=== PATIENT | female | born 1985 | race African-American/Black ===

== ENCOUNTER 2020-03-06 22:45 | Emergency (ER) | payer OTHER ==
[~2020-03-06] VITALS: Ht 157.5 cm; Wt 56.8 kg
[~2020-03-06 22:45] MED LIST: ACYC400T PO; DICL250C PO; DICY20TA3 PO; IBUP-1060 PO; INFL100V IV; OXYC1TAB19 PO; POTA10TA12 PO; PRED20TA PO; REMI100D IV
[2020-03-06] MEDS ORDERED: methylPREDNISolone SOD SUCC PF 125 MG/2 ML VIAL. IM ONE (23:30)
[2020-03-06] MEDS ORDERED: LIDOCAINE 1% PF 5 ML VIAL. INJ ONE (23:30)
--- NOTE | 2020-03-06 23:46 | PHYS DOC ---
Past Medical History Past Medical History: Other Additional Past Medical Histor: chronbrittany tx with remicade Past Surgical History: Other Additional Past Surgical Histo: colostomy with takedown 2010 Smoking Status: Never Smoker Alcohol Use: None Drug Use: None General Adult EDM: Chief Complaint: MULTIPLE COMPLAINTS HPI: HPI: Patient is a 34 year old female with past medical history of Crohn's presents with a chief complaint of Crohn's exacerbation and abscess on her buttocks. Patient states she was previously on prednisone and Percocet for her Crohn's but has not taken them for several weeks. Patient states current exacerbation started 2 days ago. Patient's pain is diffuse. Patient states she has had a decreased appetite. Patient has chronic loose stools which she states are looser than normal. She denies any blood in her stools. Patient also complains of an abscess located in her right buttocks. Patient states she noticed swelling and tenderness today. Review of Systems: Review of Systems: Constitutional: Denies fever or chills. [] Eyes: Denies change in visual acuity. [] HENT: Denies nasal congestion or sore throat. [] Respiratory: Denies cough or shortness of breath. [] Cardiovascular: Denies chest pain or edema. [] GI: Positive abdominal pain : Denies dysuria. [] Musculoskeletal: Denies back pain or joint pain. [] Integument: Denies rash. [Positive abscess] Neurologic: Denies headache, focal weakness or sensory changes. [] Endocrine: Denies polyuria or polydipsia. [] Lymphatic: Denies swollen glands. [] Psychiatric: Denies depression or anxiety. [] Heart Score: Risk Factors: Risk Factors: DM, Current or recent (<one month) smoker, HTN, HLP, family history of CAD, obesity. Risk Scores: Score 0 - 3: 2.5% MACE over next 6 weeks - Discharge Home Score 4 - 6: 20.3% MACE over next 6 weeks - Admit for Clinical Observation Score 7 - 10: 72.7% MACE over next 6 weeks - Early Invasive Strategies Current Medications: Current Medications Medications (Trade) Dose Ordered Sig/Nguyen Start Time Stop Time Status Last Admin Dose Admin Lidocaine HCl (Xylocaine-Mpf 1% 5ml Vial) 5 ml 1X ONCE 03/06/20 23:30 03/06/20 23:31 DC Methylprednisolone Sodium Succinate (SOLU-Medrol 125MG VIAL) 125 mg 1X ONCE 03/06/20 23:30 03/06/20 23:31 DC Allergies: Allergies: Allergies Coded Allergies Type Severity Reaction Last Updated Verified morphine Allergy Intermediate Itching 08/07/19 Yes Physical Exam: PE: Constitutional: Well developed, well nourished, no acute distress, non-toxic appearance. [] HENT: Normocephalic, atraumatic, bilateral external ears normal, oropharynx moist, no oral exudates, nose normal. [] Eyes: PERRLA, EOMI, conjunctiva normal, no discharge. [] Neck: Normal range of motion, no tenderness, supple, no stridor. [] Cardiovascular:Heart rate regular rhythm, no murmur [] Lungs & Thorax: Bilateral breath sounds clear to auscultation [] Abdomen: Bowel sounds normal, soft, no tenderness, no masses, no pulsatile masses. [] Skin: Warm, dry, no erythema, no rash. Abscess located in the right buttock cheek along the crack. This was examined with nursing patient coordinator. Area is firm and fluctuant. Does not appear to involve the rectum] Back: No tenderness, no CVA tenderness. [] Extremities: No tenderness, no cyanosis, no clubbing, ROM intact, no edema. [] Neurologic: Alert and oriented X 3, normal motor function, normal sensory function, no focal deficits noted. [] Psychologic: Affect normal, judgement normal, mood normal. [] Current Patient Data: Vital Signs: Vital Signs Date Time Temp Pulse Resp B/P (MAP) Pulse Ox O2 Delivery O2 Flow Rate FiO2 03/06/20 23:10 98.7 108 22 114/73 (87) 98 Room Air 98.7 EKG: EKG: [] Radiology/Procedures: Radiology/Procedures: [] Course & Med Decision Making: Course & Med Decision Making Pertinent Labs and Imaging studies reviewed. (See chart for details) [] Patient was evaluated for chief complaint. Initial treatment plan was treatment with Solu-Medrol Toradol and tablet of Percocet. Patient was unhappy with this plan states when she comes to the hospital they always perform labs give her IV fluids and do a CAT scan. P.o. Bentyl was prescribed with patient patient declined. Patient requested IV narcotic pain medications on multiple occasions to myself and to nursing. Lab work obtained and reviewed. Patient did have a mildly elevated white blood cell count of 14. Patient's potassium was 3.4. Initially patient was agreeable to an I&D of abscess. When I went into the room to perform the I&D patient states she does not want it at this time and prefers antibiotic treatment only. Rhonda Disclaimer: Rhonda Disclaimer: This electronic medical record was generated, in whole or in part, using a voice recognition dictation system. Departure Departure Impression: Primary Impression: Crohn's disease Additional Impressions: Abdominal pain Abscess Hypokalemia Disposition: HOME, SELF-CARE Referrals: NO PCP (PCP) Patient Instructions: Abdominal Pain, Abscess, Chronic Pain Scripts Amoxicillin/Potassium Clav (AUGMENTIN 875-125 TABLET) 1 Each Tablet 1 TAB PO BID for 7 Days, #14 TAB 0 Refills Prov: LATOYA RICE DO 03/07/20 Justicifation of Admission Dx: Justifications for Admission: Justification of Admission Dx: N/A LATOYA RICE DO Mar 06, 2020 23:46
[2020-03-07] MEDS ORDERED: oxyCODONE/APAP 5/325 1 TAB TABLET PO ONE
[2020-03-07] MEDS ORDERED: KETOROLAC 60 MG/2 ML VIAL. IM ONE
[2020-03-07] MEDS ORDERED: IOHEXOL 300 MG/ML 100ML VIAL. IV ONE (00:45)
[2020-03-07] MEDS ORDERED: CONTRAST GIVEN. MC PRN (00:45)
[2020-03-07 00:55] LABS: BASO # 0.1 x10^3/uL (0.0-0.2); BASO % 0 % (0-3); EOS # 0.1 x10^3/uL (0.0-0.7); EOS % 1 % (0-3); HEMATOCRIT 37.4 % (36.0-47.0); HEMOGLOBIN 11.7 g/dL (12.0-15.5); LYMPH # 2.1 x10^3/uL (1.0-4.8); LYMPH % 15 % (24-48); MEAN CORPUSCULAR HEMOGLOBIN 28 pg (25-35); MEAN CORPUSCULAR HGB CONC 31 g/dL (31-37); MEAN CORPUSCULAR VOLUME 88 fL (79-100); MONO # 1.5 x10^3/uL (0.0-1.1); MONO % 11 % (0-9); NEUT # 10.7 x10^3/uL (1.8-7.7); NEUT % 74 % (31-73); PLATELET COUNT 420 x10^3/uL (140-400); RED BLOOD COUNT 4.24 x10^6/uL (3.50-5.40); RED CELL DISTRIBUTION WIDTH 16.7 % (11.5-14.5); WHITE BLOOD COUNT 14.6 x10^3/uL (4.0-11.0)
[2020-03-07 01:02] LABS: CALCIUM 9.2 mg/dL (8.5-10.1); CREATININE 0.7 mg/dL (0.6-1.0); GFR 117.3; POTASSIUM 3.2 mmol/L (3.5-5.1)
[2020-03-07 01:08] LABS: ALBUMIN 3.2 g/dL (3.4-5.0); ALBUMIN/GLOBULIN RATIO 0.7 (1.0-1.7); TOTAL BILIRUBIN 0.1 mg/dL (0.2-1.0); TOTAL PROTEIN 7.9 g/dL (6.4-8.2)
[2020-03-07 01:28] LABS: BILIRUBIN,URINE NEGATIVE (NEG); CLARITY,URINE CLEAR; COLOR,URINE YELLOW; NITRITE,URINE NEGATIVE (NEG); PROTEIN,URINE NEGATIVE (NEG-TRACE)
[2020-03-07] MEDS ORDERED: KETOROLAC 30 MG/ML VIAL. IVP ONE (01:30)
[2020-03-07 01:34] LABS: SQUAMOUS EPITHELIAL CELL,UR MANY /LPF
[2020-03-07 01:35] LABS: BACTERIA,URINE FEW /HPF (0-FEW); RBC,URINE 0 /HPF (0-2)
[2020-03-07] MEDS: DICYCLOMINE HCL 10 MG CAPSULE PO ONE ×2 (02:10→02:11)
--- NOTE | 2020-03-07 02:56 | RAD ---
PQRS Compliance Statement: One or more of the following individualized dose reduction techniques were utilized for this examination: 1. Automated exposure control 2. Adjustment of the mA and/or kV according to patient size 3. Use of iterative reconstruction technique CT ABD PELV W/ IV CONTRST ONLY Clinical Indication: Reason: abd pain, Comparison: CT abdomen and pelvis with contrast April 03, 2016. Technique: Helical CT imaging of the abdomen and pelvis is performed after 75 cc of Omnipaque 300 IV contrast. Oral contrast not administered. Findings: Lung bases are clear. Respiratory motion artifact. Cardiac size normal. Gallbladder is contracted. Liver, spleen, pancreas, adrenal glands, and abdominal aorta are normal. There is punctate nonobstructing calculus of the left kidney. Kidneys enhance symmetrically, no hydronephrosis. No obvious abnormality of the stomach. There is no evidence of small bowel obstruction. There is wall thickening of the sigmoid, descending, and transverse colon. There are postsurgical changes of bowel redemonstrated. Mesenteric adenopathy is unchanged. Urinary bladder is decompressed. Uterus unremarkable, not well evaluated with CT. No pelvic free fluid is identified. There is induration of the midline posterior right gluteal subcutaneous fat. Small amount of complex fluid is seen subcutaneously measuring 1.9 cm AP by 0.9 cm transverse by 0.9 cm craniocaudal. There is rim enhancement of the complex fluid. No acute bone abnormality. IMPRESSION: 1. There is wall thickening of the colon suggesting colitis, probably inflammatory bowel disease versus infectious. Findings are similar to prior study. 2. Mesenteric adenopathy is unchanged. 3. There is posterior right gluteal subcutaneous fat induration and small abscess. Suggest correlation with physical exam. Electronically signed by: Rocco Springer MD (03/07/2020 2:52 AM) [facility]
[2020-03-07] MEDS ORDERED: AMOX1TAB61 PO (02:59)
[2020-03-07] MEDS ORDERED: PRED20TA PO (03:02)
[2020-03-07] MEDS ORDERED: OXYC1TAB22 PO (03:02)
[2020-03-07 03:20] VITALS: BP 130/79
== END 2020-03-07 03:20 | disposition home or self-care (01) ==
LOC: ER 22:45
DX: K50.90 Crohn's disease, unspecified, without complications (principal); L02.31 Cutaneous abscess of buttock; E87.6 Hypokalemia; K52.9 Noninfective gastroenteritis and colitis, unspecified; D72.829 Elevated white blood cell count, unspecified; Z93.3 Colostomy status; Z88.5 Allergy status to narcotic agent
CPT/HCPCS: 36415; 74177; 80053; 81001; 81025; 85025; 87086; 96372; 96374; 99285; J1885; J2930; Q9967; J3490

== ENCOUNTER 2020-03-13 14:19 | Emergency (ER) | payer OTHER ==
[~2020-03-13] VITALS: Ht 157.5 cm; Wt 56.8 kg
[~2020-03-13 14:19] MED LIST changes: +AMOX1TAB61 PO; +OXYC1TAB22 PO
[2020-03-13] MEDS ORDERED: ONDANSETRON PF 4 MG/2 ML VIAL. IV ONE (15:45)
[2020-03-13] MEDS ORDERED: fentaNYL PF VIAL 100 MCG/2 ML VIAL IV ONE (15:45)
[2020-03-13] MEDS ORDERED: IV NORMAL SALINE 1000ML BAG 1,000 ML IV ONE (15:45)
[2020-03-13 15:59] LABS: BILIRUBIN,URINE NEGATIVE (NEG); CLARITY,URINE CLEAR; COLOR,URINE YELLOW; NITRITE,URINE NEGATIVE (NEG); PROTEIN,URINE NEGATIVE (NEG-TRACE); UROBILINOGEN,URINE 0.2 mg/dL (0.2 mg/dL)
[2020-03-13 16:15] LABS: SQUAMOUS EPITHELIAL CELL,UR MOD /LPF
[2020-03-13 16:17] LABS: BACTERIA,URINE FEW /HPF (0-FEW); RBC,URINE 0 /HPF (0-2)
[2020-03-13] MEDS ORDERED: HYDROmorphone 2 MG/ML VIAL IVP ONE (16:30)
[2020-03-13] MEDS ORDERED: IOHEXOL 300 MG/ML 100ML VIAL. IV ONE (17:00)
[2020-03-13] MEDS ORDERED: CONTRAST GIVEN. MC PRN (17:15)
[2020-03-13 17:37] LABS: BASO % 0 % (0-3); EOS % 0 % (0-3); HEMOGLOBIN 11.8 g/dL (12.0-15.5); LYMPH # 1.7 x10^3/uL (1.0-4.8); LYMPH % 13 % (24-48); MEAN CORPUSCULAR HEMOGLOBIN 28 pg (25-35); MEAN CORPUSCULAR HGB CONC 32 g/dL (31-37); MEAN CORPUSCULAR VOLUME 88 fL (79-100); MONO # 0.5 x10^3/uL (0.0-1.1); MONO % 4 % (0-9); NEUT # 10.3 x10^3/uL (1.8-7.7); NEUT % 82 % (31-73); PLATELET COUNT 463 x10^3/uL (140-400); RED BLOOD COUNT 4.22 x10^6/uL (3.50-5.40); RED CELL DISTRIBUTION WIDTH 15.9 % (11.5-14.5); WHITE BLOOD COUNT 12.5 x10^3/uL (4.0-11.0)
--- NOTE | 2020-03-13 17:44 | RAD ---
CT ABD PELV W/ IV CONTRST ONLY History: Reason: abd pain, LLQ TTP, hx of Crohn's, pancreatitis, recent SBO Technique: After the administration of intravenous contrast, CT imaging was performed of the abdomen and pelvis. Multiplanar images are reviewed. Exposure: One or more of the following individualized dose reduction techniques were utilized for this examination: 1. Automated exposure control 2. Adjustment of the mA and/or kV according to patient size 3. Use of iterative reconstruction technique. Comparison: March 07, 2020 Findings: Lower chest: No consolidation or pleural effusion. Abdomen and pelvis: The liver, spleen, adrenal glands, and gallbladder are unremarkable. Tiny nonobstructing left renal calculus. No hydronephrosis. Unremarkable appearance of the pancreas. No biliary ductal dilatation. Patent portal veins. Postoperative changes partial colectomy with additional postoperative changes of the small bowel. Distal colonic and rectal wall thickening, decreased compared to prior. Decreased adjacent inflammatory changes. No evidence of intra-abdominal abscess. No evidence of bowel obstruction. Increased small bowel wall thickening within the right mid abdomen (series 2 image 48). This is just proximal to one of the small bowel anastomoses. Unchanged mesenteric lymphadenopathy. No ascites. Unremarkable uterus and ovaries. Result previously seen right gluteal subcutaneous abscess. Bones: No pathologic osseous lesions. Impression: 1. Increased focal small bowel wall thickening, may relate to known inflammatory bowel disease. 2. Decreased distal colonic and rectal wall thickening previously seen. 3. Tiny nonobstructing left intrarenal calculus. Electronically signed by: Julio César Pagan DO (03/13/2020 5:41 PM) [facility]
[2020-03-13 17:45] LABS: CALCIUM 8.8 mg/dL (8.5-10.1); CREATININE 0.5 mg/dL (0.6-1.0); POTASSIUM 3.7 mmol/L (3.5-5.1)
[2020-03-13 17:51] LABS: ALBUMIN 3.3 g/dL (3.4-5.0); ALBUMIN/GLOBULIN RATIO 0.8 (1.0-1.7); TOTAL BILIRUBIN 0.1 mg/dL (0.2-1.0); TOTAL PROTEIN 7.5 g/dL (6.4-8.2)
[2020-03-13 18:00] VITALS: BP 135/80
[2020-03-13] MEDS ORDERED: oxyCODONE/APAP 5/325 1 TAB TABLET PO ONE (18:30)
[2020-03-13] MEDS ORDERED: OXYC1TAB15 PO (18:37)
[2020-03-13] MEDS ORDERED: DICY10CA3 PO (18:37)
[2020-03-13] MEDS ORDERED: PRED50TA PO (18:37)
--- NOTE | 2020-03-13 18:38 | PHYS DOC ---
Past Medical History Past Medical History: Other Additional Past Medical Histor: chrones tx with remicade (TOÑITO RAMACHANDRAN APRN) Past Surgical History: Other Additional Past Surgical Histo: colostomy with takedown 2011 (TOÑITO RAMACHANDRAN APRN) Smoking Status: Never Smoker Alcohol Use: None Drug Use: None (TOÑITO RAMACHANDRAN APRN) General Adult EDM: Chief Complaint: PAIN CONTROL HPI: HPI: Patient is a 34 year old AA female who presents to the emergency department with complaints of diarrhea and abdominal cramping for the last 2 days. Patient reports a history of Crohn's disease. She denies any blood in her diarrhea., She states that her diarrhea has been watery. She denies any nausea, vomiting, fever, cough, sore throat, body aches, chills, dysuria, hematuria, or increased urinary frequency. Patient complains of some low back pain and generalized fatigue. She currently rates her discomfort a 7 out of 10 on the pain scale, she denies any alleviating or exacerbating factors patient states she does not currently have a administration clerk. (TOÑITO RAMACHANDRAN APRN) Review of Systems: Review of Systems: Constitutional: Denies fever or chills. [] Eyes: Denies change in visual acuity. [] HENT: Denies nasal congestion or sore throat. [] Respiratory: Denies cough or shortness of breath. [] Cardiovascular: Denies chest pain or edema. [] GI: See HPI : Denies dysuria. [] Musculoskeletal: See HPI Integument: Denies rash. [] Neurologic: Denies headache Lymphatic: Denies swollen glands. [] Psychiatric: Denies depression or anxiety. [] (TOÑITO RAMACHANDRAN APRN) Heart Score: Risk Factors: Risk Factors: DM, Current or recent (<one month) smoker, HTN, HLP, family history of CAD, obesity. Risk Scores: Score 0 - 3: 2.5% MACE over next 6 weeks - Discharge Home Score 4 - 6: 20.3% MACE over next 6 weeks - Admit for Clinical Observation Score 7 - 10: 72.7% MACE over next 6 weeks - Early Invasive Strategies (TOÑITO RAMACHANDRAN APRN) Current Medications: Current Medications Medications (Trade) Dose Ordered Sig/Nguyen Start Time Stop Time Status Last Admin Dose Admin Fentanyl Citrate (Fentanyl 2ml Vial) 50 mcg 1X ONCE 03/13/20 15:45 03/13/20 15:46 DC 03/13/20 16:03 50 MCG Hydromorphone HCl (Dilaudid) 1 mg 1X ONCE 03/13/20 16:30 03/13/20 16:31 DC 03/13/20 16:52 1 MG Info (CONTRAST GIVEN -- Rx MONITORING) 1 each PRN DAILY PRN 03/13/20 17:15 03/15/20 17:14 Iohexol (Omnipaque 300 Mg/ml) 75 ml 1X ONCE 03/13/20 17:00 03/13/20 17:01 DC 03/13/20 17:15 75 ML Ondansetron HCl (Zofran) 4 mg 1X ONCE 03/13/20 15:45 03/13/20 15:46 DC 03/13/20 16:03 4 MG Oxycodone/ Acetaminophen (Percocet 5/325) 1 tab 1X ONCE 03/13/20 18:30 03/13/20 18:31 UNV Sodium Chloride 1,000 ml @ 1,000 mls/hr 1X ONCE 03/13/20 15:45 03/13/20 16:44 DC 03/13/20 15:45 1,000 MLS/HR (TOÑITO RAMACHANDRAN APRN) Allergies: Allergies: Allergies Coded Allergies Type Severity Reaction Last Updated Verified morphine Allergy Intermediate Itching 08/07/19 Yes (TOÑITO RAMACHANDRAN APRN) Physical Exam: PE: Constitutional: Well developed, well nourished, no acute distress, non-toxic appearance, appears uncomfortable. [] HENT: Normocephalic, atraumatic, bilateral external ears normal, nose normal. [] Eyes: PERRLA, EOMI, conjunctiva normal, no discharge. [] Neck: Normal range of motion, no stridor. [] Cardiovascular:Heart rate regular rhythm, no murmur [] Lungs & Thorax: Bilateral breath sounds clear to auscultation, respirations even and unlabored, no retractions, no respiratory distress [] Abdomen: Bowel sounds normal, soft, lower abdominal TTP, no rebound tenderness, no masses, no pulsatile masses. [] Skin: Warm, dry, no erythema, no rash. [] Back: No CVA tenderness. [] Extremities: No cyanosis, ROM intact, no edema. [] Neurologic: Alert and oriented X 3, no focal deficits noted. [] Psychologic: Affect normal, judgement normal, mood normal. [] (TOÑITO RAMACHANDRAN APRN) Current Patient Data: Labs: Laboratory Tests Test 03/13/20 12:45 03/13/20 15:22 03/13/20 17:20 Urine Collection Type Unknown Urine Color Yellow Urine Clarity Clear Urine pH 6.0 (<5.0-8.0) Urine Specific [place] 1.015 (1.000-1.030) Urine Protein Negative mg/dL (NEG-TRACE) Urine Glucose (UA) Negative mg/dL (NEG) Urine Ketones (Stick) Negative mg/dL (NEG) Urine Blood Trace (NEG) Urine Nitrite Negative (NEG) Urine Bilirubin Negative (NEG) Urine Urobilinogen Dipstick 0.2 mg/dL (0.2 mg/dL) Urine Leukocyte Esterase Negative (NEG) Urine RBC 0 /HPF (0-2) Urine WBC 1-4 /HPF (0-4) Urine Squamous Epithelial Cells Mod /LPF Urine Bacteria Few /HPF (0-FEW) Urine Mucus Mod /LPF POC Urine HCG, Qualitative Hcg negative (Negative) White Blood Count 12.5 x10^3/uL (4.0-11.0) H Red Blood Count 4.22 x10^6/uL (3.50-5.40) Hemoglobin 11.8 g/dL (12.0-15.5) L Hematocrit 37.0 % (36.0-47.0) Mean Corpuscular Volume 88 fL (79-100) Mean Corpuscular Hemoglobin 28 pg (25-35) Mean Corpuscular Hemoglobin Concent 32 g/dL (31-37) Red Cell Distribution Width 15.9 % (11.5-14.5) H Platelet Count 463 x10^3/uL (140-400) H Neutrophils (%) (Auto) 82 % (31-73) H Lymphocytes (%) (Auto) 13 % (24-48) L Monocytes (%) (Auto) 4 % (0-9) Eosinophils (%) (Auto) 0 % (0-3) Basophils (%) (Auto) 0 % (0-3) Neutrophils # (Auto) 10.3 x10^3/uL (1.8-7.7) H Lymphocytes # (Auto) 1.7 x10^3/uL (1.0-4.8) Monocytes # (Auto) 0.5 x10^3/uL (0.0-1.1) Eosinophils # (Auto) 0.0 x10^3/uL (0.0-0.7) Basophils # (Auto) 0.0 x10^3/uL (0.0-0.2) Sodium Level 136 mmol/L (136-145) Potassium Level 3.7 mmol/L (3.5-5.1) Chloride Level 101 mmol/L (98-107) Carbon Dioxide Level 29 mmol/L (21-32) Anion Gap 6 (6-14) Blood Urea Nitrogen 16 mg/dL (7-20) Creatinine 0.5 mg/dL (0.6-1.0) L Estimated GFR (Cockcroft-Gault) 173.0 BUN/Creatinine Ratio 32 (6-20) H Glucose Level 93 mg/dL (70-99) Calcium Level 8.8 mg/dL (8.5-10.1) Magnesium Level 2.0 mg/dL (1.8-2.4) Total Bilirubin 0.1 mg/dL (0.2-1.0) L Aspartate Amino Transferase (AST) 6 U/L (15-37) L Alanine Aminotransferase (ALT) 19 U/L (14-59) Alkaline Phosphatase 77 U/L (46-116) Total Protein 7.5 g/dL (6.4-8.2) Albumin 3.3 g/dL (3.4-5.0) L Albumin/Globulin Ratio 0.8 (1.0-1.7) L Lipase 111 U/L (73-393) Laboratory Tests 03/13/20 17:20 Laboratory Tests 03/13/20 17:20 Vital Signs: Vital Signs Date Time Temp Pulse Resp B/P (MAP) Pulse Ox O2 Delivery O2 Flow Rate FiO2 03/13/20 18:00 92 99 03/13/20 15:05 98.7 18 131/79 (96) Room Air 98.7 (TOÑITO RAMACHANDRAN APRN) EKG: EKG: [] (TOÑITO RAMACHANDRAN APRN) Radiology/Procedures: Radiology/Procedures: PROCEDURE: CT ABD PELV W/ IV CONTRST ONLY CT ABD PELV W/ IV CONTRST ONLY History: Reason: abd pain, LLQ TTP, hx of Crohn's, pancreatitis, recent SBO Technique: After the administration of intravenous contrast, CT imaging was performed of the abdomen and pelvis. Multiplanar images are reviewed. Exposure: One or more of the following individualized dose reduction techniques were utilized for this examination: 1. Automated exposure control 2. Adjustment of the mA and/or kV according to patient size 3. Use of iterative reconstruction technique. Comparison: March 07, 2020 Findings: Lower chest: No consolidation or pleural effusion. Abdomen and pelvis: The liver, spleen, adrenal glands, and gallbladder are unremarkable. Tiny nonobstructing left renal calculus. No hydronephrosis. Unremarkable appearance of the pancreas. No biliary ductal dilatation. Patent portal veins. Postoperative changes partial colectomy with additional postoperative changes of the small bowel. Distal colonic and rectal wall thickening, decreased compared to prior. Decreased adjacent inflammatory changes. No evidence of intra-abdominal abscess. No evidence of bowel obstruction. Increased small bowel wall thickening within the right mid abdomen (series 2 image 48). This is just proximal to one of the small bowel anastomoses. Unchanged mesenteric lymphadenopathy. No ascites. Unremarkable uterus and ovaries. Result previously seen right gluteal subcutaneous abscess. Bones: No pathologic osseous lesions. Impression: 1. Increased focal small bowel wall thickening, may relate to known inflammatory bowel disease. 2. Decreased distal colonic and rectal wall thickening previously seen. 3. Tiny nonobstructing left intrarenal calculus. [] (TOÑITO RAMACHANDRAN APRN) Course & Med Decision Making: Course & Med Decision Making Pertinent Labs and Imaging studies reviewed. (See chart for details) [] (TOÑITO RAMACHANDRAN APRN) Dragon Disclaimer: Dragon Disclaimer: This electronic medical record was generated, in whole or in part, using a voice recognition dictation system. (TOÑITO RAMACHANDRAN APRN) Departure Departure Impression: Primary Impression: Crohn's disease Qualified Codes: K50.00 - Crohn's disease of small intestine without complications Additional Impression: Abdominal pain Qualified Codes: R10.30 - Lower abdominal pain, unspecified Disposition: HOME, SELF-CARE Condition: STABLE Referrals: CÉSAR CARVALHO MD Patient Instructions: Crohn's Disease Additional Instructions: Fill prescriptions and use them as directed. Diet as tolerated. Follow-up with Dr. Carvalho or your primary care doctor for further evaluation and treatment, return to the emergency room if your symptoms worsen. Scripts Oxycodone Hcl/Acetaminophen (ENDOCET 10-325 MG TABLET) 1 Each Tablet 1 TAB PO PRN TID PRN for pain MDD 3 Tablet(s) for 3 Days, #10 TAB 0 Refills Prov: TOÑITO RAMACHANDRAN APRN 03/13/20 Dicyclomine Hcl (DICYCLOMINE HCL) 10 Mg Capsule 1 CAP PO TID PRN for PAIN, #10 CAP 0 Refills Prov: TOÑITO RAMACHANDRAN APRN 03/13/20 Prednisone (PREDNISONE) 50 Mg Tablet 1 TAB PO DAILY for 5 Days, #5 TAB 0 Refills Prov: TOÑITO RAMACHANDRAN APRN 03/13/20 Justicifation of Admission Dx: Justifications for Admission: Justification of Admission Dx: N/A (TOÑITO RAMACHANDRAN APRN) Attending Signature Attending Signature I have reviewed the PA/INDUSTRIAL EQUIPMENT WIRER's note and plan of care. I was available for consultation as needed during the patient's visit in the emergency department. I agree with the clinical impression, plan, and disposition. (CÉSAR MONROE DO) TOÑITO RAMACHANDRAN APRN Mar 13, 2020 18:38 CÉSAR MONROE DO Mar 14, 2020 16:55
[2020-03-13] MEDS ORDERED: OXYC-317 PO (19:13)
== END 2020-03-13 19:06 | disposition home or self-care (01) ==
LOC: ER 14:19
DX: K50.00 Crohn's disease of small intestine without complications (principal); R10.32 Left lower quadrant pain; R19.7 Diarrhea, unspecified; M54.5 Low back pain; Z88.6 Allergy status to analgesic agent; Z90.89 Acquired absence of other organs; Z98.890 Other specified postprocedural states
CPT/HCPCS: 36415; 74177; 80053; 81001; 81025; 83690; 83735; 85025; 96361; 96374; 96375; 99285; J1170; J2405; J3010; J7030; Q9967

== ENCOUNTER 2020-03-22 10:30 | Emergency (ER) | payer OTHER ==
[~2020-03-22] VITALS: Ht 157.5 cm; Wt 58.0 kg
[~2020-03-22 10:30] MED LIST changes: +DICY10CA3 PO; +OXYC-317 PO; +OXYC1TAB15 PO; +PRED50TA PO
[2020-03-22] MEDS ORDERED: ONDANSETRON PF 4 MG/2 ML VIAL. IVP ONE (11:00)
--- NOTE | 2020-03-22 11:02 | PHYS DOC ---
Past Medical History Past Medical History: Other Additional Past Medical Histor: son tx with remicade Past Surgical History: Other Additional Past Surgical Histo: colostomy with takedown 2010 Smoking Status: Never Smoker Alcohol Use: None Drug Use: None General Adult EDM: Chief Complaint: ABDOMINAL PAIN HPI: HPI: 34-year-old female with significant history of Crohn's disease s/p ?small bowel resection & ostomy with reversal, p/w ongoing/recurrent mid abdominal pain, dull and colicky. Associated with multiple episodes of nonbloody diarrhea. No nausea, vomiting, hematochezia, melena. The patient was seen last week for similar symptoms, CT abdomen/pelvis revealing thickened small bowel, consistent with inflammatory bowel disease. Discharged on both medications including prednisone, with mild efficacy. Has not yet established care with a customer engagement manager. Review of Systems: Review of Systems: Gen: No fever, chills. Eyes: No blurred vision, diplopia. ENT: No nasal congestion, sore throat. CV: No CP, palpitations. Resp. No SOB, cough. GI: No N/V. Reports mid abdominal pain, diarrhea. : No dysuria, hematuria. Neuro: No RILEY, dizziness, weakness. MSK: No myalgia, arthralgia, back pain. Skin: No acute rash or lesion. Heart Score: Risk Factors: Risk Factors: DM, Current or recent (<one month) smoker, HTN, HLP, family his tory of CAD, obesity. Risk Scores: Score 0 - 3: 2.5% MACE over next 6 weeks - Discharge Home Score 4 - 6: 20.3% MACE over next 6 weeks - Admit for Clinical Observation Score 7 - 10: 72.7% MACE over next 6 weeks - Early Invasive Strategies Allergies: Allergies: Allergies Coded Allergies Type Severity Reaction Last Updated Verified morphine Allergy Intermediate Itching 08/07/19 Yes Physical Exam: PE: Gen: NAD. Well nourished. Head: NC/AT. Eyes: No scleral icterus. No conjunctival injection. ENT: MMM. Posterior OP clear. Neck: Supple. CV: RRR. Peripheral pulses intact. Resp: CTAB. Abd: Soft. Nondistended. Old midline surgical scar. Mild nonfocal tenderness without rebound, guarding, rigidity. MSK: No peripheral cyanosis. No edema. Neuro: Awake and alert. Skin. Warm. Dry. Psych: Appropriate mood & affect. Current Patient Data: Labs: Laboratory Tests Test 03/22/20 11:04 03/22/20 11:15 Bedside Urine HCG, Qualitative Hcg negative (Negative) White Blood Count 11.0 x10^3/uL (4.0-11.0) Red Blood Count 4.23 x10^6/uL (3.50-5.40) Hemoglobin 11.8 g/dL (12.0-15.5) Hematocrit 36.5 % (36.0-47.0) Mean Corpuscular Volume 86 fL (79-100) Mean Corpuscular Hemoglobin 28 pg (25-35) Mean Corpuscular Hemoglobin Concent 32 g/dL (31-37) Red Cell Distribution Width 15.6 % (11.5-14.5) Platelet Count 366 x10^3/uL (140-400) Neutrophils (%) (Auto) 78 % (31-73) Lymphocytes (%) (Auto) 13 % (24-48) Monocytes (%) (Auto) 8 % (0-9) Eosinophils (%) (Auto) 1 % (0-3) Basophils (%) (Auto) 1 % (0-3) Neutrophils # (Auto) 8.5 x10^3/uL (1.8-7.7) Lymphocytes # (Auto) 1.5 x10^3/uL (1.0-4.8) Monocytes # (Auto) 0.8 x10^3/uL (0.0-1.1) Eosinophils # (Auto) 0.1 x10^3/uL (0.0-0.7) Basophils # (Auto) 0.1 x10^3/uL (0.0-0.2) Sodium Level 141 mmol/L (136-145) Chloride Level 103 mmol/L (98-107) Carbon Dioxide Level 26 mmol/L (21-32) Anion Gap 12 (6-14) Blood Urea Nitrogen 15 mg/dL (7-20) Estimated GFR (Cockcroft-Gault) 117.3 BUN/Creatinine Ratio 21 (6-20) Glucose Level 89 mg/dL (70-99) Calcium Level 9.5 mg/dL (8.5-10.1) Total Bilirubin 0.1 mg/dL (0.2-1.0) Aspartate Amino Transf (AST/SGOT) 16 U/L (15-37) Alkaline Phosphatase 89 U/L (46-116) Total Protein 8.3 g/dL (6.4-8.2) Albumin 3.6 g/dL (3.4-5.0) Albumin/Globulin Ratio 0.8 (1.0-1.7) Lipase 89 U/L (73-393) EKG: EKG: [] Radiology/Procedures: Radiology/Procedures: Acute Abdominal Series: 03/22/2020 10:56 AM Reason for study: Abdominal pain and diarrhea Comparison studies: None. Technique: Frontal view of the chest was obtained along with supine and upright views of the abdomen. Findings: Nonobstructive bowel gas pattern. No air fluid levels or free air. Suture material is identified in left upper quadrant abdomen. Prominent bowel loops in the central upper abdomen most favor colonic bowel loops which are nondilated. The lungs are clear without acute consolidative opacity. No pleural effusion or pneumothorax. The cardiac and mediastinal contours are normal. Visualized osseous structures are intact. IMPRESSION: 1. Nonobstructed bowel gas pattern. If there is persistent clinical concern, further evaluation with CT abdomen/pelvis with contrast may be of benefit. 2. No acute cardiopulmonary findings. Electronically signed by: Nancy Hankins MD (03/22/2020 11:59 AM) [id number] Course & Med Decision Making: Course & Med Decision Making Pertinent Labs and Imaging studies reviewed. (See chart for details) In summary, 34F with Crohn's p/w ongoing abd pain, diarrhea - nonbloody. HDS. Benign exam. CTAP last week with thickened small bowel. AXR here unrevealing. Labs unremarkable as well. Repeat exam remains benign. Will DC home with outpatient GI F/U. Rx norco, zofran. Already on bentyl. Return precautions given. Rhonda Disclaimer: Rhonda Disclaimer: This electronic medical record was generated, in whole or in part, using a voice recognition dictation system. Departure Departure Impression: Primary Impression: Abdominal pain Additional Impression: Crohn's disease Disposition: HOME, SELF-CARE Condition: STABLE Referrals: NO PCP (PCP) Patient Instructions: Crohn's Disease Scripts Ondansetron (ONDANSETRON ODT) 4 Mg Tab.rapdis 1 TAB PO PRN Q6-8HRS, #16 TAB Prov: DEVONSTANFORD Enciso DO 03/22/20 Hydrocodone/Apap 5-325 (NORCO 5-325 TABLET) 1 Each Tablet 1 TAB PO PRN Q8HRS PRN for PAIN, #12 TAB 0 Refills Prov: STANFORD OSORIO DO 03/22/20 Methylprednisolone (MEDROL) 4 Mg Tab.ds.pk 1 PKG PO UD for inflammation, #1 PKG Prov: STANFORD OSORIO DO 03/22/20 Justicifation of Admission Dx: Justifications for Admission: Justification of Admission Dx: N/A DEVONSTANFORD Enciso DO Mar 22, 2020 11:02
[2020-03-22 11:28] LABS: BASO # 0.1 x10^3/uL (0.0-0.2); BASO % 1 % (0-3); EOS # 0.1 x10^3/uL (0.0-0.7); EOS % 1 % (0-3); HEMATOCRIT 36.5 % (36.0-47.0); HEMOGLOBIN 11.8 g/dL (12.0-15.5); LYMPH # 1.5 x10^3/uL (1.0-4.8); LYMPH % 13 % (24-48); MEAN CORPUSCULAR HEMOGLOBIN 28 pg (25-35); MEAN CORPUSCULAR HGB CONC 32 g/dL (31-37); MEAN CORPUSCULAR VOLUME 86 fL (79-100); MONO # 0.8 x10^3/uL (0.0-1.1); MONO % 8 % (0-9); NEUT # 8.5 x10^3/uL (1.8-7.7); NEUT % 78 % (31-73); PLATELET COUNT 366 x10^3/uL (140-400); RED BLOOD COUNT 4.23 x10^6/uL (3.50-5.40); RED CELL DISTRIBUTION WIDTH 15.6 % (11.5-14.5)
[2020-03-22 11:46] LABS: CALCIUM 9.5 mg/dL (8.5-10.1); CREATININE 0.7 mg/dL (0.6-1.0); GFR 117.3; POTASSIUM 3.4 mmol/L (3.5-5.1)
[2020-03-22 11:52] LABS: ALBUMIN 3.6 g/dL (3.4-5.0); ALBUMIN/GLOBULIN RATIO 0.8 (1.0-1.7); MAGNESIUM 2.2 mg/dL (1.8-2.4); TOTAL BILIRUBIN 0.1 mg/dL (0.2-1.0); TOTAL PROTEIN 8.3 g/dL (6.4-8.2)
--- NOTE | 2020-03-22 12:02 | RAD ---
Acute Abdominal Series: 03/22/2020 10:56 AM Reason for study: Abdominal pain and diarrhea Comparison studies: None. Technique: Frontal view of the chest was obtained along with supine and upright views of the abdomen. Findings: Nonobstructive bowel gas pattern. No air fluid levels or free air. Suture material is identified in left upper quadrant abdomen. Prominent bowel loops in the central upper abdomen most favor colonic bowel loops which are nondilated. The lungs are clear without acute consolidative opacity. No pleural effusion or pneumothorax. The cardiac and mediastinal contours are normal. Visualized osseous structures are intact. IMPRESSION: 1. Nonobstructed bowel gas pattern. If there is persistent clinical concern, further evaluation with CT abdomen/pelvis with contrast may be of benefit. 2. No acute cardiopulmonary findings. Electronically signed by: Nancy Hankins MD (03/22/2020 11:59 AM) [id number]
[2020-03-22 12:30] VITALS: BP 106/73
[2020-03-22] MEDS ORDERED: fentaNYL PF VIAL 100 MCG/2 ML VIAL IVP ONE (12:30)
[2020-03-22] MEDS ORDERED: ONDA4TAB12 PO (12:37)
[2020-03-22] MEDS ORDERED: METH4TAB2 PO (12:37)
[2020-03-22] MEDS ORDERED: HYDR-3164 PO (12:37)
== END 2020-03-22 12:55 | disposition home or self-care (01) ==
LOC: ER 10:30
DX: R10.30 Lower abdominal pain, unspecified (principal); R19.7 Diarrhea, unspecified; Z88.6 Allergy status to analgesic agent; Z90.89 Acquired absence of other organs; Z98.890 Other specified postprocedural states
CPT/HCPCS: 36415; 74022; 80053; 81025; 83690; 83735; 85025; 96374; 99284; J3010

== ENCOUNTER 2020-04-01 17:21 | Inpatient (IN) | payer OTHER ==
[~2020-04-01] VITALS: Ht 157.5 cm; Wt 56.8 kg
[~2020-04-01 17:21] MED LIST changes: +HYDR-3164 PO; +METH4TAB2 PO; +ONDA4TAB12 PO
[2020-04-01] MEDS ORDERED: IV NORMAL SALINE 1000ML BAG 1,000 ML IV SCH (18:59)
--- NOTE | 2020-04-01 19:01 | PHYS DOC ---
Past Medical History Past Medical History: Other Additional Past Medical Histor: Crohn's tx with remicade Past Surgical History: Other Additional Past Surgical Histo: colostomy with takedown 2010 Smoking Status: Never Smoker Alcohol Use: None Drug Use: None General Adult EDM: Chief Complaint: ABDOMINAL PAIN HPI: HPI: Patient is a 34 year old female who presents with chronic abdominal pain g eneralized every time she eats. She states it feels like there is a fist or twisting inside. Patient rates her aching, twisting pain a 7 out of 10. She states is been very nauseated she does not think she has been eating as much lately is probably losing weight. She states that a couple weeks ago she saw a GI doctor but could not give me the name. She states that she does not know what kind of follow-up and she supposed to get on different medications for her Crohn's disease but states she "does not know much about that either". She states has been here many times with the same complaint. Review of Systems: Review of Systems: Constitutional: Denies fever or chills. [] Eyes: Denies change in visual acuity. [] HENT: Denies nasal congestion or sore throat. [] Respiratory: Denies cough or shortness of breath. [] Cardiovascular: Denies chest pain or edema. [] GI: + abdominal pain, +nausea, denies vomiting, bloody stools. + diarrhea. [] : Denies dysuria. [] Musculoskeletal: Denies back pain or joint pain. [] Integument: Denies rash. [] Neurologic: Denies headache, focal weakness or sensory changes. [] Endocrine: Denies polyuria or polydipsia. [] Lymphatic: Denies swollen glands. [] Psychiatric: Denies depression or anxiety. [] Heart Score: Risk Factors: Risk Factors: DM, Current or recent (<one month) smoker, HTN, HLP, family history of CAD, obesity. Risk Scores: Score 0 - 3: 2.5% MACE over next 6 weeks - Discharge Home Score 4 - 6: 20.3% MACE over next 6 weeks - Admit for Clinical Observation Score 7 - 10: 72.7% MACE over next 6 weeks - Early Invasive Strategies Allergies: Allergies: Allergies Coded Allergies Type Severity Reaction Last Updated Verified morphine Allergy Intermediate Itching 08/07/19 Yes Physical Exam: PE: Constitutional: Well developed, well nourished, no acute distress, non-toxic appearance. [] HENT: Normocephalic, atraumatic, bilateral external ears normal, oropharynx moist, no oral exudates, nose normal. [] Eyes: PERRLA, EOMI, conjunctiva normal, no discharge. [] Neck: Normal range of motion, no tenderness, supple, no stridor. [] Cardiovascular:Heart rate regular rhythm, no murmur [] Lungs & Thorax: Bilateral breath sounds clear to auscultation [] Abdomen: Bowel sounds normal, soft, left lower quadrant tenderness, no masses, no pulsatile masses. [] Skin: Warm, dry, no erythema, no rash. [] Back: No tenderness, no CVA tenderness. [] Extremities: No tenderness, no cyanosis, no clubbing, ROM intact, no edema. [] Neurologic: Alert and oriented X 3, normal motor function, normal sensory function, no focal deficits noted. [] Psychologic: Affect normal, judgement normal, mood normal. [] Current Patient Data: Vital Signs: Vital Signs Date Time Temp Pulse Resp B/P (MAP) Pulse Ox O2 Delivery O2 Flow Rate FiO2 04/01/20 18:36 98.0 125 18 106/77 (87) 98 Room Air 98.0 EKG: EKG: [] Radiology/Procedures: Radiology/Procedures: [] Impression: [facility] [address] [place], [place] [id number] IMAGING REPORT Signed PATIENT: JEANNETTE VALENTIN ACCOUNT: [id number] : 1985 LOCATION: ER AGE: 34 SEX: F EXAM STATUS: REG ER ORD. PHYSICIAN: ELIDA KEMP [employer]ARD [employer] HAND ENGRAVER REASON: increased pain, OMNI 300, 75 ML IV PROCEDURE: CT ABD PELV W/ IV CONTRST ONLY EXAM: CT Abdomen and Pelvis with IV contrast INDICATION: Reason: increased pain, OMNI 300, 75 ML IV / Spl. Instructions: / History: TECHNIQUE: Multi-detector row CT images were acquired from the lung bases through the abdomen and pelvis with the use of IV contrast. Sagittal and coronal images were acquired from the transaxial data. All CT scans performed at this facility utilize dose optimization techniques as appropriate to the exam, including the following: Automated exposure control and adjustment of the mA and/or KV according to patient size (this includes techniques or standardized protocols for targeted exams where dose is indication/reason for exam). IV CONTRAST: Administered ORAL CONTRAST: Not administered COMPARISON: Abdomen pelvis CT with IV contrast 03/13/2020 FINDINGS: LOWER CHEST: Unremarkable LIVER: Unremarkable BILIARY SYSTEM: Gallbladder is unremarkable. Bile ducts are not dilated. PANCREAS: Unremarkable SPLEEN: Unremarkable ADRENALS: Unremarkable KIDNEYS & URETERS: Unremarkable BLADDER: Unremarkable REPRODUCTIVE ORGANS: Unremarkable GASTROINTESTINAL: There is evidence of previous bowel surgery, including partial colectomy.. Since the previous examination, mucosal hyperemia has become more apparent in several segmental loops of gas and fluid-filled bowel loops but there persists varying areas of stricturing and patulousness of the bowel loops, such as in the distal descending colon. There is no evidence of bowel perforation. No evidence of high-grade bowel obstruction. Low-grade bowel obstruction difficult to exclude given the appearance of collapsed small bowel loops and findings suggesting evidence of stricturing. MESENTERY/PERITONEUM/RETROPERITONEUM: Unremarkable VASCULAR: Unremarkable LYMPH NODES: No adenopathy OSSEOUS & SOFT TISSUES: Unremarkable IMPRESSION: CT findings consistent with an acute flare of inflammatory bowel disease, possibly Crohn's disease. No bowel perforation or abscess formation. Electronically signed by: Maria Mcnair MD (04/01/2020 9:03 PM) [facility] [place] DICTATED and SIGNED BY: MARIA MCNAIR MD DATE: 04/01/202102 Course & Med Decision Making: Course & Med Decision Making Pertinent Labs and Imaging studies reviewed. (See chart for details) See HPI. Patient states she continues to have diarrhea. This is chronic also. She denies any blood in her stools. Abdomen is soft but tender to left lower quadrant. Alert and oriented x4. Speaks in full complete sentences. Skin pink warm and dry. Ambulatory with a steady gait. Patient is tachycardic. Patient denies chest pain, shortness of air, vomiting, dizziness, LOC, vision changes, numbness or tingling, focal weakness. Patient is admitted for a Crohn's exacerbation. Dr. Cadet told me to give 125mg of Solu-Medrol IV. I will also consult surgery. [] Rhonda Disclaimer: Dragon Disclaimer: This electronic medical record was generated, in whole or in part, using a voice recognition dictation system. Departure Departure Impression: Primary Impression: Exacerbation of Crohn's disease Qualified Codes: K50.90 - Crohn's disease, unspecified, without complications Disposition: ADMITTED INPATIENT Admitting Physician: CHAYITO Condition: STABLE Referrals: NO PCP (PCP) ELIDA KEMP APRN Apr 01, 2020 19:01
[2020-04-01 19:08] LABS: BILIRUBIN,URINE SMALL (NEG); CLARITY,URINE CLEAR; COLOR,URINE AMBER; NITRITE,URINE NEGATIVE (NEG); PROTEIN,URINE 30 mg/dL (NEG-TRACE)
[2020-04-01 19:16] LABS: BACTERIA,URINE FEW /HPF (0-FEW); RBC,URINE 0 /HPF (0-2); WBC,URINE RARE /HPF (0-4)
[2020-04-01] MEDS ORDERED: fentaNYL PF VIAL 100 MCG/2 ML VIAL IVP ONE ×2 (19:30→21:15)
[2020-04-01] MEDS ORDERED: IOHEXOL 300 MG/ML 100ML VIAL. IV ONE (20:00)
[2020-04-01] MEDS ORDERED: CONTRAST GIVEN. MC PRN (20:00)
[2020-04-01 20:07] LABS: BASO # 0.1 x10^3/uL (0.0-0.2); BASO % 1 % (0-3); EOS # 0.1 x10^3/uL (0.0-0.7); EOS % 1 % (0-3); HEMATOCRIT 43.1 % (36.0-47.0); HEMOGLOBIN 13.9 g/dL (12.0-15.5); LYMPH # 2.2 x10^3/uL (1.0-4.8); LYMPH % 19 % (24-48); MEAN CORPUSCULAR HEMOGLOBIN 28 pg (25-35); MEAN CORPUSCULAR HGB CONC 32 g/dL (31-37); MEAN CORPUSCULAR VOLUME 86 fL (79-100); MONO # 1.1 x10^3/uL (0.0-1.1); MONO % 9 % (0-9); NEUT # 7.9 x10^3/uL (1.8-7.7); NEUT % 70 % (31-73); PLATELET COUNT 474 x10^3/uL (140-400); RED BLOOD COUNT 4.99 x10^6/uL (3.50-5.40); RED CELL DISTRIBUTION WIDTH 15.4 % (11.5-14.5); WHITE BLOOD COUNT 11.3 x10^3/uL (4.0-11.0)
[2020-04-01 20:19] LABS: CALCIUM 9.9 mg/dL (8.5-10.1); CREATININE 0.7 mg/dL (0.6-1.0); GFR 117.3; POTASSIUM 3.4 mmol/L (3.5-5.1)
[2020-04-01 20:25] LABS: ALBUMIN 3.4 g/dL (3.4-5.0); ALBUMIN/GLOBULIN RATIO 0.6 (1.0-1.7); TOTAL BILIRUBIN 0.1 mg/dL (0.2-1.0); TOTAL PROTEIN 8.9 g/dL (6.4-8.2)
[2020-04-01 20:32] LABS: BARBITURATES NEG (NEG); BENZODIAZEPINES NEG (NEG); CANNABINOIDS NEG (NEG); COCAINE NEG (NEG); METHADONE NEG (NEG); OPIATES NEG (NEG); PHENCYCLIDINE NEG (NEG)
[2020-04-01 20:33] LABS: AMPHETAMINE/METHAMPHETAMINE NEG (NEG)
--- NOTE | 2020-04-01 21:06 | RAD ---
EXAM: CT Abdomen and Pelvis with IV contrast INDICATION: Reason: increased pain, OMNI 300, 75 ML IV / Spl. Instructions: / History: TECHNIQUE: Multi-detector row CT images were acquired from the lung bases through the abdomen and pelvis with the use of IV contrast. Sagittal and coronal images were acquired from the transaxial data. All CT scans performed at this facility utilize dose optimization techniques as appropriate to the exam, including the following: Automated exposure control and adjustment of the mA and/or KV according to patient size (this includes techniques or standardized protocols for targeted exams where dose is indication/reason for exam). IV CONTRAST: Administered ORAL CONTRAST: Not administered COMPARISON: Abdomen pelvis CT with IV contrast 03/13/2020 FINDINGS: LOWER CHEST: Unremarkable LIVER: Unremarkable BILIARY SYSTEM: Gallbladder is unremarkable. Bile ducts are not dilated. PANCREAS: Unremarkable SPLEEN: Unremarkable ADRENALS: Unremarkable KIDNEYS & URETERS: Unremarkable BLADDER: Unremarkable REPRODUCTIVE ORGANS: Unremarkable GASTROINTESTINAL: There is evidence of previous bowel surgery, including partial colectomy.. Since the previous examination, mucosal hyperemia has become more apparent in several segmental loops of gas and fluid-filled bowel loops but there persists varying areas of stricturing and patulousness of the bowel loops, such as in the distal descending colon. There is no evidence of bowel perforation. No evidence of high-grade bowel obstruction. Low-grade bowel obstruction difficult to exclude given the appearance of collapsed small bowel loops and findings suggesting evidence of stricturing. MESENTERY/PERITONEUM/RETROPERITONEUM: Unremarkable VASCULAR: Unremarkable LYMPH NODES: No adenopathy OSSEOUS & SOFT TISSUES: Unremarkable IMPRESSION: CT findings consistent with an acute flare of inflammatory bowel disease, possibly Crohn's disease. No bowel perforation or abscess formation. Electronically signed by: Wilfrido Mcnair MD (04/01/2020 9:03 PM) [facility] [place]
[2020-04-01] MEDS ORDERED: DICYCLOMINE 20 MG/2 ML VIAL. IM ONE (21:15)
[2020-04-01] MEDS ORDERED: ONDANSETRON PF 4 MG/2 ML VIAL. IV PRN (21:45)
[2020-04-01] MEDS: IV NORMAL SALINE 1000ML BAG 1,000 ML IV SCH (21:45)
[2020-04-01] MEDS ORDERED: methylPREDNISolone SOD SUCC PF 125 MG/2 ML VIAL. IV ONE (21:45)
[2020-04-01] MEDS: fentaNYL PF VIAL 100 MCG/2 ML VIAL IV PRN (22:37)
[2020-04-01 23:00] VITALS: BP 112/78
--- NOTE | 2020-04-01 23:10 | NUR ---
Patient admitted from ER to room 442 per wheelchair. Admitting diagnosis: Crohn's exacerbation. Patient c/o having increased abdominal pain for the last two days. Patient stated she ate some taco soup and then her pain increased. Patient has Crohn's disease and deals with constant pain. Patient is alert and oriented x3. Patient is allergic to Morphine. Patient denies and nausea or vomiting at this time. Patient stated that she has had only one stool today. Denies diarrhea. Patient is NPO at this time. Will continue to monitor. Patient also stated that she is not taking any prescription medications at this time.
[2020-04-02] MEDS: fentaNYL PF VIAL 100 MCG/2 ML VIAL IV PRN ×11 (00:11→15:09)
[2020-04-02] MEDS ORDERED: ONDANSETRON PF 4 MG/2 ML VIAL. IV PRN (00:15)
[2020-04-02] MEDS ORDERED: POTASSIUM BICARB 10 MEQ EFFERVESCENT TABLET. PO ONE (00:30)
[2020-04-02 03:00] VITALS: BP 125/69
[2020-04-02] MEDS: IV NORMAL SALINE 1000ML BAG 1,000 ML IV SCH ×2 (05:45→12:09)
[2020-04-02] MEDS: methylPREDNISolone SOD SUCC PF 40 MG/ML VIAL. IV SCH ×3 (06:45→22:00)
[2020-04-02 07:00] VITALS: BP 92/61
[2020-04-02] MEDS: MESALAMINE 400 MG CAP.DRTAB. PO SCH ×4 (09:13→21:34)
[2020-04-02] MEDS: PANTOPRAZOLE 40 MG TABLET.DR. PO SCH (09:13)
--- NOTE | 2020-04-02 09:13 | PDOC2 ---
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 04/02/20 0913: CONSULT Date of Consult Date of Consult DATE: 04/02/20 TIME: 09:08 Reason for Consult Reason for Consult: crohns Referring Physician Referring Physician: ER Identification/Chief Complaint Chief Complaint abdominal pain Source Source: Chart review, Patient History of Present Illness Reason for Visit: Long standing hx of Crohns, multiple surgeries in past, recently demise required surgery in December at [facility]--things were mentioned about her intestines(unsure exactly) Currently no Crohns treatment ongoing--has been awhile since she has seen a GI provider, unsure when last scope was--intermittent steroid use Worsening abdominal pain, pressure in last week, difficult to eat, seems to aggravate the pain . Continued diarrhea, chronic Past Medical History Cardiovascular: No pertinent hx Pulmonary: No pertinent hx CENTRAL NERVOUS SYSTEM: Other GI: Inflam bowel disease Heme/Onc: Anemia NOS, Other Hepatobiliary: No pertinent hx Psych: No pertinent hx Musculoskeletal: Other Rheumatologic: No pertinent hx Infectious disease: No pertinent hx, Other Renal/: No pertinent hx Endocrine: No pertinent hx Past Surgical History Past Surgical History: Colon Resection Family History Family History: Adopted Social History No ALCOHOL: none Drugs: None Lives: with Family Current Problem List Problem List Problems Medical Problems: (1) Exacerbation of Crohn's disease Status: Acute Current Medications Current Medications Current Medications Sodium Chloride 1,000 ml @ 1,000 mls/hr Q1H IV Last administered on 04/01/20at 20:02; Start 04/01/20 at 18:59; Stop 04/01/20 at 19:58; Status DC Fentanyl Citrate (Fentanyl 2ml Vial) 50 mcg 1X ONCE IVP Last administered on 04/01/20at 20:02; Start 04/01/20 at 19:30; Stop 04/01/20 at 19:31; Status DC Iohexol (Omnipaque 300 Mg/ml) 75 ml 1X ONCE IV Last administered on 04/01/20at 20:45; Start 04/01/20 at 20:00; Stop 04/01/20 at 20:01; Status DC Info (CONTRAST GIVEN -- Rx MONITORING) 1 each PRN DAILY PRN MC SEE COMMENTS; Start 04/01/20 at 20:00; Stop 04/03/20 at 19:59 Fentanyl Citrate (Fentanyl 2ml Vial) 50 mcg 1X ONCE IVP Last administered on 04/01/20at 21:19; Start 04/01/20 at 21:15; Stop 04/01/20 at 21:16; Status DC Dicyclomine HCl (Bentyl) 10 mg 1X ONCE IM Last administered on 04/01/20at 21:18; Start 04/01/20 at 21:15; Stop 04/01/20 at 21:16; Status DC Methylprednisolone Sodium Succinate (SOLU-Medrol 125MG VIAL) 125 mg 1X ONCE IV Last administered on 04/01/20at 22:36; Start 04/01/20 at 21:45; Stop 04/01/20 at 21:46; Status DC Ondansetron HCl (Zofran) 4 mg PRN Q8HRS PRN IV NAUSEA/VOMITING; Start 04/01/20 at 21:45; Stop 04/02/20 at 00:12; Status DC Fentanyl Citrate (Fentanyl 2ml Vial) 50 mcg PRN Q1HR PRN IV PAIN Last administered on 04/02/20at 08:08; Start 04/01/20 at 21:45; Stop 04/02/20 at 21:44 Sodium Chloride 1,000 ml @ 125 mls/hr Q8H IV Last administered on 04/02/20at 05:45; Start 04/01/20 at 21:45; Stop 04/02/20 at 21:44 Ondansetron HCl (Zofran) 4 mg PRN Q4HRS PRN IV NAUSEA/VOMITING; Start 04/02/20 at 00:15 Mesalamine (Delzicol) 400 mg [id number] PO ; Start 04/02/20 at 09:00 Pantoprazole Sodium (Protonix) 40 mg DAILYAC PO ; Start 04/02/20 at 07:30 Potassium Bicarbonate (Potassium Effervescent Tablet) 40 meq 1X ONCE PO Last administered on 04/02/20at 01:36; Start 04/02/20 at 00:30; Stop 04/02/20 at 00:31; Status DC Methylprednisolone Sodium Succinate (SOLU-Medrol 40MG VIAL) 40 mg Q8HRS IV Last administered on 04/02/20at 06:45; Start 04/02/20 at 06:00; Stop 04/02/20 at 22:01 Active Scripts Active Allergies Allergies: Coded Allergies: morphine (Verified Allergy, Intermediate, Itching, 08/07/19) ROS General: No: Chills, Other (fevers ) PSYCHOLOGICAL ROS: No: Anxiety, Depression Eyes: No Blurry vision, No Double vision HEENT: No: Heacaches, Sore Throat Hematological and Lymphatic: No: Bleeding Problems, Blood Clots Respiratory: No: Cough, Shortness of breath Cardiovascular: No Chest Pain, No Palpitations Gastrointestinal: Yes Other (see hpi) Genitourinary: No Dysuria, No Hematuria Musculoskeletal: No Joint Pain, No Muscle Pain Neurological: No Impaired Coord/balance, No Numbness/Tingling Skin: No Pruritus, No Rash Physical Exam General: Alert, Oriented X3, Cooperative HEENT: Atraumatic, PERRLA Lungs: Clear to auscultation, Normal air movement Heart: Regular rate, Normal S1, Normal S2 Abdomen: Soft, Other (ttp mild lower abdomen, midline scar ) Extremities: No clubbing, No cyanosis Skin: No rashes, No breakdown Neuro: Normal gait, Normal speech Psych/Mental Status: Mental status NL, Mood NL MUSCULOSKELETAL: No deformity, No swelling Vitals VITALS Vital Signs Date Time Temp Pulse Resp B/P (MAP) Pulse Ox O2 Delivery O2 Flow Rate FiO2 04/02/20 08:47 95 Room Air 04/02/20 07:15 20 04/02/20 07:00 98.1 84 92/61 (71) 98.1 Labs Labs Laboratory Tests Test 04/01/20 18:56 04/01/20 19:03 04/01/20 19:54 Urine Collection Type Unknown Urine Color Keke Urine Clarity Clear Urine pH 6.0 (<5.0-8.0) Urine Specific [place] >=1.030 (1.000-1.030) Urine Protein 30 mg/dL (NEG-TRACE) Urine Glucose (UA) Negative mg/dL (NEG) Urine Ketones (Stick) Trace mg/dL (NEG) Urine Blood Negative (NEG) Urine Nitrite Negative (NEG) Urine Bilirubin Small (NEG) Urine Urobilinogen Dipstick 1.0 mg/dL (0.2 mg/dL) Urine Leukocyte Esterase Negative (NEG) Urine RBC 0 /HPF (0-2) Urine WBC Rare /HPF (0-4) Urine Squamous Epithelial Cells Many /LPF Urine Bacteria Few /HPF (0-FEW) Urine Mucus Marked /LPF Urine Opiates Screen Neg (NEG) Urine Methadone Screen Neg (NEG) Urine Barbiturates Neg (NEG) Urine Phencyclidine Screen Neg (NEG) Urine Amphetamine/Methamphetamine Neg (NEG) Urine Benzodiazepines Screen Neg (NEG) Urine Cocaine Screen Neg (NEG) Urine Cannabinoids Screen Neg (NEG) Urine Ethyl Alcohol Neg (NEG) Bedside Urine HCG, Qualitative Hcg negative (Negative) White Blood Count 11.3 x10^3/uL (4.0-11.0) Red Blood Count 4.99 x10^6/uL (3.50-5.40) Hemoglobin 13.9 g/dL (12.0-15.5) Hematocrit 43.1 % (36.0-47.0) Mean Corpuscular Volume 86 fL (79-100) Mean Corpuscular Hemoglobin 28 pg (25-35) Mean Corpuscular Hemoglobin Concent 32 g/dL (31-37) Red Cell Distribution Width 15.4 % (11.5-14.5) Platelet Count 474 x10^3/uL (140-400) Neutrophils (%) (Auto) 70 % (31-73) Lymphocytes (%) (Auto) 19 % (24-48) Monocytes (%) (Auto) 9 % (0-9) Eosinophils (%) (Auto) 1 % (0-3) Basophils (%) (Auto) 1 % (0-3) Neutrophils # (Auto) 7.9 x10^3/uL (1.8-7.7) Lymphocytes # (Auto) 2.2 x10^3/uL (1.0-4.8) Monocytes # (Auto) 1.1 x10^3/uL (0.0-1.1) Eosinophils # (Auto) 0.1 x10^3/uL (0.0-0.7) Basophils # (Auto) 0.1 x10^3/uL (0.0-0.2) Sodium Level 137 mmol/L (136-145) Potassium Level 3.4 mmol/L (3.5-5.1) Chloride Level 103 mmol/L (98-107) Carbon Dioxide Level 26 mmol/L (21-32) Anion Gap 8 (6-14) Blood Urea Nitrogen 16 mg/dL (7-20) Creatinine 0.7 mg/dL (0.6-1.0) Estimated GFR (Cockcroft-Gault) 117.3 BUN/Creatinine Ratio 23 (6-20) Glucose Level 91 mg/dL (70-99) Calcium Level 9.9 mg/dL (8.5-10.1) Total Bilirubin 0.1 mg/dL (0.2-1.0) Aspartate Amino Transf (AST/SGOT) 25 U/L (15-37) Alanine Aminotransferase (ALT/SGPT) 41 U/L (14-59) Alkaline Phosphatase 142 U/L (46-116) C-Reactive Protein, Quantitative 67.9 mg/L (0-3.3) Total Protein 8.9 g/dL (6.4-8.2) Albumin 3.4 g/dL (3.4-5.0) Albumin/Globulin Ratio 0.6 (1.0-1.7) Lipase 108 U/L (73-393) Laboratory Tests Test 04/01/20 18:56 04/01/20 19:03 04/01/20 19:54 Urine Collection Type Unknown Urine Color Keke Urine Clarity Clear Urine pH 6.0 (<5.0-8.0) Urine Specific [place] >=1.030 (1.000-1.030) Urine Protein 30 mg/dL (NEG-TRACE) Urine Glucose (UA) Negative mg/dL (NEG) Urine Ketones (Stick) Trace mg/dL (NEG) Urine Blood Negative (NEG) Urine Nitrite Negative (NEG) Urine Bilirubin Small (NEG) Urine Urobilinogen Dipstick 1.0 mg/dL (0.2 mg/dL) Urine Leukocyte Esterase Negative (NEG) Urine RBC 0 /HPF (0-2) Urine WBC Rare /HPF (0-4) Urine Squamous Epithelial Cells Many /LPF Urine Bacteria Few /HPF (0-FEW) Urine Mucus Marked /LPF Urine Opiates Screen Neg (NEG) Urine Methadone Screen Neg (NEG) Urine Barbiturates Neg (NEG) Urine Phencyclidine Screen Neg (NEG) Urine Amphetamine/Methamphetamine Neg (NEG) Urine Benzodiazepines Screen Neg (NEG) Urine Cocaine Screen Neg (NEG) Urine Cannabinoids Screen Neg (NEG) Urine Ethyl Alcohol Neg (NEG) Bedside Urine HCG, Qualitative Hcg negative (Negative) White Blood Count 11.3 x10^3/uL (4.0-11.0) Red Blood Count 4.99 x10^6/uL (3.50-5.40) Hemoglobin 13.9 g/dL (12.0-15.5) Hematocrit 43.1 % (36.0-47.0) Mean Corpuscular Volume 86 fL (79-100) Mean Corpuscular Hemoglobin 28 pg (25-35) Mean Corpuscular Hemoglobin Concent 32 g/dL (31-37) Red Cell Distribution Width 15.4 % (11.5-14.5) Platelet Count 474 x10^3/uL (140-400) Neutrophils (%) (Auto) 70 % (31-73) Lymphocytes (%) (Auto) 19 % (24-48) Monocytes (%) (Auto) 9 % (0-9) Eosinophils (%) (Auto) 1 % (0-3) Basophils (%) (Auto) 1 % (0-3) Neutrophils # (Auto) 7.9 x10^3/uL (1.8-7.7) Lymphocytes # (Auto) 2.2 x10^3/uL (1.0-4.8) Monocytes # (Auto) 1.1 x10^3/uL (0.0-1.1) Eosinophils # (Auto) 0.1 x10^3/uL (0.0-0.7) Basophils # (Auto) 0.1 x10^3/uL (0.0-0.2) Sodium Level 137 mmol/L (136-145) Potassium Level 3.4 mmol/L (3.5-5.1) Chloride Level 103 mmol/L (98-107) Carbon Dioxide Level 26 mmol/L (21-32) Anion Gap 8 (6-14) Blood Urea Nitrogen 16 mg/dL (7-20) Creatinine 0.7 mg/dL (0.6-1.0) Estimated GFR (Cockcroft-Gault) 117.3 BUN/Creatinine Ratio 23 (6-20) Glucose Level 91 mg/dL (70-99) Calcium Level 9.9 mg/dL (8.5-10.1) Total Bilirubin 0.1 mg/dL (0.2-1.0) Aspartate Amino Transf (AST/SGOT) 25 U/L (15-37) Alanine Aminotransferase (ALT/SGPT) 41 U/L (14-59) Alkaline Phosphatase 142 U/L (46-116) C-Reactive Protein, Quantitative 67.9 mg/L (0-3.3) Total Protein 8.9 g/dL (6.4-8.2) Albumin 3.4 g/dL (3.4-5.0) Albumin/Globulin Ratio 0.6 (1.0-1.7) Lipase 108 U/L (73-393) Assessment/Plan Assessment/Plan Crohns will ask GI to eval for ongoing management of disease poor surgical candidate with her extensive surgical hx will obtain [facility] records of recent surgery in December JERSON SR MD 04/02/20 1713: CONSULT Assessment/Plan Assessment/Plan Pt seen and examined. Agree with Nasreen's note Pt with controlled abd pain abd soft, mild diffuse TTP, extensive scarring will defer to GI, but hopefully avoid surgery. Thanks for consult! SONIDO MORENO APRN Apr 02, 2020 09:13 JERSNO SR MD Apr 02, 2020 17:13
[2020-04-02 09:33] LABS: CALCIUM 8.6 mg/dL (8.5-10.1); CREATININE 0.5 mg/dL (0.6-1.0); MAGNESIUM 1.9 mg/dL (1.8-2.4); POTASSIUM 4.1 mmol/L (3.5-5.1)
[2020-04-02 11:00] VITALS: BP 108/73
--- NOTE | 2020-04-02 13:44 | PDOC2 ---
CONSULT Date of Consult Date of Consult DATE: 04/02/20 TIME: 13:42 Reason for Consult Reason for Consult: Crohns exacerbation Referring Physician Referring Physician: Pain and changein bowel movements persist Past Medical History Cardiovascular: No pertinent hx Pulmonary: No pertinent hx CENTRAL NERVOUS SYSTEM: Other GI: Inflam bowel disease Heme/Onc: Anemia NOS, Other Hepatobiliary: No pertinent hx Psych: No pertinent hx Musculoskeletal: Other Rheumatologic: No pertinent hx Infectious disease: No pertinent hx, Other Renal/: No pertinent hx Endocrine: No pertinent hx Past Surgical History Past Surgical History: Colon Resection Family History Family History: Adopted Social History No ALCOHOL: none Drugs: None Lives: with Family Current Problem List Problem List Problems Medical Problems: (1) Exacerbation of Crohn's disease Status: Acute Current Medications Current Medications Current Medications Sodium Chloride 1,000 ml @ 1,000 mls/hr Q1H IV Last administered on 04/01/20at 20:02; Start 04/01/20 at 18:59; Stop 04/01/20 at 19:58; Status DC Fentanyl Citrate (Fentanyl 2ml Vial) 50 mcg 1X ONCE IVP Last administered on 04/01/20at 20:02; Start 04/01/20 at 19:30; Stop 04/01/20 at 19:31; Status DC Iohexol (Omnipaque 300 Mg/ml) 75 ml 1X ONCE IV Last administered on 04/01/20at 20:45; Start 04/01/20 at 20:00; Stop 04/01/20 at 20:01; Status DC Info (CONTRAST GIVEN -- Rx MONITORING) 1 each PRN DAILY PRN MC SEE COMMENTS; Start 04/01/20 at 20:00; Stop 04/03/20 at 19:59 Fentanyl Citrate (Fentanyl 2ml Vial) 50 mcg 1X ONCE IVP Last administered on 04/01/20at 21:19; Start 04/01/20 at 21:15; Stop 04/01/20 at 21:16; Status DC Dicyclomine HCl (Bentyl) 10 mg 1X ONCE IM Last administered on 04/01/20at 21:18; Start 04/01/20 at 21:15; Stop 04/01/20 at 21:16; Status DC Methylprednisolone Sodium Succinate (SOLU-Medrol 125MG VIAL) 125 mg 1X ONCE IV Last administered on 04/01/20at 22:36; Start 04/01/20 at 21:45; Stop 04/01/20 at 21:46; Status DC Ondansetron HCl (Zofran) 4 mg PRN Q8HRS PRN IV NAUSEA/VOMITING; Start 04/01/20 at 21:45; Stop 04/02/20 at 00:12; Status DC Fentanyl Citrate (Fentanyl 2ml Vial) 50 mcg PRN Q1HR PRN IV PAIN Last administered on 04/02/20at 12:38; Start 04/01/20 at 21:45; Stop 04/02/20 at 21:44 Sodium Chloride 1,000 ml @ 125 mls/hr Q8H IV Last administered on 04/02/20at 05:45; Start 04/01/20 at 21:45; Stop 04/02/20 at 21:44 Ondansetron HCl (Zofran) 4 mg PRN Q4HRS PRN IV NAUSEA/VOMITING; Start 04/02/20 at 00:15 Mesalamine (Delzicol) 400 mg [id number] PO Last administered on 04/02/20at 12:39; Start 04/02/20 at 09:00 Pantoprazole Sodium (Protonix) 40 mg DAILYAC PO Last administered on 04/02/20at 09:13; Start 04/02/20 at 07:30 Potassium Bicarbonate (Potassium Effervescent Tablet) 40 meq 1X ONCE PO Last administered on 04/02/20at 01:36; Start 04/02/20 at 00:30; Stop 04/02/20 at 00:31; Status DC Methylprednisolone Sodium Succinate (SOLU-Medrol 40MG VIAL) 40 mg Q8HRS IV Last administered on 04/02/20at 06:45; Start 04/02/20 at 06:00; Stop 04/02/20 at 22:01 Dicyclomine HCl (Bentyl) 20 mg Q6HRS PO ; Start 04/02/20 at 18:00 Active Scripts Active Allergies Allergies: Coded Allergies: morphine (Verified Allergy, Intermediate, Itching, 08/07/19) Vitals VITALS Vital Signs Date Time Temp Pulse Resp B/P (MAP) Pulse Ox O2 Delivery O2 Flow Rate FiO2 04/02/20 12:38 97 Room Air 04/02/20 11:00 98.0 71 18 108/73 (85) 98.0 Labs Labs Laboratory Tests Test 04/01/20 18:56 04/01/20 19:03 04/01/20 19:54 04/02/20 08:45 Urine Collection Type Unknown Urine Color Keke Urine Clarity Clear Urine pH 6.0 (<5.0-8.0) Urine Specific [place] >=1.030 (1.000-1.030) Urine Protein 30 mg/dL (NEG-TRACE) Urine Glucose (UA) Negative mg/dL (NEG) Urine Ketones (Stick) Trace mg/dL (NEG) Urine Blood Negative (NEG) Urine Nitrite Negative (NEG) Urine Bilirubin Small (NEG) Urine Urobilinogen Dipstick 1.0 mg/dL (0.2 mg/dL) Urine Leukocyte Esterase Negative (NEG) Urine RBC 0 /HPF (0-2) Urine WBC Rare /HPF (0-4) Urine Squamous Epithelial Cells Many /LPF Urine Bacteria Few /HPF (0-FEW) Urine Mucus Marked /LPF Urine Opiates Screen Neg (NEG) Urine Methadone Screen Neg (NEG) Urine Barbiturates Neg (NEG) Urine Phencyclidine Screen Neg (NEG) Urine Amphetamine/Methamphetamine Neg (NEG) Urine Benzodiazepines Screen Neg (NEG) Urine Cocaine Screen Neg (NEG) Urine Cannabinoids Screen Neg (NEG) Urine Ethyl Alcohol Neg (NEG) Bedside Urine HCG, Qualitative Hcg negative (Negative) White Blood Count 11.3 x10^3/uL (4.0-11.0) Red Blood Count 4.99 x10^6/uL (3.50-5.40) Hemoglobin 13.9 g/dL (12.0-15.5) Hematocrit 43.1 % (36.0-47.0) Mean Corpuscular Volume 86 fL (79-100) Mean Corpuscular Hemoglobin 28 pg (25-35) Mean Corpuscular Hemoglobin Concent 32 g/dL (31-37) Red Cell Distribution Width 15.4 % (11.5-14.5) Platelet Count 474 x10^3/uL (140-400) Neutrophils (%) (Auto) 70 % (31-73) Lymphocytes (%) (Auto) 19 % (24-48) Monocytes (%) (Auto) 9 % (0-9) Eosinophils (%) (Auto) 1 % (0-3) Basophils (%) (Auto) 1 % (0-3) Neutrophils # (Auto) 7.9 x10^3/uL (1.8-7.7) Lymphocytes # (Auto) 2.2 x10^3/uL (1.0-4.8) Monocytes # (Auto) 1.1 x10^3/uL (0.0-1.1) Eosinophils # (Auto) 0.1 x10^3/uL (0.0-0.7) Basophils # (Auto) 0.1 x10^3/uL (0.0-0.2) Sodium Level 137 mmol/L (136-145) 139 mmol/L (136-145) Potassium Level 3.4 mmol/L (3.5-5.1) 4.1 mmol/L (3.5-5.1) Chloride Level 103 mmol/L (98-107) 106 mmol/L (98-107) Carbon Dioxide Level 26 mmol/L (21-32) 23 mmol/L (21-32) Anion Gap 8 (6-14) 10 (6-14) Blood Urea Nitrogen 16 mg/dL (7-20) 10 mg/dL (7-20) Creatinine 0.7 mg/dL (0.6-1.0) 0.5 mg/dL (0.6-1.0) Estimated GFR (Cockcroft-Gault) 117.3 173.0 BUN/Creatinine Ratio 23 (6-20) Glucose Level 91 mg/dL (70-99) 129 mg/dL (70-99) Calcium Level 9.9 mg/dL (8.5-10.1) 8.6 mg/dL (8.5-10.1) Total Bilirubin 0.1 mg/dL (0.2-1.0) Aspartate Amino Transf (AST/SGOT) 25 U/L (15-37) Alanine Aminotransferase (ALT/SGPT) 41 U/L (14-59) Alkaline Phosphatase 142 U/L (46-116) C-Reactive Protein, Quantitative 67.9 mg/L (0-3.3) Total Protein 8.9 g/dL (6.4-8.2) Albumin 3.4 g/dL (3.4-5.0) Albumin/Globulin Ratio 0.6 (1.0-1.7) Lipase 108 U/L (73-393) Magnesium Level 1.9 mg/dL (1.8-2.4) Laboratory Tests Test 04/01/20 18:56 04/01/20 19:03 04/01/20 19:54 04/02/20 08:45 Urine Collection Type Unknown Urine Color Keke Urine Clarity Clear Urine pH 6.0 (<5.0-8.0) Urine Specific [place] >=1.030 (1.000-1.030) Urine Protein 30 mg/dL (NEG-TRACE) Urine Glucose (UA) Negative mg/dL (NEG) Urine Ketones (Stick) Trace mg/dL (NEG) Urine Blood Negative (NEG) Urine Nitrite Negative (NEG) Urine Bilirubin Small (NEG) Urine Urobilinogen Dipstick 1.0 mg/dL (0.2 mg/dL) Urine Leukocyte Esterase Negative (NEG) Urine RBC 0 /HPF (0-2) Urine WBC Rare /HPF (0-4) Urine Squamous Epithelial Cells Many /LPF Urine Bacteria Few /HPF (0-FEW) Urine Mucus Marked /LPF Urine Opiates Screen Neg (NEG) Urine Methadone Screen Neg (NEG) Urine Barbiturates Neg (NEG) Urine Phencyclidine Screen Neg (NEG) Urine Amphetamine/Methamphetamine Neg (NEG) Urine Benzodiazepines Screen Neg (NEG) Urine Cocaine Screen Neg (NEG) Urine Cannabinoids Screen Neg (NEG) Urine Ethyl Alcohol Neg (NEG) Bedside Urine HCG, Qualitative Hcg negative (Negative) White Blood Count 11.3 x10^3/uL (4.0-11.0) Red Blood Count 4.99 x10^6/uL (3.50-5.40) Hemoglobin 13.9 g/dL (12.0-15.5) Hematocrit 43.1 % (36.0-47.0) Mean Corpuscular Volume 86 fL (79-100) Mean Corpuscular Hemoglobin 28 pg (25-35) Mean Corpuscular Hemoglobin Concent 32 g/dL (31-37) Red Cell Distribution Width 15.4 % (11.5-14.5) Platelet Count 474 x10^3/uL (140-400) Neutrophils (%) (Auto) 70 % (31-73) Lymphocytes (%) (Auto) 19 % (24-48) Monocytes (%) (Auto) 9 % (0-9) Eosinophils (%) (Auto) 1 % (0-3) Basophils (%) (Auto) 1 % (0-3) Neutrophils # (Auto) 7.9 x10^3/uL (1.8-7.7) Lymphocytes # (Auto) 2.2 x10^3/uL (1.0-4.8) Monocytes # (Auto) 1.1 x10^3/uL (0.0-1.1) Eosinophils # (Auto) 0.1 x10^3/uL (0.0-0.7) Basophils # (Auto) 0.1 x10^3/uL (0.0-0.2) Sodium Level 137 mmol/L (136-145) 139 mmol/L (136-145) Potassium Level 3.4 mmol/L (3.5-5.1) 4.1 mmol/L (3.5-5.1) Chloride Level 103 mmol/L (98-107) 106 mmol/L (98-107) Carbon Dioxide Level 26 mmol/L (21-32) 23 mmol/L (21-32) Anion Gap 8 (6-14) 10 (6-14) Blood Urea Nitrogen 16 mg/dL (7-20) 10 mg/dL (7-20) Creatinine 0.7 mg/dL (0.6-1.0) 0.5 mg/dL (0.6-1.0) Estimated GFR (Cockcroft-Gault) 117.3 173.0 BUN/Creatinine Ratio 23 (6-20) Glucose Level 91 mg/dL (70-99) 129 mg/dL (70-99) Calcium Level 9.9 mg/dL (8.5-10.1) 8.6 mg/dL (8.5-10.1) Total Bilirubin 0.1 mg/dL (0.2-1.0) Aspartate Amino Transf (AST/SGOT) 25 U/L (15-37) Alanine Aminotransferase (ALT/SGPT) 41 U/L (14-59) Alkaline Phosphatase 142 U/L (46-116) C-Reactive Protein, Quantitative 67.9 mg/L (0-3.3) Total Protein 8.9 g/dL (6.4-8.2) Albumin 3.4 g/dL (3.4-5.0) Albumin/Globulin Ratio 0.6 (1.0-1.7) Lipase 108 U/L (73-393) Magnesium Level 1.9 mg/dL (1.8-2.4) Assessment/Plan Assessment/Plan Crohns disease- s/p resection time 2 with exacerbationi, Plan medical therapy for now with steroids and mesalamie therpay Interval SB series or Ct enteriography to assess for SB striture and/or fistula if no improvement o/p colonoscopy recommended for dysplasia surveillance Fullnote dictated BOBBY VALERIO MD Apr 02, 2020 13:44
--- NOTE | 2020-04-02 14:06 | HP ---
ADMIT DATE: 04/02/2020 CHIEF COMPLAINT: Abdominal pain. HISTORY OF PRESENT ILLNESS: The patient is a pleasant 34-year-old female, who states she has had Crohn's for many years. She appears to have a lot of scars on her abdomen from Crohn's surgery. She states she gets fistula sometimes. She has been to many times and to [facility] as well. She has even been placed on monoclonal antibodies, including Stelara and Humira in the past. Once again, she presents with abdominal pain. It appears that she is probably having a Crohn's flare. Her white count is a little high at 11.3. Potassium is a little low at 3.4. She describes her symptoms as very irritating, rated at 9/10, worse with food, better with no food. She tried increasing her home meds, but that did not work. I discussed the case with the ER physician. We are going to admit the patient and consult GI. PAST MEDICAL HISTORY: Crohn's, cutaneous fistulas, colostomy with takedown, . ALLERGIES: MORPHINE. FAMILY HISTORY: Diabetes. SOCIAL HISTORY: She does not drink, smoke or take drugs. She is on disability. MEDICATIONS: Were reviewed, please refer to the MRAD. REVIEW OF SYSTEMS: GENERAL: No history of weight change, weakness or fevers. SKIN: No bruising, hair changes or rashes. EYES: No blurred, double or loss of vision. NOSE AND THROAT: No history of nosebleeds, hoarseness or sore throat. HEART: No history of palpitations, chest pain or shortness of breath on exertion. LUNGS: Denies cough, hemoptysis, wheezing or shortness of breath. GASTROINTESTINAL: She complains of abdominal pain. GENITOURINARY: No history of frequency, urgency, hesitancy or nocturia. NEUROLOGIC: Denies history of numbness, tingling, tremor or weakness. PSYCHIATRIC: No history of panic, anxiety or depression. ENDOCRINE: No history of heat or cold intolerance, polyuria or polydipsia. EXTREMITIES: Denies muscle weakness, joint pain, pain on walking or stiffness. PHYSICAL EXAMINATION: VITALS: Within normal limits and are stable. GENERAL: No apparent distress. Alert and oriented. HEENT: Normocephalic atraumatic, external auditory canals are patent. EYES: Extraocular muscles are intact, pupils are equally round and reactive to light and accommodation. MUSCULOSKELETAL: Well developed, well nourished, good range of motion. ENDOCRINE: No thyromegaly was palpated. LYMPHATICS: No cervical chain or axillary nodes were noted. HEMATOPOIETIC: No bruising. NECK: Supple, no JVD, no thyromegaly was noted. LUNGS: Clear to auscultation in all lung singer without rhonchi or wheezing. HEART: RRR, S1, S2 present. Peripheral pulses intact, no obvious murmurs were noted. ABDOMEN: She has decreased bowel sounds with diffuse tenderness. She has several scars on her abdomen; please see the pictures. EXTREMITIES: Without any cyanosis, clubbing, or edema. Pedal pulses intact, Homans sign is negative. NEUROLOGIC: Normal speech, normal tone. A & O x3, moves all extremities, no obvious focal deficits. PSYCHIATRIC: Normal affect, normal mood. Stable. SKIN: She does have some slight irritation of the gluteal fold. VASCULAR: Good capillary refill, neurovascular bundle appears to be intact. LABORATORY DATA: White count is 11. Potassium is 3.4. ASSESSMENT AND PLAN: Crohn's exacerbation. The patient has been admitted. We will consult GI. Replace her potassium. Trend labs, home meds, DVT prophylaxis. Full code. IV Solu-Medrol, scheduled Bentyl, p.r.n. fentanyl, p.r.n. Lortab for breakthrough pain, p.r.n. Zofran, and mesalamine. PROGNOSIS: Guarded. [place] SINGLETARY DO DR: [email or web address]/christina JOB#: [id number] / [id number]
[2020-04-02 15:00] VITALS: BP 110/70
[2020-04-02] MEDS ORDERED: oxyCODONE/APAP 10/325 1 TAB TABLET PO PRN (16:00)
[2020-04-02] MEDS: DICYCLOMINE HCL 10 MG CAPSULE PO SCH (17:19)
[2020-04-02] MEDS: fentaNYL PF VIAL 100 MCG/2 ML VIAL IVP PRN ×3 (17:19→21:36)
[2020-04-02 19:00] VITALS: BP 107/72
[2020-04-02] MEDS: oxyCODONE/APAP 10/325 1 TAB TABLET PO PRN (22:36)
--- NOTE | 2020-04-02 22:56 | CONS ---
DATE OF CONSULTATION: 04/02/2020 REFERRING PHYSICIAN: Kwasi Cadet MD REASON FOR CONSULTATION: Crohn's flare. HISTORY OF PRESENT ILLNESS: A 34-year-old -Spanish female with past medical history significant for Crohn's, status post resections x 2, has been on multiple medications through the past 20 years with her IBD including Remicade, was admitted with worsening pain. She has been under the care of multiple physicians through the years, most recently at [facility]. She states that when she moved her bowels, they did not feel right. There was little bleeding. Her weight and appetite have actually been stable since the miscarriage of her child in mid December. She is not a smoker. No else in family has inflammatory bowel disease. She denies any extraintestinal manifestations at the present time. PAST MEDICAL HISTORY: Crohn's, history of resection, status post colostomy takedown. ALLERGIES: MORPHINE. MEDICATIONS: Include dicyclomine, mesalamine, pantoprazole, methylprednisolone. SOCIAL HISTORY: She does not smoke. FAMILY HISTORY: Noncontributory. REVIEW OF SYSTEMS: Per records. PHYSICAL EXAMINATION: VITAL SIGNS: Temperature is 98.6, pulse 70, respiratory rate 18, blood pressure is 108/73. LUNGS: Clear. CARDIOVASCULAR: Reveals an S1, S2 without S3, S4 or appreciable murmur. ABDOMEN: Reveals a soft abdomen, normal bowel sounds, without appreciable hepatosplenomegaly. EXTREMITIES: Reveals no cyanosis, clubbing or edema. LABORATORY STUDIES: Hemoglobin is 13.0, hematocrit 43.1, white count 11.3, platelet count is 474,000. Sodium 139, potassium 4.1, chloride 106, bicarbonate 23, BUN 10, creatinine 0.5, glucose 129, calcium 8.6, magnesium 1.9, total bilirubin 0.1, AST of 25, ALT of 41, alkaline phosphatase of 142, albumin 3.4, lipase is 108. CT scan of the abdomen and pelvis reveals partial colectomy with fluid filled bowel loops and persistent areas of stricture and patulous of the bowel. No evidence of a high-grade obstruction, low-grade obstruction cannot be excluded in view of the collapsed small bowel loops. IMPRESSION: Crohn's flare. We will recommend medical therapy with mesalamine drugs and steroids. Further consideration to reinitiation of anti-TIF or GREY inhibitors may be warranted pending on the patient's clinical response as well as interval colonoscopy and small bowel series with the patient states she has had and records will be reviewed. BOBBY VALERIO MD DR: MOE/christina JOB#: [id number] / [id number] KWASI Romeo MD, MICHAEL MD
[2020-04-02 23:00] VITALS: BP 107/63
[2020-04-03] MEDS: fentaNYL PF VIAL 100 MCG/2 ML VIAL IVP PRN ×9 (00:08→22:38)
[2020-04-03] MEDS: DICYCLOMINE HCL 10 MG CAPSULE PO SCH ×4 (00:08→17:58)
[2020-04-03 03:00] VITALS: BP 98/58
[2020-04-03] MEDS: oxyCODONE/APAP 10/325 1 TAB TABLET PO PRN ×4 (06:06→23:59)
[2020-04-03 07:00] VITALS: BP 110/62
[2020-04-03] MEDS: PANTOPRAZOLE 40 MG TABLET.DR. PO SCH (08:00)
--- NOTE | 2020-04-03 09:43 | PDOC ---
PROGRESS NOTES Date of Service: DATE: 04/03/20 TIME: 09:42 Chief Complaint Chief Complaint ASSESSMENT AND PLAN: Crohn's exacerbation. admitted. We consult GI. Replace potassium. Trend labs, home meds, DVT prophylaxis. Full code. IV Solu-Medrol, scheduled Bentyl, p.r.n. fentanyl, p.r.n. Lortab for breakthrough pain, p.r.n. Zofran, and mesalamine. d/w rn Vitals Vitals Vital Signs Date Time Temp Pulse Resp B/P (MAP) Pulse Ox O2 Delivery O2 Flow Rate FiO2 04/03/20 08:00 98 Room Air 04/03/20 07:00 98.0 80 20 110/62 (78) 98.0 Physical Exam Physical Exam VITALS: Within normal limits and are stable. GENERAL: No apparent distress. Alert and oriented. HEENT: Normocephalic atraumatic, external auditory canals are patent. EYES: Extraocular muscles are intact, pupils are equally round and reactive to light and accommodation. MUSCULOSKELETAL: Well developed, well nourished, good range of motion. ENDOCRINE: No thyromegaly was palpated. LYMPHATICS: No cervical chain or axillary nodes were noted. HEMATOPOIETIC: No bruising. NECK: Supple, no JVD, no thyromegaly was noted. LUNGS: Clear to auscultation in all lung singer without rhonchi or wheezing. HEART: RRR, S1, S2 present. Peripheral pulses intact, no obvious murmurs were noted. ABDOMEN: She has decreased bowel sounds with diffuse tenderness. She has several scars on her abdomen; please see the pictures. EXTREMITIES: Without any cyanosis, clubbing, or edema. Pedal pulses intact, Homans sign is negative. NEUROLOGIC: Normal speech, normal tone. A & O x3, moves all extremities, no obvious focal deficits. PSYCHIATRIC: Normal affect, normal mood. Stable. SKIN: She does have some slight irritation of the gluteal fold. VASCULAR: Good capillary refill, neurovascular bundle appears to be intact. General: Alert, Oriented X3, Cooperative, No acute distress Heart: Regular rate, Normal S1, Normal S2 Lungs: Clear Abdomen: Normal bowel sounds, Soft, Other (ttp mild lower abdomen, midline scar ) Extremities: No clubbing, No cyanosis Skin: No rashes, No breakdown Assessment and Plan Assessmemt and Plan Problems Medical Problems: (1) Exacerbation of Crohn's disease Status: Acute Comment Review of Relevant I have reviewed the following items dania (where applicable) has been applied. Labs Laboratory Tests Test 04/01/20 18:56 04/01/20 19:03 04/01/20 19:54 04/02/20 08:45 Urine Collection Type Unknown Urine Color Keke Urine Clarity Clear Urine pH 6.0 (<5.0-8.0) Urine Specific [place] >=1.030 (1.000-1.030) Urine Protein 30 mg/dL (NEG-TRACE) Urine Glucose (UA) Negative mg/dL (NEG) Urine Ketones (Stick) Trace mg/dL (NEG) Urine Blood Negative (NEG) Urine Nitrite Negative (NEG) Urine Bilirubin Small (NEG) Urine Urobilinogen Dipstick 1.0 mg/dL (0.2 mg/dL) Urine Leukocyte Esterase Negative (NEG) Urine RBC 0 /HPF (0-2) Urine WBC Rare /HPF (0-4) Urine Squamous Epithelial Cells Many /LPF Urine Bacteria Few /HPF (0-FEW) Urine Mucus Marked /LPF Urine Opiates Screen Neg (NEG) Urine Methadone Screen Neg (NEG) Urine Barbiturates Neg (NEG) Urine Phencyclidine Screen Neg (NEG) Urine Amphetamine/Methamphetamine Neg (NEG) Urine Benzodiazepines Screen Neg (NEG) Urine Cocaine Screen Neg (NEG) Urine Cannabinoids Screen Neg (NEG) Urine Ethyl Alcohol Neg (NEG) Bedside Urine HCG, Qualitative Hcg negative (Negative) White Blood Count 11.3 x10^3/uL (4.0-11.0) Red Blood Count 4.99 x10^6/uL (3.50-5.40) Hemoglobin 13.9 g/dL (12.0-15.5) Hematocrit 43.1 % (36.0-47.0) Mean Corpuscular Volume 86 fL (79-100) Mean Corpuscular Hemoglobin 28 pg (25-35) Mean Corpuscular Hemoglobin Concent 32 g/dL (31-37) Red Cell Distribution Width 15.4 % (11.5-14.5) Platelet Count 474 x10^3/uL (140-400) Neutrophils (%) (Auto) 70 % (31-73) Lymphocytes (%) (Auto) 19 % (24-48) Monocytes (%) (Auto) 9 % (0-9) Eosinophils (%) (Auto) 1 % (0-3) Basophils (%) (Auto) 1 % (0-3) Neutrophils # (Auto) 7.9 x10^3/uL (1.8-7.7) Lymphocytes # (Auto) 2.2 x10^3/uL (1.0-4.8) Monocytes # (Auto) 1.1 x10^3/uL (0.0-1.1) Eosinophils # (Auto) 0.1 x10^3/uL (0.0-0.7) Basophils # (Auto) 0.1 x10^3/uL (0.0-0.2) Sodium Level 137 mmol/L (136-145) 139 mmol/L (136-145) Potassium Level 3.4 mmol/L (3.5-5.1) 4.1 mmol/L (3.5-5.1) Chloride Level 103 mmol/L (98-107) 106 mmol/L (98-107) Carbon Dioxide Level 26 mmol/L (21-32) 23 mmol/L (21-32) Anion Gap 8 (6-14) 10 (6-14) Blood Urea Nitrogen 16 mg/dL (7-20) 10 mg/dL (7-20) Creatinine 0.7 mg/dL (0.6-1.0) 0.5 mg/dL (0.6-1.0) Estimated GFR (Cockcroft-Gault) 117.3 173.0 BUN/Creatinine Ratio 23 (6-20) Glucose Level 91 mg/dL (70-99) 129 mg/dL (70-99) Calcium Level 9.9 mg/dL (8.5-10.1) 8.6 mg/dL (8.5-10.1) Total Bilirubin 0.1 mg/dL (0.2-1.0) Aspartate Amino Transf (AST/SGOT) 25 U/L (15-37) Alanine Aminotransferase (ALT/SGPT) 41 U/L (14-59) Alkaline Phosphatase 142 U/L (46-116) C-Reactive Protein, Quantitative 67.9 mg/L (0-3.3) Total Protein 8.9 g/dL (6.4-8.2) Albumin 3.4 g/dL (3.4-5.0) Albumin/Globulin Ratio 0.6 (1.0-1.7) Lipase 108 U/L (73-393) Magnesium Level 1.9 mg/dL (1.8-2.4) Medications Current Medications Sodium Chloride 1,000 ml @ 1,000 mls/hr Q1H IV Last administered on 04/01/20at 20:02; Start 04/01/20 at 18:59; Stop 04/01/20 at 19:58; Status DC Fentanyl Citrate (Fentanyl 2ml Vial) 50 mcg 1X ONCE IVP Last administered on 04/01/20at 20:02; Start 04/01/20 at 19:30; Stop 04/01/20 at 19:31; Status DC Iohexol (Omnipaque 300 Mg/ml) 75 ml 1X ONCE IV Last administered on 04/01/20at 20:45; Start 04/01/20 at 20:00; Stop 04/01/20 at 20:01; Status DC Info (CONTRAST GIVEN -- Rx MONITORING) 1 each PRN DAILY PRN MC SEE COMMENTS; Start 04/01/20 at 20:00; Stop 04/03/20 at 19:59 Fentanyl Citrate (Fentanyl 2ml Vial) 50 mcg 1X ONCE IVP Last administered on 04/01/20at 21:19; Start 04/01/20 at 21:15; Stop 04/01/20 at 21:16; Status DC Dicyclomine HCl (Bentyl) 10 mg 1X ONCE IM Last administered on 04/01/20at 21:18; Start 04/01/20 at 21:15; Stop 04/01/20 at 21:16; Status DC Methylprednisolone Sodium Succinate (SOLU-Medrol 125MG VIAL) 125 mg 1X ONCE IV Last administered on 04/01/20at 22:36; Start 04/01/20 at 21:45; Stop 04/01/20 at 21:46; Status DC Ondansetron HCl (Zofran) 4 mg PRN Q8HRS PRN IV NAUSEA/VOMITING; Start 04/01/20 at 21:45; Stop 04/02/20 at 00:12; Status DC Fentanyl Citrate (Fentanyl 2ml Vial) 50 mcg PRN Q1HR PRN IV PAIN Last administered on 04/02/20at 15:09; Start 04/01/20 at 21:45; Stop 04/02/20 at 17:08; Status DC Sodium Chloride 1,000 ml @ 125 mls/hr Q8H IV Last administered on 04/02/20at 05:45; Start 04/01/20 at 21:45; Stop 04/02/20 at 21:44; Status DC Ondansetron HCl (Zofran) 4 mg PRN Q4HRS PRN IV NAUSEA/VOMITING; Start 04/02/20 at 00:15 Mesalamine (Delzicol) 400 mg [id number] PO Last administered on 04/02/20at 21:34; Start 04/02/20 at 09:00 Pantoprazole Sodium (Protonix) 40 mg DAILYAC PO Last administered on 04/03/20at 08:00; Start 04/02/20 at 07:30 Potassium Bicarbonate (Potassium Effervescent Tablet) 40 meq 1X ONCE PO Last administered on 04/02/20at 01:36; Start 04/02/20 at 00:30; Stop 04/02/20 at 00:31; Status DC Methylprednisolone Sodium Succinate (SOLU-Medrol 40MG VIAL) 40 mg Q8HRS IV Last administered on 04/02/20at 22:00; Start 04/02/20 at 06:00; Stop 04/02/20 at 22:01; Status DC Dicyclomine HCl (Bentyl) 20 mg Q6HRS PO Last administered on 04/03/20at 06:05; Start 04/02/20 at 18:00 Oxycodone/ Acetaminophen (Percocet 10/325) 1 tab PRN Q6HRS PRN PO PAIN Last administered on 04/02/20at 16:27; Start 04/02/20 at 16:00; Stop 04/02/20 at 20:17; Status DC Fentanyl Citrate (Fentanyl 2ml Vial) 50 mcg PRN Q2HR PRN IVP PAIN Last administered on 04/02/20at 19:25; Start 04/02/20 at 17:15; Stop 04/02/20 at 20:17; Status DC Fentanyl Citrate (Fentanyl 2ml Vial) 75 mcg PRN Q2HR PRN IVP PAIN Last administered on 04/03/20at 08:00; Start 04/02/20 at 20:30 Oxycodone/ Acetaminophen (Percocet 10/325) 2 tab PRN Q6HRS PRN PO PAIN Last administered on 04/03/20at 06:06; Start 04/02/20 at 20:15 Active Scripts Active Vitals/I & O Vital Sign - Last 24 Hours 04/02/20 04/02/20 04/02/20 04/02/20 10:21 10:55 11:00 11:37 Temp 98.0 98.0 Pulse 71 Resp 18 B/P (MAP) 108/73 (85) Pulse Ox 95 97 97 97 O2 Delivery Room Air Room Air Room Air Room Air 04/02/20 04/02/20 04/02/20 04/02/20 12:08 12:38 13:15 13:54 Pulse Ox 97 97 97 97 O2 Delivery Room Air Room Air Room Air Room Air 04/02/20 04/02/20 04/02/20 04/02/20 14:35 15:00 15:09 15:41 Temp 97.9 97.9 Pulse 82 Resp 20 B/P (MAP) 110/70 (83) Pulse Ox 97 97 97 97 O2 Delivery Room Air Room Air Room Air Room Air 04/02/20 04/02/20 04/02/20 04/02/20 16:27 17:19 17:35 17:35 Pulse Ox 97 97 97 O2 Delivery Room Air Room Air Room Air Room Air 04/02/20 04/02/20 04/02/20 04/02/20 19:00 19:25 19:35 21:36 Temp 98.3 98.3 Pulse 82 Resp 20 20 B/P (MAP) 107/72 (84) Pulse Ox 94 O2 Delivery Room Air Room Air Room Air Room Air 04/02/20 04/02/20 04/02/20 04/02/20 22:06 22:36 23:00 23:36 Temp 98.2 98.2 Pulse 69 Resp 20 20 18 20 B/P (MAP) 107/63 (78) Pulse Ox 95 O2 Delivery Room Air Room Air Room Air 04/03/20 04/03/20 04/03/20 04/03/20 00:08 00:38 02:15 02:45 Resp 20 20 20 20 O2 Delivery Room Air Room Air Room Air Room Air 04/03/20 04/03/20 04/03/20 04/03/20 03:00 04:56 05:26 06:06 Temp 97.9 97.9 Pulse 69 Resp 18 16 20 20 B/P (MAP) 98/58 (71) Pulse Ox 95 95 O2 Delivery Room Air Room Air Room Air Room Air 04/03/20 04/03/20 07:00 08:00 Temp 98.0 98.0 Pulse 80 Resp 20 B/P (MAP) 110/62 (78) Pulse Ox 98 98 O2 Delivery Room Air Room Air Intake and Output 04/02/20 04/02/20 04/03/20 15:00 23:00 07:00 Intake Total 120 ml 2220 ml Balance 120 ml 2220 ml Justicifation of Admission Dx: Justifications for Admission: Justification of Admission Dx: N/A MIMA BARBOUR MD Apr 03, 2020 09:43
[2020-04-03] MEDS: MESALAMINE 400 MG CAP.DRTAB. PO SCH ×4 (09:49→22:40)
--- NOTE | 2020-04-03 10:43 | NUR ---
SW following. Discussed with RN, pt from home, room air, clear liquid diet. Pt reporting significant pain. Per RN, pt has been to a few hospitals in the area recently. RN advised no SW needs at this time. SW will continue to follow.
[2020-04-03 11:00] VITALS: BP 122/74
--- NOTE | 2020-04-03 12:37 | PDOC ---
SURGICAL PROGRESS NOTE DATE: 04/03/20 TIME: 12:37 Subjective pain about the same no emesis + flatus taking some clears Vital Signs Vital Signs Date Time Temp Pulse Resp B/P (MAP) Pulse Ox O2 Delivery O2 Flow Rate FiO2 04/03/20 12:05 Room Air 04/03/20 11:00 98.0 72 18 122/74 (90) 98 98.0 I&O Intake and Output 04/03/20 07:00 Intake Total 2340 ml Balance 2340 ml Intake Oral 840 ml Other 1500 ml # Voids 2 General: Alert, Oriented X3, Cooperative Abdomen: Soft, Other (ttp) Labs Laboratory Tests Test 04/01/20 18:56 04/01/20 19:03 04/01/20 19:54 04/02/20 08:45 Urine Collection Type Unknown Urine Color Keke Urine Clarity Clear Urine pH 6.0 (<5.0-8.0) Urine Specific [place] >=1.030 (1.000-1.030) Urine Protein 30 mg/dL (NEG-TRACE) Urine Glucose (UA) Negative mg/dL (NEG) Urine Ketones (Stick) Trace mg/dL (NEG) Urine Blood Negative (NEG) Urine Nitrite Negative (NEG) Urine Bilirubin Small (NEG) Urine Urobilinogen Dipstick 1.0 mg/dL (0.2 mg/dL) Urine Leukocyte Esterase Negative (NEG) Urine RBC 0 /HPF (0-2) Urine WBC Rare /HPF (0-4) Urine Squamous Epithelial Cells Many /LPF Urine Bacteria Few /HPF (0-FEW) Urine Mucus Marked /LPF Urine Opiates Screen Neg (NEG) Urine Methadone Screen Neg (NEG) Urine Barbiturates Neg (NEG) Urine Phencyclidine Screen Neg (NEG) Urine Amphetamine/Methamphetamine Neg (NEG) Urine Benzodiazepines Screen Neg (NEG) Urine Cocaine Screen Neg (NEG) Urine Cannabinoids Screen Neg (NEG) Urine Ethyl Alcohol Neg (NEG) Bedside Urine HCG, Qualitative Hcg negative (Negative) White Blood Count 11.3 x10^3/uL (4.0-11.0) Red Blood Count 4.99 x10^6/uL (3.50-5.40) Hemoglobin 13.9 g/dL (12.0-15.5) Hematocrit 43.1 % (36.0-47.0) Mean Corpuscular Volume 86 fL (79-100) Mean Corpuscular Hemoglobin 28 pg (25-35) Mean Corpuscular Hemoglobin Concent 32 g/dL (31-37) Red Cell Distribution Width 15.4 % (11.5-14.5) Platelet Count 474 x10^3/uL (140-400) Neutrophils (%) (Auto) 70 % (31-73) Lymphocytes (%) (Auto) 19 % (24-48) Monocytes (%) (Auto) 9 % (0-9) Eosinophils (%) (Auto) 1 % (0-3) Basophils (%) (Auto) 1 % (0-3) Neutrophils # (Auto) 7.9 x10^3/uL (1.8-7.7) Lymphocytes # (Auto) 2.2 x10^3/uL (1.0-4.8) Monocytes # (Auto) 1.1 x10^3/uL (0.0-1.1) Eosinophils # (Auto) 0.1 x10^3/uL (0.0-0.7) Basophils # (Auto) 0.1 x10^3/uL (0.0-0.2) Sodium Level 137 mmol/L (136-145) 139 mmol/L (136-145) Potassium Level 3.4 mmol/L (3.5-5.1) 4.1 mmol/L (3.5-5.1) Chloride Level 103 mmol/L (98-107) 106 mmol/L (98-107) Carbon Dioxide Level 26 mmol/L (21-32) 23 mmol/L (21-32) Anion Gap 8 (6-14) 10 (6-14) Blood Urea Nitrogen 16 mg/dL (7-20) 10 mg/dL (7-20) Creatinine 0.7 mg/dL (0.6-1.0) 0.5 mg/dL (0.6-1.0) Estimated GFR (Cockcroft-Gault) 117.3 173.0 BUN/Creatinine Ratio 23 (6-20) Glucose Level 91 mg/dL (70-99) 129 mg/dL (70-99) Calcium Level 9.9 mg/dL (8.5-10.1) 8.6 mg/dL (8.5-10.1) Total Bilirubin 0.1 mg/dL (0.2-1.0) Aspartate Amino Transf (AST/SGOT) 25 U/L (15-37) Alanine Aminotransferase (ALT/SGPT) 41 U/L (14-59) Alkaline Phosphatase 142 U/L (46-116) C-Reactive Protein, Quantitative 67.9 mg/L (0-3.3) Total Protein 8.9 g/dL (6.4-8.2) Albumin 3.4 g/dL (3.4-5.0) Albumin/Globulin Ratio 0.6 (1.0-1.7) Lipase 108 U/L (73-393) Magnesium Level 1.9 mg/dL (1.8-2.4) Problem List Problems Medical Problems: (1) Exacerbation of Crohn's disease Status: Acute Assessment/Plan as per GI Justicifation of Admission Dx: Justifications for Admission: Justification of Admission Dx: N/A SONIDO MORENO [employer] Apr 03, 2020 12:37
--- NOTE | 2020-04-03 13:15 | PDOC ---
Date of Service: DATE: 04/03/20 TIME: 13:02 Subjective: Subjective: Tolerating clears, hungry. Feels a little better but still with some watery stools and left-sided abd pain radiating to back. Objective: Vital Signs: Vital Signs Date Time Temp Pulse Resp B/P (MAP) Pulse Ox O2 Delivery O2 Flow Rate FiO2 04/03/20 12:05 Room Air 04/03/20 11:00 98.0 72 18 122/74 (90) 98 98.0 Imaging: CT A/P 04/01 CT findings consistent with an acute flare of inflammatory bowel disease, possibly Crohn's disease. No bowel perforation or abscess formation. PE: GEN: NAD LUNGS: CTAB HEART: RRR ABD: BS present, soft, doesn't seem too tender LLQ NEURO/PSYCH: A & O 3 A/P: Crohn's disease - diagnosed in 1999, s/p bowel resection - currently w/ left- sided abdominal pain and diarrhea - past treatment w/ Imuran and biologics, currently nothing Leukocytosis, elevated CRP Abnormal CT - evidence of previous bowel surgery including partial colectomy, increase in mucosal hyperemia in several segmental loops of gas and fluid-filled bowel loops, varying areas of stricturing and patulousness of the bowel loops such as in the distal descending colon H/o GERD H/o C Diff CRC screen - can document attempted colonoscopy at [facility] in 2016 - incomplete due to sigmoid stricture -- Received IV steroids - now stopped? Has mesalamine and PPI ordered. C Diff also ordered - uncollected. Will review w/ Dr. West. Justicifation of Admission Dx: Justifications for Admission: Justification of Admission Dx: N/A ONELIA KING Apr 03, 2020 13:15
[2020-04-03 15:00] VITALS: BP 118/68
--- NOTE | 2020-04-03 15:59 | NUR ---
Tried to start a new IV but was unsuccessful. Asked another nurse to try.
[2020-04-03] MEDS: predniSONE 20 MG TABLET PO SCH (16:29)
[2020-04-03 19:15] VITALS: BP 113/78
--- NOTE | 2020-04-03 20:00 | NUR ---
IV site is slightly tender due to it being patient's dominant hand. Addendum: 04/04/20 at 0400 by ALANA SALAS RN Amended: Links added.
[2020-04-03 23:15] VITALS: BP 109/59
[2020-04-04] VITALS (7 sets, daily range): BP systolic 96–120; BP diastolic 57–80
[2020-04-04] MEDS: fentaNYL PF VIAL 100 MCG/2 ML VIAL IVP PRN ×5 (01:11→10:45)
[2020-04-04] MEDS: oxyCODONE/APAP 10/325 1 TAB TABLET PO PRN ×3 (06:01→18:00)
[2020-04-04] MEDS: DICYCLOMINE HCL 10 MG CAPSULE PO SCH ×4 (06:01→18:00)
[2020-04-04] MEDS: PANTOPRAZOLE 40 MG TABLET.DR. PO SCH (06:04)
[2020-04-04] MEDS: predniSONE 20 MG TABLET PO SCH (09:44)
[2020-04-04] MEDS: MESALAMINE 400 MG CAP.DRTAB. PO SCH ×4 (09:44→20:27)
--- NOTE | 2020-04-04 10:21 | PDOC ---
PROGRESS NOTES Date of Service: DATE: 04/04/20 TIME: 10:21 Chief Complaint Chief Complaint ASSESSMENT AND PLAN: Crohn's exacerbation. admitted. We consult GI. Replace potassium. Trend labs, home meds, DVT prophylaxis. Full code. IV Solu-Medrol, scheduled Bentyl, p.r.n. fentanyl, p.r.n. Lortab for breakthrough pain, p.r.n. Zofran, and mesalamine. d/w rn 04-04 reports pain not controlled, will add iv dilaudid 0.7 mg q 4 hrs prn History of Present Illness History of Present Illness pleasant 34-year-old female, who states she has had Crohn's for many years. She appears to have a lot of scars on her abdomen from Crohn's surgery. She states she gets fistula sometimes. She has been to many times and to [facility] as well. She has even been placed on monoclonal antibodies, including Stelara and Humira in the past. Once again, she presents with abdominal pain. It appears that she is probably having a Crohn's flare. Her white count is a little high at 11.3. Potassium is a little low at 3.4. She describes her symptoms as very irritating, rated at 9/10, worse with food, better with no food. She tried increasing her home meds, but that did not work. I discussed the case with the ER physician. We are going to admit the patient and consult GI. PAST MEDICAL HISTORY: Crohn's, cutaneous fistulas, colostomy with takedown, . ALLERGIES: MORPHINE. FAMILY HISTORY: Diabetes. SOCIAL HISTORY: She does not drink, smoke or take drugs. She is on disability. Vitals Vitals Vital Signs Date Time Temp Pulse Resp B/P (MAP) Pulse Ox O2 Delivery O2 Flow Rate FiO2 04/04/20 09:45 Room Air 04/04/20 07:00 98.3 66 18 108/74 (85) 99 98.3 Physical Exam Physical Exam VITALS: Within normal limits and are stable. GENERAL: No apparent distress. Alert and oriented. HEENT: Normocephalic atraumatic, external auditory canals are patent. EYES: Extraocular muscles are intact, pupils are equally round and reactive to light and accommodation. MUSCULOSKELETAL: Well developed, well nourished, good range of motion. ENDOCRINE: No thyromegaly was palpated. LYMPHATICS: No cervical chain or axillary nodes were noted. HEMATOPOIETIC: No bruising. NECK: Supple, no JVD, no thyromegaly was noted. LUNGS: Clear to auscultation in all lung singer without rhonchi or wheezing. HEART: RRR, S1, S2 present. Peripheral pulses intact, no obvious murmurs were noted. ABDOMEN: She has decreased bowel sounds with diffuse tenderness. She has several scars on her abdomen; please see the pictures. EXTREMITIES: Without any cyanosis, clubbing, or edema. Pedal pulses intact, Homans sign is negative. NEUROLOGIC: Normal speech, normal tone. A & O x3, moves all extremities, no obvious focal deficits. PSYCHIATRIC: Normal affect, normal mood. Stable. SKIN: She does have some slight irritation of the gluteal fold. VASCULAR: Good capillary refill, neurovascular bundle appears to be intact. General: Alert, Oriented X3, Cooperative, No acute distress Heart: Regular rate, Normal S1, Normal S2 Lungs: Clear Abdomen: Normal bowel sounds, Soft, No hepatosplenomegaly, Other (ttp mild lower abdomen, midline scar ) Extremities: No clubbing, No cyanosis Skin: No rashes, No breakdown Assessment and Plan Assessmemt and Plan Problems Medical Problems: (1) Exacerbation of Crohn's disease Status: Acute Comment Review of Relevant I have reviewed the following items dania (where applicable) has been applied. Medications Current Medications Sodium Chloride 1,000 ml @ 1,000 mls/hr Q1H IV Last administered on 04/01/20at 20:02; Start 04/01/20 at 18:59; Stop 04/01/20 at 19:58; Status DC Fentanyl Citrate (Fentanyl 2ml Vial) 50 mcg 1X ONCE IVP Last administered on 04/01/20at 20:02; Start 04/01/20 at 19:30; Stop 04/01/20 at 19:31; Status DC Iohexol (Omnipaque 300 Mg/ml) 75 ml 1X ONCE IV Last administered on 04/01/20at 20:45; Start 04/01/20 at 20:00; Stop 04/01/20 at 20:01; Status DC Info (CONTRAST GIVEN -- Rx MONITORING) 1 each PRN DAILY PRN MC SEE COMMENTS; Start 04/01/20 at 20:00; Stop 04/03/20 at 19:59; Status DC Fentanyl Citrate (Fentanyl 2ml Vial) 50 mcg 1X ONCE IVP Last administered on 04/01/20at 21:19; Start 04/01/20 at 21:15; Stop 04/01/20 at 21:16; Status DC Dicyclomine HCl (Bentyl) 10 mg 1X ONCE IM Last administered on 04/01/20at 21:18; Start 04/01/20 at 21:15; Stop 04/01/20 at 21:16; Status DC Methylprednisolone Sodium Succinate (SOLU-Medrol 125MG VIAL) 125 mg 1X ONCE IV Last administered on 04/01/20at 22:36; Start 04/01/20 at 21:45; Stop 04/01/20 at 21:46; Status DC Ondansetron HCl (Zofran) 4 mg PRN Q8HRS PRN IV NAUSEA/VOMITING; Start 04/01/20 at 21:45; Stop 04/02/20 at 00:12; Status DC Fentanyl Citrate (Fentanyl 2ml Vial) 50 mcg PRN Q1HR PRN IV PAIN Last administered on 04/02/20at 15:09; Start 04/01/20 at 21:45; Stop 04/02/20 at 17:08; Status DC Sodium Chloride 1,000 ml @ 125 mls/hr Q8H IV Last administered on 04/02/20at 05:45; Start 04/01/20 at 21:45; Stop 04/02/20 at 21:44; Status DC Ondansetron HCl (Zofran) 4 mg PRN Q4HRS PRN IV NAUSEA/VOMITING; Start 04/02/20 at 00:15 Mesalamine (Delzicol) 400 mg [id number] PO Last administered on 04/04/20at 09:44; Start 04/02/20 at 09:00 Pantoprazole Sodium (Protonix) 40 mg DAILYAC PO Last administered on 04/04/20at 06:04; Start 04/02/20 at 07:30 Potassium Bicarbonate (Potassium Effervescent Tablet) 40 meq 1X ONCE PO Last administered on 04/02/20at 01:36; Start 04/02/20 at 00:30; Stop 04/02/20 at 00:31; Status DC Methylprednisolone Sodium Succinate (SOLU-Medrol 40MG VIAL) 40 mg Q8HRS IV Last administered on 04/02/20at 22:00; Start 04/02/20 at 06:00; Stop 04/02/20 at 22:01; Status DC Dicyclomine HCl (Bentyl) 20 mg Q6HRS PO Last administered on 04/04/20at 06:01; Start 04/02/20 at 18:00 Oxycodone/ Acetaminophen (Percocet 10/325) 1 tab PRN Q6HRS PRN PO PAIN Last administered on 04/02/20at 16:27; Start 04/02/20 at 16:00; Stop 04/02/20 at 20:17; Status DC Fentanyl Citrate (Fentanyl 2ml Vial) 50 mcg PRN Q2HR PRN IVP PAIN Last administered on 04/02/20at 19:25; Start 04/02/20 at 17:15; Stop 04/02/20 at 20:17; Status DC Fentanyl Citrate (Fentanyl 2ml Vial) 75 mcg PRN Q2HR PRN IVP PAIN Last administered on 04/04/20at 07:25; Start 04/02/20 at 20:30 Oxycodone/ Acetaminophen (Percocet 10/325) 2 tab PRN Q6HRS PRN PO PAIN Last administered on 04/04/20at 06:01; Start 04/02/20 at 20:15 Prednisone (Prednisone) 40 mg DAILY PO Last administered on 04/04/20at 09:44; Start 04/03/20 at 16:00 Active Scripts Active Vitals/I & O Vital Sign - Last 24 Hours 04/03/20 04/03/20 04/03/20 04/03/20 10:35 11:00 11:44 12:05 Temp 98.0 98.0 Pulse 72 Resp 18 B/P (MAP) 122/74 (90) Pulse Ox 98 O2 Delivery Room Air Room Air Room Air Room Air 04/03/20 04/03/20 04/03/20 04/03/20 13:05 13:31 14:01 15:00 Temp 98.9 98.9 Pulse 92 Resp 20 B/P (MAP) 118/68 (85) Pulse Ox 98 O2 Delivery Room Air Room Air Room Air Room Air 04/03/20 04/03/20 04/03/20 04/03/20 17:03 17:57 17:58 19:15 Temp 98.1 98.1 Pulse 84 Resp 20 B/P (MAP) 113/78 (90) Pulse Ox 97 O2 Delivery Room Air Room Air Room Air Room Air 04/03/20 04/03/20 04/03/20 04/03/20 19:35 20:00 20:05 22:38 O2 Delivery Room Air Room Air Room Air Room Air 04/03/20 04/03/20 04/03/20 04/04/20 23:08 23:15 23:59 00:59 Temp 98.0 98.0 Pulse 85 Resp 20 B/P (MAP) 109/59 (76) Pulse Ox 95 O2 Delivery Room Air Room Air Room Air Room Air 04/04/20 04/04/20 04/04/20 04/04/20 01:11 01:41 02:55 03:00 Temp 97.9 97.9 97.9 97.9 Pulse 72 72 Resp 20 20 B/P (MAP) 96/57 (70) 96/57 (70) Pulse Ox 99 99 O2 Delivery Room Air Room Air Room Air Room Air 04/04/20 04/04/20 04/04/20 04/04/20 03:18 04:15 05:15 05:45 O2 Delivery Room Air Room Air Room Air Room Air 04/04/20 04/04/20 04/04/20 04/04/20 06:01 07:00 07:01 07:25 Temp 98.3 98.3 Pulse 66 Resp 18 B/P (MAP) 108/74 (85) Pulse Ox 99 O2 Delivery Room Air Room Air Room Air Room Air 04/04/20 09:45 O2 Delivery Room Air Intake and Output 04/03/20 04/03/20 04/04/20 15:00 23:00 07:00 Intake Total 240 ml 550 ml Balance 240 ml 550 ml Justicifation of Admission Dx: Justifications for Admission: Justification of Admission Dx: N/A MIMA BARBOUR MD Apr 04, 2020 10:21
--- NOTE | 2020-04-04 11:06 | PDOC ---
Date of Service: DATE: 04/04/20 TIME: 11:00 Subjective: Subjective: Waiting for IV to be changed. Says still needs IV pain meds - her normal treatment for flares includes Percocet and Dilaudid - Fentanyl and morphine don't work for her. Tolerating full liquids. Reports a lot of watery stools. Asks why the switch from IV to PO steroids. Objective: Objective: D/w nurse - has not witnessed excessive stooling and does not appear to have much pain - ?DC soon Vital Signs: Vital Signs Date Time Temp Pulse Resp B/P (MAP) Pulse Ox O2 Delivery O2 Flow Rate FiO2 04/04/20 10:45 Room Air 04/04/20 07:00 98.3 66 18 108/74 (85) 99 98.3 PE: GEN: NAD LUNGS: CTAB HEART: RRR ABD: BS+, soft, LUQ discomfort - mild NEURO/PSYCH: A & O 3 A/P: Crohn's flare Abnormal CT - increase in mucosal hyperemia in several segmental loops of gas and fluid-filled bowel loops, varying areas of stricturing and patulousness of the bowel loops such as in the distal descending colon H/o GERD H/o C Diff -- Tolerating diet on PO steroids. Defer her concerns re: "regular" pain control to Dr. Capps. C Diff pending. DC per primary on PO steroids - needs regular follow-up w/ gastroenterology for management of Crohn's. Justicifation of Admission Dx: Justifications for Admission: Justification of Admission Dx: N/A ONELIA KING Apr 04, 2020 11:06
--- NOTE | 2020-04-04 11:25 | NUR ---
SW following. Discussed with RN, pt from home, room air, full liquid diet. RN advised no SW needs, anticipates possible discharge home today. SW will continue to follow.
--- NOTE | 2020-04-04 11:39 | PDOC ---
SURGICAL PROGRESS NOTE DATE: 04/04/20 TIME: 11:38 Subjective not in room during rounds continue per GI Vital Signs Vital Signs Date Time Temp Pulse Resp B/P (MAP) Pulse Ox O2 Delivery O2 Flow Rate FiO2 04/04/20 10:45 Room Air 04/04/20 07:00 98.3 66 18 108/74 (85) 99 98.3 I&O Intake and Output 04/04/20 07:00 Intake Total 790 ml Balance 790 ml Intake Oral 790 ml # Voids 4 # Bowel Movements 1 Problem List Problems Medical Problems: (1) Exacerbation of Crohn's disease Status: Acute Justicifation of Admission Dx: Justifications for Admission: Justification of Admission Dx: N/A SONIDO MORENO APRN Apr 04, 2020 11:39
[2020-04-04] MEDS: HYDROmorphone 2 MG/ML VIAL IVP PRN ×2 (14:57→20:27)
[2020-04-04 15:45] LABS: BASO % 0 % (0-3); EOS % 0 % (0-3); HEMATOCRIT 31.4 % (36.0-47.0); HEMOGLOBIN 10.2 g/dL (12.0-15.5); LYMPH # 0.7 x10^3/uL (1.0-4.8); LYMPH % 6 % (24-48); MEAN CORPUSCULAR HEMOGLOBIN 28 pg (25-35); MEAN CORPUSCULAR HGB CONC 32 g/dL (31-37); MEAN CORPUSCULAR VOLUME 85 fL (79-100); MONO # 0.5 x10^3/uL (0.0-1.1); MONO % 4 % (0-9); NEUT # 10.2 x10^3/uL (1.8-7.7); NEUT % 90 % (31-73); PLATELET COUNT 337 x10^3/uL (140-400); RED BLOOD COUNT 3.68 x10^6/uL (3.50-5.40); RED CELL DISTRIBUTION WIDTH 14.9 % (11.5-14.5); WHITE BLOOD COUNT 11.3 x10^3/uL (4.0-11.0)
[2020-04-04] MEDS ORDERED: LORazepam 0.5 MG TABLET PO PRN (15:45)
[2020-04-04 16:15] LABS: ALBUMIN 3.1 g/dL (3.4-5.0); ALBUMIN/GLOBULIN RATIO 0.7 (1.0-1.7); CALCIUM 9.3 mg/dL (8.5-10.1); CREATININE 0.6 mg/dL (0.6-1.0); GFR 140.2; POTASSIUM 3.3 mmol/L (3.5-5.1); TOTAL BILIRUBIN 0.1 mg/dL (0.2-1.0); TOTAL PROTEIN 7.5 g/dL (6.4-8.2)
[2020-04-04 19:32] LABS: % BANDS 1 % (0-9); % LYMPHS 7 % (24-48); % MONOS 3 % (0-10); % SEGS 89 % (35-66)
[2020-04-04 19:33] LABS: PLT ESTIMATE ADEQUATE (ADEQUATE)
[2020-04-05] MEDS: DICYCLOMINE HCL 10 MG CAPSULE PO SCH ×4 (00:14→18:10)
[2020-04-05] MEDS: oxyCODONE/APAP 10/325 1 TAB TABLET PO PRN ×4 (00:15→18:11)
[2020-04-05] MEDS: HYDROmorphone 2 MG/ML VIAL IVP PRN ×6 (01:01→21:05)
[2020-04-05 03:00] VITALS: BP 110/74
[2020-04-05 07:00] VITALS: BP 111/80
[2020-04-05] MEDS: PANTOPRAZOLE 40 MG TABLET.DR. PO SCH (08:10)
[2020-04-05] MEDS: MESALAMINE 400 MG CAP.DRTAB. PO SCH ×4 (08:11→21:04)
--- NOTE | 2020-04-05 08:28 | PDOC ---
PROGRESS NOTES Date of Service: DATE: 04/05/20 TIME: 08:28 Chief Complaint Chief Complaint ASSESSMENT AND PLAN: Crohn's exacerbation. admitted. We consult GI. Replace potassium. Trend labs, home meds, DVT prophylaxis. Full code. IV Solu-Medrol, scheduled Bentyl, p.r.n. fentanyl, p.r.n. Lortab for breakthrough pain, p.r.n. Zofran, and mesalamine. RESTART IV STEROIDS 04-05 d/w rn 04-04 reports pain not controlled, will add iv dilaudid 0.7 mg q 4 hrs prn History of Present Illness History of Present Illness pleasant 34-year-old female, who states she has had Crohn's for many years. She appears to have a lot of scars on her abdomen from Crohn's surgery. She states she gets fistula sometimes. She has been to many times and to [facility] as well. She has even been placed on monoclonal antibodies, including Stelara and Humira in the past. Once again, she presents with abdominal pain. It appears that she is probably having a Crohn's flare. Her white count is a little high at 11.3. Potassium is a little low at 3.4. She describes her symptoms as very irritating, rated at 9/10, worse with food, better with no food. She tried increasing her home meds, but that did not work. I discussed the case with the ER physician. We are going to admit the patient and consult GI. PAST MEDICAL HISTORY: Crohn's, cutaneous fistulas, colostomy with takedown, . ALLERGIES: MORPHINE. FAMILY HISTORY: Diabetes. SOCIAL HISTORY: She does not drink, smoke or take drugs. She is on disability. Vitals Vitals Vital Signs Date Time Temp Pulse Resp B/P (MAP) Pulse Ox O2 Delivery O2 Flow Rate FiO2 04/05/20 07:00 98.1 75 18 111/80 (90) 95 Room Air 98.1 Physical Exam Physical Exam VITALS: Within normal limits and are stable. GENERAL: No apparent distress. Alert and oriented. HEENT: Normocephalic atraumatic, external auditory canals are patent. EYES: Extraocular muscles are intact, pupils are equally round and reactive to light and accommodation. MUSCULOSKELETAL: Well developed, well nourished, good range of motion. ENDOCRINE: No thyromegaly was palpated. LYMPHATICS: No cervical chain or axillary nodes were noted. HEMATOPOIETIC: No bruising. NECK: Supple, no JVD, no thyromegaly was noted. LUNGS: Clear to auscultation in all lung singer without rhonchi or wheezing. HEART: RRR, S1, S2 present. Peripheral pulses intact, no obvious murmurs were noted. ABDOMEN: She has decreased bowel sounds with diffuse tenderness. She has several scars on her abdomen; please see the pictures. EXTREMITIES: Without any cyanosis, clubbing, or edema. Pedal pulses intact, Homans sign is negative. NEUROLOGIC: Normal speech, normal tone. A & O x3, moves all extremities, no obvious focal deficits. PSYCHIATRIC: Normal affect, normal mood. Stable. SKIN: She does have some slight irritation of the gluteal fold. VASCULAR: Good capillary refill, neurovascular bundle appears to be intact. General: Alert, Oriented X3, Cooperative, No acute distress Heart: Regular rate, Normal S1, Normal S2 Lungs: Clear Abdomen: Normal bowel sounds, Soft, No hepatosplenomegaly, Other (ttp mild lower abdomen, midline scar ) Extremities: No clubbing, No cyanosis Skin: No rashes, No breakdown Labs LABS Laboratory Tests Test 04/04/20 15:20 White Blood Count 11.3 x10^3/uL (4.0-11.0) Red Blood Count 3.68 x10^6/uL (3.50-5.40) Hemoglobin 10.2 g/dL (12.0-15.5) Hematocrit 31.4 % (36.0-47.0) Mean Corpuscular Volume 85 fL (79-100) Mean Corpuscular Hemoglobin 28 pg (25-35) Mean Corpuscular Hemoglobin Concent 32 g/dL (31-37) Red Cell Distribution Width 14.9 % (11.5-14.5) Platelet Count 337 x10^3/uL (140-400) Neutrophils (%) (Auto) 90 % (31-73) Lymphocytes (%) (Auto) 6 % (24-48) Monocytes (%) (Auto) 4 % (0-9) Eosinophils (%) (Auto) 0 % (0-3) Basophils (%) (Auto) 0 % (0-3) Neutrophils # (Auto) 10.2 x10^3/uL (1.8-7.7) Lymphocytes # (Auto) 0.7 x10^3/uL (1.0-4.8) Monocytes # (Auto) 0.5 x10^3/uL (0.0-1.1) Eosinophils # (Auto) 0.0 x10^3/uL (0.0-0.7) Basophils # (Auto) 0.0 x10^3/uL (0.0-0.2) Segmented Neutrophils % 89 % (35-66) Band Neutrophils % 1 % (0-9) Lymphocytes % 7 % (24-48) Monocytes % 3 % (0-10) Platelet Estimate Adequate (ADEQUATE) Sodium Level 138 mmol/L (136-145) Potassium Level 3.3 mmol/L (3.5-5.1) Chloride Level 103 mmol/L (98-107) Carbon Dioxide Level 27 mmol/L (21-32) Anion Gap 8 (6-14) Blood Urea Nitrogen 8 mg/dL (7-20) Creatinine 0.6 mg/dL (0.6-1.0) Estimated GFR (Cockcroft-Gault) 140.2 BUN/Creatinine Ratio 13 (6-20) Glucose Level 140 mg/dL (70-99) Calcium Level 9.3 mg/dL (8.5-10.1) Total Bilirubin 0.1 mg/dL (0.2-1.0) Aspartate Amino Transf (AST/SGOT) 11 U/L (15-37) Alanine Aminotransferase (ALT/SGPT) 22 U/L (14-59) Alkaline Phosphatase 95 U/L (46-116) Total Protein 7.5 g/dL (6.4-8.2) Albumin 3.1 g/dL (3.4-5.0) Albumin/Globulin Ratio 0.7 (1.0-1.7) Assessment and Plan Assessmemt and Plan Problems Medical Problems: (1) Exacerbation of Crohn's disease Status: Acute Comment Review of Relevant I have reviewed the following items dania (where applicable) has been applied. Labs Laboratory Tests Test 04/04/20 15:20 White Blood Count 11.3 x10^3/uL (4.0-11.0) Red Blood Count 3.68 x10^6/uL (3.50-5.40) Hemoglobin 10.2 g/dL (12.0-15.5) Hematocrit 31.4 % (36.0-47.0) Mean Corpuscular Volume 85 fL (79-100) Mean Corpuscular Hemoglobin 28 pg (25-35) Mean Corpuscular Hemoglobin Concent 32 g/dL (31-37) Red Cell Distribution Width 14.9 % (11.5-14.5) Platelet Count 337 x10^3/uL (140-400) Neutrophils (%) (Auto) 90 % (31-73) Lymphocytes (%) (Auto) 6 % (24-48) Monocytes (%) (Auto) 4 % (0-9) Eosinophils (%) (Auto) 0 % (0-3) Basophils (%) (Auto) 0 % (0-3) Neutrophils # (Auto) 10.2 x10^3/uL (1.8-7.7) Lymphocytes # (Auto) 0.7 x10^3/uL (1.0-4.8) Monocytes # (Auto) 0.5 x10^3/uL (0.0-1.1) Eosinophils # (Auto) 0.0 x10^3/uL (0.0-0.7) Basophils # (Auto) 0.0 x10^3/uL (0.0-0.2) Segmented Neutrophils % 89 % (35-66) Band Neutrophils % 1 % (0-9) Lymphocytes % 7 % (24-48) Monocytes % 3 % (0-10) Platelet Estimate Adequate (ADEQUATE) Sodium Level 138 mmol/L (136-145) Potassium Level 3.3 mmol/L (3.5-5.1) Chloride Level 103 mmol/L (98-107) Carbon Dioxide Level 27 mmol/L (21-32) Anion Gap 8 (6-14) Blood Urea Nitrogen 8 mg/dL (7-20) Creatinine 0.6 mg/dL (0.6-1.0) Estimated GFR (Cockcroft-Gault) 140.2 BUN/Creatinine Ratio 13 (6-20) Glucose Level 140 mg/dL (70-99) Calcium Level 9.3 mg/dL (8.5-10.1) Total Bilirubin 0.1 mg/dL (0.2-1.0) Aspartate Amino Transf (AST/SGOT) 11 U/L (15-37) Alanine Aminotransferase (ALT/SGPT) 22 U/L (14-59) Alkaline Phosphatase 95 U/L (46-116) Total Protein 7.5 g/dL (6.4-8.2) Albumin 3.1 g/dL (3.4-5.0) Albumin/Globulin Ratio 0.7 (1.0-1.7) Laboratory Tests Test 04/04/20 15:20 White Blood Count 11.3 x10^3/uL (4.0-11.0) Red Blood Count 3.68 x10^6/uL (3.50-5.40) Hemoglobin 10.2 g/dL (12.0-15.5) Hematocrit 31.4 % (36.0-47.0) Mean Corpuscular Volume 85 fL (79-100) Mean Corpuscular Hemoglobin 28 pg (25-35) Mean Corpuscular Hemoglobin Concent 32 g/dL (31-37) Red Cell Distribution Width 14.9 % (11.5-14.5) Platelet Count 337 x10^3/uL (140-400) Neutrophils (%) (Auto) 90 % (31-73) Lymphocytes (%) (Auto) 6 % (24-48) Monocytes (%) (Auto) 4 % (0-9) Eosinophils (%) (Auto) 0 % (0-3) Basophils (%) (Auto) 0 % (0-3) Neutrophils # (Auto) 10.2 x10^3/uL (1.8-7.7) Lymphocytes # (Auto) 0.7 x10^3/uL (1.0-4.8) Monocytes # (Auto) 0.5 x10^3/uL (0.0-1.1) Eosinophils # (Auto) 0.0 x10^3/uL (0.0-0.7) Basophils # (Auto) 0.0 x10^3/uL (0.0-0.2) Segmented Neutrophils % 89 % (35-66) Band Neutrophils % 1 % (0-9) Lymphocytes % 7 % (24-48) Monocytes % 3 % (0-10) Platelet Estimate Adequate (ADEQUATE) Sodium Level 138 mmol/L (136-145) Potassium Level 3.3 mmol/L (3.5-5.1) Chloride Level 103 mmol/L (98-107) Carbon Dioxide Level 27 mmol/L (21-32) Anion Gap 8 (6-14) Blood Urea Nitrogen 8 mg/dL (7-20) Creatinine 0.6 mg/dL (0.6-1.0) Estimated GFR (Cockcroft-Gault) 140.2 BUN/Creatinine Ratio 13 (6-20) Glucose Level 140 mg/dL (70-99) Calcium Level 9.3 mg/dL (8.5-10.1) Total Bilirubin 0.1 mg/dL (0.2-1.0) Aspartate Amino Transf (AST/SGOT) 11 U/L (15-37) Alanine Aminotransferase (ALT/SGPT) 22 U/L (14-59) Alkaline Phosphatase 95 U/L (46-116) Total Protein 7.5 g/dL (6.4-8.2) Albumin 3.1 g/dL (3.4-5.0) Albumin/Globulin Ratio 0.7 (1.0-1.7) Medications Current Medications Sodium Chloride 1,000 ml @ 1,000 mls/hr Q1H IV Last administered on 04/01/20at 20:02; Start 04/01/20 at 18:59; Stop 04/01/20 at 19:58; Status DC Fentanyl Citrate (Fentanyl 2ml Vial) 50 mcg 1X ONCE IVP Last administered on 04/01/20at 20:02; Start 04/01/20 at 19:30; Stop 04/01/20 at 19:31; Status DC Iohexol (Omnipaque 300 Mg/ml) 75 ml 1X ONCE IV Last administered on 04/01/20at 20:45; Start 04/01/20 at 20:00; Stop 04/01/20 at 20:01; Status DC Info (CONTRAST GIVEN -- Rx MONITORING) 1 each PRN DAILY PRN MC SEE COMMENTS; Start 04/01/20 at 20:00; Stop 04/03/20 at 19:59; Status DC Fentanyl Citrate (Fentanyl 2ml Vial) 50 mcg 1X ONCE IVP Last administered on 04/01/20at 21:19; Start 04/01/20 at 21:15; Stop 04/01/20 at 21:16; Status DC Dicyclomine HCl (Bentyl) 10 mg 1X ONCE IM Last administered on 04/01/20at 21:18; Start 04/01/20 at 21:15; Stop 04/01/20 at 21:16; Status DC Methylprednisolone Sodium Succinate (SOLU-Medrol 125MG VIAL) 125 mg 1X ONCE IV Last administered on 04/01/20at 22:36; Start 04/01/20 at 21:45; Stop 04/01/20 at 21:46; Status DC Ondansetron HCl (Zofran) 4 mg PRN Q8HRS PRN IV NAUSEA/VOMITING; Start 04/01/20 at 21:45; Stop 04/02/20 at 00:12; Status DC Fentanyl Citrate (Fentanyl 2ml Vial) 50 mcg PRN Q1HR PRN IV PAIN Last administered on 04/02/20at 15:09; Start 04/01/20 at 21:45; Stop 04/02/20 at 17:08; Status DC Sodium Chloride 1,000 ml @ 125 mls/hr Q8H IV Last administered on 04/02/20at 05:45; Start 04/01/20 at 21:45; Stop 04/02/20 at 21:44; Status DC Ondansetron HCl (Zofran) 4 mg PRN Q4HRS PRN IV NAUSEA/VOMITING; Start 04/02/20 at 00:15 Mesalamine (Delzicol) 400 mg [id number] PO Last administered on 04/05/20at 08:11; Start 04/02/20 at 09:00 Pantoprazole Sodium (Protonix) 40 mg DAILYAC PO Last administered on 04/05/20at 08:10; Start 04/02/20 at 07:30 Potassium Bicarbonate (Potassium Effervescent Tablet) 40 meq 1X ONCE PO Last administered on 04/02/20at 01:36; Start 04/02/20 at 00:30; Stop 04/02/20 at 00:31; Status DC Methylprednisolone Sodium Succinate (SOLU-Medrol 40MG VIAL) 40 mg Q8HRS IV Last administered on 04/02/20at 22:00; Start 04/02/20 at 06:00; Stop 04/02/20 at 22:01; Status DC Dicyclomine HCl (Bentyl) 20 mg Q6HRS PO Last administered on 04/05/20at 06:16; Start 04/02/20 at 18:00 Oxycodone/ Acetaminophen (Percocet 10/325) 1 tab PRN Q6HRS PRN PO PAIN Last administered on 04/02/20at 16:27; Start 04/02/20 at 16:00; Stop 04/02/20 at 20:17; Status DC Fentanyl Citrate (Fentanyl 2ml Vial) 50 mcg PRN Q2HR PRN IVP PAIN Last administered on 04/02/20at 19:25; Start 04/02/20 at 17:15; Stop 04/02/20 at 20:17; Status DC Fentanyl Citrate (Fentanyl 2ml Vial) 75 mcg PRN Q2HR PRN IVP PAIN Last administered on 04/04/20at 10:45; Start 04/02/20 at 20:30; Stop 04/04/20 at 13:39; Status DC Oxycodone/ Acetaminophen (Percocet 10/325) 2 tab PRN Q6HRS PRN PO PAIN Last administered on 04/05/20at 06:17; Start 04/02/20 at 20:15 Prednisone (Prednisone) 40 mg DAILY PO Last administered on 04/04/20at 09:44; Start 04/03/20 at 16:00 Hydromorphone HCl (Dilaudid) 0.7 mg PRN Q4HRS PRN IVP PAIN Last administered on 04/05/20at 05:07; Start 04/04/20 at 13:45 Lorazepam (Ativan) 0.5 mg PRN Q8HRS PRN PO ANXIETY / AGITATION; Start 04/04/20 at 15:45 Active Scripts Active Vitals/I & O Vital Sign - Last 24 Hours 04/04/20 04/04/20 04/04/20 04/04/20 09:45 10:45 11:00 12:08 Temp 98.0 98.0 Pulse 68 Resp 16 B/P (MAP) 112/78 (89) Pulse Ox 99 O2 Delivery Room Air Room Air Room Air Room Air 04/04/20 04/04/20 04/04/20 04/04/20 12:10 13:30 14:57 15:00 Temp 97.7 97.7 Pulse 66 Resp 18 B/P (MAP) 106/80 (89) Pulse Ox 96 O2 Delivery Room Air Room Air Room Air Room Air 04/04/20 04/04/20 04/04/2020 15:51 18:00 19:00 19:00 Temp 97.8 97.8 Pulse 78 Resp 18 B/P (MAP) 120/78 (92) Pulse Ox 97 O2 Delivery Room Air Room Air Room Air Room Air 04/04/20 04/04/20 04/04/20 04/04/20 20:00 20:27 20:57 23:00 Temp 97.9 97.9 Pulse 67 Resp 18 20 B/P (MAP) 116/80 (92) Pulse Ox 97 98 O2 Delivery Room Air Room Air Room Air Room Air 04/05/20 04/05/20 04/05/20 04/05/20 00:15 01:01 01:15 01:31 Resp 18 18 18 Pulse Ox 98 98 98 O2 Delivery Room Air Room Air Room Air Room Air 04/05/20 04/05/20 04/05/20 04/05/20 03:00 05:07 05:37 06:17 Temp 98.6 98.6 Pulse 63 Resp 18 20 18 B/P (MAP) 110/74 (86) Pulse Ox 100 100 100 O2 Delivery Room Air Room Air Room Air Room Air 04/05/20 07:00 Temp 98.1 98.1 Pulse 75 Resp 18 B/P (MAP) 111/80 (90) Pulse Ox 95 O2 Delivery Room Air Intake and Output 04/04/20 04/04/20 04/05/20 15:00 23:00 07:00 Intake Total 100 ml 200 ml Balance 100 ml 200 ml Justicifation of Admission Dx: Justifications for Admission: Justification of Admission Dx: N/A MIMA BARBOUR MD Apr 05, 2020 08:28
[2020-04-05] MEDS ORDERED: POTASSIUM CHLORIDE 20 MEQ TABLET.ER. PO ONE (08:30)
[2020-04-05] MEDS: predniSONE 20 MG TABLET PO SCH (09:00)
--- NOTE | 2020-04-05 09:41 | NUR ---
SW following. Discussed with RN, pt from home, room air, full liquid diet. Pt did not discharge yesterday due to hemoglobin dropping. Dr. Capps plans to discharge pt today if hgn is stable. SW will continue to follow.
[2020-04-05 11:00] VITALS: BP 114/60
[2020-04-05 11:04] LABS: BASO % 0 % (0-3); EOS # 0.1 x10^3/uL (0.0-0.7); EOS % 0 % (0-3); HEMATOCRIT 33.7 % (36.0-47.0); HEMOGLOBIN 10.9 g/dL (12.0-15.5); LYMPH # 1.8 x10^3/uL (1.0-4.8); LYMPH % 15 % (24-48); MEAN CORPUSCULAR HEMOGLOBIN 28 pg (25-35); MEAN CORPUSCULAR HGB CONC 32 g/dL (31-37); MEAN CORPUSCULAR VOLUME 86 fL (79-100); MONO # 2.1 x10^3/uL (0.0-1.1); MONO % 19 % (0-9); NEUT # 7.5 x10^3/uL (1.8-7.7); NEUT % 65 % (31-73); PLATELET COUNT 376 x10^3/uL (140-400); RED BLOOD COUNT 3.94 x10^6/uL (3.50-5.40); RED CELL DISTRIBUTION WIDTH 15.1 % (11.5-14.5); WHITE BLOOD COUNT 11.5 x10^3/uL (4.0-11.0)
--- NOTE | 2020-04-05 11:40 | PDOC ---
Date of Service: DATE: 04/05/20 TIME: 11:37 Subjective: Subjective: Not much better, still w/ diarrhea. Objective: Vital Signs: Vital Signs Date Time Temp Pulse Resp B/P (MAP) Pulse Ox O2 Delivery O2 Flow Rate FiO2 04/05/20 08:00 Room Air 04/05/20 07:00 98.1 75 18 111/80 (90) 95 98.1 Labs: Laboratory Tests Test 04/04/20 15:20 04/05/20 10:25 White Blood Count 11.3 x10^3/uL 11.5 x10^3/uL Red Blood Count 3.68 x10^6/uL 3.94 x10^6/uL Hemoglobin 10.2 g/dL 10.9 g/dL Hematocrit 31.4 % 33.7 % Mean Corpuscular Volume 85 fL 86 fL Mean Corpuscular Hemoglobin 28 pg 28 pg Mean Corpuscular Hemoglobin Concent 32 g/dL 32 g/dL Red Cell Distribution Width 14.9 % 15.1 % Platelet Count 337 x10^3/uL 376 x10^3/uL Neutrophils (%) (Auto) 90 % 65 % Lymphocytes (%) (Auto) 6 % 15 % Monocytes (%) (Auto) 4 % 19 % Eosinophils (%) (Auto) 0 % 0 % Basophils (%) (Auto) 0 % 0 % Neutrophils # (Auto) 10.2 x10^3/uL 7.5 x10^3/uL Lymphocytes # (Auto) 0.7 x10^3/uL 1.8 x10^3/uL Monocytes # (Auto) 0.5 x10^3/uL 2.1 x10^3/uL Eosinophils # (Auto) 0.0 x10^3/uL 0.1 x10^3/uL Basophils # (Auto) 0.0 x10^3/uL 0.0 x10^3/uL Segmented Neutrophils % 89 % Band Neutrophils % 1 % Lymphocytes % 7 % Monocytes % 3 % Platelet Estimate Adequate Sodium Level 138 mmol/L Potassium Level 3.3 mmol/L Chloride Level 103 mmol/L Carbon Dioxide Level 27 mmol/L Anion Gap 8 Blood Urea Nitrogen 8 mg/dL Creatinine 0.6 mg/dL Estimated GFR (Cockcroft-Gault) 140.2 BUN/Creatinine Ratio 13 Glucose Level 140 mg/dL Calcium Level 9.3 mg/dL Total Bilirubin 0.1 mg/dL Aspartate Amino Transf (AST/SGOT) 11 U/L Alanine Aminotransferase (ALT/SGPT) 22 U/L Alkaline Phosphatase 95 U/L Total Protein 7.5 g/dL Albumin 3.1 g/dL Albumin/Globulin Ratio 0.7 PE: GEN: NAD - sleeping LUNGS: CTAB HEART: RRR ABD: S/ND, mildly tender LUQ NEURO/PSYCH: A & O 3, flat A/P: Crohn's flare - left-sided abd pain, diarrhea H/o GERD H/o C Diff -- Will go back to IV steroids. C Diff still pending - collected 04/03. Justicifation of Admission Dx: Justifications for Admission: Justification of Admission Dx: N/A ONELIA KING Apr 05, 2020 11:40
--- NOTE | 2020-04-05 14:49 | PDOC ---
SURGICAL PROGRESS NOTE DATE: 04/05/20 TIME: 14:48 Subjective Pt without new c/o, passing stools Vital Signs Vital Signs Date Time Temp Pulse Resp B/P (MAP) Pulse Ox O2 Delivery O2 Flow Rate FiO2 04/05/20 13:00 98 Room Air 04/05/20 11:00 98.0 86 19 114/60 (78) 98.0 I&O Intake and Output 04/05/20 07:00 Intake Total 300 ml Balance 300 ml Intake Oral 300 ml # Voids 3 General: Alert, Oriented X3, Cooperative, No acute distress Abdomen: Soft, No tenderness Labs Laboratory Tests Test 04/04/20 15:20 04/05/20 10:25 White Blood Count 11.3 x10^3/uL (4.0-11.0) 11.5 x10^3/uL (4.0-11.0) Red Blood Count 3.68 x10^6/uL (3.50-5.40) 3.94 x10^6/uL (3.50-5.40) Hemoglobin 10.2 g/dL (12.0-15.5) 10.9 g/dL (12.0-15.5) Hematocrit 31.4 % (36.0-47.0) 33.7 % (36.0-47.0) Mean Corpuscular Volume 85 fL (79-100) 86 fL (79-100) Mean Corpuscular Hemoglobin 28 pg (25-35) 28 pg (25-35) Mean Corpuscular Hemoglobin Concent 32 g/dL (31-37) 32 g/dL (31-37) Red Cell Distribution Width 14.9 % (11.5-14.5) 15.1 % (11.5-14.5) Platelet Count 337 x10^3/uL (140-400) 376 x10^3/uL (140-400) Neutrophils (%) (Auto) 90 % (31-73) 65 % (31-73) Lymphocytes (%) (Auto) 6 % (24-48) 15 % (24-48) Monocytes (%) (Auto) 4 % (0-9) 19 % (0-9) Eosinophils (%) (Auto) 0 % (0-3) 0 % (0-3) Basophils (%) (Auto) 0 % (0-3) 0 % (0-3) Neutrophils # (Auto) 10.2 x10^3/uL (1.8-7.7) 7.5 x10^3/uL (1.8-7.7) Lymphocytes # (Auto) 0.7 x10^3/uL (1.0-4.8) 1.8 x10^3/uL (1.0-4.8) Monocytes # (Auto) 0.5 x10^3/uL (0.0-1.1) 2.1 x10^3/uL (0.0-1.1) Eosinophils # (Auto) 0.0 x10^3/uL (0.0-0.7) 0.1 x10^3/uL (0.0-0.7) Basophils # (Auto) 0.0 x10^3/uL (0.0-0.2) 0.0 x10^3/uL (0.0-0.2) Segmented Neutrophils % 89 % (35-66) Band Neutrophils % 1 % (0-9) Lymphocytes % 7 % (24-48) Monocytes % 3 % (0-10) Platelet Estimate Adequate (ADEQUATE) Sodium Level 138 mmol/L (136-145) Potassium Level 3.3 mmol/L (3.5-5.1) Chloride Level 103 mmol/L (98-107) Carbon Dioxide Level 27 mmol/L (21-32) Anion Gap 8 (6-14) Blood Urea Nitrogen 8 mg/dL (7-20) Creatinine 0.6 mg/dL (0.6-1.0) Estimated GFR (Cockcroft-Gault) 140.2 BUN/Creatinine Ratio 13 (6-20) Glucose Level 140 mg/dL (70-99) Calcium Level 9.3 mg/dL (8.5-10.1) Total Bilirubin 0.1 mg/dL (0.2-1.0) Aspartate Amino Transf (AST/SGOT) 11 U/L (15-37) Alanine Aminotransferase (ALT/SGPT) 22 U/L (14-59) Alkaline Phosphatase 95 U/L (46-116) Total Protein 7.5 g/dL (6.4-8.2) Albumin 3.1 g/dL (3.4-5.0) Albumin/Globulin Ratio 0.7 (1.0-1.7) Laboratory Tests Test 04/04/20 15:20 04/05/20 10:25 White Blood Count 11.3 x10^3/uL (4.0-11.0) 11.5 x10^3/uL (4.0-11.0) Red Blood Count 3.68 x10^6/uL (3.50-5.40) 3.94 x10^6/uL (3.50-5.40) Hemoglobin 10.2 g/dL (12.0-15.5) 10.9 g/dL (12.0-15.5) Hematocrit 31.4 % (36.0-47.0) 33.7 % (36.0-47.0) Mean Corpuscular Volume 85 fL (79-100) 86 fL (79-100) Mean Corpuscular Hemoglobin 28 pg (25-35) 28 pg (25-35) Mean Corpuscular Hemoglobin Concent 32 g/dL (31-37) 32 g/dL (31-37) Red Cell Distribution Width 14.9 % (11.5-14.5) 15.1 % (11.5-14.5) Platelet Count 337 x10^3/uL (140-400) 376 x10^3/uL (140-400) Neutrophils (%) (Auto) 90 % (31-73) 65 % (31-73) Lymphocytes (%) (Auto) 6 % (24-48) 15 % (24-48) Monocytes (%) (Auto) 4 % (0-9) 19 % (0-9) Eosinophils (%) (Auto) 0 % (0-3) 0 % (0-3) Basophils (%) (Auto) 0 % (0-3) 0 % (0-3) Neutrophils # (Auto) 10.2 x10^3/uL (1.8-7.7) 7.5 x10^3/uL (1.8-7.7) Lymphocytes # (Auto) 0.7 x10^3/uL (1.0-4.8) 1.8 x10^3/uL (1.0-4.8) Monocytes # (Auto) 0.5 x10^3/uL (0.0-1.1) 2.1 x10^3/uL (0.0-1.1) Eosinophils # (Auto) 0.0 x10^3/uL (0.0-0.7) 0.1 x10^3/uL (0.0-0.7) Basophils # (Auto) 0.0 x10^3/uL (0.0-0.2) 0.0 x10^3/uL (0.0-0.2) Segmented Neutrophils % 89 % (35-66) Band Neutrophils % 1 % (0-9) Lymphocytes % 7 % (24-48) Monocytes % 3 % (0-10) Platelet Estimate Adequate (ADEQUATE) Sodium Level 138 mmol/L (136-145) Potassium Level 3.3 mmol/L (3.5-5.1) Chloride Level 103 mmol/L (98-107) Carbon Dioxide Level 27 mmol/L (21-32) Anion Gap 8 (6-14) Blood Urea Nitrogen 8 mg/dL (7-20) Creatinine 0.6 mg/dL (0.6-1.0) Estimated GFR (Cockcroft-Gault) 140.2 BUN/Creatinine Ratio 13 (6-20) Glucose Level 140 mg/dL (70-99) Calcium Level 9.3 mg/dL (8.5-10.1) Total Bilirubin 0.1 mg/dL (0.2-1.0) Aspartate Amino Transf (AST/SGOT) 11 U/L (15-37) Alanine Aminotransferase (ALT/SGPT) 22 U/L (14-59) Alkaline Phosphatase 95 U/L (46-116) Total Protein 7.5 g/dL (6.4-8.2) Albumin 3.1 g/dL (3.4-5.0) Albumin/Globulin Ratio 0.7 (1.0-1.7) Problem List Problems Medical Problems: (1) Exacerbation of Crohn's disease Status: Acute Assessment/Plan crohn's cont per GI no surgical plans. Justicifation of Admission Dx: Justifications for Admission: Justification of Admission Dx: N/A JERSON SR MD Apr 05, 2020 14:49
[2020-04-05 15:00] VITALS: BP 115/73
[2020-04-05 19:00] VITALS: BP 106/60
--- NOTE | 2020-04-05 19:44 | NUR ---
pain is consistently a "7" after pain medication given on schedule. No complaints of nausea but just pain and diarrhea. prednisone discontinued and switched to IV.
[2020-04-05] MEDS: methylPREDNISolone SOD SUCC PF 40 MG/ML VIAL. IV SCH (21:04)
[2020-04-05 22:57] VITALS: BP 97/67
[2020-04-06] MEDS: oxyCODONE/APAP 10/325 1 TAB TABLET PO PRN ×4 (00:06→23:16)
[2020-04-06] MEDS: DICYCLOMINE HCL 10 MG CAPSULE PO SCH ×5 (00:06→23:15)
[2020-04-06] MEDS: HYDROmorphone 2 MG/ML VIAL IVP PRN ×6 (01:16→22:16)
[2020-04-06 03:00] VITALS: BP 106/65
[2020-04-06 05:24] LABS: BASO % 0 % (0-3); EOS % 0 % (0-3); HEMATOCRIT 32.7 % (36.0-47.0); HEMOGLOBIN 10.4 g/dL (12.0-15.5); LYMPH # 1.5 x10^3/uL (1.0-4.8); LYMPH % 9 % (24-48); MEAN CORPUSCULAR HEMOGLOBIN 27 pg (25-35); MEAN CORPUSCULAR HGB CONC 32 g/dL (31-37); MEAN CORPUSCULAR VOLUME 86 fL (79-100); MONO # 1.4 x10^3/uL (0.0-1.1); MONO % 8 % (0-9); NEUT # 13.7 x10^3/uL (1.8-7.7); NEUT % 82 % (31-73); PLATELET COUNT 403 x10^3/uL (140-400); RED BLOOD COUNT 3.82 x10^6/uL (3.50-5.40); WHITE BLOOD COUNT 16.6 x10^3/uL (4.0-11.0)
[2020-04-06 05:51] LABS: ALBUMIN/GLOBULIN RATIO 0.8 (1.0-1.7); CALCIUM 9.4 mg/dL (8.5-10.1); CREATININE 0.7 mg/dL (0.6-1.0); GFR 117.3; POTASSIUM 3.7 mmol/L (3.5-5.1); TOTAL BILIRUBIN 0.1 mg/dL (0.2-1.0)
[2020-04-06] MEDS: PANTOPRAZOLE 40 MG TABLET.DR. PO SCH (06:05)
[2020-04-06 07:00] VITALS: BP 106/75
--- NOTE | 2020-04-06 07:30 | NUR ---
Received patient transfer from , report from BARRY Jiménez, will continue to monitor patient. Addendum: 04/06/20 at 1052 by ERICA TANNER RN Note was incorrectly entered on wrong patient.
[2020-04-06] MEDS: methylPREDNISolone SOD SUCC PF 40 MG/ML VIAL. IV SCH ×2 (09:45→20:52)
[2020-04-06] MEDS: MESALAMINE 400 MG CAP.DRTAB. PO SCH ×4 (09:46→20:51)
[2020-04-06] MEDS: POTASSIUM CHLORIDE 20 MEQ TABLET.ER. PO SCH (09:46)
--- NOTE | 2020-04-06 10:28 | PDOC ---
Date of Service: DATE: 04/06/20 TIME: 10:24 Subjective: Subjective: Four stools last night, one this morning and about to go again - diarrhea/watery. Left-sided pain about the same. Wants regular food. Objective: Vital Signs: Vital Signs Date Time Temp Pulse Resp B/P (MAP) Pulse Ox O2 Delivery O2 Flow Rate FiO2 04/06/20 09:46 Room Air 04/06/20 07:00 97.9 73 19 106/75 (85) 98 97.9 Labs: Laboratory Tests Test 04/06/20 05:05 White Blood Count 16.6 x10^3/uL Red Blood Count 3.82 x10^6/uL Hemoglobin 10.4 g/dL Hematocrit 32.7 % Mean Corpuscular Volume 86 fL Mean Corpuscular Hemoglobin 27 pg Mean Corpuscular Hemoglobin Concent 32 g/dL Red Cell Distribution Width 15.0 % Platelet Count 403 x10^3/uL Neutrophils (%) (Auto) 82 % Lymphocytes (%) (Auto) 9 % Monocytes (%) (Auto) 8 % Eosinophils (%) (Auto) 0 % Basophils (%) (Auto) 0 % Neutrophils # (Auto) 13.7 x10^3/uL Lymphocytes # (Auto) 1.5 x10^3/uL Monocytes # (Auto) 1.4 x10^3/uL Eosinophils # (Auto) 0.0 x10^3/uL Basophils # (Auto) 0.0 x10^3/uL Sodium Level 140 mmol/L Potassium Level 3.7 mmol/L Chloride Level 103 mmol/L Carbon Dioxide Level 29 mmol/L Anion Gap 8 Blood Urea Nitrogen 14 mg/dL Creatinine 0.7 mg/dL Estimated GFR (Cockcroft-Gault) 117.3 BUN/Creatinine Ratio 20 Glucose Level 143 mg/dL Calcium Level 9.4 mg/dL Total Bilirubin 0.1 mg/dL Aspartate Amino Transf (AST/SGOT) 8 U/L Alanine Aminotransferase (ALT/SGPT) 20 U/L Alkaline Phosphatase 101 U/L Total Protein 7.0 g/dL Albumin 3.0 g/dL Albumin/Globulin Ratio 0.8 PE: GEN: NAD LUNGS: CTAB HEART: RRR ABD: BS+, soft, non-distended, left periumbilical discomfort NEURO/PSYCH: A & O 3 A/P: Crohn's flare - left-sided abd pain, ongoing diarrhea Leukocytosis on steroids H/o GERD H/o C Diff -- The same. D/w nurse - per lab, C Diff specimen lost, another ordered. Will review her request for regular food w/ Dr. West. Justicifation of Admission Dx: Justifications for Admission: Justification of Admission Dx: N/A ONELIA KING Apr 06, 2020 10:28
--- NOTE | 2020-04-06 10:54 | NUR ---
Lab called and notified publications writer that stool specimen for c-diff lost in transport, another stool specimen will need to be collected, notified patient.
[2020-04-06 11:00] VITALS: BP 110/69
--- NOTE | 2020-04-06 11:43 | PDOC ---
PROGRESS NOTES Date of Service: DATE: 04/06/20 TIME: 11:43 Chief Complaint Chief Complaint ASSESSMENT AND PLAN: Crohn's exacerbation. admitted. We consult GI. Replace potassium. Trend labs, home meds, DVT prophylaxis. Full code. IV Solu-Medrol, scheduled Bentyl, p.r.n. fentanyl, p.r.n. Lortab for breakthrough pain, p.r.n. Zofran, and mesalamine. RESTART IV STEROIDS 04-05 d/w rn 04-05 reports pain not controlled, will add iv dilaudid 0.7 mg q 4 hrs prn 04-06 c-diff specimen lost by lab, d/c iv dilaudid History of Present Illness History of Present Illness pleasant 34-year-old female, who states she has had Crohn's for many years. She appears to have a lot of scars on her abdomen from Crohn's surgery. She states she gets fistula sometimes. She has been to many times and to [facility] as well. She has even been placed on monoclonal antibodies, including Stelara and Humira in the past. Once again, she presents with abdominal pain. It appears that she is probably having a Crohn's flare. Her white count is a little high at 11.3. Potassium is a little low at 3.4. She describes her symptoms as very irritating, rated at 9/10, worse with food, better with no food. She tried increasing her home meds, but that did not work. I discussed the case with the ER physician. We are going to admit the patient and consult GI. PAST MEDICAL HISTORY: Crohn's, cutaneous fistulas, colostomy with takedown, . ALLERGIES: MORPHINE. FAMILY HISTORY: Diabetes. SOCIAL HISTORY: She does not drink, smoke or take drugs. She is on disability. Vitals Vitals Vital Signs Date Time Temp Pulse Resp B/P (MAP) Pulse Ox O2 Delivery O2 Flow Rate FiO2 04/06/20 11:00 98.0 76 19 110/69 (83) 97 Room Air 98.0 Physical Exam Physical Exam VITALS: Within normal limits and are stable. GENERAL: No apparent distress. Alert and oriented. HEENT: Normocephalic atraumatic, external auditory canals are patent. EYES: Extraocular muscles are intact, pupils are equally round and reactive to light and accommodation. MUSCULOSKELETAL: Well developed, well nourished, good range of motion. ENDOCRINE: No thyromegaly was palpated. LYMPHATICS: No cervical chain or axillary nodes were noted. HEMATOPOIETIC: No bruising. NECK: Supple, no JVD, no thyromegaly was noted. LUNGS: Clear to auscultation in all lung singer without rhonchi or wheezing. HEART: RRR, S1, S2 present. Peripheral pulses intact, no obvious murmurs were noted. ABDOMEN: She has decreased bowel sounds with diffuse tenderness. She has several scars on her abdomen; please see the pictures. EXTREMITIES: Without any cyanosis, clubbing, or edema. Pedal pulses intact, Homans sign is negative. NEUROLOGIC: Normal speech, normal tone. A & O x3, moves all extremities, no obvious focal deficits. PSYCHIATRIC: Normal affect, normal mood. Stable. SKIN: She does have some slight irritation of the gluteal fold. VASCULAR: Good capillary refill, neurovascular bundle appears to be intact. General: Alert, Oriented X3, Cooperative, No acute distress Heart: Regular rate, Normal S1, Normal S2 Lungs: Clear Abdomen: Normal bowel sounds, Soft, No tenderness, No hepatosplenomegaly, No masses Extremities: No clubbing, No cyanosis, No edema Skin: No rashes, No breakdown Labs LABS Laboratory Tests Test 04/06/20 05:05 White Blood Count 16.6 x10^3/uL (4.0-11.0) Red Blood Count 3.82 x10^6/uL (3.50-5.40) Hemoglobin 10.4 g/dL (12.0-15.5) Hematocrit 32.7 % (36.0-47.0) Mean Corpuscular Volume 86 fL (79-100) Mean Corpuscular Hemoglobin 27 pg (25-35) Mean Corpuscular Hemoglobin Concent 32 g/dL (31-37) Red Cell Distribution Width 15.0 % (11.5-14.5) Platelet Count 403 x10^3/uL (140-400) Neutrophils (%) (Auto) 82 % (31-73) Lymphocytes (%) (Auto) 9 % (24-48) Monocytes (%) (Auto) 8 % (0-9) Eosinophils (%) (Auto) 0 % (0-3) Basophils (%) (Auto) 0 % (0-3) Neutrophils # (Auto) 13.7 x10^3/uL (1.8-7.7) Lymphocytes # (Auto) 1.5 x10^3/uL (1.0-4.8) Monocytes # (Auto) 1.4 x10^3/uL (0.0-1.1) Eosinophils # (Auto) 0.0 x10^3/uL (0.0-0.7) Basophils # (Auto) 0.0 x10^3/uL (0.0-0.2) Sodium Level 140 mmol/L (136-145) Potassium Level 3.7 mmol/L (3.5-5.1) Chloride Level 103 mmol/L (98-107) Carbon Dioxide Level 29 mmol/L (21-32) Anion Gap 8 (6-14) Blood Urea Nitrogen 14 mg/dL (7-20) Creatinine 0.7 mg/dL (0.6-1.0) Estimated GFR (Cockcroft-Gault) 117.3 BUN/Creatinine Ratio 20 (6-20) Glucose Level 143 mg/dL (70-99) Calcium Level 9.4 mg/dL (8.5-10.1) Total Bilirubin 0.1 mg/dL (0.2-1.0) Aspartate Amino Transf (AST/SGOT) 8 U/L (15-37) Alanine Aminotransferase (ALT/SGPT) 20 U/L (14-59) Alkaline Phosphatase 101 U/L (46-116) Total Protein 7.0 g/dL (6.4-8.2) Albumin 3.0 g/dL (3.4-5.0) Albumin/Globulin Ratio 0.8 (1.0-1.7) Assessment and Plan Assessmemt and Plan Problems Medical Problems: (1) Exacerbation of Crohn's disease Status: Acute Comment Review of Relevant I have reviewed the following items dania (where applicable) has been applied. Labs Laboratory Tests Test 04/04/20 15:20 04/05/20 10:25 04/06/20 05:05 White Blood Count 11.3 x10^3/uL (4.0-11.0) 11.5 x10^3/uL (4.0-11.0) 16.6 x10^3/uL (4.0-11.0) Red Blood Count 3.68 x10^6/uL (3.50-5.40) 3.94 x10^6/uL (3.50-5.40) 3.82 x10^6/uL (3.50-5.40) Hemoglobin 10.2 g/dL (12.0-15.5) 10.9 g/dL (12.0-15.5) 10.4 g/dL (12.0-15.5) Hematocrit 31.4 % (36.0-47.0) 33.7 % (36.0-47.0) 32.7 % (36.0-47.0) Mean Corpuscular Volume 85 fL (79-100) 86 fL (79-100) 86 fL (79-100) Mean Corpuscular Hemoglobin 28 pg (25-35) 28 pg (25-35) 27 pg (25-35) Mean Corpuscular Hemoglobin Concent 32 g/dL (31-37) 32 g/dL (31-37) 32 g/dL (31-37) Red Cell Distribution Width 14.9 % (11.5-14.5) 15.1 % (11.5-14.5) 15.0 % (11.5-14.5) Platelet Count 337 x10^3/uL (140-400) 376 x10^3/uL (140-400) 403 x10^3/uL (140-400) Neutrophils (%) (Auto) 90 % (31-73) 65 % (31-73) 82 % (31-73) Lymphocytes (%) (Auto) 6 % (24-48) 15 % (24-48) 9 % (24-48) Monocytes (%) (Auto) 4 % (0-9) 19 % (0-9) 8 % (0-9) Eosinophils (%) (Auto) 0 % (0-3) 0 % (0-3) 0 % (0-3) Basophils (%) (Auto) 0 % (0-3) 0 % (0-3) 0 % (0-3) Neutrophils # (Auto) 10.2 x10^3/uL (1.8-7.7) 7.5 x10^3/uL (1.8-7.7) 13.7 x10^3/uL (1.8-7.7) Lymphocytes # (Auto) 0.7 x10^3/uL (1.0-4.8) 1.8 x10^3/uL (1.0-4.8) 1.5 x10^3/uL (1.0-4.8) Monocytes # (Auto) 0.5 x10^3/uL (0.0-1.1) 2.1 x10^3/uL (0.0-1.1) 1.4 x10^3/uL (0.0-1.1) Eosinophils # (Auto) 0.0 x10^3/uL (0.0-0.7) 0.1 x10^3/uL (0.0-0.7) 0.0 x10^3/uL (0.0-0.7) Basophils # (Auto) 0.0 x10^3/uL (0.0-0.2) 0.0 x10^3/uL (0.0-0.2) 0.0 x10^3/uL (0.0-0.2) Segmented Neutrophils % 89 % (35-66) Band Neutrophils % 1 % (0-9) Lymphocytes % 7 % (24-48) Monocytes % 3 % (0-10) Platelet Estimate Adequate (ADEQUATE) Sodium Level 138 mmol/L (136-145) 140 mmol/L (136-145) Potassium Level 3.3 mmol/L (3.5-5.1) 3.7 mmol/L (3.5-5.1) Chloride Level 103 mmol/L (98-107) 103 mmol/L (98-107) Carbon Dioxide Level 27 mmol/L (21-32) 29 mmol/L (21-32) Anion Gap 8 (6-14) 8 (6-14) Blood Urea Nitrogen 8 mg/dL (7-20) 14 mg/dL (7-20) Creatinine 0.6 mg/dL (0.6-1.0) 0.7 mg/dL (0.6-1.0) Estimated GFR (Cockcroft-Gault) 140.2 117.3 BUN/Creatinine Ratio 13 (6-20) 20 (6-20) Glucose Level 140 mg/dL (70-99) 143 mg/dL (70-99) Calcium Level 9.3 mg/dL (8.5-10.1) 9.4 mg/dL (8.5-10.1) Total Bilirubin 0.1 mg/dL (0.2-1.0) 0.1 mg/dL (0.2-1.0) Aspartate Amino Transf (AST/SGOT) 11 U/L (15-37) 8 U/L (15-37) Alanine Aminotransferase (ALT/SGPT) 22 U/L (14-59) 20 U/L (14-59) Alkaline Phosphatase 95 U/L (46-116) 101 U/L (46-116) Total Protein 7.5 g/dL (6.4-8.2) 7.0 g/dL (6.4-8.2) Albumin 3.1 g/dL (3.4-5.0) 3.0 g/dL (3.4-5.0) Albumin/Globulin Ratio 0.7 (1.0-1.7) 0.8 (1.0-1.7) Laboratory Tests Test 04/06/20 05:05 White Blood Count 16.6 x10^3/uL (4.0-11.0) Red Blood Count 3.82 x10^6/uL (3.50-5.40) Hemoglobin 10.4 g/dL (12.0-15.5) Hematocrit 32.7 % (36.0-47.0) Mean Corpuscular Volume 86 fL (79-100) Mean Corpuscular Hemoglobin 27 pg (25-35) Mean Corpuscular Hemoglobin Concent 32 g/dL (31-37) Red Cell Distribution Width 15.0 % (11.5-14.5) Platelet Count 403 x10^3/uL (140-400) Neutrophils (%) (Auto) 82 % (31-73) Lymphocytes (%) (Auto) 9 % (24-48) Monocytes (%) (Auto) 8 % (0-9) Eosinophils (%) (Auto) 0 % (0-3) Basophils (%) (Auto) 0 % (0-3) Neutrophils # (Auto) 13.7 x10^3/uL (1.8-7.7) Lymphocytes # (Auto) 1.5 x10^3/uL (1.0-4.8) Monocytes # (Auto) 1.4 x10^3/uL (0.0-1.1) Eosinophils # (Auto) 0.0 x10^3/uL (0.0-0.7) Basophils # (Auto) 0.0 x10^3/uL (0.0-0.2) Sodium Level 140 mmol/L (136-145) Potassium Level 3.7 mmol/L (3.5-5.1) Chloride Level 103 mmol/L (98-107) Carbon Dioxide Level 29 mmol/L (21-32) Anion Gap 8 (6-14) Blood Urea Nitrogen 14 mg/dL (7-20) Creatinine 0.7 mg/dL (0.6-1.0) Estimated GFR (Cockcroft-Gault) 117.3 BUN/Creatinine Ratio 20 (6-20) Glucose Level 143 mg/dL (70-99) Calcium Level 9.4 mg/dL (8.5-10.1) Total Bilirubin 0.1 mg/dL (0.2-1.0) Aspartate Amino Transf (AST/SGOT) 8 U/L (15-37) Alanine Aminotransferase (ALT/SGPT) 20 U/L (14-59) Alkaline Phosphatase 101 U/L (46-116) Total Protein 7.0 g/dL (6.4-8.2) Albumin 3.0 g/dL (3.4-5.0) Albumin/Globulin Ratio 0.8 (1.0-1.7) Medications Current Medications Sodium Chloride 1,000 ml @ 1,000 mls/hr Q1H IV Last administered on 04/01/20at 20:02; Start 04/01/20 at 18:59; Stop 04/01/20 at 19:58; Status DC Fentanyl Citrate (Fentanyl 2ml Vial) 50 mcg 1X ONCE IVP Last administered on 04/01/20at 20:02; Start 04/01/20 at 19:30; Stop 04/01/20 at 19:31; Status DC Iohexol (Omnipaque 300 Mg/ml) 75 ml 1X ONCE IV Last administered on 04/01/20at 20:45; Start 04/01/20 at 20:00; Stop 04/01/20 at 20:01; Status DC Info (CONTRAST GIVEN -- Rx MONITORING) 1 each PRN DAILY PRN MC SEE COMMENTS; Start 04/01/20 at 20:00; Stop 04/03/20 at 19:59; Status DC Fentanyl Citrate (Fentanyl 2ml Vial) 50 mcg 1X ONCE IVP Last administered on 04/01/20at 21:19; Start 04/01/20 at 21:15; Stop 04/01/20 at 21:16; Status DC Dicyclomine HCl (Bentyl) 10 mg 1X ONCE IM Last administered on 04/01/20at 21:18; Start 04/01/20 at 21:15; Stop 04/01/20 at 21:16; Status DC Methylprednisolone Sodium Succinate (SOLU-Medrol 125MG VIAL) 125 mg 1X ONCE IV Last administered on 04/01/20at 22:36; Start 04/01/20 at 21:45; Stop 04/01/20 at 21:46; Status DC Ondansetron HCl (Zofran) 4 mg PRN Q8HRS PRN IV NAUSEA/VOMITING; Start 04/01/20 at 21:45; Stop 04/02/20 at 00:12; Status DC Fentanyl Citrate (Fentanyl 2ml Vial) 50 mcg PRN Q1HR PRN IV PAIN Last admi nistered on 04/02/20at 15:09; Start 04/01/20 at 21:45; Stop 04/02/20 at 17:08; Status DC Sodium Chloride 1,000 ml @ 125 mls/hr Q8H IV Last administered on 04/02/20at 05:45; Start 04/01/20 at 21:45; Stop 04/02/20 at 21:44; Status DC Ondansetron HCl (Zofran) 4 mg PRN Q4HRS PRN IV NAUSEA/VOMITING; Start 04/02/20 at 00:15 Mesalamine (Delzicol) 400 mg [id number] PO Last administered on 04/06/20at 09:46; Start 04/02/20 at 09:00 Pantoprazole Sodium (Protonix) 40 mg DAILYAC PO Last administered on 04/06/20at 06:05; Start 04/02/20 at 07:30 Potassium Bicarbonate (Potassium Effervescent Tablet) 40 meq 1X ONCE PO Last administered on 04/02/20at 01:36; Start 04/02/20 at 00:30; Stop 04/02/20 at 00:31; Status DC Methylprednisolone Sodium Succinate (SOLU-Medrol 40MG VIAL) 40 mg Q8HRS IV Last administered on 04/02/20at 22:00; Start 04/02/20 at 06:00; Stop 04/02/20 at 22:01; Status DC Dicyclomine HCl (Bentyl) 20 mg Q6HRS PO Last administered on 04/06/20at 06:05; Start 04/02/20 at 18:00 Oxycodone/ Acetaminophen (Percocet 10/325) 1 tab PRN Q6HRS PRN PO PAIN Last administered on 04/02/20at 16:27; Start 04/02/20 at 16:00; Stop 04/02/20 at 20:17; Status DC Fentanyl Citrate (Fentanyl 2ml Vial) 50 mcg PRN Q2HR PRN IVP PAIN Last administered on 04/02/20at 19:25; Start 04/02/20 at 17:15; Stop 04/02/20 at 20:17; Status DC Fentanyl Citrate (Fentanyl 2ml Vial) 75 mcg PRN Q2HR PRN IVP PAIN Last administered on 04/04/20at 10:45; Start 04/02/20 at 20:30; Stop 04/04/20 at 13:39; Status DC Oxycodone/ Acetaminophen (Percocet 10/325) 2 tab PRN Q6HRS PRN PO PAIN Last administered on 04/06/20at 06:04; Start 04/02/20 at 20:15 Prednisone (Prednisone) 40 mg DAILY PO Last administered on 04/05/20at 09:00; Start 04/03/20 at 16:00; Stop 04/05/20 at 11:39; Status DC Hydromorphone HCl (Dilaudid) 0.7 mg PRN Q4HRS PRN IVP PAIN Last administered on 04/06/20at 09:46; Start 04/04/20 at 13:45 Lorazepam (Ativan) 0.5 mg PRN Q8HRS PRN PO ANXIETY / AGITATION; Start 04/04/20 at 15:45 Potassium Chloride (Klor-Con) 40 meq 1X ONCE PO Last administered on 04/05/20at 08:59; Start 04/05/20 at 08:30; Stop 04/05/20 at 08:32; Status DC Potassium Chloride (Klor-Con) 20 meq [id number] PO Last administered on 04/06/20at 09:46; Start 04/06/20 at 08:00 Methylprednisolone Sodium Succinate (SOLU-Medrol 40MG VIAL) 40 mg Q12HR IV Last administered on 04/06/20at 09:45; Start 04/05/20 at 21:00 Active Scripts Active Vitals/I & O Vital Sign - Last 24 Hours 04/05/20 04/05/20 04/05/20 04/05/20 12:01 13:00 15:00 19:00 Temp 98.3 98.3 98.3 98.3 Pulse 91 101 Resp 19 18 B/P (MAP) 115/73 (87) 106/60 (75) Pulse Ox 98 94 97 O2 Delivery Room Air Room Air Room Air Room Air 04/05/20 04/05/20 04/05/20 04/05/20 19:21 20:00 21:05 21:35 Resp 20 Pulse Ox 97 97 O2 Delivery Room Air Room Air Room Air Room Air 04/05/20 04/06/20 04/06/20 04/06/20 22:57 00:06 01:06 01:16 Temp 98.4 98.4 Pulse 87 Resp 20 20 20 20 B/P (MAP) 97/67 (77) Pulse Ox 96 96 96 96 O2 Delivery Room Air Room Air Room Air Room Air 04/06/20 04/06/20 04/06/20 04/06/20 01:46 03:00 05:15 05:45 Temp 98.0 98.0 Pulse 78 Resp 20 18 20 20 B/P (MAP) 106/65 (79) Pulse Ox 96 96 96 96 O2 Delivery Room Air Room Air Room Air Room Air 04/06/20 04/06/20 04/06/20 04/06/20 06:04 07:00 08:00 09:46 Temp 97.9 97.9 Pulse 73 Resp 20 19 B/P (MAP) 106/75 (85) Pulse Ox 96 98 O2 Delivery Room Air Room Air Room Air Room Air 04/06/20 11:00 Temp 98.0 98.0 Pulse 76 Resp 19 B/P (MAP) 110/69 (83) Pulse Ox 97 O2 Delivery Room Air Intake and Output 04/05/20 04/05/20 04/06/20 15:00 23:00 07:00 Intake Total 0 ml 1020 ml Balance 0 ml 1020 ml Justicifation of Admission Dx: Justifications for Admission: Justification of Admission Dx: N/A MIMA BARBOUR MD Apr 06, 2020 11:43
--- NOTE | 2020-04-06 11:48 | NUR ---
Report and transfer and care given to BARRY Mcgregor.
--- NOTE | 2020-04-06 12:28 | NUR ---
SW following. Discussed with RN, pt from home, room air, full liquid diet. Per RN note, lab reported Cdiff stool specimen was lost, and another needs to be collected. No surgical plans. SW will continue to follow.
--- NOTE | 2020-04-06 12:29 | NUR ---
assumed care of ariana at this time. informed need new stool sample. resting quietly in bed.
[2020-04-06] MEDS ORDERED: oxyCODONE/APAP 10/325 1 TAB TABLET PO PRN (14:30)
[2020-04-06 15:00] VITALS: BP 106/68
--- NOTE | 2020-04-06 17:15 | NUR ---
became upset after patient wa informed that her dilaudid was dc'd. Her percocet had been increased to every 4hrs. "that is not what I asked for. What am I suppose to have for breakthrough pain? explained would call and ask for medication
[2020-04-06 19:52] VITALS: BP 113/76
[2020-04-06 23:45] VITALS: BP 120/84
[2020-04-07] MEDS: HYDROmorphone 2 MG/ML VIAL IVP PRN ×6 (02:11→23:14)
[2020-04-07 02:52] VITALS: BP 107/70
[2020-04-07] MEDS: DICYCLOMINE HCL 10 MG CAPSULE PO SCH ×3 (05:17→17:45)
[2020-04-07] MEDS: oxyCODONE/APAP 10/325 1 TAB TABLET PO PRN ×3 (05:17→17:46)
[2020-04-07 07:05] VITALS: BP 118/77
[2020-04-07] MEDS: PANTOPRAZOLE 40 MG TABLET.DR. PO SCH (08:51)
[2020-04-07] MEDS: POTASSIUM CHLORIDE 20 MEQ TABLET.ER. PO SCH (08:51)
[2020-04-07] MEDS: methylPREDNISolone SOD SUCC PF 40 MG/ML VIAL. IV SCH ×2 (08:51→20:48)
[2020-04-07] MEDS: MESALAMINE 400 MG CAP.DRTAB. PO SCH ×4 (08:51→20:48)
--- NOTE | 2020-04-07 10:36 | PDOC ---
Date of Service: DATE: 04/07/20 TIME: 10:33 Subjective: Subjective: Doesn't understand why she can't have pain meds as requested like she gets at [facility]. Tolerating diet. Pain and diarrhea the same. Says she still needs IV meds. Objective: Vital Signs: Vital Signs Date Time Temp Pulse Resp B/P (MAP) Pulse Ox O2 Delivery O2 Flow Rate FiO2 04/07/20 10:28 19 99 Room Air 04/07/20 07:05 98.0 74 118/77 (91) 98.0 PE: GEN: NAD - eating a toasted bagel LUNGS: CTAB HEART: RRR ABD: NABS, S/ND - non-tender w/ palpation using stethoscope NEURO/PSYCH: A & O 3 A/P: Crohn's flare - left-sided abd pain, diarrhea, abnormal CT H/o GERD and C Diff Non-compliance -- CRP better. Second try at C Diff collection pending.... If negative, PO steroids and DC. Needs regular follow-up w/ [facility] floor for proper Crohn's treatment. Justicifation of Admission Dx: Justifications for Admission: Justification of Admission Dx: N/A ONELIA KING Apr 07, 2020 10:36
[2020-04-07 11:05] VITALS: BP 110/61
--- NOTE | 2020-04-07 11:11 | NUR ---
SW following. Discussed with RN, awaiting Cdiff result. Per GI, if negative can DC. RN advised no SW needs. SW will continue to follow.
[2020-04-07 15:05] VITALS: BP 114/72
--- NOTE | 2020-04-07 15:54 | PDOC ---
SURGICAL PROGRESS NOTE DATE: 04/07/20 TIME: 15:53 Subjective Pt with c/o cont loose stools, some bloating Vital Signs Vital Signs Date Time Temp Pulse Resp B/P (MAP) Pulse Ox O2 Delivery O2 Flow Rate FiO2 04/07/20 14:38 19 99 Room Air 04/07/20 11:05 98.3 98 110/61 (77) 98.3 I&O Intake and Output 04/07/20 07:00 Intake Total 1080 ml Balance 1080 ml Intake Oral 1080 ml # Voids 3 # Bowel Movements 2 General: Alert, Oriented X3, Cooperative, No acute distress Abdomen: Soft, No tenderness Labs Laboratory Tests Test 04/06/20 05:05 White Blood Count 16.6 x10^3/uL (4.0-11.0) Red Blood Count 3.82 x10^6/uL (3.50-5.40) Hemoglobin 10.4 g/dL (12.0-15.5) Hematocrit 32.7 % (36.0-47.0) Mean Corpuscular Volume 86 fL (79-100) Mean Corpuscular Hemoglobin 27 pg (25-35) Mean Corpuscular Hemoglobin Concent 32 g/dL (31-37) Red Cell Distribution Width 15.0 % (11.5-14.5) Platelet Count 403 x10^3/uL (140-400) Neutrophils (%) (Auto) 82 % (31-73) Lymphocytes (%) (Auto) 9 % (24-48) Monocytes (%) (Auto) 8 % (0-9) Eosinophils (%) (Auto) 0 % (0-3) Basophils (%) (Auto) 0 % (0-3) Neutrophils # (Auto) 13.7 x10^3/uL (1.8-7.7) Lymphocytes # (Auto) 1.5 x10^3/uL (1.0-4.8) Monocytes # (Auto) 1.4 x10^3/uL (0.0-1.1) Eosinophils # (Auto) 0.0 x10^3/uL (0.0-0.7) Basophils # (Auto) 0.0 x10^3/uL (0.0-0.2) Sodium Level 140 mmol/L (136-145) Potassium Level 3.7 mmol/L (3.5-5.1) Chloride Level 103 mmol/L (98-107) Carbon Dioxide Level 29 mmol/L (21-32) Anion Gap 8 (6-14) Blood Urea Nitrogen 14 mg/dL (7-20) Creatinine 0.7 mg/dL (0.6-1.0) Estimated GFR (Cockcroft-Gault) 117.3 BUN/Creatinine Ratio 20 (6-20) Glucose Level 143 mg/dL (70-99) Calcium Level 9.4 mg/dL (8.5-10.1) Total Bilirubin 0.1 mg/dL (0.2-1.0) Aspartate Amino Transf (AST/SGOT) 8 U/L (15-37) Alanine Aminotransferase (ALT/SGPT) 20 U/L (14-59) Alkaline Phosphatase 101 U/L (46-116) C-Reactive Protein, Quantitative 26.7 mg/L (0-3.3) Total Protein 7.0 g/dL (6.4-8.2) Albumin 3.0 g/dL (3.4-5.0) Albumin/Globulin Ratio 0.8 (1.0-1.7) Problem List Problems Medical Problems: (1) Exacerbation of Crohn's disease Status: Acute Assessment/Plan cont care per GI no surgical plans. Justicifation of Admission Dx: Justifications for Admission: Justification of Admission Dx: N/A JERSON SR MD Apr 07, 2020 15:54
[2020-04-07 19:25] VITALS: BP 111/76
--- NOTE | 2020-04-07 20:30 | PDOC ---
[facility] PROGRESS NOTE Date of Service DOS: DATE: 04/07/20 TIME: 20:28 Chief Complaint Chief Complaint ASSESSMENT AND PLAN: Crohn's exacerbation. admitted. We consult GI. Replace potassium. Trend labs, home meds, DVT prophylaxis. Full code. IV Solu-Medrol, scheduled Bentyl, p.r.n. fentanyl, p.r.n. Lortab for breakthrough pain, p.r.n. Zofran, and mesalamine. RESTART IV STEROIDS 04-05 d/w rn 04-05 reports pain not controlled, will add iv dilaudid 0.7 mg q 4 hrs prn 04-06 c-diff specimen lost by lab, d/c iv dilaudid 04/07/20 No acute events overnight. Patient seen and examined. Pain is controlled. > 50% time spent in patient chart, labs, and image review and discussion with RN and SW History of Present Illness History of Present Illness pleasant 34-year-old female, who states she has had Crohn's for many years. She appears to have a lot of scars on her abdomen from Crohn's surgery. She states she gets fistula sometimes. She has been to many times and to [facility] as well. She has even been placed on monoclonal antibodies, including Stelara and Humira in the past. Once again, she presents with abdominal pain. It appears that she is probably having a Crohn's flare. Her white count is a little high at 11.3. Potassium is a little low at 3.4. She describes her symptoms as very irritating, rated at 9/10, worse with food, better with no food. She tried increasing her home meds, but that did not work. I discussed the case with the ER physician. We are going to admit the patient and consult GI. PAST MEDICAL HISTORY: Crohn's, cutaneous fistulas, colostomy with takedown, . ALLERGIES: MORPHINE. FAMILY HISTORY: Diabetes. SOCIAL HISTORY: She does not drink, smoke or take drugs. She is on disability. Vitals/I&O Vitals/I&O: Vital Signs Date Time Temp Pulse Resp B/P (MAP) Pulse Ox O2 Delivery O2 Flow Rate FiO2 04/07/20 19:31 Room Air 04/07/20 19:25 98.9 87 16 111/76 (88) 96 98.9 I & O 04/06/20 04/06/20 04/07/20 15:00 23:00 07:00 Intake Total 0 ml 600 ml 480 ml Balance 0 ml 600 ml 480 ml Physical Exam Physical Exam: VITALS: Within normal limits and are stable. GENERAL: No apparent distress. Alert and oriented. HEENT: Normocephalic atraumatic, external auditory canals are patent. EYES: Extraocular muscles are intact, pupils are equally round and reactive to light and accommodation. MUSCULOSKELETAL: Well developed, well nourished, good range of motion. ENDOCRINE: No thyromegaly was palpated. LYMPHATICS: No cervical chain or axillary nodes were noted. HEMATOPOIETIC: No bruising. NECK: Supple, no JVD, no thyromegaly was noted. LUNGS: Clear to auscultation in all lung singer without rhonchi or wheezing. HEART: RRR, S1, S2 present. Peripheral pulses intact, no obvious murmurs were noted. ABDOMEN: She has decreased bowel sounds with diffuse tenderness. She has several scars on her abdomen; please see the pictures. EXTREMITIES: Without any cyanosis, clubbing, or edema. Pedal pulses intact, Homans sign is negative. NEUROLOGIC: Normal speech, normal tone. A & O x3, moves all extremities, no obvious focal deficits. PSYCHIATRIC: Normal affect, normal mood. Stable. SKIN: She does have some slight irritation of the gluteal fold. VASCULAR: Good capillary refill, neurovascular bundle appears to be intact. General: Alert, Oriented X3, Cooperative, No acute distress Heart: Regular rate, Normal S1, Normal S2 Lungs: Clear Abdomen: Soft, No tenderness Extremities: No clubbing, No cyanosis, No edema Skin: No rashes, No breakdown Labs Labs: Laboratory Tests Test 04/06/20 22:15 Clostridium difficile Toxin (PCR) Negative (NEGATIVE) Assessment and Plan Assessmemt and Plan Problems Medical Problems: (1) Exacerbation of Crohn's disease Status: Acute Comment Review of Relevant I have reviewed the following items dania (where applicable) has been applied. Medications: Current Medications Medications (Trade) Dose Ordered Sig/Nguyen Route PRN Reason Start Time Stop Time Status Last Admin Dose Admin Hydromorphone HCl (Dilaudid) 0.2 mg PRN Q2HRS PRN IVP PAIN 04/07/20 11:45 04/07/20 19:31 Justifications for Admission Other Justification DAFNE PHILIP MD Apr 07, 2020 20:29
[2020-04-07 23:30] VITALS: BP 100/59
[2020-04-08] MEDS: DICYCLOMINE HCL 10 MG CAPSULE PO SCH ×5 (00:03→17:52)
[2020-04-08] MEDS: oxyCODONE/APAP 10/325 1 TAB TABLET PO PRN ×4 (00:03→17:50)
[2020-04-08] MEDS: HYDROmorphone 2 MG/ML VIAL IVP PRN ×6 (03:04→23:54)
[2020-04-08 03:10] VITALS: BP 108/75
[2020-04-08 07:00] VITALS: BP 117/83
[2020-04-08] MEDS: POTASSIUM CHLORIDE 20 MEQ TABLET.ER. PO SCH (08:00)
[2020-04-08] MEDS: methylPREDNISolone SOD SUCC PF 40 MG/ML VIAL. IV SCH ×2 (08:21→21:11)
[2020-04-08] MEDS: PANTOPRAZOLE 40 MG TABLET.DR. PO SCH (08:21)
[2020-04-08] MEDS: MESALAMINE 400 MG CAP.DRTAB. PO SCH ×5 (08:21→21:11)
--- NOTE | 2020-04-08 10:31 | PDOC ---
PROGRESS NOTES Date of Service: DATE: 04/08/20 TIME: 10:31 Chief Complaint Chief Complaint DISCHARGE DX Crohn's exacerbation. admitted. We consult GI. Replace potassium. Trend labs, home meds, DVT prophylaxis. Full code. IV Solu-Medrol, scheduled Bentyl, p.r.n. fentanyl, p.r.n. Lortab for breakthrough pain, p.r.n. Zofran, and mesalamine. RESTART IV STEROIDS 04-05 PO PREDNISONE TAPER d/w rn 04-05 reports pain not controlled, will add iv dilaudid 0.7 mg q 4 hrs prn 04-06 c-diff specimen lost by lab, d/c iv dilaudid 04/08/20 No acute events overnight. Patient seen and examined. Pain is controlled. > 50% time spent in patient chart, labs, and image review and discussion with RN and SW no surgical plans. If can tolerate food and IF C.diff negative favor po steroids and home D/C PLANNING 34 MIN History of Present Illness History of Present Illness pleasant 34-year-old female, who states she has had Crohn's for many years. She appears to have a lot of scars on her abdomen from Crohn's surgery. She states she gets fistula sometimes. She has been to many times and to [facility] as well. She has even been placed on monoclonal antibodies, including Stelara and Humira in the past. Once again, she presents with abdominal pain. It appears that she is probably having a Crohn's flare. Her white count is a little high at 11.3. Potassium is a little low at 3.4. She describes her symptoms as very irritating, rated at 9/10, worse with food, better with no food. She tried increasing her home meds, but that did not work. I discussed the case with the ER physician. We are going to admit the patient and consult GI. PAST MEDICAL HISTORY: Crohn's, cutaneous fistulas, colostomy with takedown, . ALLERGIES: MORPHINE. FAMILY HISTORY: Diabetes. SOCIAL HISTORY: She does not drink, smoke or take drugs. She is on disability. Vitals Vitals Vital Signs Date Time Temp Pulse Resp B/P (MAP) Pulse Ox O2 Delivery O2 Flow Rate FiO2 10/10/20 08:00 Room Air 04/08/20 07:00 98.1 80 20 117/83 (94 97 98.1 Physical Exam Physical Exam VITALS: Within normal limits and are stable. GENERAL: No apparent distress. Alert and oriented. HEENT: Normocephalic atraumatic, external auditory canals are patent. EYES: Extraocular muscles are intact, pupils are equally round and reactive to light and accommodation. MUSCULOSKELETAL: Well developed, well nourished, good range of motion. ENDOCRINE: No thyromegaly was palpated. LYMPHATICS: No cervical chain or axillary nodes were noted. HEMATOPOIETIC: No bruising. NECK: Supple, no JVD, no thyromegaly was noted. LUNGS: Clear to auscultation in all lung singer without rhonchi or wheezing. HEART: RRR, S1, S2 present. Peripheral pulses intact, no obvious murmurs were noted. ABDOMEN: She has decreased bowel sounds with diffuse tenderness. She has several scars on her abdomen; please see the pictures. EXTREMITIES: Without any cyanosis, clubbing, or edema. Pedal pulses intact, Homans sign is negative. NEUROLOGIC: Normal speech, normal tone. A & O x3, moves all extremities, no obvious focal deficits. PSYCHIATRIC: Normal affect, normal mood. Stable. SKIN: She does have some slight irritation of the gluteal fold. VASCULAR: Good capillary refill, neurovascular bundle appears to be intact. General: Alert, Oriented X3, Cooperative, No acute distress Heart: Regular rate, Normal S1, Normal S2 Lungs: Clear Abdomen: Normal bowel sounds, Soft, No tenderness Extremities: No clubbing, No cyanosis, No edema Skin: No rashes, No breakdown Labs LABS EXAM: CT Abdomen and Pelvis with IV contrast INDICATION: Reason: increased pain, OMNI 300, 75 ML IV / Spl. Instructions: / History: TECHNIQUE: Multi-detector row CT images were acquired from the lung bases through the abdomen and pelvis with the use of IV contrast. Sagittal and coronal images were acquired from the transaxial data. All CT scans performed at this facility utilize dose optimization techniques as appropriate to the exam, including the following: Automated exposure control and adjustment of the mA and/or KV according to patient size (this includes techniques or standardized protocols for targeted exams where dose is indication/reason for exam). IV CONTRAST: Administered ORAL CONTRAST: Not administered COMPARISON: Abdomen pelvis CT with IV contrast 03/13/2020 FINDINGS: LOWER CHEST: Unremarkable LIVER: Unremarkable BILIARY SYSTEM: Gallbladder is unremarkable. Bile ducts are not dilated. PANCREAS: Unremarkable SPLEEN: Unremarkable ADRENALS: Unremarkable KIDNEYS & URETERS: Unremarkable BLADDER: Unremarkable REPRODUCTIVE ORGANS: Unremarkable GASTROINTESTINAL: There is evidence of previous bowel surgery, including partial colectomy.. Since the previous examination, mucosal hyperemia has become more apparent in several segmental loops of gas and fluid-filled bowel loops but there persists varying areas of stricturing and patulousness of the bowel loops, such as in the distal descending colon. There is no evidence of bowel perforation. No evidence of high-grade bowel obstruction. Low-grade bowel obstruction difficult to exclude given the appearance of collapsed small bowel loops and findings suggesting evidence of stricturing. MESENTERY/PERITONEUM/RETROPERITONEUM: Unremarkable VASCULAR: Unremarkable LYMPH NODES: No adenopathy OSSEOUS & SOFT TISSUES: Unremarkable IMPRESSION: CT findings consistent with an acute flare of inflammatory bowel disease, possibly Crohn's disease. No bowel perforation or abscess formation. Electronically signed by: Maria Scott MD (04/01/2020 9:03 PM) [facility] [place] and SIGNED BY: MARIA SCOTT MD DATE: 04/01/202102 Assessment and Plan Assessmemt and Plan Problems Medical Problems: (1) Exacerbation of Crohn's disease Status: Acute Comment Review of Relevant I have reviewed the following items dania (where applicable) has been applied. Labs Laboratory Tests Test 04/06/20 22:15 Clostridium difficile Toxin (PCR) Negative (NEGATIVE) Medications Current Medications Sodium Chloride 1,000 ml @ 1,000 mls/hr Q1H IV Last administered on 04/01/20at 20:02; Start 04/01/20 at 18:59; Stop 04/01/20 at 19:58; Status DC Fentanyl Citrate (Fentanyl 2ml Vial) 50 mcg 1X ONCE IVP Last administered on 04/01/20at 20:02; Start 04/01/20 at 19:30; Stop 04/01/20 at 19:31; Status DC Iohexol (Omnipaque 300 Mg/ml) 75 ml 1X ONCE IV Last administered on 04/01/20at 20:45; Start 04/01/20 at 20:00; Stop 04/01/20 at 20:01; Status DC Info (CONTRAST GIVEN -- Rx MONITORING) 1 each PRN DAILY PRN MC SEE COMMENTS; Start 04/01/20 at 20:00; Stop 04/03/20 at 19:59; Status DC Fentanyl Citrate (Fentanyl 2ml Vial) 50 mcg 1X ONCE IVP Last administered on 04/01/20at 21:19; Start 04/01/20 at 21:15; Stop 04/01/20 at 21:16; Status DC Dicyclomine HCl (Bentyl) 10 mg 1X ONCE IM Last administered on 04/01/20at 21:18; Start 04/01/20 at 21:15; Stop 04/01/20 at 21:16; Status DC Methylprednisolone Sodium Succinate (SOLU-Medrol 125MG VIAL) 125 mg 1X ONCE IV Last administered on 04/01/20at 22:36; Start 04/01/20 at 21:45; Stop 04/01/20 at 21:46; Status DC Ondansetron HCl (Zofran) 4 mg PRN Q8HRS PRN IV NAUSEA/VOMITING; Start 04/01/20 at 21:45; Stop 04/02/20 at 00:12; Status DC Fentanyl Citrate (Fentanyl 2ml Vial) 50 mcg PRN Q1HR PRN IV PAIN Last administered on 04/02/20at 15:09; Start 04/01/20 at 21:45; Stop 04/02/20 at 17:08; Status DC Sodium Chloride 1,000 ml @ 125 mls/hr Q8H IV Last administered on 04/02/20at 0 5:45; Start 04/01/20 at 21:45; Stop 04/02/20 at 21:44; Status DC Ondansetron HCl (Zofran) 4 mg PRN Q4HRS PRN IV NAUSEA/VOMITING; Start 04/02/20 at 00:15 Mesalamine (Delzicol) 400 mg [id number] PO Last administered on 04/08/20at 08:21; Start 04/02/20 at 09:00 Pantoprazole Sodium (Protonix) 40 mg DAILYAC PO Last administered on 04/08/20at 08:21; Start 04/02/20 at 07:30 Potassium Bicarbonate (Potassium Effervescent Tablet) 40 meq 1X ONCE PO Last administered on 04/02/20at 01:36; Start 04/02/20 at 00:30; Stop 04/02/20 at 00:31; Status DC Methylprednisolone Sodium Succinate (SOLU-Medrol 40MG VIAL) 40 mg Q8HRS IV Last administered on 04/02/20at 22:00; Start 04/02/20 at 06:00; Stop 04/02/20 at 22:01; Status DC Dicyclomine HCl (Bentyl) 20 mg Q6HRS PO Last administered on 04/08/20at 05:52; Start 04/02/20 at 18:00 Oxycodone/ Acetaminophen (Percocet 10/325) 1 tab PRN Q6HRS PRN PO PAIN Last administered on 04/02/20at 16:27; Start 04/02/20 at 16:00; Stop 04/02/20 at 20:17; Status DC Fentanyl Citrate (Fentanyl 2ml Vial) 50 mcg PRN Q2HR PRN IVP PAIN Last administered on 04/02/20at 19:25; Start 04/02/20 at 17:15; Stop 04/02/20 at 20:17; Status DC Fentanyl Citrate (Fentanyl 2ml Vial) 75 mcg PRN Q2HR PRN IVP PAIN Last administered on 04/04/20at 10:45; Start 04/02/20 at 20:30; Stop 04/04/20 at 13:39; Status DC Oxycodone/ Acetaminophen (Percocet 10/325) 2 tab PRN Q6HRS PRN PO PAIN Last administered on 04/06/20at 12:27; Start 04/02/20 at 20:15; Stop 04/06/20 at 14:17; Status DC Prednisone (Prednisone) 40 mg DAILY PO Last administered on 04/05/20at 09:00; Start 04/03/20 at 16:00; Stop 04/05/20 at 11:39; Status DC Hydromorphone HCl (Dilaudid) 0.7 mg PRN Q4HRS PRN IVP PAIN Last administered on 04/06/20at 13:49; Start 04/04/20 at 13:45; Stop 04/06/20 at 14:17; Status DC Lorazepam (Ativan) 0.5 mg PRN Q8HRS PRN PO ANXIETY / AGITATION; Start 04/04/20 at 15:45 Potassium Chloride (Klor-Con) 40 meq 1X ONCE PO Last administered on 04/05/20at 08:59; Start 04/05/20 at 08:30; Stop 04/05/20 at 08:32; Status DC Potassium Chloride (Klor-Con) 20 meq [id number] PO Last administered on 04/07/20at 08:51; Start 04/06/20 at 08:00 Methylprednisolone Sodium Succinate (SOLU-Medrol 40MG VIAL) 40 mg Q12HR IV Last administered on 04/08/20at 08:21; Start 04/05/20 at 21:00 Oxycodone/ Acetaminophen (Percocet 10/325) 2 tab PRN Q4HRS PRN PO PAIN Last administered on 04/06/20at 17:13; Start 04/06/20 at 14:30; Stop 04/06/20 at 17: 29; Status DC Oxycodone/ Acetaminophen (Percocet 10/325) 2 tab PRN Q6HRS PRN PO PAIN Last administered on 04/08/20at 05:52; Start 04/06/20 at 17:30 Hydromorphone HCl (Dilaudid) 0.7 mg PRN Q4HRS PRN IVP PAIN Last administered on 04/07/20at 10:28; Start 04/06/20 at 17:30; Stop 04/07/20 at 11:45; Status DC Hydromorphone HCl (Dilaudid) 0.2 mg PRN Q2HRS PRN IVP PAIN Last administered on 04/08/20at 06:59; Start 04/07/20 at 11:45 Active Scripts Active Vitals/I & O Vital Sign - Last 24 Hours 04/07/20 04/07/20 04/07/20 04/07/20 11:05 11:57 13:00 14:38 Temp 98.3 98.3 Pulse 98 Resp 20 19 12 19 B/P (MAP) 110/61 (77) Pulse Ox 98 99 99 99 O2 Delivery Room Air Room Air Room Air Room Air 04/07/20 04/07/20 04/07/20 04/07/20 15:05 15:10 17:46 19:00 Temp 98.5 98.5 Pulse 84 Resp 19 18 19 B/P (MAP) 114/72 (86) Pulse Ox 96 96 96 O2 Delivery Room Air Room Air Room Air Room Air 04/07/20 04/07/20 04/07/20 04/07/20 19:25 19:30 19:31 20:53 Temp 98.9 98.9 Pulse 87 Resp 16 B/P (MAP) 111/76 (88) Pulse Ox 96 O2 Delivery Room Air Room Air Room Air Room Air 04/07/20 04/07/20 04/08/20 04/08/20 23:14 23:30 00:03 00:03 Temp 98.5 98.5 Pulse 72 Resp 16 B/P (MAP) 100/59 (73) Pulse Ox 97 O2 Delivery Room Air Room Air Room Air Room Air 04/08/20 04/08/20 04/08/20 04/08/20 01:12 03:04 03:10 03:34 Temp 98.3 98.3 Pulse 61 Resp 20 B/P (MAP) 108/75 (86) Pulse Ox 99 O2 Delivery Room Air Room Air Room Air Room Air 04/08/20 04/08/20 04/08/20 04/08/20 05:52 06:59 06:59 07:00 Temp 98.1 98.1 Pulse 80 Resp 20 B/P (MAP) 117/83 (94) Pulse Ox 97 O2 Delivery Room Air Room Air Room Air Room Air 04/08/20 08:00 O2 Delivery Room Air Intake and Output 04/07/20 04/07/20 04/08/20 15:00 23:00 07:00 Intake Total 440 ml Balance 440 ml Justicifation of Admission Dx: Justifications for Admission: Justification of Admission Dx: N/A MIMA BARBOUR MD Apr 08, 2020 10:31
[2020-04-08 11:00] VITALS: BP 103/60
--- NOTE | 2020-04-08 11:11 | PDOC ---
PROGRESS NOTES Date of Service DATE: 04/08/20 TIME: 11:10 Subjective Subjective feels "ok", nothing new Objective Objective Vital Signs Date Time Temp Pulse Resp B/P (MAP) Pulse Ox O2 Delivery O2 Flow Rate FiO2 04/08/20 08:00 Room Air 04/08/20 07:00 98.1 80 20 117/83 (94) 97 98.1 Intake and Output 04/08/20 07:00 Intake Total 440 ml Balance 440 ml Intake Oral 440 ml # Voids 5 Physical Exam Abdomen: Soft, No tenderness Heart: Regular rate Extremities: No clubbing General: Oriented X3, Cooperative HEENT: Atraumatic Neuro: Normal speech Psych/Mental Status: Mental status NL Assessment Assessment Problems Medical Problems: (1) Exacerbation of Crohn's disease Status: Acute Plan Plan of Care No surgical recommendations, plans per GI; Dr Hector will revisit patient 04/10/20; call if needed sooner Comment Review of Relevant I have reviewed the following items dania (where applicable) has been applied. Labs Laboratory Tests Test 04/06/20 22:15 Clostridium difficile Toxin (PCR) Negative (NEGATIVE) Medications Current Medications Sodium Chloride 1,000 ml @ 1,000 mls/hr Q1H IV Last administered on 04/01/20at 20:02; Start 04/01/20 at 18:59; Stop 04/01/20 at 19:58; Status DC Fentanyl Citrate (Fentanyl 2ml Vial) 50 mcg 1X ONCE IVP Last administered on 04/01/20at 20:02; Start 04/01/20 at 19:30; Stop 04/01/20 at 19:31; Status DC Iohexol (Omnipaque 300 Mg/ml) 75 ml 1X ONCE IV Last administered on 04/01/20at 20:45; Start 04/01/20 at 20:00; Stop 04/01/20 at 20:01; Status DC Info (CONTRAST GIVEN -- Rx MONITORING) 1 each PRN DAILY PRN MC SEE COMMENTS; Start 04/01/20 at 20:00; Stop 04/03/20 at 19:59; Status DC Fentanyl Citrate (Fentanyl 2ml Vial) 50 mcg 1X ONCE IVP Last administered on 04/01/20at 21:19; Start 04/01/20 at 21:15; Stop 04/01/20 at 21:16; Status DC Dicyclomine HCl (Bentyl) 10 mg 1X ONCE IM Last administered on 04/01/20 21:18; Start 04/01/20 at 21:15; Stop 04/01/20 at 21:16; Status DC Methylprednisolone Sodium Succinate (SOLU-Medrol 125MG VIAL) 125 mg 1X ONCE IV Last administered on 04/01/20 22:36; Start 04/01/20 at 21:45; Stop 04/01/20 at 21:46; Status DC Ondansetron HCl (Zofran) 4 mg PRN Q8HRS PRN IV NAUSEA/VOMITING; Start 04/01/20 at 21:45; Stop 04/02/20 at 00:12; Status DC Fentanyl Citrate (Fentanyl 2ml Vial) 50 mcg PRN Q1HR PRN IV PAIN Last administered on 04/02/20at 15:09; Start 04/01/20 at 21:45; Stop 04/02/20 at 17:08; Status DC Sodium Chloride 1,000 ml @ 125 mls/hr Q8H IV Last administered on 04/02/20at 05:45; Start 04/01/20 at 21:45; Stop 04/02/20 at 21:44; Status DC Ondansetron HCl (Zofran) 4 mg PRN Q4HRS PRN IV NAUSEA/VOMITING; Start 04/02/20 at 00:15 Mesalamine (Delzicol) 400 mg [id number] PO Last administered on 04/08/20at 08:21; Start 04/02/20 at 09:00 Pantoprazole Sodium (Protonix) 40 mg DAILYAC PO Last administered on 04/08/20at 08:21; Start 04/02/20 at 07:30 Potassium Bicarbonate (Potassium Effervescent Tablet) 40 meq 1X ONCE PO Last administered on 04/02/20at 01:36; Start 04/02/20 at 00:30; Stop 04/02/20 at 00:31; Status DC Methylprednisolone Sodium Succinate (SOLU-Medrol 40MG VIAL) 40 mg Q8HRS IV Last administered on 04/02/20at 22:00; Start 04/02/20 at 06:00; Stop 04/02/20 at 22:01; Status DC Dicyclomine HCl (Bentyl) 20 mg Q6HRS PO Last administered on 04/08/20 05:52; Start 04/02/20 at 18:00 Oxycodone/ Acetaminophen (Percocet 10/325) 1 tab PRN Q6HRS PRN PO PAIN Last administered on 04/02/20 16:27; Start 04/02/20 at 16:00; Stop 04/02/20 at 20:17; Status DC Fentanyl Citrate (Fentanyl 2ml Vial) 50 mcg PRN Q2HR PRN IVP PAIN Last administered on 04/02/20at 19:25; Start 04/02/20 at 17:15; Stop 04/02/20 at 20:17 ; Status DC Fentanyl Citrate (Fentanyl 2ml Vial) 75 mcg PRN Q2HR PRN IVP PAIN Last administered on 04/04/20at 10:45; Start 04/02/20 at 20:30; Stop 04/04/20 at 13:39; Status DC Oxycodone/ Acetaminophen (Percocet 10/325) 2 tab PRN Q6HRS PRN PO PAIN Last a dministered on 04/06/20at 12:27; Start 04/02/20 at 20:15; Stop 04/06/20 at 14:17; Status DC Prednisone (Prednisone) 40 mg DAILY PO Last administered on 04/05/20 09:00; Start 04/03/20 at 16:00; Stop 04/05/20 at 11:39; Status DC Hydromorphone HCl (Dilaudid) 0.7 mg PRN Q4HRS PRN IVP PAIN Last administered on 04/06/20at 13:49; Start 04/04/20 at 13:45; Stop 04/06/20 at 14:17; Status DC Lorazepam (Ativan) 0.5 mg PRN Q8HRS PRN PO ANXIETY / AGITATION; Start 04/04/20 at 15:45 Potassium Chloride (Klor-Con) 40 meq 1X ONCE PO Last administered on 04/05/20at 08:59; Start 04/05/20 at 08:30; Stop 04/05/20 at 08:32; Status DC Potassium Chloride (Klor-Con) 20 meq DAILYWBKFT PO Last administered on 04/07/20at 08:51; Start 04/06/20 at 08:00 Methylprednisolone Sodium Succinate (SOLU-Medrol 40MG VIAL) 40 mg Q12HR IV Last administered on 04/08/20at 08:21; Start 04/05/20 at 21:00 Oxycodone/ Acetaminophen (Percocet 10/325) 2 tab PRN Q4HRS PRN PO PAIN Last administered on 04/06/20at 17:13; Start 04/06/20 at 14:30; Stop 04/06/20 at 17:29; Status DC Oxycodone/ Acetaminophen (Percocet 10/325) 2 tab PRN Q6HRS PRN PO PAIN Last administered on 04/08/20at 05:52; Start 04/06/20 at 17:30 Hydromorphone HCl (Dilaudid) 0.7 mg PRN Q4HRS PRN IVP PAIN Last administered on 04/07/20at 10:28; Start 04/06/20 at 17:30; Stop 04/07/20 at 11:45; Status DC Hydromorphone HCl (Dilaudid) 0.2 mg PRN Q2HRS PRN IVP PAIN Last administered on 04/08/20at 10:52; Start 04/07/20 at 11:45 Active Scripts Active Vitals/I & O Vital Sign - Last 24 Hours 04/07/20 04/07/20 04/07/20 04/07/20 11:57 13:00 14:38 15:05 Temp 98.5 98.5 Pulse 84 Resp 19 12 19 19 B/P (MAP) 114/72 (86) Pulse Ox 99 99 99 96 O2 Delivery Room Air Room Air Room Air Room Air 04/07/20 04/07/20 04/07/20 04/07/20 15:10 17:46 19:00 19:25 Temp 98.9 98.9 Pulse 87 Resp 18 19 16 B/P (MAP) 111/76 (88) Pulse Ox 96 96 96 O2 Delivery Room Air Room Air Room Air Room Air 04/07/20 04/07/20 04/07/20 04/07/20 19:30 19:31 20:53 23:14 O2 Delivery Room Air Room Air Room Air Room Air 04/07/20 04/08/20 04/08/20 04/08/20 23:30 00:03 00:03 01:12 Temp 98.5 98.5 Pulse 72 Resp 16 B/P (MAP) 100/59 (73) Pulse Ox 97 O2 Delivery Room Air Room Air Room Air Room Air 04/08/20 04/08/20 04/08/20 04/08/20 03:04 03:10 03:34 05:52 Temp 98.3 98.3 Pulse 61 Resp 20 B/P (MAP) 108/75 (86) Pulse Ox 99 O2 Delivery Room Air Room Air Room Air Room Air 04/08/20 04/08/20 04/08/20 04/08/20 06:59 06:59 07:00 08:00 Temp 98.1 98.1 Pulse 80 Resp 20 B/P (MAP) 117/83 (94) Pulse Ox 97 O2 Delivery Room Air Room Air Room Air Room Air Intake and Output 04/07/20 04/07/20 04/08/20 15:00 23:00 07:00 Intake Total 440 ml Balance 440 ml Justifications for Admission Other Justification BOBBY REDD MD Apr 08, 2020 11:11
--- NOTE | 2020-04-08 12:36 | PDOC3 ---
Discharge Summary Date of Admission: Apr 01, 2020 Date of Discharge: Apr 08, 2020 Follow-Up: Other (1 WEEK) Admitting Diagnosis comment: DISCHARGE DX Crohn's exacerbation. admitted. consult GI. OK WITH D/C 04-08 Replace potassium. Trend labs, home meds, DVT prophylaxis. Full code. IV Solu-Medrol, scheduled Bentyl, p.r.n. fentanyl, p.r.n. Lortab for breakthrough pain, p.r.n. Zofran, and mesalamine. RESTART IV STEROIDS 04-05 PO PREDNISONE TAPER d/w rn 04-05 reports pain not controlled, will add iv dilaudid 0.7 mg q 4 hrs prn 04-06 c-diff specimen lost by lab, d/c iv dilaudid 04/08/20 No acute events overnight. Patient seen and examined. Pain is controlled. > 50% time spent in patient chart, labs, and image review and discussion with RN and SW no surgical plans. If can tolerate food and IF C.diff negative favor po steroids and home D/C PLANNING 34 MIN History of Present Illness History of Present Illness pleasant 34-year-old female, who states she has had Crohn's for many years. She appears to have a lot of scars on her abdomen from Crohn's surgery. She states she gets fistula sometimes. She has been to many times and to [facility] as well. She has even been placed on monoclonal antibodies, including Stelara and Humira in the past. Once again, she presents with abdominal pain. It appears that she is probably having a Crohn's flare. Her white count is a little high at 11.3. Potassium is a little low at 3.4. She describes her symptoms as very irritating, rated at 9/10, worse with food, better with no food. She tried increasing her home meds, but that did not work. I discussed the case with the ER physician. We are going to admit the patient and consult GI. PAST MEDICAL HISTORY: Crohn's, cutaneous fistulas, colostomy with takedown, . ALLERGIES: MORPHINE. FAMILY HISTORY: Diabetes. SOCIAL HISTORY: She does not drink, smoke or take drugs. She is on disability. Vitals Vitals Vital Signs Date Time Temp Pulse Resp B/P (MAP) Pulse Ox O2 Delivery O2 Flow Rate FiO2 04/08/20 08:00 Room Air 04/08/20 07:00 98.1 80 20 117/83 (94) 97 98.1 Physical Exam Physical Exam VITALS: Within normal limits and are stable. GENERAL: No apparent distress. Alert and oriented. HEENT: Normocephalic atraumatic, external auditory canals are patent. EYES: Extraocular muscles are intact, pupils are equally round and reactive to light and accommodation. MUSCULOSKELETAL: Well developed, well nourished, good range of motion. ENDOCRINE: No thyromegaly was palpated. LYMPHATICS: No cervical chain or axillary nodes were noted. HEMATOPOIETIC: No bruising. NECK: Supple, no JVD, no thyromegaly was noted. LUNGS: Clear to auscultation in all lung singer without rhonchi or wheezing. HEART: RRR, S1, S2 present. Peripheral pulses intact, no obvious murmurs were noted. ABDOMEN: She has decreased bowel sounds with diffuse tenderness. She has several scars on her abdomen; please see the pictures. EXTREMITIES: Without any cyanosis, clubbing, or edema. Pedal pulses intact, Homans sign is negative. NEUROLOGIC: Normal speech, normal tone. A & O x3, moves all extremities, no obvious focal deficits. PSYCHIATRIC: Normal affect, normal mood. Stable. SKIN: She does have some slight irritation of the gluteal fold. VASCULAR: Good capillary refill, neurovascular bundle appears to be intact. General: Alert, Oriented X3, Cooperative, No acute distress Heart: Regular rate, Normal S1, Normal S2 Lungs: Clear Abdomen: Normal bowel sounds, Soft, No tenderness Extremities: No clubbing, No cyanosis, No edema Skin: No rashes, No breakdown Labs LABS EXAM: CT Abdomen and Pelvis with IV contrast INDICATION: Reason: increased pain, OMNI 300, 75 ML IV / Spl. Instructions: / History: TECHNIQUE: Multi-detector row CT images were acquired from the lung bases through the abdomen and pelvis with the use of IV contrast. Sagittal and coronal images were acquired from the transaxial data. All CT scans performed at this facility utilize dose optimization techniques as appropriate to the exam, including the following: Automated exposure control and adjustment of the mA and/or KV according to patient size (this includes techniques or standardized protocols for targeted exams where dose is indication/reason for exam). IV CONTRAST: Administered ORAL CONTRAST: Not administered COMPARISON: Abdomen pelvis CT with IV contrast 03/13/2020 FINDINGS: LOWER CHEST: Unremarkable LIVER: Unremarkable BILIARY SYSTEM: Gallbladder is unremarkable. Bile ducts are not dilated. PANCREAS: Unremarkable SPLEEN: Unremarkable ADRENALS: Unremarkable KIDNEYS & URETERS: Unremarkable BLADDER: Unremarkable REPRODUCTIVE ORGANS: Unremarkable GASTROINTESTINAL: There is evidence of previous bowel surgery, including partial colectomy.. Since the previous examination, mucosal hyperemia has become more apparent in several segmental loops of gas and fluid-filled bowel loops but there persists varying areas of stricturing and patulousness of the bowel loops, such as in the distal descending colon. There is no evidence of bowel perforation. No evidence of high-grade bowel obstruction. Low-grade bowel obstruction difficult to exclude given the appearance of collapsed small bowel loops and findings suggesting evidence of stricturing. MESENTERY/PERITONEUM/RETROPERITONEUM: Unremarkable VASCULAR: Unremarkable LYMPH NODES: No adenopathy OSSEOUS & SOFT TISSUES: Unremarkable IMPRESSION: CT findings consistent with an acute flare of inflammatory bowel disease, possibly Crohn's disease. No bowel perforation or abscess formation. Electronically signed by: Wilfrido Mcnair MD (04/01/2020 9:03 PM) [facility] FINAL DIAGNOSIS Problems Medical Problems: (1) Exacerbation of Crohn's disease Status: Acute Brief Hospital Course Ms. Jose is a 34 old [sex] who presented with [ CROH'NS FLARE] CONDITION AT DISCHARGE: Improved Discharge Medications Current Medications Sodium Chloride 1,000 ml @ 1,000 mls/hr Q1H IV Last administered on 04/01/20at 20:02; Start 04/01/20 at 18:59; Stop 04/01/20 at 19:58; Status DC Fentanyl Citrate (Fentanyl 2ml Vial) 50 mcg 1X ONCE IVP Last administered on 04/01/20at 20:02; Start 04/01/20 at 19:30; Stop 04/01/20 at 19:31; Status DC Iohexol (Omnipaque 300 Mg/ml) 75 ml 1X ONCE IV Last administered on 04/01/20at 20:45; Start 04/01/20 at 20:00; Stop 04/01/20 at 20:01; Status DC Info (CONTRAST GIVEN -- Rx MONITORING) 1 each PRN DAILY PRN MC SEE COMMENTS; Start 04/01/20 at 20:00; Stop 04/03/20 at 19:59; Status DC Fentanyl Citrate (Fentanyl 2ml Vial) 50 mcg 1X ONCE IVP Last administered on 04/01/20at 21:19; Start 04/01/20 at 21:15; Stop 04/01/20 at 21:16; Status DC Dicyclomine HCl (Bentyl) 10 mg 1X ONCE IM Last administered on 04/01/20at 21:18; Start 04/01/20 at 21:15; Stop 04/01/20 at 21:16; Status DC Methylprednisolone Sodium Succinate (SOLU-Medrol 125MG VIAL) 125 mg 1X ONCE IV Last administered on 04/01/20at 22:36; Start 04/01/20 at 21:45; Stop 04/01/20 at 21:46; Status DC Ondansetron HCl (Zofran) 4 mg PRN Q8HRS PRN IV NAUSEA/VOMITING; Start 04/01/20 at 21:45; Stop 04/02/20 at 00:12; Status DC Fentanyl Citrate (Fentanyl 2ml Vial) 50 mcg PRN Q1HR PRN IV PAIN Last administered on 04/02/20at 15:09; Start 04/01/20 at 21:45; Stop 04/02/20 at 17:08; Status DC Sodium Chloride 1,000 ml @ 125 mls/hr Q8H IV Last administered on 04/02/20at 05:45; Start 04/01/20 at 21:45; Stop 04/02/20 at 21:44; Status DC Ondansetron HCl (Zofran) 4 mg PRN Q4HRS PRN IV NAUSEA/VOMITING; Start 04/02/20 at 00:15 Mesalamine (Delzicol) 400 mg [id number] PO Last administered on 04/08/20at 11:59; Start 04/02/20 at 09:00 Pantoprazole Sodium (Protonix) 40 mg DAILYAC PO Last administered on 04/08/20at 08:21; Start 04/02/20 at 07:30 Potassium Bicarbonate (Potassium Effervescent Tablet) 40 meq 1X ONCE PO Last administered on 04/02/20at 01:36; Start 04/02/20 at 00:30; Stop 04/02/20 at 00:31; Status DC Methylprednisolone Sodium Succinate (SOLU-Medrol 40MG VIAL) 40 mg Q8HRS IV Last administered on 04/02/20at 22:00; Start 04/02/20 at 06:00; Stop 04/02/20 at 22:01; Status DC Dicyclomine HCl (Bentyl) 20 mg Q6HRS PO Last administered on 04/08/20at 11:59; Start 04/02/20 at 18:00 Oxycodone/ Acetaminophen (Percocet 10/325) 1 tab PRN Q6HRS PRN PO PAIN Last administered on 04/02/20 16:27; Start 04/02/20 at 16:00; Stop 04/02/20 at 20:17; Status DC Fentanyl Citrate (Fentanyl 2ml Vial) 50 mcg PRN Q2HR PRN IVP PAIN Last administered on 04/02/20 19:25; Start 04/02/20 at 17:15; Stop 04/02/20 at 20:17; Status DC Fentanyl Citrate (Fentanyl 2ml Vial) 75 mcg PRN Q2HR PRN IVP PAIN Last administered on 04/04/20at 10:45; Start 04/02/20 at 20:30; Stop 04/04/20 at 13:39; Status DC Oxycodone/ Acetaminophen (Percocet 10/325) 2 tab PRN Q6HRS PRN PO PAIN Last administered on 04/06/20at 12:27; Start 04/02/20 at 20:15; Stop 04/06/20 at 14:17; Status DC Prednisone (Prednisone) 40 mg DAILY PO Last administered on 04/05/20at 09:00; Start 04/03/20 at 16:00; Stop 04/05/20 at 11:39; Status DC Hydromorphone HCl (Dilaudid) 0.7 mg PRN Q4HRS PRN IVP PAIN Last administered on 04/06/20at 13:49; Start 04/04/20 at 13:45; Stop 04/06/20 at 14:17; Status DC Lorazepam (Ativan) 0.5 mg PRN Q8HRS PRN PO ANXIETY / AGITATION; Start 04/04/20 at 15:45 Potassium Chloride (Klor-Con) 40 meq 1X ONCE PO Last administered on 04/05/20at 08:59; Start 04/05/20 at 08:30; Stop 04/05/20 at 08:32; Status DC Potassium Chloride (Klor-Con) 20 meq DAILYWBKFT PO Last administered on 04/07/20at 08:51; Start 04/06/20 at 08:00 Methylprednisolone Sodium Succinate (SOLU-Medrol 40MG VIAL) 40 mg Q12HR IV Last administered on 04/08/20at 08:21; Start 04/05/20 at 21:00 Oxycodone/ Acetaminophen (Percocet 10/325) 2 tab PRN Q4HRS PRN PO PAIN Last administered on 04/06/20at 17:13; Start 04/06/20 at 14:30; Stop 04/06/20 at 17:29; Status DC Oxycodone/ Acetaminophen (Percocet 10/325) 2 tab PRN Q6HRS PRN PO PAIN Last administered on 04/08/20at 11:59; Start 04/06/20 at 17:30 Hydromorphone HCl (Dilaudid) 0.7 mg PRN Q4HRS PRN IVP PAIN Last administered on 04/07/20at 10:28; Start 04/06/20 at 17:30; Stop 04/07/20 at 11:45; Status DC Hydromorphone HCl (Dilaudid) 0.2 mg PRN Q2HRS PRN IVP PAIN Last administered on 04/08/20at 10:52; Start 04/07/20 at 11:45 Active Scripts Active Vital Signs Vital Signs Date Time Temp Pulse Resp B/P (MAP) Pulse Ox O2 Delivery O2 Flow Rate FiO2 04/08/20 11:00 98.6 81 19 103/60 (74) 98 Room Air 98.6 Labs Laboratory Tests Test 04/06/20 22:15 Clostridium difficile Toxin (PCR) Negative (NEGATIVE) Allergies Allergies Coded Allergies Type Severity Reaction Last Updated Verified morphine Allergy Intermediate Itching 08/07/19 Yes Disposition/Orders: D/C to Home Justicifation of Admission Dx: Justifications for Admission: Justification of Admission Dx: N/A MIMA BARBOUR MD Apr 08, 2020 12:36
[2020-04-08] MEDS ORDERED: PANT40TA77 PO (12:39)
[2020-04-08] MEDS ORDERED: POTA20TA4 PO (12:39)
[2020-04-08] MEDS ORDERED: PRED50TA PO (12:39)
[2020-04-08] MEDS ORDERED: OXYC1TAB22 PO (12:39)
[2020-04-08] MEDS ORDERED: DICY10CA3 PO (12:39)
[2020-04-08] MEDS ORDERED: MESA400C2 PO (12:39)
--- NOTE | 2020-04-08 12:42 | DISCH ---
DISCHARGE INSTRUCTIONS Condition on Discharge Condition on Discharge: Stable Activity After Discharge Activity Instructions for Disc: Activity as tolerated Lifting Instructions after Dis: No heavy lifting, No pulling or pushing Driving Instructions after Dis: Do not drive Weight Bearing Status after Di: As tolerated Diet after Discharge Diet after Discharge: GI Soft Diet Texture: Regular Checks after Discharge Checks after discharge: Check blood press - daily Contacting the [facility] after DC Call your doctor for: If your condition worsens Treatment/Equipment after DC Adaptive Equipment Issued: None MIMA BARBOUR MD Apr 08, 2020 12:42
[2020-04-08 15:00] VITALS: BP 120/79
--- NOTE | 2020-04-08 15:50 | RAD ---
EXAM: Abdomen, 2 views. HISTORY: Pain. COMPARISON: CT dated 04/01/2020. FINDINGS: Frontal upright and supine views of the abdomen are obtained. There are distended air-filled loops of bowel throughout the mid abdomen. There are anastomotic sutures within the bilateral abdomen due to prior partial bowel resections. No free air is seen. No convincing transition point is seen. IMPRESSION: Suspected air-filled loops of bowel within the midabdomen. The differential includes ileus as well as partial distal obstruction. Electronically signed by: Flor Cotton MD (04/08/2020 3:46 PM) [id number]
--- NOTE | 2020-04-08 16:05 | PDOC ---
PROGRESS NOTES Date of Service: DATE: 04/08/20 TIME: 16:04 Chief Complaint Chief Complaint DISCHARGE DX Crohn's exacerbation. admitted. We consult GI. Replace potassium. Trend labs, home meds, DVT prophylaxis. Full code. IV Solu-Medrol, scheduled Bentyl, p.r.n. fentanyl, p.r.n. Lortab for breakthrough pain, p.r.n. Zofran, and mesalamine. RESTART IV STEROIDS 04-05 PO PREDNISONE TAPER d/w rn 04-05 reports pain not controlled, will add iv dilaudid 0.7 mg q 4 hrs prn 04-06 c-diff specimen lost by lab, d/c iv dilaudid 04/08/20 No acute events overnight. Patient seen and examined. Pain is controlled. > 50% time spent in patient chart, labs, and image review and discussion with RN and SW no surgical plans. If can tolerate food and IF C.diff negative favor po steroids and home 1600 d/c held due to abnormal kub, will ct, npo, iv fluids D/C PLANNING 34 MIN History of Present Illness History of Present Illness pleasant 34-year-old female, who states she has had Crohn's for many years. She appears to have a lot of scars on her abdomen from Crohn's surgery. She states she gets fistula sometimes. She has been to many times and to [facility] as well. She has even been placed on monoclonal antibodies, including Stelara and Humira in the past. Once again, she presents with abdominal pain. It appears that she is probably having a Crohn's flare. Her white count is a little high at 11.3. Potassium is a little low at 3.4. She describes her symptoms as very irritating, rated at 9/10, worse with food, better with no food. She tried increasing her home meds, but that did not work. I discussed the case with the ER physician. We are going to admit the patient and consult GI. PAST MEDICAL HISTORY: Crohn's, cutaneous fistulas, colostomy with takedown, . ALLERGIES: MORPHINE. FAMILY HISTORY: Diabetes. SOCIAL HISTORY: She does not drink, smoke or take drugs. She is on disability. Vitals Vitals Vital Signs Date Time Temp Pulse Resp B/P (MAP) Pulse Ox O2 Delivery O2 Flow Rate FiO2 04/08/20 15:00 97.8 78 120/79 (93) 98 Room Air 97.8 04/08/20 11:00 19 Physical Exam Physical Exam VITALS: Within normal limits and are stable. GENERAL: No apparent distress. Alert and oriented. HEENT: Normocephalic atraumatic, external auditory canals are patent. EYES: Extraocular muscles are intact, pupils are equally round and reactive to light and accommodation. MUSCULOSKELETAL: Well developed, well nourished, good range of motion. ENDOCRINE: No thyromegaly was palpated. LYMPHATICS: No cervical chain or axillary nodes were noted. HEMATOPOIETIC: No bruising. NECK: Supple, no JVD, no thyromegaly was noted. LUNGS: Clear to auscultation in all lung singer without rhonchi or wheezing. HEART: RRR, S1, S2 present. Peripheral pulses intact, no obvious murmurs were noted. ABDOMEN: She has decreased bowel sounds with diffuse tenderness. She has several scars on her abdomen; please see the pictures. EXTREMITIES: Without any cyanosis, clubbing, or edema. Pedal pulses intact, Homans sign is negative. NEUROLOGIC: Normal speech, normal tone. A & O x3, moves all extremities, no obvious focal deficits. PSYCHIATRIC: Normal affect, normal mood. Stable. SKIN: She does have some slight irritation of the gluteal fold. VASCULAR: Good capillary refill, neurovascular bundle appears to be intact. General: Oriented X3, Cooperative Heart: Regular rate Lungs: Clear Abdomen: Normal bowel sounds, Soft, No tenderness Extremities: No clubbing Skin: No rashes, No breakdown Labs LABS EXAM: Abdomen, 2 views. HISTORY: Pain. COMPARISON: CT dated 04/01/2020. FINDINGS: Frontal upright and supine views of the abdomen are obtained. There are distended air-filled loops of bowel throughout the mid abdomen. There are anastomotic sutures within the bilateral abdomen due to prior partial bowel resections. No free air is seen. No convincing transition point is seen. IMPRESSION: Suspected air-filled loops of bowel within the midabdomen. The differential includes ileus as well as partial distal obstruction. Electronically signed by: Flor Cotton MD (04/08/2020 3:46 PM) [id number] DICTATED and SIGNED BY: FLOR COTTON MD DATE: 04/08/20 3262 Assessment and Plan Assessmemt and Plan Problems Medical Problems: (1) Exacerbation of Crohn's disease Status: Acute Comment Review of Relevant I have reviewed the following items dania (where applicable) has been applied. Labs Laboratory Tests Test 04/06/20 22:15 Clostridium difficile Toxin (PCR) Negative (NEGATIVE) Medications Current Medications Sodium Chloride 1,000 ml @ 1,000 mls/hr Q1H IV Last administered on 04/01/20at 20:02; Start 04/01/20 at 18:59; Stop 04/01/20 at 19:58; Status DC Fentanyl Citrate (Fentanyl 2ml Vial) 50 mcg 1X ONCE IVP Last administered on 04/01/20at 20:02; Start 04/01/20 at 19:30; Stop 04/01/20 at 19:31; Status DC Iohexol (Omnipaque 300 Mg/ml) 75 ml 1X ONCE IV Last administered on 04/01/20at 20:45; Start 04/01/20 at 20:00; Stop 04/01/20 at 20:01; Status DC Info (CONTRAST GIVEN -- Rx MONITORING) 1 each PRN DAILY PRN MC SEE COMMENTS; Start 04/01/20 at 20:00; Stop 04/03/20 at 19:59; Status DC Fentanyl Citrate (Fentanyl 2ml Vial) 50 mcg 1X ONCE IVP Last administered on 04/01/20at 21:19; Start 04/01/20 at 21:15; Stop 04/01/20 at 21:16; Status DC Dicyclomine HCl (Bentyl) 10 mg 1X ONCE IM Last administered on 04/01/20at 21:18; Start 04/01/20 at 21:15; Stop 04/01/20 at 21:16; Status DC Methylprednisolone Sodium Succinate (SOLU-Medrol 125MG VIAL) 125 mg 1X ONCE IV Last administered on 04/01/20at 22:36; Start 04/01/20 at 21:45; Stop 04/01/20 at 21:46; Status DC Ondansetron HCl (Zofran) 4 mg PRN Q8HRS PRN IV NAUSEA/VOMITING; Start 04/01/20 at 21:45; Stop 04/02/20 at 00:12; Status DC Fentanyl Citrate (Fentanyl 2ml Vial) 50 mcg PRN Q1HR PRN IV PAIN Last administered on 04/02/20 15:09; Start 04/01/20 at 21:45; Stop 04/02/20 at 17:08; Status DC Sodium Chloride 1,000 ml @ 125 mls/hr Q8H IV Last administered on 04/02/20at 05:45; Start 04/01/20 at 21:45; Stop 04/02/20 at 21:44; Status DC Ondansetron HCl (Zofran) 4 mg PRN Q4HRS PRN IV NAUSEA/VOMITING; Start 04/02/20 at 00:15 Mesalamine (Delzicol) 400 mg [id number] PO Last administered on 04/08/20 11:59; Start 04/02/20 at 09:00 Pantoprazole Sodium (Protonix) 40 mg DAILYAC PO Last administered on 04/08/20 08:21; Start 04/02/20 at 07:30 Potassium Bicarbonate (Potassium Effervescent Tablet) 40 meq 1X ONCE PO Last administered on 04/02/20at 01:36; Start 04/02/20 at 00:30; Stop 04/02/20 at 00:31; Status DC Methylprednisolone Sodium Succinate (SOLU-Medrol 40MG VIAL) 40 mg Q8HRS IV Last administered on 04/02/20 22:00; Start 04/02/20 at 06:00; Stop 04/02/20 at 22:01; Status DC Dicyclomine HCl (Bentyl) 20 mg Q6HRS PO Last administered on 04/08/20 11:59; Start 04/02/20 at 18:00 Oxycodone/ Acetaminophen (Percocet 10/325) 1 tab PRN Q6HRS PRN PO PAIN Last administered on 04/02/20 16:27; Start 04/02/20 at 16:00; Stop 04/02/20 at 20:17; Status DC Fentanyl Citrate (Fentanyl 2ml Vial) 50 mcg PRN Q2HR PRN IVP PAIN Last administered on 04/02/20 19:25; Start 04/02/20 at 17:15; Stop 04/02/20 at 20:17; Status DC Fentanyl Citrate (Fentanyl 2ml Vial) 75 mcg PRN Q2HR PRN IVP PAIN Last administered on 04/04/20at 10:45; Start 04/02/20 at 20:30; Stop 04/04/20 at 13:39; Status DC Oxycodone/ Acetaminophen (Percocet 10/325) 2 tab PRN Q6HRS PRN PO PAIN Last administered on 04/06/20at 12:27; Start 04/02/20 at 20:15; Stop 04/06/20 at 14:17; Status DC Prednisone (Prednisone) 40 mg DAILY PO Last administered on 04/05/20at 09:00; Start 04/03/20 at 16:00; Stop 04/05/20 at 11:39; Status DC Hydromorphone HCl (Dilaudid) 0.7 mg PRN Q4HRS PRN IVP PAIN Last administered on 04/06/20at 13:49; Start 04/04/20 at 13:45; Stop 04/06/20 at 14:17; Status DC Lorazepam (Ativan) 0.5 mg PRN Q8HRS PRN PO ANXIETY / AGITATION; Start 04/04/20 at 15:45 Potassium Chloride (Klor-Con) 40 meq 1X ONCE PO Last administered on 04/05/20at 08:59; Start 04/05/20 at 08:30; Stop 04/05/20 at 08:32; Status DC Potassium Chloride (Klor-Con) 20 meq [id number] PO Last administered on 04/07/20at 08:51; Start 04/06/20 at 08:00 Methylprednisolone Sodium Succinate (SOLU-Medrol 40MG VIAL) 40 mg Q12HR IV Last administered on 04/08/20at 08:21; Start 04/05/20 at 21:00 Oxycodone/ Acetaminophen (Percocet 10/325) 2 tab PRN Q4HRS PRN PO PAIN Last administered on 04/06/20at 17:13; Start 04/06/20 at 14:30; Stop 04/06/20 at 17:29; Status DC Oxycodone/ Acetaminophen (Percocet 10/325) 2 tab PRN Q6HRS PRN PO PAIN Last administered on 04/08/20at 11:59; Start 04/06/20 at 17:30 Hydromorphone HCl (Dilaudid) 0.7 mg PRN Q4HRS PRN IVP PAIN Last administered on 04/07/20at 10:28; Start 04/06/20 at 17:30; Stop 04/07/20 at 11:45; Status DC Hydromorphone HCl (Dilaudid) 0.2 mg PRN Q2HRS PRN IVP PAIN Last administered on 04/08/20at 10:52; Start 04/07/20 at 11:45 Sodium Chloride 1,000 ml @ 80 mls/hr [id number] IV ; Start 04/08/20 at 16:00; Status UNV Active Scripts Active Prednisone 50 Mg Tablet 1 Tab PO DAILY 10 Days Delzicol (Mesalamine) 400 Mg Cap.drtab. 400 Mg PO [id number] 30 Days Pantoprazole Sodium (Pantoprazole Sodium) 40 Mg Tablet.dr 40 Mg PO DAILYAC 30 Days Klor-Con M20 (Potassium Chloride) 20 Meq Tab.er.prt 20 Meq PO [id number] 14 Days Percocet 10-325 Mg Tablet (Oxycodone/Acetaminophen) 1 Each Tablet 2 Tab PO PRN Q6HRS PRN 10 Days Dicyclomine Hcl 10 Mg Capsule 20 Mg PO Q6HRS 30 Days Vitals/I & O Vital Sign - Last 24 Hours 04/07/20 04/07/20 04/07/20 04/07/20 17:46 19:00 19:25 19:30 Temp 98.9 98.9 Pulse 87 Resp 19 16 B/P (MAP) 111/76 (88) Pulse Ox 96 96 O2 Delivery Room Air Room Air Room Air Room Air 04/07/20 04/07/20 04/07/20 04/07/20 19:31 20:53 23:14 23:30 Temp 98.5 98.5 Pulse 72 Resp 16 B/P (MAP) 100/59 (73) Pulse Ox 97 O2 Delivery Room Air Room Air Room Air Room Air 04/08/20 04/08/20 04/08/20 04/08/20 00:03 00:03 01:12 03:04 O2 Delivery Room Air Room Air Room Air Room Air 04/08/20 04/08/20 04/08/20 04/08/20 03:10 03:34 05:52 06:59 Temp 98.3 98.3 Pulse 61 Resp 20 B/P (MAP) 108/75 (86) Pulse Ox 99 O2 Delivery Room Air Room Air Room Air Room Air 04/08/20 04/08/20 04/08/20 04/08/20 06:59 07:00 08:00 11:00 Temp 98.1 98.6 98.1 98.6 Pulse 80 81 Resp 20 19 B/P (MAP) 117/83 (94) 103/60 (74) Pulse Ox 97 98 O2 Delivery Room Air Room Air Room Air Room Air 04/08/20 15:00 Temp 97.8 97.8 Pulse 78 B/P (MAP) 120/79 (93) Pulse Ox 98 O2 Delivery Room Air Intake and Output 04/07/20 04/07/20 04/08/20 15:00 23:00 07:00 Intake Total 440 ml Balance 440 ml Justicifation of Admission Dx: Justifications for Admission: Justification of Admission Dx: N/A MIMA BARBOUR MD Apr 08, 2020 16:05
[2020-04-08] MEDS: IV NORMAL SALINE 1000ML BAG 1,000 ML IV SCH (16:09)
[2020-04-08 17:49] LABS: BASO % 0 % (0-3); EOS % 0 % (0-3); HEMATOCRIT 34.3 % (36.0-47.0); HEMOGLOBIN 11.1 g/dL (12.0-15.5); LYMPH % 12 % (24-48); MEAN CORPUSCULAR HEMOGLOBIN 28 pg (25-35); MEAN CORPUSCULAR HGB CONC 32 g/dL (31-37); MEAN CORPUSCULAR VOLUME 85 fL (79-100); MONO # 1.5 x10^3/uL (0.0-1.1); MONO % 9 % (0-9); NEUT % 79 % (31-73); PLATELET COUNT 455 x10^3/uL (140-400); RED BLOOD COUNT 4.02 x10^6/uL (3.50-5.40); RED CELL DISTRIBUTION WIDTH 15.7 % (11.5-14.5); WHITE BLOOD COUNT 16.6 x10^3/uL (4.0-11.0)
[2020-04-08 18:10] LABS: ALBUMIN 2.9 g/dL (3.4-5.0); ALBUMIN/GLOBULIN RATIO 0.6 (1.0-1.7); CALCIUM 9.1 mg/dL (8.5-10.1); CREATININE 0.7 mg/dL (0.6-1.0); GFR 117.3; POTASSIUM 3.6 mmol/L (3.5-5.1); TOTAL BILIRUBIN 0.1 mg/dL (0.2-1.0); TOTAL PROTEIN 7.6 g/dL (6.4-8.2)
--- NOTE | 2020-04-08 18:23 | RAD ---
PQRS Compliance Statement: One or more of the following individualized dose reduction techniques were utilized for this examination: 1. Automated exposure control 2. Adjustment of the mA and/or kV according to patient size 3. Use of iterative reconstruction technique CT ABDOMEN PELVIS WO CONTRAST Clinical Indication: Reason: abd pain, per xray partial distal obstruction, ileus : Comparison: CT abdomen and pelvis with contrast April 01, 2020. Technique: Helical CT imaging of the abdomen and pelvis is performed without IV or oral contrast. Findings: Evaluation of solid organs and bowel is limited without oral and IV contrast, decreasing sensitivity for detection of pathology. Lung bases essentially clear. Cardiac size normal. Gallbladder is contracted. Probable normal variant Frank lobe. The spleen, pancreas, adrenal glands, and abdominal aorta are normal. There are 2 punctate calculi in the left kidney. There is no hydronephrosis. Stomach unremarkable. Findings of partial colectomy redemonstrated. Similar to prior study, there are bowel loops in the upper abdomen that are thick-walled. There is focal narrowing of bowel is seen on image 47. Peristalsis or stricture are considerations. There is stool in the sigmoid colon. There is no abdominal adenopathy or free fluid. Urinary bladder is decompressed. Uterus unremarkable. No pelvic free fluid. No acute bone abnormality. IMPRESSION: 1. Similar to prior study there are bowel loops in the upper abdomen that are thick-walled and dilated. Findings suggest enterocolitis, infectious or inflammatory bowel disease. Cannot exclude partial bowel obstruction. There is focal narrowing of bowel in the left midabdomen and peristalsis or stricture are considerations. 2. Nonobstructing left renal calculi. Electronically signed by: Rocco Springer MD (04/08/2020 6:20 PM) [facility]
[2020-04-08 19:35] VITALS: BP 107/76
[2020-04-08 20:08] LABS: % LYMPHS 14 % (24-48); % MONOS 8 % (0-10); % SEGS 78 % (35-66); PLT ESTIMATE INCREASED (ADEQUATE)
[2020-04-08 23:24] VITALS: BP 100/54
[2020-04-09] MEDS: DICYCLOMINE HCL 10 MG CAPSULE PO SCH ×4 (00:22→16:27)
[2020-04-09] MEDS: oxyCODONE/APAP 10/325 1 TAB TABLET PO PRN ×3 (00:26→09:51)
[2020-04-09 03:22] VITALS: BP 108/65
[2020-04-09] MEDS: HYDROmorphone 2 MG/ML VIAL IVP PRN ×8 (04:12→22:37)
[2020-04-09] MEDS: IV NORMAL SALINE 1000ML BAG 1,000 ML IV SCH ×2 (04:30→09:52)
[2020-04-09 07:00] VITALS: BP 102/67
[2020-04-09] MEDS: POTASSIUM CHLORIDE 20 MEQ TABLET.ER. PO SCH (08:00)
[2020-04-09] MEDS: MESALAMINE 400 MG CAP.DRTAB. PO SCH ×4 (08:01→21:44)
[2020-04-09] MEDS: PANTOPRAZOLE 40 MG TABLET.DR. PO SCH (08:01)
[2020-04-09] MEDS: methylPREDNISolone SOD SUCC PF 40 MG/ML VIAL. IV SCH ×2 (08:06→21:44)
[2020-04-09 11:00] VITALS: BP 110/64
--- NOTE | 2020-04-09 12:25 | PDOC ---
PROGRESS NOTES Date of Service: DATE: 04/09/20 TIME: 12:22 Chief Complaint Chief Complaint impression Crohn's exacerbation. pain worse, ON CT 04-08Cannot exclude partial bowel obstruction. focal narrowing of bowel in the left midabdomen and peristalsis or stricture are considerations. admitted. consult GI. Replace potassium. Trend labs, home meds, DVT prophylaxis. Full code. IV Solu-Medrol, scheduled Bentyl, p.r.n. fentanyl, p.r.n. Lortab for breakthrough pain, p.r.n. Zofran, and mesalamine. RESTART IV STEROIDS 04-05 NPO d/w rn 04-05 reports pain not controlled, will add iv dilaudid 0.7 mg q 4 hrs prn 04-06 c-diff specimen lost by lab, d/c iv dilaudid 04/09/[address] NOTED D/C CANCELLED Patient seen and examined. Pain is controlled. > 50% time spent in patient chart, labs, and image review and discussion with RN and SW no surgical plans. If can tolerate food and IF C.diff negative favor po steroids and home 1600 d/c held due to abnormal kub, will ct, npo, iv fluids D/C PLANNING 34 MIN History of Present Illness History of Present Illness pleasant 34-year-old female, who states she has had Crohn's for many years. She appears to have a lot of scars on her abdomen from Crohn's surgery. She states she gets fistula sometimes. She has been to many times and to [facility] as well. She has even been placed on monoclonal antibodies, including Stelara and Humira in the past. Once again, she presents with abdominal pain. It appears that she is probably having a Crohn's flare. Her white count is a little high at 11.3. Potassium is a little low at 3.4. She describes her symptoms as very irritating, rated at 9/10, worse with food, better with no food. She tried increasing her home meds, but that did not work. I discussed the case with the ER physician. We are going to admit the patient and consult GI. PAST MEDICAL HISTORY: Crohn's, cutaneous fistulas, colostomy with takedown, . ALLERGIES: MORPHINE. FAMILY HISTORY: Diabetes. SOCIAL HISTORY: She does not drink, smoke or take drugs. She is on disability. Vitals Vitals Vital Signs Date Time Temp Pulse Resp B/P (MAP) Pulse Ox O2 Delivery O2 Flow Rate FiO2 04/09/20 11:00 98.9 81 19 110/64 (79) 98 Room Air 98.9 Physical Exam Physical Exam VITALS: Within normal limits and are stable. GENERAL: No apparent distress. Alert and oriented. HEENT: Normocephalic atraumatic, external auditory canals are patent. EYES: Extraocular muscles are intact, pupils are equally round and reactive to light and accommodation. MUSCULOSKELETAL: Well developed, well nourished, good range of motion. ENDOCRINE: No thyromegaly was palpated. LYMPHATICS: No cervical chain or axillary nodes were noted. HEMATOPOIETIC: No bruising. NECK: Supple, no JVD, no thyromegaly was noted. LUNGS: Clear to auscultation in all lung singer without rhonchi or wheezing. HEART: RRR, S1, S2 present. Peripheral pulses intact, no obvious murmurs were noted. ABDOMEN: She has decreased bowel sounds with diffuse tenderness. She has several scars on her abdomen; please see the pictures. EXTREMITIES: Without any cyanosis, clubbing, or edema. Pedal pulses intact, Homans sign is negative. NEUROLOGIC: Normal speech, normal tone. A & O x3, moves all extremities, no obvious focal deficits. PSYCHIATRIC: Normal affect, normal mood. Stable. SKIN: She does have some slight irritation of the gluteal fold. VASCULAR: Good capillary refill, neurovascular bundle appears to be intact. General: Alert, Oriented X3, Cooperative Heart: Regular rate Lungs: Clear Abdomen: Normal bowel sounds, Soft, No tenderness Extremities: No clubbing Skin: No rashes, No breakdown Labs LABS EXAM: Abdomen, 2 views. HISTORY: Pain. COMPARISON: CT dated 04/01/2020. FINDINGS: Frontal upright and supine views of the abdomen are obtained. There are distended air-filled loops of bowel throughout the mid abdomen. There are anastomotic sutures within the bilateral abdomen due to prior partial bowel resections. No free air is seen. No convincing transition point is seen. IMPRESSION: Suspected air-filled loops of bowel within the midabdomen. The differential includes ileus as well as partial distal obstruction. Electronically signed by: Flor Cotton MD (04/08/2020 3:46 PM) [id number] DICTATED and SIGNED BY: FLOR COTTON MD DATE: 04/08/20 1546 [facility] Compliance Statement: One or more of the following individualized dose reduction techniques were utilized for this examination: 1. Automated exposure control 2. Adjustment of the mA and/or kV according to patient size 3. Use of iterative reconstruction technique CT ABDOMEN PELVIS WO CONTRAST Clinical Indication: Reason: abd pain, per xray partial distal obstruction, ileus : Comparison: CT abdomen and pelvis with contrast April 01, 2020. Technique: Helical CT imaging of the abdomen and pelvis is performed without IV or oral contrast. Findings: Evaluation of solid organs and bowel is limited without oral and IV contrast, decreasing sensitivity for detection of pathology. Lung bases essentially clear. Cardiac size normal. Gallbladder is contracted. Probable normal variant Frank lobe. The spleen, pancreas, adrenal glands, and abdominal aorta are normal. There are 2 punctate calculi in the left kidney. There is no hydronephrosis. Stomach unremarkable. Findings of partial colectomy redemonstrated. Similar to prior study, there are bowel loops in the upper abdomen that are thick-walled. There is focal narrowing of bowel is seen on image 47. Peristalsis or stricture are considerations. There is stool in the sigmoid colon. There is no abdominal adenopathy or free fluid. Urinary bladder is decompressed. Uterus unremarkable. No pelvic free fluid. No acute bone abnormality. IMPRESSION: 1. Similar to prior study there are bowel loops in the upper abdomen that are thick-walled and dilated. Findings suggest enterocolitis, infectious or inflammatory bowel disease. Cannot exclude partial bowel obstruction. There is focal narrowing of bowel in the left midabdomen and peristalsis or stricture are considerations. 2. Nonobstructing left renal calculi. Laboratory Tests Test 04/08/20 17:15 White Blood Count 16.6 x10^3/uL (4.0-11.0) Red Blood Count 4.02 x10^6/uL (3.50-5.40) Hemoglobin 11.1 g/dL (12.0-15.5) Hematocrit 34.3 % (36.0-47.0) Mean Corpuscular Volume 85 fL (79-100) Mean Corpuscular Hemoglobin 28 pg (25-35) Mean Corpuscular Hemoglobin Concent 32 g/dL (31-37) Red Cell Distribution Width 15.7 % (11.5-14.5) Platelet Count 455 x10^3/uL (140-400) Neutrophils (%) (Auto) 79 % (31-73) Lymphocytes (%) (Auto) 12 % (24-48) Monocytes (%) (Auto) 9 % (0-9) Eosinophils (%) (Auto) 0 % (0-3) Basophils (%) (Auto) 0 % (0-3) Neutrophils # (Auto) 13.0 x10^3/uL (1.8-7.7) Lymphocytes # (Auto) 2.0 x10^3/uL (1.0-4.8) Monocytes # (Auto) 1.5 x10^3/uL (0.0-1.1) Eosinophils # (Auto) 0.0 x10^3/uL (0.0-0.7) Basophils # (Auto) 0.0 x10^3/uL (0.0-0.2) Segmented Neutrophils % 78 % (35-66) Lymphocytes % 14 % (24-48) Monocytes % 8 % (0-10) Platelet Estimate Increased (ADEQUATE) Large Platelets Occ Sodium Level 139 mmol/L (136-145) Potassium Level 3.6 mmol/L (3.5-5.1) Chloride Level 102 mmol/L (98-107) Carbon Dioxide Level 30 mmol/L (21-32) Anion Gap 7 (6-14) Blood Urea Nitrogen 18 mg/dL (7-20) Creatinine 0.7 mg/dL (0.6-1.0) Estimated GFR (Cockcroft-Gault) 117.3 BUN/Creatinine Ratio 26 (6-20) Glucose Level 132 mg/dL (70-99) Calcium Level 9.1 mg/dL (8.5-10.1) Total Bilirubin 0.1 mg/dL (0.2-1.0) Aspartate Amino Transf (AST/SGOT) 7 U/L (15-37) Alanine Aminotransferase (ALT/SGPT) 18 U/L (14-59) Alkaline Phosphatase 93 U/L (46-116) Total Protein 7.6 g/dL (6.4-8.2) Albumin 2.9 g/dL (3.4-5.0) Albumin/Globulin Ratio 0.6 (1.0-1.7) Assessment and Plan Assessmemt and Plan Problems Medical Problems: (1) Exacerbation of Crohn's disease Status: Acute Comment Review of Relevant I have reviewed the following items dania (where applicable) has been applied. Labs Laboratory Tests Test 04/08/20 17:15 White Blood Count 16.6 x10^3/uL (4.0-11.0) Red Blood Count 4.02 x10^6/uL (3.50-5.40) Hemoglobin 11.1 g/dL (12.0-15.5) Hematocrit 34.3 % (36.0-47.0) Mean Corpuscular Volume 85 fL (79-100) Mean Corpuscular Hemoglobin 28 pg (25-35) Mean Corpuscular Hemoglobin Concent 32 g/dL (31-37) Red Cell Distribution Width 15.7 % (11.5-14.5) Platelet Count 455 x10^3/uL (140-400) Neutrophils (%) (Auto) 79 % (31-73) Lymphocytes (%) (Auto) 12 % (24-48) Monocytes (%) (Auto) 9 % (0-9) Eosinophils (%) (Auto) 0 % (0-3) Basophils (%) (Auto) 0 % (0-3) Neutrophils # (Auto) 13.0 x10^3/uL (1.8-7.7) Lymphocytes # (Auto) 2.0 x10^3/uL (1.0-4.8) Monocytes # (Auto) 1.5 x10^3/uL (0.0-1.1) Eosinophils # (Auto) 0.0 x10^3/uL (0.0-0.7) Basophils # (Auto) 0.0 x10^3/uL (0.0-0.2) Segmented Neutrophils % 78 % (35-66) Lymphocytes % 14 % (24-48) Monocytes % 8 % (0-10) Platelet Estimate Increased (ADEQUATE) Large Platelets Occ Sodium Level 139 mmol/L (136-145) Potassium Level 3.6 mmol/L (3.5-5.1) Chloride Level 102 mmol/L (98-107) Carbon Dioxide Level 30 mmol/L (21-32) Anion Gap 7 (6-14) Blood Urea Nitrogen 18 mg/dL (7-20) Creatinine 0.7 mg/dL (0.6-1.0) Estimated GFR (Cockcroft-Gault) 117.3 BUN/Creatinine Ratio 26 (6-20) Glucose Level 132 mg/dL (70-99) Calcium Level 9.1 mg/dL (8.5-10.1) Total Bilirubin 0.1 mg/dL (0.2-1.0) Aspartate Amino Transf (AST/SGOT) 7 U/L (15-37) Alanine Aminotransferase (ALT/SGPT) 18 U/L (14-59) Alkaline Phosphatase 93 U/L (46-116) Total Protein 7.6 g/dL (6.4-8.2) Albumin 2.9 g/dL (3.4-5.0) Albumin/Globulin Ratio 0.6 (1.0-1.7) Laboratory Tests Test 04/08/20 17:15 White Blood Count 16.6 x10^3/uL (4.0-11.0) Red Blood Count 4.02 x10^6/uL (3.50-5.40) Hemoglobin 11.1 g/dL (12.0-15.5) Hematocrit 34.3 % (36.0-47.0) Mean Corpuscular Volume 85 fL (79-100) Mean Corpuscular Hemoglobin 28 pg (25-35) Mean Corpuscular Hemoglobin Concent 32 g/dL (31-37) Red Cell Distribution Width 15.7 % (11.5-14.5) Platelet Count 455 x10^3/uL (140-400) Neutrophils (%) (Auto) 79 % (31-73) Lymphocytes (%) (Auto) 12 % (24-48) Monocytes (%) (Auto) 9 % (0-9) Eosinophils (%) (Auto) 0 % (0-3) Basophils (%) (Auto) 0 % (0-3) Neutrophils # (Auto) 13.0 x10^3/uL (1.8-7.7) Lymphocytes # (Auto) 2.0 x10^3/uL (1.0-4.8) Monocytes # (Auto) 1.5 x10^3/uL (0.0-1.1) Eosinophils # (Auto) 0.0 x10^3/uL (0.0-0.7) Basophils # (Auto) 0.0 x10^3/uL (0.0-0.2) Segmented Neutrophils % 78 % (35-66) Lymphocytes % 14 % (24-48) Monocytes % 8 % (0-10) Platelet Estimate Increased (ADEQUATE) Large Platelets Occ Sodium Level 139 mmol/L (136-145) Potassium Level 3.6 mmol/L (3.5-5.1) Chloride Level 102 mmol/L (98-107) Carbon Dioxide Level 30 mmol/L (21-32) Anion Gap 7 (6-14) Blood Urea Nitrogen 18 mg/dL (7-20) Creatinine 0.7 mg/dL (0.6-1.0) Estimated GFR (Cockcroft-Gault) 117.3 BUN/Creatinine Ratio 26 (6-20) Glucose Level 132 mg/dL (70-99) Calcium Level 9.1 mg/dL (8.5-10.1) Total Bilirubin 0.1 mg/dL (0.2-1.0) Aspartate Amino Transf (AST/SGOT) 7 U/L (15-37) Alanine Aminotransferase (ALT/SGPT) 18 U/L (14-59) Alkaline Phosphatase 93 U/L (46-116) Total Protein 7.6 g/dL (6.4-8.2) Albumin 2.9 g/dL (3.4-5.0) Albumin/Globulin Ratio 0.6 (1.0-1.7) Medications Current Medications Sodium Chloride 1,000 ml @ 1,000 mls/hr Q1H IV Last administered on 04/01/20at 20:02; Start 04/01/20 at 18:59; Stop 04/01/20 at 19:58; Status DC Fentanyl Citrate (Fentanyl 2ml Vial) 50 mcg 1X ONCE IVP Last administered on 04/01/20at 20:02; Start 04/01/20 at 19:30; Stop 04/01/20 at 19:31; Status DC Iohexol (Omnipaque 300 Mg/ml) 75 ml 1X ONCE IV Last administered on 04/01/20at 20:45; Start 04/01/20 at 20:00; Stop 04/01/20 at 20:01; Status DC Info (CONTRAST GIVEN -- Rx MONITORING) 1 each PRN DAILY PRN MC SEE COMMENTS; Start 04/01/20 at 20:00; Stop 04/03/20 at 19:59; Status DC Fentanyl Citrate (Fentanyl 2ml Vial) 50 mcg 1X ONCE IVP Last administered on 04/01/20at 21:19; Start 04/01/20 at 21:15; Stop 04/01/20 at 21:16; Status DC Dicyclomine HCl (Bentyl) 10 mg 1X ONCE IM Last administered on 04/01/20at 21:18; Start 04/01/20 at 21:15; Stop 04/01/20 at 21:16; Status DC Methylprednisolone Sodium Succinate (SOLU-Medrol 125MG VIAL) 125 mg 1X ONCE IV Last administered on 04/01/20at 22:36; Start 04/01/20 at 21:45; Stop 04/01/20 at 21:46; Status DC Ondansetron HCl (Zofran) 4 mg PRN Q8HRS PRN IV NAUSEA/VOMITING; Start 04/01/20 at 21:45; Stop 04/02/20 at 00:12; Status DC Fentanyl Citrate (Fentanyl 2ml Vial) 50 mcg PRN Q1HR PRN IV PAIN Last administered on 04/02/20at 15:09; Start 04/01/20 at 21:45; Stop 04/02/20 at 17:08; Status DC Sodium Chloride 1,000 ml @ 125 mls/hr Q8H IV Last administered on 04/02/20at 05:45; Start 04/01/20 at 21:45; Stop 04/02/20 at 21:44; Status DC Ondansetron HCl (Zofran) 4 mg PRN Q4HRS PRN IV NAUSEA/VOMITING; Start 04/02/20 at 00:15 Mesalamine (Delzicol) 400 mg [id number] PO Last administered on 04/09/20at 12:10; Start 04/02/20 at 09:00 Pantoprazole Sodium (Protonix) 40 mg DAILYAC PO Last administered on 04/09/20at 08:01; Start 04/02/20 at 07:30 Potassium Bicarbonate (Potassium Effervescent Tablet) 40 meq 1X ONCE PO Last administered on 04/02/20at 01:36; Start 04/02/20 at 00:30; Stop 04/02/20 at 00:31; Status DC Methylprednisolone Sodium Succinate (SOLU-Medrol 40MG VIAL) 40 mg Q8HRS IV Last administered on 04/02/20 22:00; Start 04/02/20 at 06:00; Stop 04/02/20 at 22:01; Status DC Dicyclomine HCl (Bentyl) 20 mg Q6HRS PO Last administered on 04/09/20at 12:10; Start 04/02/20 at 18:00 Oxycodone/ Acetaminophen (Percocet 10/325) 1 tab PRN Q6HRS PRN PO PAIN Last administered on 04/02/20at 16:27; Start 04/02/20 at 16:00; Stop 04/02/20 at 20:17; Status DC Fentanyl Citrate (Fentanyl 2ml Vial) 50 mcg PRN Q2HR PRN IVP PAIN Last a dministered on 04/02/20at 19:25; Start 04/02/20 at 17:15; Stop 04/02/20 at 20:17; Status DC Fentanyl Citrate (Fentanyl 2ml Vial) 75 mcg PRN Q2HR PRN IVP PAIN Last administered on 04/04/20at 10:45; Start 04/02/20 at 20:30; Stop 04/04/20 at 13:39; Status DC Oxycodone/ Acetaminophen (Percocet 10/325) 2 tab PRN Q6HRS PRN PO PAIN Last administered on 04/06/20at 12:27; Start 04/02/20 at 20:15; Stop 04/06/20 at 14:17; Status DC Prednisone (Prednisone) 40 mg DAILY PO Last administered on 04/05/20at 09:00; Start 04/03/20 at 16:00; Stop 04/05/20 at 11:39; Status DC Hydromorphone HCl (Dilaudid) 0.7 mg PRN Q4HRS PRN IVP PAIN Last administered on 04/06/20at 13:49; Start 04/04/20 at 13:45; Stop 04/06/20 at 14:17; Status DC Lorazepam (Ativan) 0.5 mg PRN Q8HRS PRN PO ANXIETY / AGITATION; Start 04/04/20 at 15:45 Potassium Chloride (Klor-Con) 40 meq 1X ONCE PO Last administered on 04/05/20at 08:59; Start 04/05/20 at 08:30; Stop 04/05/20 at 08:32; Status DC Potassium Chloride (Klor-Con) 20 meq DAILYWBKFT PO Last administered on 04/07/20at 08:51; Start 04/06/20 at 08:00 Methylprednisolone Sodium Succinate (SOLU-Medrol 40MG VIAL) 40 mg Q12HR IV Last administered on 04/09/20at 08:06; Start 04/05/20 at 21:00 Oxycodone/ Acetaminophen (Percocet 10/325) 2 tab PRN Q4HRS PRN PO PAIN Last administered on 04/06/20at 17:13; Start 04/06/20 at 14:30; Stop 04/06/20 at 17:29; Status DC Oxycodone/ Acetaminophen (Percocet 10/325) 2 tab PRN Q6HRS PRN PO PAIN Last administered on 04/09/20at 09:51; Start 04/06/20 at 17:30 Hydromorphone HCl (Dilaudid) 0.7 mg PRN Q4HRS PRN IVP PAIN Last administered on 04/07/20at 10:28; Start 04/06/20 at 17:30; Stop 04/07/20 at 11:45; Status DC Hydromorphone HCl (Dilaudid) 0.2 mg PRN Q2HRS PRN IVP PAIN Last administered on 04/09/20at 12:10; Start 04/07/20 at 11:45 Sodium Chloride 1,000 ml @ 80 mls/hr [id number] IV Last administered on 04/09/20at 09:52; Start 04/08/20 at 16:00 Active Scripts Active Prednisone 50 Mg Tablet 1 Tab PO DAILY 10 Days Delzicol (Mesalamine) 400 Mg Cap.drtab. 400 Mg PO [id number] 30 Days Pantoprazole Sodium (Pantoprazole Sodium) 40 Mg Tablet.dr 40 Mg PO DAILYAC 30 Days Klor-Con M20 (Potassium Chloride) 20 Meq Tab.er.prt 20 Meq PO [id number] 14 Days Percocet 10-325 Mg Tablet (Oxycodone/Acetaminophen) 1 Each Tablet 2 Tab PO PRN Q6HRS PRN 10 Days Dicyclomine Hcl 10 Mg Capsule 20 Mg PO Q6HRS 30 Days Vitals/I & O Vital Sign - Last 24 Hours 04/08/20 04/08/20 04/08/20 04/08/20 15:00 18:50 19:35 20:00 Temp 97.8 98.4 97.8 98.4 Pulse 78 74 Resp 16 B/P (MAP) 120/79 (93) 107/76 (86) Pulse Ox 98 96 96 O2 Delivery Room Air Room Air Room Air Room Air 04/08/20 04/08/20 04/08/20 04/08/20 20:09 20:39 23:24 23:54 Temp 98.9 98.9 Pulse 92 Resp 16 16 18 16 B/P (MAP) 100/54 (69) Pulse Ox 96 96 98 98 O2 Delivery Room Air Room Air Room Air Room Air 04/09/20 04/09/20 04/09/20 04/09/20 00:24 00:26 01:26 03:22 Temp 97.9 97.9 Pulse 82 Resp 16 16 16 28 B/P (MAP) 108/65 (79) Pulse Ox 98 98 98 97 O2 Delivery Room Air Room Air Room Air Room Air 04/09/20 04/09/20 04/09/20 04/09/20 04:12 04:23 04:42 05:23 Resp 16 16 16 16 Pulse Ox 98 98 98 98 O2 Delivery Room Air Room Air Room Air Room Air 04/09/20 04/09/20 04/09/20 07:00 07:38 11:00 Temp 97.9 98.9 97.9 98.9 Pulse 64 81 Resp 19 19 B/P (MAP) 102/67 (79) 110/64 (79) Pulse Ox 97 98 O2 Delivery Room Air Room Air Room Air Intake and Output 04/08/20 04/08/20 04/09/20 15:00 23:00 07:00 Intake Total 0 ml 60 ml Balance 0 ml 60 ml Justicifation of Admission Dx: Justifications for Admission: Justification of Admission Dx: N/A MIMA BARBOUR MD Apr 09, 2020 12:25
--- NOTE | 2020-04-09 13:22 | PDOC ---
GI PROGRESS NOTES Date of Service: Date/Time DATE: 04/09/20 TIME: 13:18 Subjective Subjective asked to see about repeat CT scan Objective Vitals Vital Signs Date Time Temp Pulse Resp B/P (MAP) Pulse Ox O2 Delivery O2 Flow Rate FiO2 04/09/20 11:00 98.9 81 19 110/64 (79) 98 Room Air 98.9 04/09/20 07:38 Room Air 04/09/20 07:00 97.9 64 19 102/67 (79) 97 Room Air 97.9 04/09/20 05:23 16 98 Room Air 04/09/20 04:42 16 98 Room Air 04/09/20 04:23 16 98 Room Air 04/09/20 04:12 16 98 Room Air 04/09/20 03:22 97.9 82 28 108/65 (79) 97 Room Air 97.9 04/09/20 01:26 16 98 Room Air 04/09/20 00:26 16 98 Room Air 04/09/20 00:24 16 98 Room Air 04/08/20 23:54 16 98 Room Air 04/08/20 23:24 98.9 92 18 100/54 (69) 98 Room Air 98.9 04/08/20 20:39 16 96 Room Air 04/08/20 20:09 16 96 Room Air 04/08/20 20:00 Room Air 04/08/20 19:35 98.4 74 16 107/76 (86) 96 Room Air 98.4 04/08/20 18:50 96 Room Air 04/08/20 15:00 97.8 78 120/79 (93) 98 Room Air 97.8 Labs Labs Laboratory Tests Test 04/08/20 17:15 White Blood Count 16.6 x10^3/uL (4.0-11.0) Red Blood Count 4.02 x10^6/uL (3.50-5.40) Hemoglobin 11.1 g/dL (12.0-15.5) Hematocrit 34.3 % (36.0-47.0) Mean Corpuscular Volume 85 fL (79-100) Mean Corpuscular Hemoglobin 28 pg (25-35) Mean Corpuscular Hemoglobin Concent 32 g/dL (31-37) Red Cell Distribution Width 15.7 % (11.5-14.5) Platelet Count 455 x10^3/uL (140-400) Neutrophils (%) (Auto) 79 % (31-73) Lymphocytes (%) (Auto) 12 % (24-48) Monocytes (%) (Auto) 9 % (0-9) Eosinophils (%) (Auto) 0 % (0-3) Basophils (%) (Auto) 0 % (0-3) Neutrophils # (Auto) 13.0 x10^3/uL (1.8-7.7) Lymphocytes # (Auto) 2.0 x10^3/uL (1.0-4.8) Monocytes # (Auto) 1.5 x10^3/uL (0.0-1.1) Eosinophils # (Auto) 0.0 x10^3/uL (0.0-0.7) Basophils # (Auto) 0.0 x10^3/uL (0.0-0.2) Segmented Neutrophils % 78 % (35-66) Lymphocytes % 14 % (24-48) Monocytes % 8 % (0-10) Platelet Estimate Increased (ADEQUATE) Large Platelets Occ Sodium Level 139 mmol/L (136-145) Potassium Level 3.6 mmol/L (3.5-5.1) Chloride Level 102 mmol/L (98-107) Carbon Dioxide Level 30 mmol/L (21-32) Anion Gap 7 (6-14) Blood Urea Nitrogen 18 mg/dL (7-20) Creatinine 0.7 mg/dL (0.6-1.0) Estimated GFR (Cockcroft-Gault) 117.3 BUN/Creatinine Ratio 26 (6-20) Glucose Level 132 mg/dL (70-99) Calcium Level 9.1 mg/dL (8.5-10.1) Total Bilirubin 0.1 mg/dL (0.2-1.0) Aspartate Amino Transf (AST/SGOT) 7 U/L (15-37) Alanine Aminotransferase (ALT/SGPT) 18 U/L (14-59) Alkaline Phosphatase 93 U/L (46-116) Total Protein 7.6 g/dL (6.4-8.2) Albumin 2.9 g/dL (3.4-5.0) Albumin/Globulin Ratio 0.6 (1.0-1.7) Assessment Assessment crohns- more pain over week end with diet advance- KUB suggested ileus or PSBO- repeat CT shows active disease but similar to admission- narrowing with likely partial obstruction but NOT obstruction - CRP improved on solumedrol long discussion with her- should stay on full liquid or soft diet- OK to go home soon- on prednisone taper- she has had lots of issues with GI appts and stopped Stelera 1-2 years ago after [facility] dismissed her and has not been back on biologic- she has new GI at [facility] but has only seen once- she needs to find someone to help her with been compliant and restart biologic AVELINO Justicifation of Admission Dx: Justifications for Admission: Justification of Admission Dx: N/A CLEMENCIA ECHOLS MD Apr 09, 2020 13:22
[2020-04-09 14:19] LABS: BASO % 0 % (0-3); EOS % 0 % (0-3); HEMOGLOBIN 11.3 g/dL (12.0-15.5); LYMPH # 1.2 x10^3/uL (1.0-4.8); LYMPH % 7 % (24-48); MEAN CORPUSCULAR HEMOGLOBIN 28 pg (25-35); MEAN CORPUSCULAR HGB CONC 32 g/dL (31-37); MEAN CORPUSCULAR VOLUME 85 fL (79-100); MONO # 0.8 x10^3/uL (0.0-1.1); MONO % 5 % (0-9); NEUT # 15.3 x10^3/uL (1.8-7.7); NEUT % 88 % (31-73); PLATELET COUNT 454 x10^3/uL (140-400); RED BLOOD COUNT 4.12 x10^6/uL (3.50-5.40); RED CELL DISTRIBUTION WIDTH 15.3 % (11.5-14.5); WHITE BLOOD COUNT 17.3 x10^3/uL (4.0-11.0)
[2020-04-09 15:00] VITALS: BP 105/67
[2020-04-09 15:02] LABS: ALBUMIN/GLOBULIN RATIO 0.7 (1.0-1.7); ALK PHOS 89 U/L (46-116); ALT (SGPT) 29 U/L (14-59); ANION GAP 7 (6-14); AST (SGOT) 16 U/L (15-37); BLOOD UREA NITROGEN 14 mg/dL (7-20); BUN/CREATININE RATIO 23 (6-20); CALCIUM 9.3 mg/dL (8.5-10.1); CARBON DIOXIDE 30 mmol/L (21-32); CHLORIDE 102 mmol/L (98-107); CREATININE 0.6 mg/dL (0.6-1.0); GFR 140.2; GLUCOSE 147 mg/dL (70-99); POTASSIUM 3.9 mmol/L (3.5-5.1); SODIUM 139 mmol/L (136-145); TOTAL PROTEIN 7.6 g/dL (6.4-8.2)
[2020-04-09 15:19] LABS: TOTAL BILIRUBIN < 0.1 mg/dL (0.2-1.0)
[2020-04-09 19:00] VITALS: BP 117/74
[2020-04-09 22:50] VITALS: BP 86/49
[2020-04-10] MEDS: DICYCLOMINE HCL 10 MG CAPSULE PO SCH ×3 (00:09→12:49)
[2020-04-10] MEDS: HYDROmorphone 2 MG/ML VIAL IVP PRN ×6 (01:10→12:50)
[2020-04-10 03:19] VITALS: BP 92/53
[2020-04-10] MEDS: PANTOPRAZOLE 40 MG TABLET.DR. PO SCH (06:05)
[2020-04-10] MEDS: IV NORMAL SALINE 1000ML BAG 1,000 ML IV SCH (06:05)
[2020-04-10 07:00] VITALS: BP 110/71
[2020-04-10] MEDS: MESALAMINE 400 MG CAP.DRTAB. PO SCH (08:31)
[2020-04-10] MEDS: methylPREDNISolone SOD SUCC PF 40 MG/ML VIAL. IV SCH (08:31)
[2020-04-10] MEDS: POTASSIUM CHLORIDE 20 MEQ TABLET.ER. PO SCH (08:31)
--- NOTE | 2020-04-10 09:31 | PDOC ---
SURGICAL PROGRESS NOTE DATE: 04/10/20 TIME: 09:29 Subjective taking some to eat still with some abdominal pain Vital Signs Vital Signs Date Time Temp Pulse Resp B/P (MAP) Pulse Ox O2 Delivery O2 Flow Rate FiO2 04/10/20 08:32 Room Air 04/10/20 08:29 97 04/10/20 07:00 97.8 63 18 110/71 (84) 97.8 I&O Intake and Output 04/10/20 07:00 Intake Total 600 ml Balance 600 ml Intake Oral 600 ml # Voids 4 General: Alert, Oriented X3, Cooperative Abdomen: Soft, Other (ttp ) Labs Laboratory Tests Test 04/08/20 17:15 04/09/20 13:25 White Blood Count 16.6 x10^3/uL (4.0-11.0) 17.3 x10^3/uL (4.0-11.0) Red Blood Count 4.02 x10^6/uL (3.50-5.40) 4.12 x10^6/uL (3.50-5.40) Hemoglobin 11.1 g/dL (12.0-15.5) 11.3 g/dL (12.0-15.5) Hematocrit 34.3 % (36.0-47.0) 35.0 % (36.0-47.0) Mean Corpuscular Volume 85 fL (79-100) 85 fL (79-100) Mean Corpuscular Hemoglobin 28 pg (25-35) 28 pg (25-35) Mean Corpuscular Hemoglobin Concent 32 g/dL (31-37) 32 g/dL (31-37) Red Cell Distribution Width 15.7 % (11.5-14.5) 15.3 % (11.5-14.5) Platelet Count 455 x10^3/uL (140-400) 454 x10^3/uL (140-400) Neutrophils (%) (Auto) 79 % (31-73) 88 % (31-73) Lymphocytes (%) (Auto) 12 % (24-48) 7 % (24-48) Monocytes (%) (Auto) 9 % (0-9) 5 % (0-9) Eosinophils (%) (Auto) 0 % (0-3) 0 % (0-3) Basophils (%) (Auto) 0 % (0-3) 0 % (0-3) Neutrophils # (Auto) 13.0 x10^3/uL (1.8-7.7) 15.3 x10^3/uL (1.8-7.7) Lymphocytes # (Auto) 2.0 x10^3/uL (1.0-4.8) 1.2 x10^3/uL (1.0-4.8) Monocytes # (Auto) 1.5 x10^3/uL (0.0-1.1) 0.8 x10^3/uL (0.0-1.1) Eosinophils # (Auto) 0.0 x10^3/uL (0.0-0.7) 0.0 x10^3/uL (0.0-0.7) Basophils # (Auto) 0.0 x10^3/uL (0.0-0.2) 0.0 x10^3/uL (0.0-0.2) Segmented Neutrophils % 78 % (35-66) Lymphocytes % 14 % (24-48) Monocytes % 8 % (0-10) Platelet Estimate Increased (ADEQUATE) Large Platelets Occ Sodium Level 139 mmol/L (136-145) 139 mmol/L (136-145) Potassium Level 3.6 mmol/L (3.5-5.1) 3.9 mmol/L (3.5-5.1) Chloride Level 102 mmol/L (98-107) 102 mmol/L (98-107) Carbon Dioxide Level 30 mmol/L (21-32) 30 mmol/L (21-32) Anion Gap 7 (6-14) 7 (6-14) Blood Urea Nitrogen 18 mg/dL (7-20) 14 mg/dL (7-20) Creatinine 0.7 mg/dL (0.6-1.0) 0.6 mg/dL (0.6-1.0) Estimated GFR (Cockcroft-Gault) 117.3 140.2 BUN/Creatinine Ratio 26 (6-20) 23 (6-20) Glucose Level 132 mg/dL (70-99) 147 mg/dL (70-99) Calcium Level 9.1 mg/dL (8.5-10.1) 9.3 mg/dL (8.5-10.1) Total Bilirubin 0.1 mg/dL (0.2-1.0) < 0.1 mg/dL (0.2-1.0) Aspartate Amino Transf (AST/SGOT) 7 U/L (15-37) 16 U/L (15-37) Alanine Aminotransferase (ALT/SGPT) 18 U/L (14-59) 29 U/L (14-59) Alkaline Phosphatase 93 U/L (46-116) 89 U/L (46-116) Total Protein 7.6 g/dL (6.4-8.2) 7.6 g/dL (6.4-8.2) Albumin 2.9 g/dL (3.4-5.0) 3.0 g/dL (3.4-5.0) Albumin/Globulin Ratio 0.6 (1.0-1.7) 0.7 (1.0-1.7) Laboratory Tests Test 04/09/20 13:25 White Blood Count 17.3 x10^3/uL (4.0-11.0) Red Blood Count 4.12 x10^6/uL (3.50-5.40) Hemoglobin 11.3 g/dL (12.0-15.5) Hematocrit 35.0 % (36.0-47.0) Mean Corpuscular Volume 85 fL (79-100) Mean Corpuscular Hemoglobin 28 pg (25-35) Mean Corpuscular Hemoglobin Concent 32 g/dL (31-37) Red Cell Distribution Width 15.3 % (11.5-14.5) Platelet Count 454 x10^3/uL (140-400) Neutrophils (%) (Auto) 88 % (31-73) Lymphocytes (%) (Auto) 7 % (24-48) Monocytes (%) (Auto) 5 % (0-9) Eosinophils (%) (Auto) 0 % (0-3) Basophils (%) (Auto) 0 % (0-3) Neutrophils # (Auto) 15.3 x10^3/uL (1.8-7.7) Lymphocytes # (Auto) 1.2 x10^3/uL (1.0-4.8) Monocytes # (Auto) 0.8 x10^3/uL (0.0-1.1) Eosinophils # (Auto) 0.0 x10^3/uL (0.0-0.7) Basophils # (Auto) 0.0 x10^3/uL (0.0-0.2) Sodium Level 139 mmol/L (136-145) Potassium Level 3.9 mmol/L (3.5-5.1) Chloride Level 102 mmol/L (98-107) Carbon Dioxide Level 30 mmol/L (21-32) Anion Gap 7 (6-14) Blood Urea Nitrogen 14 mg/dL (7-20) Creatinine 0.6 mg/dL (0.6-1.0) Estimated GFR (Cockcroft-Gault) 140.2 BUN/Creatinine Ratio 23 (6-20) Glucose Level 147 mg/dL (70-99) Calcium Level 9.3 mg/dL (8.5-10.1) Total Bilirubin < 0.1 mg/dL (0.2-1.0) Aspartate Amino Transf (AST/SGOT) 16 U/L (15-37) Alanine Aminotransferase (ALT/SGPT) 29 U/L (14-59) Alkaline Phosphatase 89 U/L (46-116) Total Protein 7.6 g/dL (6.4-8.2) Albumin 3.0 g/dL (3.4-5.0) Albumin/Globulin Ratio 0.7 (1.0-1.7) Problem List Problems Medical Problems: (1) Exacerbation of Crohn's disease Status: Acute Assessment/Plan medical therapy per GI Justicifation of Admission Dx: Justifications for Admission: Justification of Admission Dx: N/A SONIDO MORENO APRN Apr 10, 2020 09:31
[2020-04-10 11:00] VITALS: BP 116/68
--- NOTE | 2020-04-10 11:11 | PDOC ---
Date of Service: DATE: 04/10/20 TIME: 11:07 Subjective: Subjective: Says eating soft foods. Diarrhea is not as bad but frustrating. Still has abd pain. Says she's being discharged "so whatever." Objective: Vital Signs: Vital Signs Date Time Temp Pulse Resp B/P (MAP) Pulse Ox O2 Delivery O2 Flow Rate FiO2 04/10/20 10:41 Room Air 04/10/20 08:29 97 04/10/20 07:00 97.8 63 18 110/71 (84) 97.8 Labs: Laboratory Tests Test 04/09/20 13:25 White Blood Count 17.3 x10^3/uL Red Blood Count 4.12 x10^6/uL Hemoglobin 11.3 g/dL Hematocrit 35.0 % Mean Corpuscular Volume 85 fL Mean Corpuscular Hemoglobin 28 pg Mean Corpuscular Hemoglobin Concent 32 g/dL Red Cell Distribution Width 15.3 % Platelet Count 454 x10^3/uL Neutrophils (%) (Auto) 88 % Lymphocytes (%) (Auto) 7 % Monocytes (%) (Auto) 5 % Eosinophils (%) (Auto) 0 % Basophils (%) (Auto) 0 % Neutrophils # (Auto) 15.3 x10^3/uL Lymphocytes # (Auto) 1.2 x10^3/uL Monocytes # (Auto) 0.8 x10^3/uL Eosinophils # (Auto) 0.0 x10^3/uL Basophils # (Auto) 0.0 x10^3/uL Sodium Level 139 mmol/L Potassium Level 3.9 mmol/L Chloride Level 102 mmol/L Carbon Dioxide Level 30 mmol/L Anion Gap 7 Blood Urea Nitrogen 14 mg/dL Creatinine 0.6 mg/dL Estimated GFR (Cockcroft-Gault) 140.2 BUN/Creatinine Ratio 23 Glucose Level 147 mg/dL Calcium Level 9.3 mg/dL Total Bilirubin < 0.1 mg/dL Aspartate Amino Transf (AST/SGOT) 16 U/L Alanine Aminotransferase (ALT/SGPT) 29 U/L Alkaline Phosphatase 89 U/L Total Protein 7.6 g/dL Albumin 3.0 g/dL Albumin/Globulin Ratio 0.7 Imaging: Abd X-Ray 04/08 IMPRESSION: Suspected air-filled loops of bowel within the midabdomen. The differential includes ileus as well as partial distal obstruction. CT A/P 04/08 IMPRESSION: 1. Similar to prior study there are bowel loops in the upper abdomen are thick- walled and dilated. Findings suggest enterocolitis, infectious or inflammatory bowel disease. Cannot exclude partial bowel obstruction. There is focal narrowing of bowel in the left midabdomen and peristalsis or stricture are considerations. 2. Nonobstructing left renal calculi. PE: GEN: NAD LUNGS: CTAB HEART: RRR ABD: S/ND/NT NEURO/PSYCH: A & O 3 A/P: Crohn's flare - left-sided abd pain, diarrhea, abnormal CT H/o GERD H/o C Diff - negative now Non-compliance -- Says being discharged. Would send on PO steroids. Encouraged follow-up w/ gastroenterology as outpt - says she's going to follow at [facility]. Justicifation of Admission Dx: Justifications for Admission: Justification of Admission Dx: N/A ONELIA KING Apr 10, 2020 11:11
--- NOTE | 2020-04-10 12:54 | PDOC ---
[employer] PROGRESS NOTE Date of Service DOS: DATE: 04/10/20 TIME: 12:48 Chief Complaint Chief Complaint Crohn's exacerbation - ON CT 10Cannot exclude partial bowel obstruction. focal narrowing of bowel in the left midabdomen and peristalsis or stricture are considerations. H/o GERD H/o C Diff - negative now Non-compliance History of Present Illness History of Present Illness pleasant 34-year-old female, who states she has had Crohn's for many years. She appears to have a lot of scars on her abdomen from Crohn's surgery. She states she gets fistula sometimes. She has been to many times and to [facility] as well. She has even been placed on monoclonal antibodies, including Stelara and Humira in the past. Once again, she presents with abdominal pain. It appears that she is probably having a Crohn's flare. Her white count is a little high at 11.3. Potassium is a little low at 3.4. She describes her symptoms as very irritating, rated at 9/10, worse with food, better with no food. She tried increasing her home meds, but that did not work. I discussed the case with the ER physician. We are going to admit the patient and consult GI. 04/10/2020 Pt seen and examined DW RN and clin management Pt eager to be discharged with pain management - dilaudid or percocet rx Vitals/I&O Vitals/I&O: Vital Signs Date Time Temp Pulse Resp B/P (MAP) Pulse Ox O2 Delivery O2 Flow Rate FiO2 04/10/20 12:00 Room Air 04/10/20 11:00 98.5 70 18 116/68 (84) 99 98.5 I & O 04/09/20 04/09/20 04/10/20 14:59 22:59 06:59 Intake Total 0 ml 240 ml 360 ml Balance 0 ml 240 ml 360 ml Physical Exam Physical Exam: VITALS: Within normal limits and are stable. GENERAL: No apparent distress. Alert and oriented. HEENT: Normocephalic atraumatic, external auditory canals are patent. EYES: Extraocular muscles are intact, pupils are equally round and reactive to light and accommodation. MUSCULOSKELETAL: Well developed, well nourished, good range of motion. ENDOCRINE: No thyromegaly was palpated. LYMPHATICS: No cervical chain or axillary nodes were noted. HEMATOPOIETIC: No bruising. NECK: Supple, no JVD, no thyromegaly was noted. LUNGS: Clear to auscultation in all lung singer without rhonchi or wheezing. HEART: RRR, S1, S2 present. Peripheral pulses intact, no obvious murmurs were noted. ABDOMEN: She has decreased bowel sounds with diffuse tenderness. She has several scars on her abdomen; please see the pictures. EXTREMITIES: Without any cyanosis, clubbing, or edema. Pedal pulses intact, Homans sign is negative. NEUROLOGIC: Normal speech, normal tone. A & O x3, moves all extremities, no obvious focal deficits. PSYCHIATRIC: Normal affect, normal mood. Stable. SKIN: She does have some slight irritation of the gluteal fold. VASCULAR: Good capillary refill, neurovascular bundle appears to be intact. General: Alert, Oriented X3, Cooperative Heart: Regular rate Lungs: Clear Abdomen: Soft, Other (ttp ) Extremities: No clubbing Skin: No rashes, No breakdown Labs Labs: Laboratory Tests Test 04/09/20 13:25 White Blood Count 17.3 x10^3/uL (4.0-11.0) Red Blood Count 4.12 x10^6/uL (3.50-5.40) Hemoglobin 11.3 g/dL (12.0-15.5) Hematocrit 35.0 % (36.0-47.0) Mean Corpuscular Volume 85 fL (79-100) Mean Corpuscular Hemoglobin 28 pg (25-35) Mean Corpuscular Hemoglobin Concent 32 g/dL (31-37) Red Cell Distribution Width 15.3 % (11.5-14.5) Platelet Count 454 x10^3/uL (140-400) Neutrophils (%) (Auto) 88 % (31-73) Lymphocytes (%) (Auto) 7 % (24-48) Monocytes (%) (Auto) 5 % (0-9) Eosinophils (%) (Auto) 0 % (0-3) Basophils (%) (Auto) 0 % (0-3) Neutrophils # (Auto) 15.3 x10^3/uL (1.8-7.7) Lymphocytes # (Auto) 1.2 x10^3/uL (1.0-4.8) Monocytes # (Auto) 0.8 x10^3/uL (0.0-1.1) Eosinophils # (Auto) 0.0 x10^3/uL (0.0-0.7) Basophils # (Auto) 0.0 x10^3/uL (0.0-0.2) Sodium Level 139 mmol/L (136-145) Potassium Level 3.9 mmol/L (3.5-5.1) Chloride Level 102 mmol/L (98-107) Carbon Dioxide Level 30 mmol/L (21-32) Anion Gap 7 (6-14) Blood Urea Nitrogen 14 mg/dL (7-20) Creatinine 0.6 mg/dL (0.6-1.0) Estimated GFR (Cockcroft-Gault) 140.2 BUN/Creatinine Ratio 23 (6-20) Glucose Level 147 mg/dL (70-99) Calcium Level 9.3 mg/dL (8.5-10.1) Total Bilirubin < 0.1 mg/dL (0.2-1.0) Aspartate Amino Transf (AST/SGOT) 16 U/L (15-37) Alanine Aminotransferase (ALT/SGPT) 29 U/L (14-59) Alkaline Phosphatase 89 U/L (46-116) Total Protein 7.6 g/dL (6.4-8.2) Albumin 3.0 g/dL (3.4-5.0) Albumin/Globulin Ratio 0.7 (1.0-1.7) Review of Systems Review of Systems: Denies SOA Denies dizziness Assessment and Plan Assessmemt and Plan Problems Medical Problems: (1) Exacerbation of Crohn's disease Status: Acute Assessment: 1. Crohns exacerbation 2. Hx of GERD 3. Hx of C. diff - negative Plan: 1. Discharge disposition pending 2. Pain management - dilaudid or percocet po 3. DVT prophylaxis 4. Full code. Comment Review of Relevant I have reviewed the following items dania (where applicable) has been applied. Justifications for Admission Other Justification MO SINGLETARY III DO Apr 10, 2020 12:54
--- NOTE | 2020-04-10 14:25 | NUR ---
Patient was discharged home at 1315. Patient received her prescription and understood discharge instruction.
== END 2020-04-10 13:15 | disposition home or self-care (01) | DRG 386 ==
LOC: ER 17:21 → 4 NORTH 21:51
PROVIDERS: ADMIT Internal Medicine; ATTEND Internal Medicine
DX: K50.90 Crohn's disease, unspecified, without complications (principal); K56.7 Ileus, unspecified; K21.9 Gastro-esophageal reflux disease without esophagitis; N20.0 Calculus of kidney; K52.9 Noninfective gastroenteritis and colitis, unspecified; G89.29 Other chronic pain; Z88.5 Allergy status to narcotic agent; Z90.49 Acquired absence of other specified parts of digestive tract; Z93.3 Colostomy status; Z91.19 Patient's noncompliance with other medical treatment and regimen; Z83.3 Family history of diabetes mellitus
CPT/HCPCS: 36415; 74021; 74176; 74177; 80048; 80053; 80307; 81001; 81025; 83690; 83735; 85007; 85025; 86140; 87493; 96361; 96372; 96374; 96375; 96376; J0500; J1170; J2920; J2930; J3010; J7030; J7512; Q9967; 99285-25; G0378

== ENCOUNTER 2020-05-04 23:18 | Emergency (ER) | payer OTHER ==
[~2020-05-04] VITALS: Ht 157.5 cm; Wt 57.8 kg
[~2020-05-04 23:18] MED LIST changes: +MESA400C2 PO; +PANT40TA77 PO; +POTA20TA4 PO
[2020-05-04 23:35] VITALS: BP 123/88
--- NOTE | 2020-05-04 23:48 | PHYS DOC ---
Past Medical History Past Medical History: Other Additional Past Medical Histor: Crohn's tx with remicade Past Surgical History: Other Additional Past Surgical Histo: colostomy with takedown 2010 Smoking Status: Unknown if ever smoked Alcohol Use: None Drug Use: None General Adult EDM: Chief Complaint: PAIN CONTROL HPI: HPI: Patient is a 34 year old female who arrives with a chief complaint of diffuse body pain and abdominal pain. Patient was admitted here and discharged 5 days ago for Crohn's flare. Patient received 28 oxycodone upon discharge. Patient says over last couple days she has had some return of diarrhea and now complains of diffuse arms and leg pain and myalgias she says it feels "like fibromyalgia". Symptoms appear to be worse with movement and palpation. Patient has had some diarrhea but no vomiting. Patient denies fever. Pain is nonradiating and is diffuse Review of Systems: Review of Systems: Constitutional: Denies fever or chills. [] Eyes: Denies change in visual acuity. [] HENT: Denies nasal congestion or sore throat. [] Respiratory: Denies cough or shortness of breath. [] Cardiovascular: Denies chest pain or edema. [] GI: Complains abdominal pain diarrhea : Denies dysuria. [] Musculoskeletal: Complains of diffuse myalgias Integument: Denies rash. [] Neurologic: Denies headache, focal weakness or sensory changes. [] Endocrine: Denies polyuria or polydipsia. [] Lymphatic: Denies swollen glands. [] Psychiatric: Denies depression or anxiety. [] Heart Score: Risk Factors: Risk Factors: DM, Current or recent (<one month) smoker, HTN, HLP, family history of CAD, obesity. Risk Scores: Score 0 - 3: 2.5% MACE over next 6 weeks - Discharge Home Score 4 - 6: 20.3% MACE over next 6 weeks - Admit for Clinical Observation Score 7 - 10: 72.7% MACE over next 6 weeks - Early Invasive Strategies Current Medications: Current Medications Ketorolac Tromethamine (Toradol 15mg Vial) 15 mg 1X ONCE IVP Last administered on 05/05/20at 00:03; Start 05/05/20 at 00:00; Stop 05/05/20 at 00:01; Status DC Sodium Chloride 1,000 ml @ 1,000 mls/hr 1X ONCE IV Last administered on 05/05/20at 00:03; Start 05/05/20 at 00:00; Stop 05/05/20 at 00:59; Status DC Ondansetron HCl (Zofran) 4 mg 1X ONCE IVP Last administered on 05/05/20at 0 0:03; Start 05/05/20 at 00:00; Stop 05/05/20 at 00:01; Status DC Haloperidol Lactate (Haldol Inj) 5 mg 1X ONCE IVP Last administered on 05/05/20at 00:58; Start 05/05/20 at 01:15; Stop 05/05/20 at 01:16; Status DC Diphenhydramine HCl (Benadryl) 25 mg 1X ONCE IVP Last administered on 05/05/20at 00:58; Start 05/05/20 at 01:15; Stop 05/05/20 at 01:16; Status DC Active Scripts Active Delzicol (Mesalamine) 400 Mg Cap.drtab. 400 Mg PO [id number] 30 Days Pantoprazole Sodium (Pantoprazole Sodium) 40 Mg Tablet.dr 40 Mg PO DAILYAC 30 Days Klor-Con M20 (Potassium Chloride) 20 Meq Tab.er.prt 20 Meq PO [id number] 14 Days Percocet 10-325 Mg Tablet (Oxycodone/Acetaminophen) 1 Each Tablet 2 Tab PO PRN Q6HRS PRN 10 Days Dicyclomine Hcl 10 Mg Capsule 20 Mg PO Q6HRS 30 Days Current Medications Medications (Trade) Dose Ordered Sig/Nguyen Start Time Stop Time Status Last Admin Dose Admin Ketorolac Tromethamine (Toradol 15mg Vial) 15 mg 1X ONCE 05/05/20 00:00 05/05/20 00:01 Ondansetron HCl (Zofran) 4 mg 1X ONCE 05/05/20 00:00 05/05/20 00:01 Sodium Chloride 1,000 ml @ 1,000 mls/hr 1X ONCE 05/05/20 00:00 05/05/20 00:59 Allergies: Allergies: Allergies Coded Allergies Type Severity Reaction Last Updated Verified morphine Allergy Intermediate Itching 08/07/19 Yes Physical Exam: PE: Constitutional: Well developed, well nourished, no acute distress, non-toxic appearance. [] HENT: Normocephalic, atraumatic, bilateral external ears normal, no trismus nose normal. [] Eyes: PERRLA, EOMI, conjunctiva normal, no discharge. [] Neck: Normal range of motion, no tenderness, supple, no stridor. [] Cardiovascular:Heart rate regular rhythm, peripheral pulse intact cap refill is brisk Lungs & Thorax: Bilateral breath sounds clear to auscultation [] Abdomen: Abdomen soft with mild diffuse tenderness without guarding or rebound no masses no pulsatile masses Skin: Warm, dry, no erythema, no rash. [] Back: No tenderness, no CVA tenderness. [] Extremities: No tenderness, no cyanosis, no clubbing, ROM intact, no edema. [] Neurologic: Alert and oriented X 3, normal motor function, normal sensory function, no focal deficits noted. [] Psychologic: Anxious Current Patient Data: Labs: Laboratory Tests Test 05/04/20 23:55 05/05/20 00:30 05/05/20 00:45 White Blood Count 21.0 x10^3/uL Red Blood Count 4.26 x10^6/uL Hemoglobin 11.3 g/dL Hematocrit 35.4 % Mean Corpuscular Volume 83 fL Mean Corpuscular Hemoglobin 27 pg Mean Corpuscular Hemoglobin Concent 32 g/dL Red Cell Distribution Width 16.8 % Platelet Count 457 x10^3/uL Neutrophils (%) (Auto) 76 % Lymphocytes (%) (Auto) 12 % Monocytes (%) (Auto) 12 % Eosinophils (%) (Auto) 0 % Basophils (%) (Auto) 0 % Neutrophils # (Auto) 16.0 x10^3/uL Lymphocytes # (Auto) 2.4 x10^3/uL Monocytes # (Auto) 2.4 x10^3/uL Eosinophils # (Auto) 0.0 x10^3/uL Basophils # (Auto) 0.1 x10^3/uL Segmented Neutrophils % 73 % Lymphocytes % 16 % Monocytes % 11 % Toxic Vacuolation Slight Platelet Estimate Increased Hypochromasia Slight Anisocytosis Slight Maternal Serum HCG Beta Subunit 3 mIU/mL Sodium Level 142 mmol/L Potassium Level 3.7 mmol/L Chloride Level 105 mmol/L Carbon Dioxide Level 28 mmol/L Anion Gap 9 Blood Urea Nitrogen 23 mg/dL Creatinine 0.7 mg/dL Estimated GFR (Cockcroft-Gault) 117.3 BUN/Creatinine Ratio 33 Glucose Level 91 mg/dL Calcium Level 9.0 mg/dL Magnesium Level 2.3 mg/dL Total Bilirubin < 0.1 mg/dL Aspartate Amino Transf (AST/SGOT) 9 U/L Alanine Aminotransferase (ALT/SGPT) 23 U/L Alkaline Phosphatase 80 U/L Total Protein 7.2 g/dL Albumin 2.9 g/dL Albumin/Globulin Ratio 0.7 Lipase 260 U/L Urine Collection Type Unknown Urine Color Yellow Urine Clarity Clear Urine pH 6.0 Urine Specific Petroleum >=1.030 Urine Protein 30 mg/dL Urine Glucose (UA) Negative mg/dL Urine Ketones (Stick) Negative mg/dL Urine Blood Negative Urine Nitrite Negative Urine Bilirubin Small Urine Urobilinogen Dipstick 1.0 mg/dL Urine Leukocyte Esterase Negative Urine RBC 0 /HPF Urine WBC Occ /HPF Urine Squamous Epithelial Cells Occ /LPF Urine Calcium Phosphate Crystals /HPF Urine Bacteria 0 /HPF Urine Mucus Mod /LPF Bedside Urine HCG, Qualitative Hcg negative Current Medications Medications (Trade) Dose Ordered Sig/Nguyen Route PRN Reason Start Time Stop Time Status Last Admin Dose Admin Ketorolac Tromethamine (Toradol 15mg Vial) 15 mg 1X ONCE IVP 05/05/20 00:00 05/05/20 00:01 DC 05/05/20 00:03 Sodium Chloride 1,000 ml @ 1,000 mls/hr 1X ONCE IV 05/05/20 00:00 05/05/20 00:59 DC 05/05/20 00:03 Ondansetron HCl (Zofran) 4 mg 1X ONCE IVP 05/05/20 00:00 05/05/20 00:01 DC 05/05/20 00:03 Haloperidol Lactate (Haldol Inj) 5 mg 1X ONCE IVP 05/05/20 01:15 05/05/20 01:16 DC 05/05/20 00:58 Diphenhydramine HCl (Benadryl) 25 mg 1X ONCE IVP 05/05/20 01:15 05/05/20 01:16 DC 05/05/20 00:58 Vital Signs: Vital Signs Date Time Temp Pulse Resp B/P (MAP) Pulse Ox O2 Delivery O2 Flow Rate FiO2 05/04/20 23:35 98.2 108 20 123/88 (100) 97 Room Air 98.2 EKG: EKG: [] Radiology/Procedures: Radiology/Procedures: [] Course & Med Decision Making: Course & Med Decision Making Pertinent Labs and Imaging studies reviewed. (See chart for details) [] Patient reassessed at 1:25 AM and pain is minimally improved. Patient's work-up reveals leukocytosis, I reviewed the old records and she always has a leukocytosis. Abdominal exam is soft and nonsurgical, doubt surgical emergency. Patient was given another dose of pain medicine and follow-up instructions with GI. Most of her pain on reassessment is diffuse myalgias. Dragon Disclaimer: Dragon Disclaimer: This electronic medical record was generated, in whole or in part, using a voice recognition dictation system. Departure Departure Impression: Primary Impression: Chronic abdominal pain Disposition: 01 DC HOME SELF CARE/HOMELESS Condition: STABLE Referrals: NO PCP (PCP) BOBBY VALERIO MD 2-3 DAYS Patient Instructions: Abdominal Pain Additional Instructions: EMERGENCY DEPARTMENT GENERAL DISCHARGE INSTRUCTIONS THANK YOU for coming to [facility] Emergency Department (ED) today and trusting us with your care. We trust that you had a positive experience in our Emergency Department. If you wish to speak to the department Management you can contact the display department manager at . YOUR FOLLOW UP INSTRUCTIONS ARE FOLLOWS: Do you have a private doctor? If you do not have a private doctor, please ask for a resource list of physicians or clinics that may be able to assist you with follow up care. The Emergency Physician has interpreted your x-rays. The X-ray specialist will also review them. If there is a change in the findings you will be notified in 48 hours when at all possible. A lab test or lab culture may have been done, your results will be reviewed and you will be notified if you need a change in treatment. ADDITIONAL INSTRUCTIONS AND INFORMATION Your care today has been supervised by a physician who is specially trained in emergency care. Many problems require more than one evaluation for a complete diagnosis and treatment. We recommend that you schedule your follow up appointment as recommended to ensure complete treatment of your illness or injury. If you are unable to obtain follow up care and continue to have a problem, or if your condition worsens we recommend that you return to the ED. We are not able to safely determine your condition over the phone nor are we able to give sound medical advice over the phone. For these safety reasons, if you call for medical advice we will ask you to come to the ED for further evaluation If you have any questions regarding these discharge instructions please call the ED at . SAFETY INFORMATION In the interest of safety, wellness, and injury prevention; we encourage you to wear your seatbelt, if you smoke; quit smoking, and we encourage your family to use protective helmet for bicycling and other sporting events that present an increased risk for head injury. IF YOUR SYMPTOMS WORSEN OR NEW SYMPTOMS DEVELOP, OR YOU HAVE CONCERNS ABOUT YOUR CONDITION; OR IF YOUR CONDITION WORSENS WHILE YOU ARE WAITING FOR YOUR FOLLOW UP APPOINTMENT; EITHER CONTACT YOUR PRIMARY CARE DOCTOR, THE PHYSICIAN WHOSE NAME AND NUMBER YOU WERE GIVEN, OR RETURN TO THE ED IMMEDIATELY. Scripts Ondansetron Hcl (ZOFRAN) 4 Mg Tablet 1 TAB PO PRN Q6-8HRS for NAUSEA, #15 TAB Prov: BOBBY FISHER MD 05/05/20 BOBBY FISHER MD May 04, 2020 23:48
[2020-05-05] MEDS ORDERED: IV NORMAL SALINE 1000ML BAG 1,000 ML IV ONE
[2020-05-05] MEDS ORDERED: ONDANSETRON PF 4 MG/2 ML VIAL. IVP ONE
[2020-05-05] MEDS ORDERED: KETOROLAC 15 MG/ML VIAL. IVP ONE
[2020-05-05 00:17] LABS: BASO # 0.1 x10^3/uL (0.0-0.2); BASO % 0 % (0-3); EOS % 0 % (0-3); HEMATOCRIT 35.4 % (36.0-47.0); HEMOGLOBIN 11.3 g/dL (12.0-15.5); LYMPH # 2.4 x10^3/uL (1.0-4.8); LYMPH % 12 % (24-48); MEAN CORPUSCULAR HEMOGLOBIN 27 pg (25-35); MEAN CORPUSCULAR HGB CONC 32 g/dL (31-37); MEAN CORPUSCULAR VOLUME 83 fL (79-100); MONO # 2.4 x10^3/uL (0.0-1.1); MONO % 12 % (0-9); NEUT % 76 % (31-73); PLATELET COUNT 457 x10^3/uL (140-400); RED BLOOD COUNT 4.26 x10^6/uL (3.50-5.40); RED CELL DISTRIBUTION WIDTH 16.8 % (11.5-14.5)
[2020-05-05 00:18] LABS: ANION GAP 9 (6-14); BLOOD UREA NITROGEN 23 mg/dL (7-20); BUN/CREATININE RATIO 33 (6-20); CARBON DIOXIDE 28 mmol/L (21-32); CHLORIDE 105 mmol/L (98-107); CREATININE 0.7 mg/dL (0.6-1.0); GFR 117.3; GLUCOSE 91 mg/dL (70-99); POTASSIUM 3.7 mmol/L (3.5-5.1); SODIUM 142 mmol/L (136-145)
[2020-05-05 00:25] LABS: ALBUMIN 2.9 g/dL (3.4-5.0); ALBUMIN/GLOBULIN RATIO 0.7 (1.0-1.7); ALK PHOS 80 U/L (46-116); ALT (SGPT) 23 U/L (14-59); AST (SGOT) 9 U/L (15-37); LIPASE 260 U/L (73-393); MAGNESIUM 2.3 mg/dL (1.8-2.4); TOTAL PROTEIN 7.2 g/dL (6.4-8.2)
[2020-05-05 00:34] LABS: TOTAL BILIRUBIN < 0.1 mg/dL (0.2-1.0)
[2020-05-05 00:42] LABS: % LYMPHS 16 % (24-48); % MONOS 11 % (0-10); % SEGS 73 % (35-66); ANISOCYTOSIS SLIGHT; HYPOCHROMIA SLIGHT; PLT ESTIMATE INCREASED (ADEQUATE)
[2020-05-05 00:43] LABS: TOXIC VACUOLATION SLIGHT
[2020-05-05 00:51] LABS: BILIRUBIN,URINE SMALL (NEG); CLARITY,URINE CLEAR; COLOR,URINE YELLOW; NITRITE,URINE NEGATIVE (NEG); PROTEIN,URINE 30 mg/dL (NEG-TRACE)
[2020-05-05 01:02] LABS: BACTERIA,URINE 0 /HPF (0-FEW); RBC,URINE 0 /HPF (0-2); WBC,URINE OCC /HPF (0-4)
[2020-05-05] MEDS ORDERED: HALOPERIDOL LACTATE 5 MG/ML VIAL. IVP ONE (01:15)
[2020-05-05] MEDS ORDERED: diphenhydrAMINE 50 MG/ML VIAL IVP ONE (01:15)
[2020-05-05] MEDS ORDERED: ONDA4TAB7 PO (01:31)
[2020-05-05] MEDS ORDERED: fentaNYL PF VIAL 100 MCG/2 ML VIAL IVP ONE (02:00)
== END 2020-05-05 01:45 | disposition home or self-care (01) ==
LOC: ER 23:18
DX: G89.29 Other chronic pain (principal); R10.84 Generalized abdominal pain; R19.7 Diarrhea, unspecified; M79.10 Myalgia, unspecified site; Z98.890 Other specified postprocedural states; Z90.89 Acquired absence of other organs; Z88.6 Allergy status to analgesic agent
CPT/HCPCS: 36415; 80053; 81001; 81025; 83690; 83735; 84702; 85007; 85025; 96361; 96374; 96375; 99284; J1200; J1630; J1885; J2405; J3010; J7030

== ENCOUNTER 2020-05-15 13:48 | Inpatient (IN) | payer OTHER ==
[~2020-05-15] VITALS: Ht 157.5 cm; Wt 61.7 kg
[~2020-05-15 13:48] MED LIST changes: +MORPHINE SULFATE 4 MG/ML VIAL. IV PRN; +ONDA4TAB7 PO
[2020-05-15] MEDS ORDERED: IV NORMAL SALINE 1000ML BAG 1,000 ML IV SCH (14:41)
[2020-05-15] MEDS ORDERED: fentaNYL PF VIAL 100 MCG/2 ML VIAL IVP ONE ×2 (14:45→15:45)
[2020-05-15] MEDS ORDERED: ONDANSETRON PF 4 MG/2 ML VIAL. IVP ONE (14:45)
--- NOTE | 2020-05-15 14:50 | PHYS DOC ---
Past Medical History Past Medical History: Other Additional Past Medical Histor: Crohn's tx with remicade, PANCREATITIS X'S 3. 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 Patient states she has had diarrhea nonstop. She states she is taking all of the medications that she had been discharged with last month. She was here April 08 for a small bowel obstruction. Patient states on this coming she is following up with a GI doctor here at [place]. She states that she took oxycodone and Bentyl yesterday. Patient states she has not been eating or drinking because she is too scared to. Patient denies vomiting, nausea, fever, blood in her stool, headache, dizziness, chest pain, shortness of breath, cough, back pain, urinary symptoms. Patient has a history of pancreatitis, Crohn's, small bowel obstruction, colostomy takedown in 2010. 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 [] Eyes: Denies change in visual acuity. [] HENT: Denies nasal congestion or sore throat. [] Respiratory: Denies cough or shortness of breath. [] Cardiovascular: Denies chest pain or edema. [] GI: + abdominal pain, denies nausea, vomiting, bloody stools. + diarrhea. [] : Denies dysuria. [] Musculoskeletal: Denies back pain or joint pain. [] Integument: Denies rash. [] Neurologic: Denies headache, focal weakness or sensory changes. [] Endocrine: Denies polyuria or polydipsia. [] Lymphatic: Denies swollen glands. [] Psychiatric: Denies depression or anxiety. [] (ELIDA KEMP PLANTING SUPERVISOR) Heart Score: Risk Factors: Risk Factors: DM, Current or recent (<one month) smoker, HTN, HLP, family history of CAD, obesity. Risk Scores: Score 0 - 3: 2.5% MACE over next 6 weeks - Discharge Home Score 4 - 6: 20.3% MACE over next 6 weeks - Admit for Clinical Observation Score 7 - 10: 72.7% MACE over next 6 weeks - Early Invasive Strategies (ELIDA KEMP APRN) Allergies: Allergies: Allergies Coded Allergies Type Severity Reaction Last Updated Verified morphine Allergy Intermediate Itching 08/07/19 Yes (ELIDA KEMP APRN) Physical Exam: PE: Constitutional: Well developed, well nourished, no acute distress, non-toxic appearance. [] HENT: Normocephalic, atraumatic, bilateral external ears normal, oropharynx moist, no oral exudates, nose normal. [] Eyes: PERRLA, EOMI, conjunctiva normal, no discharge. [] Neck: Normal range of motion, no tenderness, supple, no stridor. [] Cardiovascular:Heart rate regular rhythm, no murmur [] Lungs & Thorax: Bilateral breath sounds clear to auscultation [] Abdomen: Bowel sounds normal, soft, epigastric tenderness, no masses, no puls atile masses. [] Skin: Warm, dry, no erythema, no rash. [] Back: No tenderness, no CVA tenderness. [] Extremities: No tenderness, no cyanosis, no clubbing, ROM intact, no edema. [] Neurologic: Alert and oriented X 3, normal motor function, normal sensory function, no focal deficits noted. [] Psychologic: Affect normal, judgement normal, mood normal. [] (ELIDA KEMP APRN) Current Patient Data: Vital Signs: Vital Signs Date Time Temp Pulse Resp B/P (MAP) Pulse Ox O2 Delivery O2 Flow Rate FiO2 05/15/20 14:29 98.6 100 116/78 (91) 98 98.6 05/15/20 14:07 18 Room Air (ELIDA KEMP APRN) EKG: EK and read by Dr Monroe as Sinus Rhythm and no STEMI[] (ELIDA KEMP APRN) Radiology/Procedures: Radiology/Procedures: [] Impression: [facility] [address] [place] [address] IMAGING REPORT Signed PATIENT: JEANNETTE VALENTIN ACCOUNT: [id number] : 1985 LOCATION: ER AGE: 34 SEX: F EXAM STATUS: REG ER ORD. PHYSICIAN: ELIDA KEMP APRN REASON: abd pain, hx sbo PROCEDURE: CT ABD PELV W/ IV CONTRST ONLY CT of the abdomen and pelvis with contrast 05/15/2020 4:30 PM Indication: Abdominal pain. History of small bowel obstruction./ Comparison study: CT of the abdomen and pelvis without contrast April 08, 2020 Technique: Multidetector CT imaging of the abdomen and pelvis was performed following the administration of IV contrast. Findings: The partially visualized lung bases demonstrate no acute abnormality. The liver, gallbladder, spleen, bilateral adrenal glands, bilateral kidneys, and pancreas, are grossly unremarkable. There is no evidence of bowel obstruction. The lack of enteric contrast limits evaluation of the bowel there appears to be multifocal areas of bowel wall thickening. Mild rectal thickening appears to be present. More significant thickening and prominent mucosal enhancement involving the proximal colon is seen. Postsurgical changes following prior bowel resection noted. Bladder is grossly unremarkable. No free fluid or free air is seen in the abdomen or pelvis. No acute osseous changes are identified. Impression: Multifocal predominantly colonic bowel wall thickening with areas of increased mucosal enhancement. Findings are consistent with inflammatory bowel disease. Patient reports history of Crohn disease. CT DOSING PQRS STATEMENT: One or more of the following individualized dose reduction techniques were utilized for this examination: 1. Automated exposure control 2. Adjustment of the mA and/or kV according to patient size 3. Use of iterative reconstruction technique Electronically signed by: Curt Black MD (05/15/2020 4:36 PM) [id number] DICTATED and SIGNED BY: CURT BLACK MD DATE: 05/15/20 1636 (ELIDA KEMP APRN) Course & Med Decision Making: Course & Med Decision Making Pertinent Labs and Imaging studies reviewed. (See chart for details) See HPI. Alert and oriented x4. Ambulatory with a steady gait. Abdomen is soft but tender to epigastric area. Patient states she does feel like her abdomen is distended. Speaks in full complete sentences. Skin pink warm and dry. Vital signs are within normal limits. Patient's potassium is 2.6. She is given 40 potassium by mouth and [address] abdomen pelvis shows inflammation in her colon. Patient has intractable pain and is asking for Dilaudid. Patient is admitted to Dr. Anthony. [] (ELIDA KEMP APRN) Rhonda Disclaimer: Rhonda Disclaimer: This electronic medical record was generated, in whole or in part, using a voice recognition dictation system. (ELIDA KEMP APRN) Departure Departure Impression: Primary Impression: Intractable abdominal pain Additional Impressions: Hypokalemia Diarrhea Qualified Codes: R19.7 - Diarrhea, unspecified Disposition: ADMITTED INPT THIS HOSP Admitting Physician: CHAYITO (ELIDA KEMP APRN) Condition: STABLE Referrals: NO PCP (PCP) Attending Signature Attending Signature I have reviewed the PA/FREEZER OPERATOR's note and plan of care. I was available for consultation as needed during the patient's visit in the emergency department. I agree with the clinical impression, plan, and disposition. (CÉSAR MONROE DO) ELIDA KEMP APRN May 15, 2020 14:50 CÉSAR MONROE DO May 16, 2020 06:44
[2020-05-15 14:57] LABS: BASO # 0.1 x10^3/uL (0.0-0.2); BASO % 0 % (0-3); EOS # 0.1 x10^3/uL (0.0-0.7); EOS % 0 % (0-3); HEMATOCRIT 35.5 % (36.0-47.0); HEMOGLOBIN 11.2 g/dL (12.0-15.5); LYMPH % 14 % (24-48); MEAN CORPUSCULAR HEMOGLOBIN 26 pg (25-35); MEAN CORPUSCULAR HGB CONC 32 g/dL (31-37); MEAN CORPUSCULAR VOLUME 84 fL (79-100); MONO % 14 % (0-9); NEUT # 10.3 x10^3/uL (1.8-7.7); NEUT % 71 % (31-73); PLATELET COUNT 514 x10^3/uL (140-400); RED BLOOD COUNT 4.24 x10^6/uL (3.50-5.40); RED CELL DISTRIBUTION WIDTH 18.3 % (11.5-14.5); WHITE BLOOD COUNT 14.4 x10^3/uL (4.0-11.0)
[2020-05-15 15:05] LABS: BARBITURATES NEG (NEG); BENZODIAZEPINES NEG (NEG); BILIRUBIN,URINE NEGATIVE (NEG); CANNABINOIDS NEG (NEG); CLARITY,URINE HAZY; COCAINE NEG (NEG); COLOR,URINE YELLOW; METHADONE NEG (NEG); NITRITE,URINE NEGATIVE (NEG); OPIATES NEG (NEG); PH,URINE 6.5 (<5.0-8.0); PHENCYCLIDINE NEG (NEG); PROTEIN,URINE NEGATIVE (NEG-TRACE); UROBILINOGEN,URINE 0.2 mg/dL (0.2 mg/dL)
[2020-05-15 15:06] LABS: BACTERIA,URINE FEW /HPF (0-FEW); RBC,URINE 0 /HPF (0-2); WBC,URINE OCC /HPF (0-4)
[2020-05-15 15:07] LABS: AMPHETAMINE/METHAMPHETAMINE NEG (NEG)
[2020-05-15 15:29] LABS: % LYMPHS 16 % (24-48); % MONOS 8 % (0-10); % SEGS 76 % (35-66); PLT ESTIMATE INCREASED (ADEQUATE)
[2020-05-15 15:30] LABS: ANISOCYTOSIS SLIGHT; PLATELET CLUMP PRESENT; SCHISTOCYTES OCC; TARGET CELLS OCC; TOXIC GRANULATION SLIGHT; TOXIC VACUOLATION SLIGHT
[2020-05-15 15:37] LABS: ALBUMIN 2.5 g/dL (3.4-5.0); ALBUMIN/GLOBULIN RATIO 0.7 (1.0-1.7); CALCIUM 8.6 mg/dL (8.5-10.1); CREATININE 0.7 mg/dL (0.6-1.0); GFR 117.3; TOTAL BILIRUBIN 0.1 mg/dL (0.2-1.0); TOTAL PROTEIN 6.2 g/dL (6.4-8.2)
[2020-05-15 15:39] LABS: POTASSIUM 2.6 mmol/L (3.5-5.1)
[2020-05-15] MEDS: POTASSIUM CHLORIDE 20 MEQ TABLET.ER. PO ONE ×2 (15:45→17:33)
[2020-05-15 15:50] LABS: U PREG PATIENT NEGATIVE (NEG)
[2020-05-15] MEDS ORDERED: IOHEXOL 300 MG/ML 100ML VIAL. IV ONE (16:00)
[2020-05-15] MEDS ORDERED: CONTRAST GIVEN. MC PRN (16:15)
--- NOTE | 2020-05-15 16:39 | RAD ---
CT of the abdomen and pelvis with contrast 05/15/2020 4:30 PM Indication: Abdominal pain. History of small bowel obstruction./ Comparison study: CT of the abdomen and pelvis without contrast April 08, 2020 Technique: Multidetector CT imaging of the abdomen and pelvis was performed following the administration of IV contrast. Findings: The partially visualized lung bases demonstrate no acute abnormality. The liver, gallbladder, spleen, bilateral adrenal glands, bilateral kidneys, and pancreas, are grossly unremarkable. There is no evidence of bowel obstruction. The lack of enteric contrast limits evaluation of the bowel there appears to be multifocal areas of bowel wall thickening. Mild rectal thickening appears to be present. More significant thickening and prominent mucosal enhancement involving the proximal colon is seen. Postsurgical changes following prior bowel resection noted. Bladder is grossly unremarkable. No free fluid or free air is seen in the abdomen or pelvis. No acute osseous changes are identified. Impression: Multifocal predominantly colonic bowel wall thickening with areas of increased mucosal enhancement. Findings are consistent with inflammatory bowel disease. Patient reports history of Crohn disease. CT DOSING PQRS STATEMENT: One or more of the following individualized dose reduction techniques were utilized for this examination: 1. Automated exposure control 2. Adjustment of the mA and/or kV according to patient size 3. Use of iterative reconstruction technique Electronically signed by: Curt Orosco MD (05/15/2020 4:36 PM) [id number]
[2020-05-15] MEDS: POTASSIUM CHLORIDE 10MEQ 100 ML IV SCH ×2 (16:42→20:07)
[2020-05-15] MEDS ORDERED: ONDANSETRON PF 4 MG/2 ML VIAL. IV PRN (17:15)
--- NOTE | 2020-05-15 18:21 | PDOC1 ---
History and Physical Date of Service: DOS: DATE: 05/15/20 TIME: 18:20 History of Present Illness: HPI: 34 year old female with past medical history of Crohn's disease and a colostomy takedown in 2010. Who presents with last 5 days of sharp abdominal pain that is intermittent currently at a 7 out of 10. Endorses diarrhea that has stopped today. Nonbloody and no tenesmus. Patient states that she has been taking Bentyl and her prednisone taper since her discharge from April 29. Patient does have a follow-up appointment with Dr. West this . She states that she took oxycodone and Bentyl yesterday. Patient does have some appetite at this time but was afraid to eat mainly due to the fear of abdominal pain. Patient denies vomiting, nausea, fever, blood in her stool, headache, dizziness, chest pain, shortness of breath, cough, back pain, urinary symptoms. Past Medical/Surgical History: PMH/PSH: Past Medical History: Crohn's disease treated with infliximab (last dose was at the age of 20), Stelara in the past, PANCREATITIS X'S 3. Past Surgical History: colostomy with takedown 2010 Allergies: Allergies: Coded Allergies: morphine (Verified Allergy, Intermediate, Itching, 08/07/19) Family History: Family History: Reviewed and none reported Social History: Social History: Smoking Status: Never Smoker Alcohol Use: None Drug Use: None Current Medications: Current Medications Current Medications Sodium Chloride 1,000 ml @ 1,000 mls/hr Q1H IV Last administered on 05/15/20at 14:58; Start 05/15/20 at 14:41; Stop 05/15/20 at 15:40; Status DC Fentanyl Citrate (Fentanyl 2ml Vial) 50 mcg 1X ONCE IVP Last administered on 05/15/20at 14:58; Start 05/15/20 at 14:45; Stop 05/15/20 at 14:47; Status DC Ondansetron HCl (Zofran) 4 mg 1X ONCE IVP Last administered on 05/15/20at 14:58; Start 05/15/20 at 14:45; Stop 05/15/20 at 14:47; Status DC Fentanyl Citrate (Fentanyl 2ml Vial) 50 mcg 1X ONCE IVP Last administered on 05/15/20at 16:24; Start 05/15/20 at 15:45; Stop 05/15/20 at 16:02; Status DC Potassium Chloride (Klor-Con) 40 meq 1X ONCE PO ; Start 05/15/20 at 15:45; Stop 05/15/20 at 16:02; Status DC Potassium Chloride/Water 100 ml @ 100 mls/hr Q1HR IV Last administered on 05/15/20at 16:42; Start 05/15/20 at 17:00; Stop 05/15/20 at 18:59 Iohexol (Omnipaque 300 Mg/ml) 75 ml 1X ONCE IV Last administered on 05/15/20at 16:23; Start 05/15/20 at 16:00; Stop 05/15/20 at 16:02; Status DC Info (CONTRAST GIVEN -- Rx MONITORING) 1 each PRN DAILY PRN MC SEE COMMENTS; Start 05/15/20 at 16:15; Stop 05/17/20 at 16:14 Ondansetron HCl (Zofran) 4 mg PRN Q8HRS PRN IV NAUSEA/VOMITING; Start 05/15/20 at 17:15; Stop 05/16/20 at 17:14 Fentanyl Citrate (Fentanyl 2ml Vial) 50 mcg PRN Q1HR PRN IV PAIN; Start 05/15/20 at 17:15; Stop 05/16/20 at 17:14 Active Scripts Active Zofran (Ondansetron Hcl) 4 Mg Tablet 1 Tab PO PRN Q6-8HRS Delzicol (Mesalamine) 400 Mg Cap.drtab. 400 Mg PO [id number] 30 Days Pantoprazole Sodium (Pantoprazole Sodium) 40 Mg Tablet.dr 40 Mg PO DAILYAC 30 Days Klor-Con M20 (Potassium Chloride) 20 Meq Tab.er.prt 20 Meq PO [id number] 14 Days Percocet 10-325 Mg Tablet (Oxycodone/Acetaminophen) 1 Each Tablet 2 Tab PO PRN Q6HRS PRN 10 Days Dicyclomine Hcl 10 Mg Capsule 20 Mg PO Q6HRS 30 Days ROS: Review of Systems Review of System REVIEW OF SYSTEMS: GENERAL: Denies weakness SKIN: No bruising, hair changes or rashes. EYES: No blurred, double or loss of vision. NOSE AND THROAT: No history of nosebleeds, hoarseness or sore throat. HEART: No history of palpitations, chest pain or shortness of breath on exertion. LUNGS: Denies cough, hemoptysis, wheezing or shortness of breath. GASTROINTESTINAL: Denies changes in appetite, nausea, vomiting, diarrhea or constipation. GENITOURINARY: No history of frequency, urgency, hesitancy or nocturia. NEUROLOGIC: Denies history of numbness, tingling, or tremor. PSYCHIATRIC: No history of panic, anxiety or depression. ENDOCRINE: No history of heat or cold intolerance, polyuria or polydipsia. EXTREMITIES: Denies joint pain, pain on walking or stiffness. Physical Exam: Vital Signs: Vital Signs Date Time Temp Pulse Resp B/P (MAP) Pulse Ox O2 Delivery O2 Flow Rate FiO2 05/15/20 14:29 98.6 100 116/78 (91) 98 98.6 05/15/20 14:07 18 Room Air Physcial Exam: GEN: No apparent distress. Alert and oriented HEENT: Normal cephalic, atraumatic, external auditory canals are patent EYES: Extraocular muscles are intact, pupil are equally round and reactive to light and accommodation MUSCULOSKELETAL: Well developed , well nourished, good range of motion ENDOCRINE: No thyromegaly was palpated LYMPHATICS: No cervical chain or axillary nodes were noted HEMATOPOIETIC: No bruising NECK: Supple, no JVD, no thyromegaly was noted LUNGS: Clear to auscultation in all lung singer without rhonchi or wheezing HEART: RRR, S!, S2 present. Peripheral pulses intact, no obvious murmurs noted ABDOMEN: Soft, nontender. Positive bowel sounds, no organomegaly, normal bowel sounds EXTREMITIES: Without clubbing, cyanosis, or edema. Pedal pulses intact. Negative Homans sign NEUROLOGIC: Normal speech and tone. A&O x 3, moves all extremities, no obvious focal deficits PSYCHIATRIC: Normal affect, normal mood. Stable SKIN: No ulcerations or rashes, good skin turgor, no jaundice VASCULAR: Good capillary refill, neurovascular bundle appears to be intact Labs: Labs: Laboratory Tests Test 05/15/20 14:45 05/15/20 14:48 05/15/20 16:27 Sodium Level 143 mmol/L (136-145) Potassium Level 2.6 mmol/L (3.5-5.1) Chloride Level 107 mmol/L (98-107) Carbon Dioxide Level 29 mmol/L (21-32) Anion Gap 7 (6-14) Blood Urea Nitrogen 15 mg/dL (7-20) Creatinine 0.7 mg/dL (0.6-1.0) Estimated GFR (Cockcroft-Gault) 117.3 BUN/Creatinine Ratio 21 (6-20) Glucose Level 98 mg/dL (70-99) Calcium Level 8.6 mg/dL (8.5-10.1) Magnesium Level 2.1 mg/dL (1.8-2.4) Total Bilirubin 0.1 mg/dL (0.2-1.0) Aspartate Amino Transf (AST/SGOT) 12 U/L (15-37) Alanine Aminotransferase (ALT/SGPT) 22 U/L (14-59) Alkaline Phosphatase 63 U/L (46-116) Total Protein 6.2 g/dL (6.4-8.2) Albumin 2.5 g/dL (3.4-5.0) Albumin/Globulin Ratio 0.7 (1.0-1.7) Lipase 149 U/L (73-393) White Blood Count 14.4 x10^3/uL (4.0-11.0) Red Blood Count 4.24 x10^6/uL (3.50-5.40) Hemoglobin 11.2 g/dL (12.0-15.5) Hematocrit 35.5 % (36.0-47.0) Mean Corpuscular Volume 84 fL (79-100) Mean Corpuscular Hemoglobin 26 pg (25-35) Mean Corpuscular Hemoglobin Concent 32 g/dL (31-37) Red Cell Distribution Width 18.3 % (11.5-14.5) Platelet Count 514 x10^3/uL (140-400) Neutrophils (%) (Auto) 71 % (31-73) Lymphocytes (%) (Auto) 14 % (24-48) Monocytes (%) (Auto) 14 % (0-9) Eosinophils (%) (Auto) 0 % (0-3) Basophils (%) (Auto) 0 % (0-3) Neutrophils # (Auto) 10.3 x10^3/uL (1.8-7.7) Lymphocytes # (Auto) 2.0 x10^3/uL (1.0-4.8) Monocytes # (Auto) 2.0 x10^3/uL (0.0-1.1) Eosinophils # (Auto) 0.1 x10^3/uL (0.0-0.7) Basophils # (Auto) 0.1 x10^3/uL (0.0-0.2) Segmented Neutrophils % 76 % (35-66) Lymphocytes % 16 % (24-48) Monocytes % 8 % (0-10) Toxic Granulation Slight Toxic Vacuolation Slight Platelet Estimate Increased (ADEQUATE) Platelet Clumps, EDTA Present Anisocytosis Slight Target Cells Occ Schistocytes Occ Urine Collection Type Unknown Urine Color Yellow Urine Clarity Hazy Urine pH 6.5 (<5.0-8.0) Urine Specific [place] 1.015 (1.000-1.030) Urine Protein Negative mg/dL (NEG-TRACE) Urine Glucose (UA) Negative mg/dL (NEG) Urine Ketones (Stick) Negative mg/dL (NEG) Urine Blood Negative (NEG) Urine Nitrite Negative (NEG) Urine Bilirubin Negative (NEG) Urine Urobilinogen Dipstick 0.2 mg/dL (0.2 mg/dL) Urine Leukocyte Esterase Negative (NEG) Urine RBC 0 /HPF (0-2) Urine WBC Occ /HPF (0-4) Urine Squamous Epithelial Cells Few /LPF Urine Bacteria Few /HPF (0-FEW) Urine Mucus Slight /LPF Urine Test Negative (NEG) Urine Opiates Screen Neg (NEG) Urine Methadone Screen Neg (NEG) Urine Barbiturates Neg (NEG) Urine Phencyclidine Screen Neg (NEG) Urine Amphetamine/Methamphetamine Neg (NEG) Urine Benzodiazepines Screen Neg (NEG) Urine Cocaine Screen Neg (NEG) Urine Cannabinoids Screen Neg (NEG) Urine Ethyl Alcohol Neg (NEG) Lactic Acid Level 1.4 mmol/L (0.4-2.0) Laboratory Tests Test 05/15/20 14:45 05/15/20 14:48 05/15/20 16:27 Sodium Level 143 mmol/L (136-145) Potassium Level 2.6 mmol/L (3.5-5.1) Chloride Level 107 mmol/L (98-107) Carbon Dioxide Level 29 mmol/L (21-32) Anion Gap 7 (6-14) Blood Urea Nitrogen 15 mg/dL (7-20) Creatinine 0.7 mg/dL (0.6-1.0) Estimated GFR (Cockcroft-Gault) 117.3 BUN/Creatinine Ratio 21 (6-20) Glucose Level 98 mg/dL (70-99) Calcium Level 8.6 mg/dL (8.5-10.1) Magnesium Level 2.1 mg/dL (1.8-2.4) Total Bilirubin 0.1 mg/dL (0.2-1.0) Aspartate Amino Transf (AST/SGOT) 12 U/L (15-37) Alanine Aminotransferase (ALT/SGPT) 22 U/L (14-59) Alkaline Phosphatase 63 U/L (46-116) Total Protein 6.2 g/dL (6.4-8.2) Albumin 2.5 g/dL (3.4-5.0) Albumin/Globulin Ratio 0.7 (1.0-1.7) Lipase 149 U/L (73-393) White Blood Count 14.4 x10^3/uL (4.0-11.0) Red Blood Count 4.24 x10^6/uL (3.50-5.40) Hemoglobin 11.2 g/dL (12.0-15.5) Hematocrit 35.5 % (36.0-47.0) Mean Corpuscular Volume 84 fL (79-100) Mean Corpuscular Hemoglobin 26 pg (25-35) Mean Corpuscular Hemoglobin Concent 32 g/dL (31-37) Red Cell Distribution Width 18.3 % (11.5-14.5) Platelet Count 514 x10^3/uL (140-400) Neutrophils (%) (Auto) 71 % (31-73) Lymphocytes (%) (Auto) 14 % (24-48) Monocytes (%) (Auto) 14 % (0-9) Eosinophils (%) (Auto) 0 % (0-3) Basophils (%) (Auto) 0 % (0-3) Neutrophils # (Auto) 10.3 x10^3/uL (1.8-7.7) Lymphocytes # (Auto) 2.0 x10^3/uL (1.0-4.8) Monocytes # (Auto) 2.0 x10^3/uL (0.0-1.1) Eosinophils # (Auto) 0.1 x10^3/uL (0.0-0.7) Basophils # (Auto) 0.1 x10^3/uL (0.0-0.2) Segmented Neutrophils % 76 % (35-66) Lymphocytes % 16 % (24-48) Monocytes % 8 % (0-10) Toxic Granulation Slight Toxic Vacuolation Slight Platelet Estimate Increased (ADEQUATE) Platelet Clumps, EDTA Present Anisocytosis Slight Target Cells Occ Schistocytes Occ Urine Collection Type Unknown Urine Color Yellow Urine Clarity Hazy Urine pH 6.5 (<5.0-8.0) Urine Specific [place] 1.015 (1.000-1.030) Urine Protein Negative mg/dL (NEG-TRACE) Urine Glucose (UA) Negative mg/dL (NEG) Urine Ketones (Stick) Negative mg/dL (NEG) Urine Blood Negative (NEG) Urine Nitrite Negative (NEG) Urine Bilirubin Negative (NEG) Urine Urobilinogen Dipstick 0.2 mg/dL (0.2 mg/dL) Urine Leukocyte Esterase Negative (NEG) Urine RBC 0 /HPF (0-2) Urine WBC Occ /HPF (0-4) Urine Squamous Epithelial Cells Few /LPF Urine Bacteria Few /HPF (0-FEW) Urine Mucus Slight /LPF Urine Test Negative (NEG) Urine Opiates Screen Neg (NEG) Urine Methadone Screen Neg (NEG) Urine Barbiturates Neg (NEG) Urine Phencyclidine Screen Neg (NEG) Urine Amphetamine/Methamphetamine Neg (NEG) Urine Benzodiazepines Screen Neg (NEG) Urine Cocaine Screen Neg (NEG) Urine Cannabinoids Screen Neg (NEG) Urine Ethyl Alcohol Neg (NEG) Lactic Acid Level 1.4 mmol/L (0.4-2.0) Images: Images CT ABD /PELVIS Impression: Multifocal predominantly colonic bowel wall thickening with areas of increased mucosal enhancement. Findings are consistent with inflammatory bowel disease. Patient reports history of Crohn disease. Assessment/Plan Assessment/Plan Acute intractable abdominal pain secondary to Crohn's flare Acute electrolyte derangementhypokalemia Admit to medicine for further management IV pain control IV steroids IV electrolyte replacement as needed Clear liquid diet, n.p.o. at midnight GI consult Lovenox for DVT prophylaxis Protonix GI prophylaxis ADA diet Full code Discussed with RN and SW Disposition pending GI evaluation Surrogate decision maker is Kezia West Justifications for Admission Other Justification DAFNE PHILIP MD May 15, 2020 18:21
[2020-05-15] MEDS: IV NORMAL SALINE 1000ML BAG 1,000 ML IV SCH (18:50)
[2020-05-15] MEDS ORDERED: DOCUSATE SODIUM 100 MG CAPSULE. PO PRN (19:00)
[2020-05-15] MEDS ORDERED: ACETAMINOPHEN 325 MG TABLET. PO PRN (19:00)
[2020-05-15] MEDS ORDERED: ONDANSETRON PF 4 MG/2 ML VIAL. IVP PRN (19:00)
[2020-05-15] MEDS ORDERED: SENNOSIDES 8.6 MG TABLET PO PRN (19:00)
[2020-05-15] MEDS ORDERED: MORPHINE SULFATE 2 MG/ML VIAL. IV PRN (19:00)
[2020-05-15] MEDS ORDERED: ENOXAPARIN 40 MG/0.4 ML SYRINGE. SQ SCH (19:00)
[2020-05-15] MEDS ORDERED: DEXTROSE 50% 25 GM / 50ML DISP.SYRIN. IV PRN (19:00)
[2020-05-15] MEDS ORDERED: oxyCODONE/APAP 5/325 1 TAB TABLET PO PRN (19:00)
[2020-05-15] MEDS: fentaNYL PF VIAL 100 MCG/2 ML VIAL IV PRN ×4 (19:03→23:10)
[2020-05-15] MEDS: methylPREDNISolone SOD SUCC PF 40 MG/ML VIAL. IV SCH (20:40)
[2020-05-15 20:50] VITALS: BP 112/80
[2020-05-15] MEDS ORDERED: oxyCODONE/APAP 10/325 1 TAB TABLET PO PRN (22:45)
[2020-05-15 23:00] VITALS: BP 106/71
[2020-05-15] MEDS ORDERED: DICYCLOMINE HCL 10 MG CAPSULE PO SCH (23:00)
[2020-05-16] MEDS: oxyCODONE/APAP 10/325 1 TAB TABLET PO PRN ×4 (00:15→14:55)
[2020-05-16] MEDS: fentaNYL PF VIAL 100 MCG/2 ML VIAL IV PRN ×5 (01:51→16:06)
[2020-05-16 03:00] VITALS: BP 98/63
[2020-05-16] MEDS: IV NORMAL SALINE 1000ML BAG 1,000 ML IV SCH ×2 (03:44→14:50)
[2020-05-16 05:04] LABS: BASO % 0 % (0-3); EOS % 0 % (0-3); HEMATOCRIT 30.6 % (36.0-47.0); HEMOGLOBIN 9.8 g/dL (12.0-15.5); LYMPH # 0.8 x10^3/uL (1.0-4.8); LYMPH % 6 % (24-48); MEAN CORPUSCULAR HEMOGLOBIN 27 pg (25-35); MEAN CORPUSCULAR HGB CONC 32 g/dL (31-37); MEAN CORPUSCULAR VOLUME 83 fL (79-100); MONO # 0.4 x10^3/uL (0.0-1.1); MONO % 3 % (0-9); NEUT # 12.8 x10^3/uL (1.8-7.7); NEUT % 91 % (31-73); PLATELET COUNT 430 x10^3/uL (140-400); RED BLOOD COUNT 3.68 x10^6/uL (3.50-5.40); RED CELL DISTRIBUTION WIDTH 18.4 % (11.5-14.5); WHITE BLOOD COUNT 14.1 x10^3/uL (4.0-11.0)
[2020-05-16] MEDS: DICYCLOMINE HCL 10 MG CAPSULE PO PRN ×2 (05:33→14:54)
[2020-05-16 05:41] LABS: CALCIUM 9.1 mg/dL (8.5-10.1); CREATININE 0.6 mg/dL (0.6-1.0); GFR 140.2; MAGNESIUM 2.3 mg/dL (1.8-2.4); PHOSPHORUS 3.9 mg/dL (2.6-4.7)
[2020-05-16 07:00] VITALS: BP 95/58
[2020-05-16] MEDS ORDERED: PANTOPRAZOLE 40 MG TABLET.DR. PO SCH (07:30)
[2020-05-16] MEDS: methylPREDNISolone SOD SUCC PF 40 MG/ML VIAL. IV SCH (07:48)
--- NOTE | 2020-05-16 09:54 | PDOC2 ---
GI CONSULT Date of Service: DATE: 05/16/20 TIME: 09:54 Reason For Consult: intractable abd pain, diarrhea HPI: HPI: 34 y/o female. Fourth admission this year for same issue, also multiple ER visits here and at other hospitals. This times reports "electrolytes were off" and she "couldn't walk" after last discharge so she was seen at [facility] ER and [facility] ER. Then diarrhea recurred (?continued). Cannot tell me the number of stools she has in a 24 hour period. Has had trouble sleeping. Mid abdominal pain. Might have vomited once, not really sure. Says still taking prednisone taper but can't tell me what time of day she takes it or what dose she takes. Taking Bentyl and Percocet QID. Says [facility] GI never got back with her and she called but the supervisor type bar and segment had an attitude and wasn't doing her job so she filed a complaint and doesn't plan to be seen there. H/o Crohn's disease - diagnosed in 1999, s/p bowel resection. Past treatment w/ Imuran and biologics. Most recently steroids and narcotics, probably intermittent mesalamine. ?last colonoscopy in 2016 Treated w/ IV steroids on several admissions regularly. She usually requests specific pain regimen, does not communicate w/ nursing staff re: stooling, gives vague history re: symptoms, and requests regular diet though c/o ongoing abdo edilson pain. H/o C diff - negative 04/03 and 04/06/2020. Has had five abdominal/pelvic CTs here since 03/07/20. Also says had CTs at [facility] on the [place]. PMH: PMH: per HPI FH: Family History: No pertinent hx Social History: Smoke: No ALCOHOL: none Drugs: None ROS: GEN: Denies fevers, chills, sweats HEENT: Denies blurred vision, sore throat CV: Denies chest pain RESP: Denies shortness of air, cough GI: Per HPI : Denies hematuria, dysuria ENDO: Denies weight changes NEURO: Denies confusion, dizziness MSK: Denies weakness, joint pain/swelling SKIN: Denies jaundice, pruritus Vitals: Vitals: Vital Signs Date Time Temp Pulse Resp B/P (MAP) Pulse Ox O2 Delivery O2 Flow Rate FiO2 11/17/20 08:25 Room Air 05/16/20 07:00 97.8 69 16 95/58 (70) 99 97.8 Labs: Labs: Laboratory Tests Test 05/15/20 14:45 05/15/20 14:48 05/15/20 16:27 05/16/20 04:20 Sodium Level 143 mmol/L (136-145) 140 mmol/L (136-145) Potassium Level 2.6 mmol/L (3.5-5.1) 4.0 mmol/L (3.5-5.1) Chloride Level 107 mmol/L (98-107) 105 mmol/L (98-107) Carbon Dioxide Level 29 mmol/L (21-32) 25 mmol/L (21-32) Anion Gap 7 (6-14) 10 (6-14) Blood Urea Nitrogen 15 mg/dL (7-20) 8 mg/dL (7-20) Creatinine 0.7 mg/dL (0.6-1.0) 0.6 mg/dL (0.6-1.0) Estimated GFR (Cockcroft-Gault) 117.3 140.2 BUN/Creatinine Ratio 21 (6-20) Glucose Level 98 mg/dL (70-99) 106 mg/dL (70-99) Calcium Level 8.6 mg/dL (8.5-10.1) 9.1 mg/dL (8.5-10.1) Magnesium Level 2.1 mg/dL (1.8-2.4) 2.3 mg/dL (1.8-2.4) Total Bilirubin 0.1 mg/dL (0.2-1.0) Aspartate Amino Transf (AST/SGOT) 12 U/L (15-37) Alanine Aminotransferase (ALT/SGPT) 22 U/L (14-59) Alkaline Phosphatase 63 U/L (46-116) Total Protein 6.2 g/dL (6.4-8.2) Albumin 2.5 g/dL (3.4-5.0) Albumin/Globulin Ratio 0.7 (1.0-1.7) Lipase 149 U/L (73-393) White Blood Count 14.4 x10^3/uL (4.0-11.0) 14.1 x10^3/uL (4.0-11.0) Red Blood Count 4.24 x10^6/uL (3.50-5.40) 3.68 x10^6/uL (3.50-5.40) Hemoglobin 11.2 g/dL (12.0-15.5) 9.8 g/dL (12.0-15.5) Hematocrit 35.5 % (36.0-47.0) 30.6 % (36.0-47.0) Mean Corpuscular Volume 84 fL (79-100) 83 fL (79-100) Mean Corpuscular Hemoglobin 26 pg (25-35) 27 pg (25-35) Mean Corpuscular Hemoglobin Concent 32 g/dL (31-37) 32 g/dL (31-37) Red Cell Distribution Width 18.3 % (11.5-14.5) 18.4 % (11.5-14.5) Platelet Count 514 x10^3/uL (140-400) 430 x10^3/uL (140-400) Neutrophils (%) (Auto) 71 % (31-73) 91 % (31-73) Lymphocytes (%) (Auto) 14 % (24-48) 6 % (24-48) Monocytes (%) (Auto) 14 % (0-9) 3 % (0-9) Eosinophils (%) (Auto) 0 % (0-3) 0 % (0-3) Basophils (%) (Auto) 0 % (0-3) 0 % (0-3) Neutrophils # (Auto) 10.3 x10^3/uL (1.8-7.7) 12.8 x10^3/uL (1.8-7.7) Lymphocytes # (Auto) 2.0 x10^3/uL (1.0-4.8) 0.8 x10^3/uL (1.0-4.8) Monocytes # (Auto) 2.0 x10^3/uL (0.0-1.1) 0.4 x10^3/uL (0.0-1.1) Eosinophils # (Auto) 0.1 x10^3/uL (0.0-0.7) 0.0 x10^3/uL (0.0-0.7) Basophils # (Auto) 0.1 x10^3/uL (0.0-0.2) 0.0 x10^3/uL (0.0-0.2) Segmented Neutrophils % 76 % (35-66) Lymphocytes % 16 % (24-48) Monocytes % 8 % (0-10) Toxic Granulation Slight Toxic Vacuolation Slight Platelet Estimate Increased (ADEQUATE) Platelet Clumps, EDTA Present Anisocytosis Slight Target Cells Occ Schistocytes Occ Urine Collection Type Unknown Urine Color Yellow Urine Clarity Hazy Urine pH 6.5 (<5.0-8.0) Urine Specific [place] 1.015 (1.000-1.030) Urine Protein Negative mg/dL (NEG-TRACE) Urine Glucose (UA) Negative mg/dL (NEG) Urine Ketones (Stick) Negative mg/dL (NEG) Urine Blood Negative (NEG) Urine Nitrite Negative (NEG) Urine Bilirubin Negative (NEG) Urine Urobilinogen Dipstick 0.2 mg/dL (0.2 mg/dL) Urine Leukocyte Esterase Negative (NEG) Urine RBC 0 /HPF (0-2) Urine WBC Occ /HPF (0-4) Urine Squamous Epithelial Cells Few /LPF Urine Bacteria Few /HPF (0-FEW) Urine Mucus Slight /LPF Urine Test Negative (NEG) Urine Opiates Screen Neg (NEG) Urine Methadone Screen Neg (NEG) Urine Barbiturates Neg (NEG) Urine Phencyclidine Screen Neg (NEG) Urine Amphetamine/Methamphetamine Neg (NEG) Urine Benzodiazepines Screen Neg (NEG) Urine Cocaine Screen Neg (NEG) Urine Cannabinoids Screen Neg (NEG) Urine Ethyl Alcohol Neg (NEG) Lactic Acid Level 1.4 mmol/L (0.4-2.0) Phosphorus Level 3.9 mg/dL (2.6-4.7) C-Reactive Protein, Quantitative 6.0 mg/L (0-3.3) Allergies: Coded Allergies: morphine (Verified Allergy, Intermediate, Itching, 08/07/19) Medications: Current Medications Medications (Trade) Dose Ordered Sig/Nguyen Route PRN Reason Start Time Stop Time Status Last Admin Dose Admin Sodium Chloride 1,000 ml @ 1,000 mls/hr Q1H IV 05/15/20 14:41 05/15/20 15:40 DC 05/15/20 14:58 Fentanyl Citrate (Fentanyl 2ml Vial) 50 mcg 1X ONCE IVP 05/15/20 14:45 05/15/20 14:47 DC 05/15/20 14:58 Ondansetron HCl (Zofran) 4 mg 1X ONCE IVP 05/15/20 14:45 05/15/20 14:47 DC 05/15/20 14:58 Fentanyl Citrate (Fentanyl 2ml Vial) 50 mcg 1X ONCE IVP 05/15/20 15:45 05/15/20 16:02 DC 05/15/20 16:24 Potassium Chloride/Water 100 ml @ 100 mls/hr Q1HR IV 05/15/20 17:00 05/15/20 18:59 DC 05/15/20 20:07 Iohexol (Omnipaque 300 Mg/ml) 75 ml 1X ONCE IV 05/15/20 16:00 05/15/20 16:02 DC 05/15/20 16:23 Fentanyl Citrate (Fentanyl 2ml Vial) 50 mcg PRN Q1HR PRN IV PAIN 05/15/20 17:15 05/16/20 17:14 05/16/20 07:48 Methylprednisolone Sodium Succinate (SOLU-Medrol 40MG VIAL) 40 mg DAILY IV 05/15/20 19:30 05/16/20 07:48 Sodium Chloride 1,000 ml @ 100 mls/hr Q10H IV 05/15/20 18:50 05/16/20 03:44 Pantoprazole Sodium (Protonix) 40 mg DAILYAC PO 05/16/20 07:30 05/16/20 07:48 Oxycodone/ Acetaminophen (Percocet 5/325) 1 tab PRN Q4HRS PRN PO MILD PAIN, 1ST CHOICE 05/15/20 19:00 05/15/20 22:48 DC 05/15/20 21:29 Dicyclomine HCl (Bentyl) 20 mg Q6H PO 05/15/20 23:00 05/16/20 00:10 DC 05/15/20 23:08 Dicyclomine HCl (Bentyl) 20 mg PRN Q6HRS PRN PO ABDOMINAL PAIN 05/16/20 00:15 05/16/20 05:33 Oxycodone/ Acetaminophen (Percocet 10/325) 1 tab PRN Q4HRS PRN PO PAIN 05/16/20 00:15 05/16/20 05:36 Imaging: Imaging: CT A/P 05/15 Impression: Multifocal predominantly colonic bowel wall thickening with areas of increased mucosal enhancement. Findings are consistent with inflammatory bowel disease. Patient reports history of Crohn disease. PE: GEN: NAD HEENT: Atraumatic, PERRL LUNGS: CTAB HEART: RRR ABD: BS+, soft, periumbilical discomfort EXTREMITY: No edema SKIN: No rashes, no jaundice NEURO/PSYCH: A & O 3 A/P: A/P: Chronic abd pain and diarrhea Chronic anemia, hypokalemia, mildly elevated CRP GERD H/o Crohn's disease s/p bowel resection CRC screen - ?2016 - sigmoid stricture H/o C Diff Non-compliance Narcotic dependency -- Recurrent/frequent admissions, ER visits, CTs. Lacks motivation. Narcotic dependency. CRP lower now than at last discharge. Consider DC soon on PO steroids. ONELIA KING May 16, 2020 09:54
[2020-05-16 11:00] VITALS: BP 108/79
--- NOTE | 2020-05-16 11:43 | PDOC ---
[employer] PROGRESS NOTE Date of Service DOS: DATE: 05/16/20 TIME: 11:43 Chief Complaint Chief Complaint Chronic abd pain and diarrhea Chronic anemia, hypokalemia, mildly elevated CRP GERD H/o Crohn's disease s/p bowel resection CRC screen - ?2015 - sigmoid stricture H/o C Diff Non-compliance Narcotic dependency History of Present Illness History of Present Illness 34 year old female with past medical history of Crohn's disease and a colostomy takedown in 2010. Who presents with last 5 days of sharp abdominal pain that is intermittent currently at a 7 out of 10. Endorses diarrhea that has stopped today. Nonbloody and no tenesmus. Patient states that she has been taking Bentyl and her prednisone taper since her discharge from April 29. Patient does have a follow-up appointment with Dr. West this . She states that she took oxycodone and Bentyl yesterday. Patient does have some appetite at this time but was afraid to eat mainly due to the fear of abdominal pain. Patient denies vomiting, nausea, fever, blood in her stool, headache, dizziness, chest pain, shortness of breath, cough, back pain, urinary symptoms. 05/16/2020 Pt seen and examined DW RN DW case management GI following, they saw her this AM Vitals/I&O Vitals/I&O: Vital Signs Date Time Temp Pulse Resp B/P (MAP) Pulse Ox O2 Delivery O2 Flow Rate FiO2 05/16/20 11:19 Room Air 05/16/20 11:00 98.7 68 16 108/79 (89) 98 98.7 I & O 05/15/20 05/15/20 05/16/20 15:00 23:00 07:00 Intake Total 1120 ml 0 ml Balance 1120 ml 0 ml Physical Exam General: Alert, Oriented X3, Cooperative, mild distress Heart: Regular rate, No murmurs Lungs: Clear Abdomen: Normal bowel sounds Extremities: No clubbing, No cyanosis Skin: No rashes, No significant lesion Labs Labs: Laboratory Tests Test 05/15/20 14:45 05/15/20 14:48 05/15/20 16:27 05/16/20 04:20 Sodium Level 143 mmol/L (136-145) 140 mmol/L (136-145) Potassium Level 2.6 mmol/L (3.5-5.1) 4.0 mmol/L (3.5-5.1) Chloride Level 107 mmol/L (98-107) 105 mmol/L (98-107) Carbon Dioxide Level 29 mmol/L (21-32) 25 mmol/L (21-32) Anion Gap 7 (6-14) 10 (6-14) Blood Urea Nitrogen 15 mg/dL (7-20) 8 mg/dL (7-20) Creatinine 0.7 mg/dL (0.6-1.0) 0.6 mg/dL (0.6-1.0) Estimated GFR (Cockcroft-Gault) 117.3 140.2 BUN/Creatinine Ratio 21 (6-20) Glucose Level 98 mg/dL (70-99) 106 mg/dL (70-99) Calcium Level 8.6 mg/dL (8.5-10.1) 9.1 mg/dL (8.5-10.1) Magnesium Level 2.1 mg/dL (1.8-2.4) 2.3 mg/dL (1.8-2.4) Total Bilirubin 0.1 mg/dL (0.2-1.0) Aspartate Amino Transf (AST/SGOT) 12 U/L (15-37) Alanine Aminotransferase (ALT/SGPT) 22 U/L (14-59) Alkaline Phosphatase 63 U/L (46-116) Total Protein 6.2 g/dL (6.4-8.2) Albumin 2.5 g/dL (3.4-5.0) Albumin/Globulin Ratio 0.7 (1.0-1.7) Lipase 149 U/L (73-393) White Blood Count 14.4 x10^3/uL (4.0-11.0) 14.1 x10^3/uL (4.0-11.0) Red Blood Count 4.24 x10^6/uL (3.50-5.40) 3.68 x10^6/uL (3.50-5.40) Hemoglobin 11.2 g/dL (12.0-15.5) 9.8 g/dL (12.0-15.5) Hematocrit 35.5 % (36.0-47.0) 30.6 % (36.0-47.0) Mean Corpuscular Volume 84 fL (79-100) 83 fL (79-100) Mean Corpuscular Hemoglobin 26 pg (25-35) 27 pg (25-35) Mean Corpuscular Hemoglobin Concent 32 g/dL (31-37) 32 g/dL (31-37) Red Cell Distribution Width 18.3 % (11.5-14.5) 18.4 % (11.5-14.5) Platelet Count 514 x10^3/uL (140-400) 430 x10^3/uL (140-400) Neutrophils (%) (Auto) 71 % (31-73) 91 % (31-73) Lymphocytes (%) (Auto) 14 % (24-48) 6 % (24-48) Monocytes (%) (Auto) 14 % (0-9) 3 % (0-9) Eosinophils (%) (Auto) 0 % (0-3) 0 % (0-3) Basophils (%) (Auto) 0 % (0-3) 0 % (0-3) Neutrophils # (Auto) 10.3 x10^3/uL (1.8-7.7) 12.8 x10^3/uL (1.8-7.7) Lymphocytes # (Auto) 2.0 x10^3/uL (1.0-4.8) 0.8 x10^3/uL (1.0-4.8) Monocytes # (Auto) 2.0 x10^3/uL (0.0-1.1) 0.4 x10^3/uL (0.0-1.1) Eosinophils # (Auto) 0.1 x10^3/uL (0.0-0.7) 0.0 x10^3/uL (0.0-0.7) Basophils # (Auto) 0.1 x10^3/uL (0.0-0.2) 0.0 x10^3/uL (0.0-0.2) Segmented Neutrophils % 76 % (35-66) Lymphocytes % 16 % (24-48) Monocytes % 8 % (0-10) Toxic Granulation Slight Toxic Vacuolation Slight Platelet Estimate Increased (ADEQUATE) Platelet Clumps, EDTA Present Anisocytosis Slight Target Cells Occ Schistocytes Occ Urine Collection Type Unknown Urine Color Yellow Urine Clarity Hazy Urine pH 6.5 (<5.0-8.0) Urine Specific [place] 1.015 (1.000-1.030) Urine Protein Negative mg/dL (NEG-TRACE) Urine Glucose (UA) Negative mg/dL (NEG) Urine Ketones (Stick) Negative mg/dL (NEG) Urine Blood Negative (NEG) Urine Nitrite Negative (NEG) Urine Bilirubin Negative (NEG) Urine Urobilinogen Dipstick 0.2 mg/dL (0.2 mg/dL) Urine Leukocyte Esterase Negative (NEG) Urine RBC 0 /HPF (0-2) Urine WBC Occ /HPF (0-4) Urine Squamous Epithelial Cells Few /LPF Urine Bacteria Few /HPF (0-FEW) Urine Mucus Slight /LPF Urine Test Negative (NEG) Urine Opiates Screen Neg (NEG) Urine Methadone Screen Neg (NEG) Urine Barbiturates Neg (NEG) Urine Phencyclidine Screen Neg (NEG) Urine Amphetamine/Methamphetamine Neg (NEG) Urine Benzodiazepines Screen Neg (NEG) Urine Cocaine Screen Neg (NEG) Urine Cannabinoids Screen Neg (NEG) Urine Ethyl Alcohol Neg (NEG) Lactic Acid Level 1.4 mmol/L (0.4-2.0) Phosphorus Level 3.9 mg/dL (2.6-4.7) C-Reactive Protein, Quantitative 6.0 mg/L (0-3.3) Review of Systems Review of Systems: Positive for constipation Positive for abdominal pain Assessment and Plan Assessmemt and Plan Problems Medical Problems: (1) Diarrhea Status: Acute (2) Hypokalemia Status: Acute (3) Intractable abdominal pain Status: Acute Assessment: Chronic abd pain and diarrhea Chronic anemia, hypokalemia, mildly elevated CRP GERD H/o Crohn's disease s/p bowel resection CRC screen - ?2016 - sigmoid stricture H/o C Diff Non-compliance Narcotic dependency Plan: Discharge per GI - may be discharged when on PO steroids Pt to follow up with Dr. West on DVT ppx Full code IV fluids IV pain medication Appreciate GI consult Comment Review of Relevant I have reviewed the following items dania (where applicable) has been applied. Medications: Current Medications Medications (Trade) Dose Ordered Sig/Nguyen Route PRN Reason Start Time Stop Time Status Last Admin Dose Admin Sodium Chloride 1,000 ml @ 1,000 mls/hr Q1H IV 05/15/20 14:41 05/15/20 15:40 DC 05/15/20 14:58 Fentanyl Citrate (Fentanyl 2ml Vial) 50 mcg 1X ONCE IVP 05/15/20 14:45 05/15/20 14:47 DC 05/15/20 14:58 Ondansetron HCl (Zofran) 4 mg 1X ONCE IVP 05/15/20 14:45 05/15/20 14:47 DC 05/15/20 14:58 Fentanyl Citrate (Fentanyl 2ml Vial) 50 mcg 1X ONCE IVP 05/15/20 15:45 05/15/20 16:02 DC 05/15/20 16:24 Potassium Chloride/Water 100 ml @ 100 mls/hr Q1HR IV 05/15/20 17:00 05/15/20 18:59 DC 05/15/20 20:07 Iohexol (Omnipaque 300 Mg/ml) 75 ml 1X ONCE IV 05/15/20 16:00 05/15/20 16:02 DC 05/15/20 16:23 Fentanyl Citrate (Fentanyl 2ml Vial) 50 mcg PRN Q1HR PRN IV PAIN 05/15/20 17:15 05/16/20 17:14 05/16/20 11:19 Methylprednisolone Sodium Succinate (SOLU-Medrol 40MG VIAL) 40 mg DAILY IV 05/15/20 19:30 05/16/20 07:48 Sodium Chloride 1,000 ml @ 100 mls/hr Q10H IV 05/15/20 18:50 05/16/20 03:44 Pantoprazole Sodium (Protonix) 40 mg DAILYAC PO 05/16/20 07:30 05/16/20 07:48 Oxycodone/ Acetaminophen (Percocet 5/325) 1 tab PRN Q4HRS PRN PO MILD PAIN, 1ST CHOICE 05/15/20 19:00 05/15/20 22:48 DC 05/15/20 21:29 Dicyclomine HCl (Bentyl) 20 mg Q6H PO 05/15/20 23:00 05/16/20 00:10 DC 05/15/20 23:08 Dicyclomine HCl (Bentyl) 20 mg PRN Q6HRS PRN PO ABDOMINAL PAIN 05/16/20 00:15 05/16/20 05:33 Oxycodone/ Acetaminophen (Percocet 10/325) 1 tab PRN Q4HRS PRN PO PAIN 05/16/20 00:15 05/16/20 10:02 Justifications for Admission Abdominal Pain Indications Is patient in severe pain?: Yes Justification for admission: Patient has severe pain that requires (parenteral analgesic-please state analgesics and route) at least every 4 hours necessitating inpatient level of care. Is NPO status required?: Yes Justification for admission: Patient may require to be NPO for greater 24hours making it medically necessary to manage patient as inpatient. Other Justification MO SINGLETARY III DO May 16, 2020 11:43
--- NOTE | 2020-05-16 13:12 | DS ---
DATE OF DISCHARGE: ADMISSION DIAGNOSIS: Crohn's exacerbation. DISCHARGE DIAGNOSIS: Resolving Crohn's exacerbation. CONSULTATIONS: GI. PROCEDURES: None. HOSPITAL COURSE: The patient is a pleasant middle-aged female who has chronic Crohn's. She presented with acute on chronic exacerbation. She also has some narcotic dependence. Basically, we admitted the patient. We gave her pain meds and fluids, consulted GI. Today, she is at her baseline. I saw her and examined her this morning. Heart tones are normal. Lungs clear. Abdomen soft. We plan to discharge if okay with GI. DISPOSITION: Home. ACTIVITY: As tolerated. DIET: Low sodium. MEDICATIONS: Please see MRAD. TOTAL TIME: 34 minutes. MO SINGLETARY DO DR: KENNEDY/christina JOB#: [id number] / [id number]
--- NOTE | 2020-05-16 14:20 | NUR ---
SW following for discharge planning. Spoke with RN and reviewed chart. SW met with pt. Pt residing with her parents. Pt on room air and oral medications. Pt to discharge home today, 05/16 self-care. SW provided pt with transportation resources. JAZMYN provided pt with contact number for [employer] [facility] [employer]. No additional SW needs at this time.
[2020-05-16 14:41] VITALS: BP 119/83
--- NOTE | 2020-05-16 17:28 | NUR ---
Discharge Note: PT DISCHARGED HOME WITH SELF CARE. PT LEFT FACILITY VIA PRIVATE VEHICLE WITH FAMILY MEMBER AT 1725. PT STABLE AND ALERT UPON DISHCARGE. PT PIV REMOVED FROM R WRIST WITHOUT COMPLICATIONS, BANDAGE APPLIED. PT EDUCATED ABOUT DISCHARGE INSTRUCTIONS, DISCHARGE MEDICATIONS, AND FOLLOW-UP CARE. PT INFORMED ON COMPLIANCE RISK WITH MEDICATIONS, HAS FOLLOW-UP SCHEDULED WITH DR. CARVALHO 05/17/20 AT 1430 ALREADY, INFORMED OF IMPORTANCE TO KEEP THAT APPOINTMENT. PT VOICED NO FURTHER CONCERNS AT THIS TIME. PT LEFT WITH ALL PERSONAL BELONGINGS. JEANNETTE VALENTIN Discharge instructions and discharge home medications reviewed with Patient and a copy given. All questions have been answered and understanding verbalized.
--- NOTE | 2020-05-17 08:49 | EKG ---
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
== END 2020-05-16 17:30 | disposition home or self-care (01) | DRG 385 ==
LOC: ER 13:48 → 5 NORTH 17:00
PROVIDERS: ADMIT Internal Medicine; ATTEND Internal Medicine
DX: K50.90 Crohn's disease, unspecified, without complications (principal); R65.11 Systemic inflammatory response syndrome (SIRS) of non-infectious origin with acute organ dysfunction; F11.20 Opioid dependence, uncomplicated; E87.6 Hypokalemia; D64.9 Anemia, unspecified; K21.9 Gastro-esophageal reflux disease without esophagitis; G89.29 Other chronic pain; Z88.5 Allergy status to narcotic agent; Z90.49 Acquired absence of other specified parts of digestive tract; Z91.19 Patient's noncompliance with other medical treatment and regimen
CPT/HCPCS: 36415; 74177; 80048; 80053; 80307; 81001; 81025; 83605; 83690; 83735; 84100; 85007; 85025; 86140; 93005; 96361; 96365; 96375; 96376; J2405; J2920; J3010; J3480; J7030; Q9967; 99285-25; G0378

== ENCOUNTER 2020-05-24 10:08 | Emergency (ER) | payer OTHER ==
[~2020-05-24] VITALS: Ht 157.5 cm; Wt 52.2 kg
[~2020-05-24 10:08] MED LIST changes: -FAMO-63 PO; -HYOS0.1264 PO
--- NOTE | 2020-05-24 10:43 | PHYS DOC ---
Past Medical History Past Medical History: Other Additional Past Medical Histor: Crohn's tx with remicade, PANCREATITIS X'S 3. Past Surgical History: Other Additional Past Surgical Histo: colostomy with takedown 2010 Smoking Status: Never Smoker Alcohol Use: None Drug Use: None General Adult EDM: Chief Complaint: DIARRHEA HPI: HPI: History taken from patient. Patient is a 34-year-old female with history of Crohn's disease who presents with chief complaint of diarrhea and abdominal pain. Patient states she has diarrhea for quite some time. She is unable to tell me how long she has had the diarrhea. She states she is not able to gas having episodes of diarrhea she has had recently. She thinks she saw some blood scattered in her stool recently. She notes that her abdominal pain is diffuse in nature. States it is aching in nature. States this feels similar to previous Crohn's episodes. Notes that she follows with Dr. Carvalho for GI care. States she is scheduled for colonoscopy in 5 days. She does think that she had an episode of vomiting but is unsure. Does note some nausea. Denies urinary symptoms. States first the last menstrual period was 3 weeks ago. She states that she takes oxycodone regularly but ran out today. She states that she is taking her mesalamine. She notes that she previously followed with [facility] for her GI issues however she states that she stopped seeing them because they "were not doing their job." She does note she was discharged from facility 8 days ago with similar complaints. Denies alcohol or drug abuse. Does note previous abdominal surgical history of . Denies objective fevers. No other complaints. Review of Systems: Review of Systems: Constitutional: Denies fever or chills. [] Eyes: Denies change in visual acuity. [] HENT: Denies nasal congestion or sore throat. [] Respiratory: Denies cough or shortness of breath. [] Cardiovascular: Denies chest pain or edema. [] GI: Positive for abdominal pain and diarrhea : Denies dysuria. [] Musculoskeletal: Denies back pain or joint pain. [] Integument: Denies rash. [] Neurologic: Denies headache, focal weakness or sensory changes. [] Endocrine: Denies polyuria or polydipsia. [] Lymphatic: Denies swollen glands. [] Psychiatric: Denies depression or anxiety. [] Heart Score: Risk Factors: Risk Factors: DM, Current or recent (<one month) smoker, HTN, HLP, family history of CAD, obesity. Risk Scores: Score 0 - 3: 2.5% MACE over next 6 weeks - Discharge Home Score 4 - 6: 20.3% MACE over next 6 weeks - Admit for Clinical Observation Score 7 - 10: 72.7% MACE over next 6 weeks - Early Invasive Strategies Allergies: Allergies: Allergies Coded Allergies Type Severity Reaction Last Updated Verified morphine Allergy Intermediate Itching 08/07/19 Yes Physical Exam: PE: Constitutional: Well developed, well nourished, no acute distress, non-toxic appearance. [] HENT: Normocephalic, atraumatic, bilateral external ears normal, oropharynx moist, no oral exudates, nose normal. [] Eyes: PERRLA, EOMI, conjunctiva normal, no discharge. [] Neck: Normal range of motion, no tenderness, supple, no stridor. [] Cardiovascular:Heart rate regular rhythm, no murmur [] Lungs & Thorax: Bilateral breath sounds clear to auscultation [] Abdomen: Soft, nontender, nonacute abdomen. No involuntary guarding or rigidity noted. No acute peritonitis. Skin: Warm, dry, no erythema, no rash. [] Back: No tenderness, no CVA tenderness. [] Extremities: No tenderness, no cyanosis, no clubbing, ROM intact, no edema. [] Neurologic: Alert and oriented X 3, normal motor function, normal sensory function, no focal deficits noted. [] Psychologic: Affect normal, judgement normal, mood normal. [] Current Patient Data: Labs: Laboratory Tests Test 05/24/20 10:30 05/24/20 10:34 05/24/20 10:46 Urine Collection Type Unknown Urine Color Keke Urine Clarity Hazy Urine pH 6.0 Urine Specific Mcewen 1.025 Urine Protein 30 mg/dL Urine Glucose (UA) Negative mg/dL Urine Ketones (Stick) Negative mg/dL Urine Blood Negative Urine Nitrite Negative Urine Bilirubin Small Urine Urobilinogen Dipstick 0.2 mg/dL Urine Leukocyte Esterase Negative Urine RBC Occ /HPF Urine WBC 1-4 /HPF Urine Squamous Epithelial Cells Mod /LPF Urine Bacteria Few /HPF Urine Mucus Mod /LPF Bedside Urine HCG, Qualitative Hcg negative White Blood Count 12.0 x10^3/uL Red Blood Count 4.46 x10^6/uL Hemoglobin 11.9 g/dL Hematocrit 37.0 % Mean Corpuscular Volume 83 fL Mean Corpuscular Hemoglobin 27 pg Mean Corpuscular Hemoglobin Concent 32 g/dL Red Cell Distribution Width 19.6 % Platelet Count 484 x10^3/uL Neutrophils (%) (Auto) 65 % Lymphocytes (%) (Auto) 18 % Monocytes (%) (Auto) 16 % Eosinophils (%) (Auto) 1 % Basophils (%) (Auto) 1 % Neutrophils # (Auto) 7.7 x10^3/uL Lymphocytes # (Auto) 2.1 x10^3/uL Monocytes # (Auto) 1.9 x10^3/uL Eosinophils # (Auto) 0.1 x10^3/uL Basophils # (Auto) 0.1 x10^3/uL Platelet Estimate Pending Sodium Level 138 mmol/L Potassium Level 4.3 mmol/L Chloride Level 101 mmol/L Carbon Dioxide Level 25 mmol/L Anion Gap 12 Blood Urea Nitrogen 20 mg/dL Creatinine 0.6 mg/dL Estimated GFR (Cockcroft-Gault) 140.2 BUN/Creatinine Ratio 33 Glucose Level 94 mg/dL Calcium Level 9.2 mg/dL Magnesium Level 2.0 mg/dL Total Bilirubin 0.2 mg/dL Aspartate Amino Transf (AST/SGOT) 15 U/L Alanine Aminotransferase (ALT/SGPT) 33 U/L Alkaline Phosphatase 93 U/L Total Protein 8.2 g/dL Albumin 3.2 g/dL Albumin/Globulin Ratio 0.6 Lipase 102 U/L Current Medications Medications (Trade) Dose Ordered Sig/Nguyen Route PRN Reason Start Time Stop Time Status Last Admin Dose Admin Sodium Chloride 1,000 ml @ 2,000 mls/hr 1X ONCE IV 05/24/20 10:45 05/24/20 11:14 DC 05/24/20 10:57 Metoclopramide HCl (Reglan Vial) 10 mg 1X ONCE IVP 05/24/20 10:45 05/24/20 10:46 DC 05/24/20 10:58 Ketorolac Tromethamine (Toradol 15mg Vial) 15 mg 1X ONCE IVP 05/24/20 11:00 05/24/20 11:01 DC 05/24/20 11:05 Dicyclomine HCl (Bentyl) 20 mg 1X ONCE IM 05/24/20 11:00 05/24/20 11:01 DC 05/24/20 11:06 Famotidine (Pepcid Vial) 20 mg 1X ONCE IVP 05/24/20 11:00 05/24/20 11:01 DC 05/24/20 10:59 Laboratory Tests Test 05/24/20 10:34 POC Urine HCG, Qualitative Hcg negative (Negative) Vital Signs: Vital Signs Date Time Temp Pulse Resp B/P (MAP) Pulse Ox O2 Delivery O2 Flow Rate FiO2 05/24/20 10:35 98.0 132 16 128/80 (96) 100 Room Air 98.0 EKG: EKG: [] EKG consistent with sinus tachycardia. Ventricular rate of 109 bpm. [place] normal. T wave inversions in the inferior leads. Nonspecific T wave normality noted in lead V3. No ST segment elevation appreciated. Overall nonspecific EKG. Radiology/Procedures: Radiology/Procedures: [] Course & Med Decision Making: Course & Med Decision Making Pertinent Labs and Imaging studies reviewed. (See chart for details) [] Patient is a well-appearing 34-year-old female presents with chief complaint of diarrhea and abdominal pain associated with history of Crohn's disease. Initial vital signs notable for mild tachycardia. Exam overall reassuring. Ve ry minimal reproducible tenderness on diffuse abdominal exam. Extensive chart review was performed. Patient does have multiple visits to multiple different facilities for similar complaints. GI specialist did see her 1 week ago and noted 5 CAT scans in March 04. Furthermore the GI specialist noted the patient would benefit from cessation of narcotics. She does have a colonoscopy scheduled in 5 days. She states she did see Dr. Carvalho within the past week in his clinic however no outpatient notes can be visualized on chart review. Overall I do feel is reasonable to defer CAT scan imaging at this time. Her abdominal exam remains benign and she has tolerated p.o. I did offer additional IV fluids. Furthermore I offer the patient multiple nonnarcotic pain medications to which she declined. Given she has been on steroid tapers before short course of oral prednisone will be administered. Labs have been overall reassuring. Patient is in agreement with this. She was instructed to follow-up with her GI specialist the next 5 days. Strict 12-24 return precautions were discussed and understood. Stable for discharge home. Rhonda Disclaimer: Rhonda Disclaimer: This electronic medical record was generated, in whole or in part, using a voice recognition dictation system. Departure Departure Impression: Primary Impression: Chronic abdominal pain Additional Impression: Crohns disease Disposition: 01 DC HOME SELF CARE/HOMELESS Condition: STABLE Referrals: NO PCP (PCP) CÉSAR CARVALHO MD Patient Instructions: Crohn's Disease Additional Instructions: Discharge Abdominal Pain Re-Check Precautions: I'm unsure of the specific cause of your abdominal pain. However, at this point I feel that you are low risk for a life threatening emergency and that discharge from the Emergency Department is safe. There is a very small possibility that you are just too early in your clinical course for our physical exam/labs/imaging to ascertain whether or not you have an emergent condition that could potentially cause permanent disability or be life threatening. As such, it is very important that you follow up with your primary doctor or return to the Emergency Department in 12-24 hours for re-assessment and further evaluation if clinically indicated. If you develop new or worsening symptoms then you should return to the Emergency Department immediately. Home Care Instructions: Abdominal Pain Many things may cause abdominal pain. Your ER visit might not show the exact reason you are having pain. In some cases, additional time is needed to determine if the cause is serious. Therefore you may be told to go home and watch for any changes or worsening in your condition. Before that, we may not know if you need more testing, or if hospitalization or surgery is necessary. If its not something serious, the pain may go away without treatment or get better with simple things like avoiding certain foods or medications. In the ER, your doctor asks you questions, examines you and in some cases, may order tests. These help doctors decide if the pain is from something serious. Tests are not always done and may not provide a definite answer. There can still be a problem, even with normal test results. Abdominal pain may be caused by something serious (like appendicitis), which is not obvious right away. Because of this, another checkup is needed to make sure you are OK. It is VERY IMPORTANT to follow up for a repeat exam, especially if you have any symptoms that are not going away or are getting worse. We recommend that you RETURN TO THE EMERGENCY ROOM IN 8-12 HOURS to be rechecked. If you cannot, you may follow up with your primary care doctor or clinic. It is important that you follow all of the instructions below. RETURN TO THE EMERGENCY ROOM IMMEDIATELY IF: The pain does not go away or gets worse. You have a fever. You keep throwing up and cannot keep anything down. You pass bloody or black stools. You develop new symptoms. HOME CARE INSTRUCTIONS Come back to the ER (or see your doctor) in 8-12 hours. DO NOT take laxatives unless directed by your doctor. Avoid the use of alcohol Take pain medicine only as directed by your doctor. Only take [id number] or prescription medicine as directed by your doctor. Try a clear liquid diet (broth, tea, jello, water) for the next 12-24 hours. Slowly move to a bland diet as tolerated. Do not eat greasy, fatty or spicy foods. Once you start getting better, go back to a normal, healthy diet, slowly over a few days. DISCHARGE PT INSTRUCTIONS: YOU HAVE BEEN EVALUATED FOR ABDOMINAL PAIN. HOWEVER, WE ARE UNABLE TO PROVIDE A DEFINITE CAUSE OF YOUR SYMPTOMS. EVEN THOUGH YOUR TESTS MAY HAVE BEEN NORMAL, YOU STILL COULD HAVE A SERIOUS CAUSE FOR YOUR ABDOMINAL PAIN, INCLUDING APPENDICITIS. THE BEST TEST TO DETERMINE IF YOU HAVE A SERIOUS CAUSE IS RE-EXAMINATION OVER TIME. WE USED TO ADMIT PATIENTS TO THE HOSPITAL FOR THIS, BUT CAN NOW ALLOW YOU TO GO HOME, & RETURN TO OUR ER THE NEXT DAY FOR RE- EXAMINATION. THUS, WE WOULD LIKE YOU TO RETURN TO OUR ER TOMORROW FOR YOUR RE- EVALUATION. (IF YOUR SYMPTOMS HAVE GONE AWAY, THEN YOU DO NOT NEED TO RETURN.) IF YOUR SYMPTOMS GET WORSE BETWEEN NOW & THEN, YOU SHOULD RETURN IMMEDIATELY & NOT WAIT UNTIL TOMORROW. SYMPTOMS TO LOOK FOR WORSENING PAIN, HIGH FEVER, PERSISTENT VOMITING [NOT CONTROLLED BY MEDICINE], AND/OR OVERALL WORSENING OF YOUR CONDITION. Scripts Prednisone (PREDNISONE) 20 Mg Tablet 40 MG PO DAILY for 5 Days, #10 TAB Prov: JEANETTE KHAN DO 05/24/20 Hyoscyamine Sulfate (LEVSIN) 0.125 Mg Tablet 1 TAB PO Q4HRS for 5 Days, #30 TAB 0 Refills Prov: JEANETTE KHAN DO 05/24/20 Ondansetron Hcl (ZOFRAN) 4 Mg Tablet 1 TAB PO TID PRN PRN for NAUSEA, #9 TAB Prov: JEANETTE KHAN DO 05/24/20 Famotidine (PEPCID) 20 Mg Tablet 20 MG PO BID for 7 Days, #14 TAB Prov: JEANETTE KHAN DO 05/24/20 JEANETTE KHAN DO May 24, 2020 10:43
[2020-05-24 10:44] LABS: BILIRUBIN,URINE SMALL (NEG); COLOR,URINE AMBER; NITRITE,URINE NEGATIVE (NEG); PROTEIN,URINE 30 mg/dL (NEG-TRACE); UROBILINOGEN,URINE 0.2 mg/dL (0.2 mg/dL)
[2020-05-24] MEDS ORDERED: IV NORMAL SALINE 1000ML BAG 1,000 ML IV ONE (10:45)
[2020-05-24] MEDS ORDERED: METOCLOPRAMIDE HCL 10 MG/2 ML VIAL. IVP ONE (10:45)
[2020-05-24 11:00] LABS: BASO # 0.1 x10^3/uL (0.0-0.2); BASO % 1 % (0-3); EOS # 0.1 x10^3/uL (0.0-0.7); EOS % 1 % (0-3); HEMOGLOBIN 11.9 g/dL (12.0-15.5); LYMPH # 2.1 x10^3/uL (1.0-4.8); LYMPH % 18 % (24-48); MEAN CORPUSCULAR HEMOGLOBIN 27 pg (25-35); MEAN CORPUSCULAR HGB CONC 32 g/dL (31-37); MEAN CORPUSCULAR VOLUME 83 fL (79-100); MONO # 1.9 x10^3/uL (0.0-1.1); MONO % 16 % (0-9); NEUT # 7.7 x10^3/uL (1.8-7.7); NEUT % 65 % (31-73); PLATELET COUNT 484 x10^3/uL (140-400); RED BLOOD COUNT 4.46 x10^6/uL (3.50-5.40); RED CELL DISTRIBUTION WIDTH 19.6 % (11.5-14.5)
[2020-05-24] MEDS ORDERED: DICYCLOMINE 20 MG/2 ML VIAL. IM ONE (11:00)
[2020-05-24] MEDS ORDERED: KETOROLAC 15 MG/ML VIAL. IVP ONE (11:00)
[2020-05-24] MEDS ORDERED: FAMOTIDINE 20 MG/2 ML VIAL IVP ONE (11:00)
[2020-05-24 11:08] LABS: CALCIUM 9.2 mg/dL (8.5-10.1); CREATININE 0.6 mg/dL (0.6-1.0); GFR 140.2; POTASSIUM 4.3 mmol/L (3.5-5.1)
[2020-05-24 11:14] LABS: ALBUMIN 3.2 g/dL (3.4-5.0); ALBUMIN/GLOBULIN RATIO 0.6 (1.0-1.7); TOTAL BILIRUBIN 0.2 mg/dL (0.2-1.0); TOTAL PROTEIN 8.2 g/dL (6.4-8.2)
[2020-05-24 11:19] LABS: BACTERIA,URINE FEW /HPF (0-FEW); CLARITY,URINE HAZY; RBC,URINE OCC /HPF (0-2)
[2020-05-24] MEDS ORDERED: HYOS0.1264 PO (11:30)
[2020-05-24] MEDS ORDERED: ONDA4TAB7 PO (11:30)
[2020-05-24] MEDS ORDERED: FAMO-63 PO (11:30)
[2020-05-24 11:48] LABS: BARBITURATES NEG (NEG); BENZODIAZEPINES NEG (NEG); CANNABINOIDS NEG (NEG); COCAINE NEG (NEG); METHADONE NEG (NEG); OPIATES POS (NEG); PHENCYCLIDINE NEG (NEG)
[2020-05-24 11:49] LABS: AMPHETAMINE/METHAMPHETAMINE NEG (NEG)
[2020-05-24 11:53] VITALS: BP 101/60
[2020-05-24] MEDS ORDERED: PRED20TA PO (12:07)
[2020-05-24] MEDS ORDERED: predniSONE 20 MG TABLET PO ONE (12:15)
[2020-05-24 12:38] LABS: % ATYL 4 % (0-0); % BANDS 6 % (0-9); % BASOS 1 % (0-3); % EOS 1 % (0-5); % MONOS 17 % (0-10); % MYELOS 1 % (0-0)
[2020-05-24 12:39] LABS: % LYMPHS 20 % (24-48); % SEGS 50 % (35-66)
[2020-05-24 12:40] LABS: ANISOCYTOSIS SLIGHT; PLT ESTIMATE INCREASED (ADEQUATE); TOXIC VACUOLATION SLIGHT
== END 2020-05-24 12:10 | disposition home or self-care (01) ==
LOC: ER 10:08
DX: G89.29 Other chronic pain (principal); R10.84 Generalized abdominal pain; R19.7 Diarrhea, unspecified; K50.90 Crohn's disease, unspecified, without complications; Z93.3 Colostomy status
CPT/HCPCS: 36415; 80053; 80307; 81001; 81025; 83690; 83735; 85007; 85025; 96361; 96372; 96374; 96375; 99284; J0500; J1885; J2765; J3490; J7030

== ENCOUNTER → 2020-05-24 | Outpatient (CLI) | payer OTHER ==
[~2020-05-24] MED LIST changes: +FAMO-63 PO; +HYOS0.1264 PO; -MORPHINE SULFATE 4 MG/ML VIAL. IV PRN
[2020-05-24 11:53] VITALS: BP 101/60
== END ==
LOC: LAB 12:34
PROVIDERS: ATTEND Internal Medicine Gastroenterology
DX: Z01.812 Encounter for preprocedural laboratory examination (principal); K50.90 Crohn's disease, unspecified, without complications; Z20.828 Contact with and (suspected) exposure to other viral communicable diseases
CPT/HCPCS: U0003

== ENCOUNTER → 2020-05-29 | Day surgery (SDC) | payer OTHER ==
[~2020-05-29] MED LIST changes: +FAMO-63 PO; +HYOS0.1264 PO; +IV RINGERS,LACTATED 1000ML 1,000 ML IV SCH; +PROPOFOL 10 MG/ML (20ML) VIAL. IV ONE
--- NOTE | 2020-05-29 14:38 | PDOC4 ---
PROCEDURE Procedure EGD/biopsies, colonoscopy. Indication: Crohn's disease Meds: per anesthesia Findings: E--healed a-b reflux at 35cm. G-Mild striped erythema, antrum. Biopsies of antrum and fundus. D--Normal to third portion. JORGE ALBERTO--palpable stricture at anus, dilated with finger. -Scope advanced to ~hepatic flexure, then turning cable broke, precluding further attempts. Scattered discrete ulcers throughout with intervening grossly normal tissue. Stricture at ~30cm, only passable as SB scope used. Anal stricture seen. No other lesions appreciated. Leonard. well. IMP: Healed reflux Non-specific antral erythema Anal and sigmoid strictures from Crohn's Crohn;s colitis seen. REC: Continue current meds. Consider barium enema Await gastric biopsies, pending labs. F/u 1-2 weeks, depending on discussion. Resume diet if no BE today. CÉSAR CARVALHO MD May 29, 2020 14:37
[2020-05-29 15:00] VITALS: BP 112/69
--- NOTE | 2020-06-01 18:55 | PATHOLOGY ---
[facility] Accession Number: [id number] . 01 Material submitted: . PART A: stomach - ANTRAL BIOPSY PART B: stomach - FUNDUS BIOPSY. Modifiers: fundus . 01 Clinical history: . CROHNS . 02 Diagnosis: A. Gastric biopsies, antrum: - Chronic gastritis, mild. . B. Gastric biopsies, fundus: - Mild superficial chronic gastritis. ([facility]) [facility] 06/01/2020 0940 Local . 02 Comment: Sections of the gastric antral biopsy show congestion and mild chronic inflammation. A properly controlled immunoperoxidase stain for Helicobacter is negative for Helicobacter organisms. . Sections of the gastric fundus biopsy show congestion and mild chronic inflammation within the superficial lamina propria. A properly controlled immunoperoxidase stain for Helicobacter is negative for Helicobacter organisms. ([facility] . Special stains performed: Immunoperoxidase stain for Helicobacter on A1 and B1. . 02 Electronically signed: . Ken Koenig MD, Pathologist NPI- [id number] . 01 Gross description: . A. The specimen is received in formalin, labeled "Damon, Richa, antral BX" and consists of 2 fragments of pink-walter tissue measuring 0.3 x 0.3 cm and 0.6 x 0.3 cm which are entirely submitted in A1. . B. The specimen is received in formalin, labeled "Damon, Richa, fundus BX" and consists of 2 fragments of pink-walter tissue measuring 0.3 x 0.2 cm and 0.8 x 0.2 cm which are entirely submitted in B1. ([facility]; 05/31/2020) [facility] 05/31/2020 1432 Local . 02 Pathologist provided ICD-10: K29.50, K29.30 . 02 CPT . 364288, [id number], [id number], [id number] Specimen Comment: A courtesy copy of this report has been sent to [phone] Specimen Comment: Report sent to Performed at: [address] [id number] MD Taj Payton MD Phone: [phone] Performed at: 02 [facility] [address] [place], [place] [id number] MD Ken Koenig MD Phone: [phone]
== END | disposition home or self-care (01) ==
LOC: SURG 12:55
PROVIDERS: ATTEND Internal Medicine Gastroenterology
DX: K50.112 Crohn's disease of large intestine with intestinal obstruction (principal); R10.13 Epigastric pain; K21.00 Gastro-esophageal reflux disease with esophagitis, without bleeding; K31.89 Other diseases of stomach and duodenum; F41.9 Anxiety disorder, unspecified; Z79.899 Other long term (current) drug therapy; Z98.890 Other specified postprocedural states; Z88.8 Allergy status to other drugs, medicaments and biological substances; Z88.6 Allergy status to analgesic agent; Z20.828 Contact with and (suspected) exposure to other viral communicable diseases
CPT/HCPCS: 43239; 45378; 81025; 88305; 88341; 88342; J2704; U0003

== ENCOUNTER 2020-06-05 17:11 | Emergency (ER) | payer OTHER ==
[~2020-06-05 17:11] MED LIST changes: -IV RINGERS,LACTATED 1000ML 1,000 ML IV SCH; -PROPOFOL 10 MG/ML (20ML) VIAL. IV ONE
[2020-06-05 18:24] VITALS: BP 110/76
== END 2020-06-05 19:41 | disposition left against medical advice (07) ==
LOC: ER 17:11
DX: R10.9 Unspecified abdominal pain (principal); R11.0 Nausea; R19.7 Diarrhea, unspecified; Z53.21 Procedure and treatment not carried out due to patient leaving prior to being seen by health care provider

== ENCOUNTER 2020-06-15 22:23 | Emergency (ER) | payer OTHER ==
[~2020-06-15] VITALS: Ht 157.5 cm; Wt 60.0 kg
--- NOTE | 2020-06-15 22:57 | PHYS DOC ---
Past Medical History Past Medical History: Other Additional Past Medical Histor: Crohn's tx with remicade, PANCREATITIS X'S 3. Past Surgical History: Other Additional Past Surgical Histo: colostomy with takedown 2010 Smoking Status: Never Smoker Alcohol Use: None Drug Use: None General Adult EDM: Chief Complaint: ABDOMINAL PAIN HPI: HPI: 34-year-old female past medical history significant for Crohn's (not on remicade) and history of gallstone pancreatitis presents to the ED with complaints of multiple episodes of loose watery diarrhea for the past 2 weeks, "I've lost weight because of this." Has no routine primary care physician or GI physician. Is not taking any medications. No recent antibiotics. When asked to provide stool sample, states "I just went." PSH-"1 foot intestine removed when I was 21." Denies any alcohol or tobacco use. Review of Systems: Review of Systems: Constitutional: Denies fever or chills. [] Eyes: Denies change in visual acuity. [] HENT: Denies nasal congestion or sore throat. [] Respiratory: Denies cough or shortness of breath. [] Cardiovascular: Denies chest pain or edema. [] GI: Denies nausea, vomiting, : Denies dysuria or vaginal bleeding Musculoskeletal: Denies back pain or joint pain. [] Integument: Denies rash. [] Neurologic: Denies headache, focal weakness or sensory changes. [] Endocrine: Denies polyuria or polydipsia. [] Lymphatic: Denies swollen glands. [] Psychiatric: Denies depression or anxiety. [] Heart Score: Risk Factors: Risk Factors: DM, Current or recent (<one month) smoker, HTN, HLP, family hi story of CAD, obesity. Risk Scores: Score 0 - 3: 2.5% MACE over next 6 weeks - Discharge Home Score 4 - 6: 20.3% MACE over next 6 weeks - Admit for Clinical Observation Score 7 - 10: 72.7% MACE over next 6 weeks - Early Invasive Strategies Allergies: Allergies: Allergies Coded Allergies Type Severity Reaction Last Updated Verified morphine Allergy Intermediate Itching 05/29/20 Yes Physical Exam: PE: Constitutional: Well developed, well nourished, no acute distress, non-toxic appearance, sitting comfortably, bends knee to chest/in no pain HENT: Normocephalic, atraumatic, moist mucous membranes Eyes: EOMI, conjunctiva normal, no discharge. Neck: Normal range of motion, supple, Cardiovascular: S1/2 present, regular rhythm, mild tachycardia Lungs & Thorax: Speaking in full sentences, bilateral equal chest rise, no tachypnea or increased work of breathing Abdomen: soft, no focal tenderness, large ventral scar, no guarding or rigidity Skin: Warm, dry, no erythema, no rash. [] Back: No tenderness, no CVA tenderness. [] Extremities: No tenderness, no cyanosis, no edema Neurologic: Alert and oriented X 3, normal motor function, normal sensory function, no focal deficits noted. [] Psychologic: Affect normal, judgement normal, mood normal, smiling Current Patient Data: Vital Signs: Vital Signs Date Time Temp Pulse Resp B/P (MAP) Pulse Ox O2 Delivery O2 Flow Rate FiO2 06/15/20 22:25 98.8 114 18 115/75 (88) 97 Room Air 98.8 EKG: EKG: [] Radiology/Procedures: Radiology/Procedures: IMAGING REPORT Signed PATIENT: JEANNETTE VALENTIN ACCOUNT: [id number] : 1985 LOCATION: ER AGE: 34 SEX: F EXAM STATUS: REG ER ORD. PHYSICIAN: RAGINI MURRY DO REASON: abd pain PROCEDURE: ACUTE ABDOMEN SERIES INDICATION: Reason: abd pain / Spl. Instructions: / History: COMPARISON: CT from May 15, 2020 IMPRESSION: 3 views of chest and abdomen obtained. Cardiac silhouette is unremarkable. Linear opacities at lower lungs could be secondary to atelectasis. Postoperative changes to the abdomen. There is some air-filled prominent loops of bowel seen within the abdomen and pelvis but this is similar to prior examination. Electronically signed by: Nilda Chandra MD (06/15/2020 11:53 PM) DESKTOP- [id number] DICTATED and SIGNED BY: NILDA CHANDRA MD DATE: 06/15/20 [id number] Course & Med Decision Making: Course & Med Decision Making Pertinent Labs and Imaging studies reviewed. (See chart for details) Concern for possible Crohn's flareup via diarrhea in very well-appearing female with no active diarrhea in the ED. Patient is moving around in stretcher, no distress. Tolerated abdominal exam. Repeatedly asked for pain medication. I requested a stool sample for testing-pt with no diarrhea. Abdominal x-ray similar to prior. Suspect drug-seeking behavior (rn familiar with pt who is kn own to frequently request pain medications) although given her hx, will dc with medrol dose pack for sx relief. Will discharge home with strict ED return precautions were given for bloody diarrhea, dehydration, shortness of breath or weakness. Encouraged urgent outpatient follow-up with PMD and GI. Life- threatening processes were considered but are low suspicion at this time, given history, physical exam and ED workup. Pt was educated on all prescription medications and adverse effects. All patient's questions were answered and pt was stable at time of discharge. Life/limb-threatening differential includes but is not limited to, GI bleeding, toxigenic versus infectious diarrhea, shock, mesenteric ischemia, electrolyte abnormality, thyroid storm, toxidrome, antibiotic related, inflammatory bowel disease or surgical abdomen (appendicitis or diverticulitis). I spoken with the patient and her caregivers. I explained the patient's condition, diagnoses and treatment plan based on the information available to me at this time. I have answered the patient and her caregiver's questions and addressed any concerns. The patient and her caregivers have a good understanding of patient's diagnosis, condition and treatment plan as can be expected at this point. Vital signs have been stable. Patient's condition is stable and appropriate for discharge from the emergency department. Patient will pursue further outpatient evaluation with primary care physician or other designated or consulting physician as outlined in the discharge instructions. The patient and/or caregivers are agreeable to this plan of care and follow-up instructions have been explained in detail. The patient and/or caregivers have received these instructions in written form and have expressed an understanding of the discharge instructions. The patient and/or caregivers are aware that any significant change of condition or worsening of symptoms should prompt immediate return to this or the closest emergency department or call to 911. Rhonda Disclaimer: Rhonda Disclaimer: This electronic medical record was generated, in whole or in part, using a voice recognition dictation system. Departure Departure Impression: Primary Impression: Diarrhea Additional Impression: Crohn's disease Disposition: 01 DC HOME SELF CARE/HOMELESS Condition: STABLE Referrals: NO PCP (PCP) FOLLOW UP WITH FAMILY MEDICINE: Family Medicine Address: [address] [place] [address], [address] [place] [address] Patient Instructions: Chronic Diarrhea Additional Instructions: FOLLOW UP WITH GASTROENTEROLOGY: [facility] Address: [address] [place] [address] EMERGENCY DEPARTMENT GENERAL DISCHARGE INSTRUCTIONS Thank you for coming to [facility] Emergency Department (ED) today and trusting us with you care. We trust that you had a positive experience in our Emergency Department. If you wish to speak to the department management, you may call the Director at [phone]. YOUR FOLLOW UP INSTRUCTIONS ARE FOLLOWS: 1. Do you have a private Doctor? If you do not have a private doctor, please ask for a resource list of physicians or clinics that may be able to assist you with follow up care. 2. The Emergency Physicain has interpreted your x-rays. The X-Ray specialist will also review them. If there is a change in the findings, you will be notified in 48 hours when at all possible. 3. A lab test or culture has been done, your results will be reviewed and you will be notified if you need a change in treatment. ADDITIONAL INSTRUCTIONS AND INFORMATION: 1. Your care today has been supervised by a physician who is specially trained in emergency care. Many problems require more than one evaluation for a complete diagnosis and treatment. We recommend that you schedule your follow up appointment as recommended to ensure complete treatment of you illness or injury. If you are unable to obtain follow up care and continue to have a problem, or if your condition worsens, we recommend that you return to the ED. 2. We are not able to safely determine your condition over the phone nor are we able to give sound medical advice over the phone. For these safety reasons, if you call for medical advice we will ask you to come to the ED for further evaluation. 3. If you have any questions regarding these discharge instructions please call the ED at [phone]. SAFETY INFORMATION: In the interest of safety, wellness, and injury prevention; we encourage you to wear your sealbelt, if you smoke; quite smoking, and we encourage family to use a protective helmet for bicycling and other sporting events that present an increased risk for head injury. IF YOUR SYMPTOMS WORSEN OR NEW SYMPTOMS DEVELOP, OR YOU HAVE CONCERNS ABOUT YOUR CONDITION; OR IF YOUR CONDITION WORSENS WHILE YOU ARE WAITING FOR YOUR FOLLOW UP APPOINTMENT; EITHER CONTACT YOUR PRIMARY CARE DOCTOR, THE PHYSICIAN WHOSE NAME AND NUMBER YOU WERE GIVEN, OR RETURN TO THE ED IMMEDIATELY. Scripts Methylprednisolone (MEDROL) 4 Mg Tab.ds.pk 1 PKG PO UD for inflammation, #1 PKG Prov: RAGINI MURRY DO 06/16/20 RAGINI MURRY DO Jun 15, 2020 22:56
[2020-06-15 23:00] LABS: BILIRUBIN,URINE NEGATIVE (NEG); CLARITY,URINE CLEAR; COLOR,URINE YELLOW; NITRITE,URINE NEGATIVE (NEG); PROTEIN,URINE NEGATIVE (NEG-TRACE); UROBILINOGEN,URINE 0.2 mg/dL (0.2 mg/dL)
[2020-06-15 23:07] LABS: BACTERIA,URINE 0 /HPF (0-FEW); RBC,URINE 0 /HPF (0-2); WBC,URINE OCC /HPF (0-4)
[2020-06-15 23:19] LABS: BASO # 0.1 x10^3/uL (0.0-0.2); BASO % 1 % (0-3); EOS # 0.1 x10^3/uL (0.0-0.7); EOS % 2 % (0-3); HEMATOCRIT 31.2 % (36.0-47.0); HEMOGLOBIN 10.1 g/dL (12.0-15.5); LYMPH # 2.2 x10^3/uL (1.0-4.8); LYMPH % 26 % (24-48); MEAN CORPUSCULAR HEMOGLOBIN 27 pg (25-35); MEAN CORPUSCULAR HGB CONC 32 g/dL (31-37); MEAN CORPUSCULAR VOLUME 82 fL (79-100); MONO % 12 % (0-9); NEUT # 5.1 x10^3/uL (1.8-7.7); NEUT % 59 % (31-73); PLATELET COUNT 521 x10^3/uL (140-400); RED CELL DISTRIBUTION WIDTH 18.3 % (11.5-14.5); WHITE BLOOD COUNT 8.5 x10^3/uL (4.0-11.0)
[2020-06-15 23:25] LABS: CALCIUM 9.3 mg/dL (8.5-10.1); CREATININE 0.7 mg/dL (0.6-1.0); GFR 117.3; POTASSIUM 3.5 mmol/L (3.5-5.1)
[2020-06-15 23:32] LABS: ALBUMIN 2.9 g/dL (3.4-5.0); ALBUMIN/GLOBULIN RATIO 0.6 (1.0-1.7); TOTAL BILIRUBIN 0.3 mg/dL (0.2-1.0); TOTAL PROTEIN 7.8 g/dL (6.4-8.2)
[2020-06-15] MEDS ORDERED: IV NORMAL SALINE 1000ML BAG 1,000 ML IV ONE ×2 (23:45)
[2020-06-15] MEDS ORDERED: KETOROLAC 15 MG/ML VIAL. IVP ONE (23:45)
--- NOTE | 2020-06-15 23:55 | RAD ---
INDICATION: Reason: abd pain / Spl. Instructions: / History: COMPARISON: CT from May 15, 2020 IMPRESSION: 3 views of chest and abdomen obtained. Cardiac silhouette is unremarkable. Linear opacities at lower lungs could be secondary to atelectasis. Postoperative changes to the abdomen. There is some air-fill ed prominent loops of bowel seen within the abdomen and pelvis but this is similar to prior examinati on. Electronically signed by: Serge Chandra MD (06/15/2020 11:53 PM) [id number]
[2020-06-16 00:04] LABS: BARBITURATES NEG (NEG); BENZODIAZEPINES NEG (NEG); CANNABINOIDS NEG (NEG); COCAINE NEG (NEG); METHADONE NEG (NEG); OPIATES NEG (NEG); PHENCYCLIDINE NEG (NEG)
[2020-06-16 00:05] LABS: AMPHETAMINE/METHAMPHETAMINE NEG (NEG)
[2020-06-16 00:25] VITALS: BP 109/67
[2020-06-16] MEDS ORDERED: METH4TAB2 PO (00:40)
== END 2020-06-16 01:07 | disposition home or self-care (01) ==
LOC: ER 22:23
DX: R19.7 Diarrhea, unspecified (principal); R00.0 Tachycardia, unspecified; K50.90 Crohn's disease, unspecified, without complications; R06.02 Shortness of breath; K86.1 Other chronic pancreatitis; Z90.89 Acquired absence of other organs; Z98.890 Other specified postprocedural states; Z88.6 Allergy status to analgesic agent
CPT/HCPCS: 36415; 74022; 80053; 80307; 81001; 81025; 82550; 83690; 85025; 96361; 96374; 99284; J1885; J7030

== ENCOUNTER 2020-06-20 19:22 | Emergency (ER) | payer OTHER ==
[~2020-06-20] VITALS: Ht 157.5 cm; Wt 56.8 kg
--- NOTE | 2020-06-20 19:41 | PHYS DOC ---
Past Medical History Past Medical History: Other Additional Past Medical Histor: Crohn's tx with remicade, PANCREATITIS X'S 3. Past Surgical History: Other Additional Past Surgical Histo: colostomy with takedown 2010 Smoking Status: Never Smoker Alcohol Use: None Drug Use: None General Adult EDM: Chief Complaint: ABDOMINAL PAIN HPI: HPI: Patient is a 34 year old female who presented to ER for evaluation of abdominal pain that started about a week ago. Patient has history of chronic abdominal pain due to pancreatitis and Crohn's disease. Patient has been in and out of this ER numerous times for the same problem. Patient had some blood in her stool 2 days ago but not today. Patient had not been able to keep any down. Review of Systems: Review of Systems: Constitutional: Denies fever or chills. [] Eyes: Denies change in visual acuity. [] HENT: Denies nasal congestion or sore throat. [] Respiratory: Denies cough or shortness of breath. [] Cardiovascular: Denies chest pain or edema. [] GI: Positive for abdominal pain, nausea, vomiting, diarrhea. [] : Denies dysuria. [] Musculoskeletal: Denies back pain or joint pain. [] Integument: Denies rash. [] Neurologic: Denies headache, focal weakness or sensory changes. [] Endocrine: Denies polyuria or polydipsia. [] Lymphatic: Denies swollen glands. [] Psychiatric: Denies depression or anxiety. [] Heart Score: Risk Factors: Risk Factors: DM, Current or recent (<one month) smoker, HTN, HLP, family history of CAD, obesity. Risk Scores: Score 0 - 3: 2.5% MACE over next 6 weeks - Discharge Home Score 4 - 6: 20.3% MACE over next 6 weeks - Admit for Clinical Observation Score 7 - 10: 72.7% MACE over next 6 weeks - Early Invasive Strategies Current Medications: Current Medications Medications (Trade) Dose Ordered Sig/Nguyen Start Time Stop Time Status Last Admin Dose Admin Sodium Chloride 1,000 ml @ 1,000 mls/hr Q1H 06/20/20 20:00 06/20/20 20:59 Allergies: Allergies: Allergies Coded Allergies Type Severity Reaction Last Updated Verified morphine Allergy Intermediate Itching 05/29/20 Yes Physical Exam: PE: Constitutional: Well developed, well nourished, no acute distress, non-toxic appearance. [] HENT: Normocephalic, atraumatic, bilateral external ears normal, oropharynx moist, no oral exudates, nose normal. [] Eyes: PERRLA, EOMI, conjunctiva normal, no discharge. [] Neck: Normal range of motion, no tenderness, supple, no stridor. [] Cardiovascular:Heart rate regular rhythm, no murmur [] Lungs & Thorax: Bilateral breath sounds clear to auscultation [] Abdomen: Bowel sounds normal, soft, There is tenderness to palpation in epigastric area, no masses, no pulsatile masses. [] Skin: Warm, dry, no erythema, no rash. [] Back: No tenderness, no CVA tenderness. [] Extremities: No tenderness, no cyanosis, no clubbing, ROM intact, no edema. [] Neurologic: Alert and oriented X 3, normal motor function, normal sensory function, no focal deficits noted. [] Psychologic: Affect normal, judgement normal, mood normal. [] Current Patient Data: Labs: Laboratory Tests Test 06/20/20 19:50 06/20/20 19:51 06/20/20 20:00 Urine Collection Type Unknown Urine Color Yellow Urine Clarity Clear Urine pH 6.0 Urine Specific [place] 1.010 Urine Protein Negative mg/dL Urine Glucose (UA) Negative mg/dL Urine Ketones (Stick) 15 mg/dL Urine Blood Negative Urine Nitrite Negative Urine Bilirubin Small Urine Urobilinogen Dipstick 0.2 mg/dL Urine Leukocyte Esterase Negative Urine RBC 0 /HPF Urine WBC 1-4 /HPF Urine Squamous Epithelial Cells Mod /LPF Urine Bacteria Few /HPF Urine Mucus Mod /LPF Bedside Urine HCG, Qualitative Hcg negative White Blood Count 11.0 x10^3/uL Red Blood Count 4.36 x10^6/uL Hemoglobin 11.5 g/dL Hematocrit 35.9 % Mean Corpuscular Volume 82 fL Mean Corpuscular Hemoglobin 27 pg Mean Corpuscular Hemoglobin Concent 32 g/dL Red Cell Distribution Width 18.0 % Platelet Count 593 x10^3/uL Neutrophils (%) (Auto) 67 % Lymphocytes (%) (Auto) 20 % Monocytes (%) (Auto) 12 % Eosinophils (%) (Auto) 2 % Basophils (%) (Auto) 1 % Neutrophils # (Auto) 7.3 x10^3/uL Lymphocytes # (Auto) 2.2 x10^3/uL Monocytes # (Auto) 1.3 x10^3/uL Eosinophils # (Auto) 0.2 x10^3/uL Basophils # (Auto) 0.1 x10^3/uL Sodium Level 141 mmol/L Potassium Level 3.2 mmol/L Chloride Level 104 mmol/L Carbon Dioxide Level 28 mmol/L Anion Gap 9 Blood Urea Nitrogen 8 mg/dL Creatinine 0.9 mg/dL Estimated GFR (Cockcroft-Gault) 87.8 BUN/Creatinine Ratio 9 Glucose Level 68 mg/dL Calcium Level 9.5 mg/dL Total Bilirubin 0.2 mg/dL Aspartate Amino Transf (AST/SGOT) 13 U/L Alanine Aminotransferase (ALT/SGPT) 18 U/L Alkaline Phosphatase 130 U/L Total Protein 8.7 g/dL Albumin 3.2 g/dL Albumin/Globulin Ratio 0.6 Lipase 195 U/L Current Medications Medications (Trade) Dose Ordered Sig/Nguyen Route PRN Reason Start Time Stop Time Status Last Admin Dose Admin Sodium Chloride 1,000 ml @ 1,000 mls/hr Q1H IV 06/20/20 20:00 06/20/20 20:59 DC 06/20/20 20:05 Dicyclomine HCl (Bentyl) 20 mg 1X ONCE IM 06/20/20 20:45 06/20/20 20:46 DC Potassium Chloride (Klor-Con) 30 meq 1X ONCE PO 06/20/20 21:30 06/20/20 21:31 Iohexol (Omnipaque 300 Mg/ml) 75 ml 1X ONCE IV 06/20/20 21:30 06/20/20 21:31 06/20/20 21:08 Info (CONTRAST GIVEN -- Rx MONITORING) 1 each PRN DAILY PRN MC SEE COMMENTS 06/20/20 21:15 06/22/20 21:14 EKG: EKG: [] Radiology/Procedures: Radiology/Procedures: [][facility] [address] [place], [place] [id number] IMAGING REPORT Signed PATIENT: JEANNETTE VALENTIN ACCOUNT: [id number] : 1985 LOCATION: ER AGE: 34 SEX: F EXAM STATUS: REG ER ORD. PHYSICIAN: ZOFIA ARTEAGA DO REASON: abdominal pain, nausea, vomiting PROCEDURE: CT ABD PELV W/ IV CONTRST ONLY Exam: CT of abdomen and pelvis with contrast INDICATION: Abdominal pain, nausea and vomiting TECHNIQUE: Sequential axial images through the abdomen and pelvis obtained following the administration of 75 mL of Omni 300 IV contrast. Sagittal and coronal reformatted images were reconstructed from the axial data and reviewed. Comparisons: None FINDINGS: Heart size is normal. No pericardial effusion. Visualized lung bases are clear. No pleural effusion. Liver, spleen, pancreas, and adrenals are unremarkable. Gallbladder is distended. No perinephric inflammation or hydronephrosis. No renal or ureteral calculi are identified. Bladder is decompressed not well evaluated. Uterus is nonenlarged. No abnormal adnexal mass. There is mild wall thickening involving the sigmoid colon. Postsurgical changes are seen at the distal stomach. Remainder large and small bowel are unremarkable. No free intra-abdominal air or fluid. No obstruction. Abdominal aorta has a normal course caliber. Abdominal vasculature is patent. No enlarged intra-abdominal lymph nodes are identified. No suspicious osseous lesions or acute fractures. IMPRESSION: 1. Mild wall thickening at the sigmoid colon may relate to focal colitis. 2. Gallbladder is mildly distended. Correlate with symptomatology to determine the need for further evaluation with ultrasound. Exposure: One or more of the following in the visualized dose reduction techniques were utilized for this examination: 1. Automated exposure control 2. Adjustment of the MA and/or KV according to patient size 3. Use of iterative of reconstructive technique Electronically signed by: Terry Jacinto MD (06/20/2020 9:26 PM) [facility] DICTATED and SIGNED BY: TERRY JACINTO MD DATE: 06/20/20 [id number] 0 Course & Med Decision Making: Course & Med Decision Making Pertinent Labs and Imaging studies reviewed. (See chart for details) Patient is a 34-year-old female who presented to ER for evaluation of nausea vomiting and abdominal pain. Patient has history of Crohn's disease, she already seen Dr. Aryan Carvalho her GI specialist. Patient had EGD and colonoscopy on 05/29/2020 showed Healed reflux Non-specific antral erythema Anal and sigmoid strictures from Crohn's Crohn;s colitis seen. CT scan her abdomen pelvis showed mild evidence of colitis consistent with Crohn's. Patient will be discharged home, she will need to follow-up with her GI specialist. Patient does not need to be admitted to hospital due to her chronic abdominal pain. Rhonda Disclaimer: Rhonda Disclaimer: This electronic medical record was generated, in whole or in part, using a voice recognition dictation system. Departure Departure Impression: Primary Impression: Chronic abdominal pain Additional Impression: Hypokalemia Disposition: 01 DC HOME SELF CARE/HOMELESS Condition: IMPROVED Referrals: NO PCP (PCP) ARYAN CARVALHO MD please call your GI doctor for follow up. Patient Instructions: Abdominal Pain, Chronic Pain Management, Hypokalemia Additional Instructions: Thank you for visiting our Emergency Department. We appreciate you trusting us with your care. If any additional problems come up don't hesitate to return to visit us. Please follow up with your primary care provider so they can plan additional care if needed and know about the problem that you had. If symptoms worsen come back to the Emergency Department. Any concerning symptoms that start such as chest pain, shortness of air, weakness or numbness on one side of the body, running high fevers or any other concerning symptoms return to the ER. Scripts Prednisone (PREDNISONE) 20 Mg Tablet 1 TAB PO DAILY for 12 Days, #12 TAB Prov: ZOFIA ARTEAGA DO 06/20/20 Ondansetron Hcl (ZOFRAN) 4 Mg Tablet 1 TAB PO Q6HRS PRN for NAUSEA, #20 TAB Prov: ZOFIA ARTEAGA DO 06/20/20 Tramadol Hcl (TRAMADOL HCL) 50 Mg Tablet 50 MG PO Q6HRS PRN for PAIN, #15 TAB Prov: ZOFIA ARTEAGA DO 06/20/20 ZOFIA ARTEAGA DO Jun 20, 2020 19:41
[2020-06-20 19:56] LABS: BILIRUBIN,URINE SMALL (NEG); COLOR,URINE YELLOW; NITRITE,URINE NEGATIVE (NEG); PROTEIN,URINE NEGATIVE (NEG-TRACE); UROBILINOGEN,URINE 0.2 mg/dL (0.2 mg/dL)
[2020-06-20 19:59] LABS: CLARITY,URINE CLEAR
[2020-06-20 20:00] LABS: BACTERIA,URINE FEW /HPF (0-FEW); RBC,URINE 0 /HPF (0-2)
[2020-06-20] MEDS ORDERED: IV NORMAL SALINE 1000ML BAG 1,000 ML IV SCH (20:00)
[2020-06-20 20:11] LABS: BASO # 0.1 x10^3/uL (0.0-0.2); BASO % 1 % (0-3); EOS # 0.2 x10^3/uL (0.0-0.7); EOS % 2 % (0-3); HEMATOCRIT 35.9 % (36.0-47.0); HEMOGLOBIN 11.5 g/dL (12.0-15.5); LYMPH # 2.2 x10^3/uL (1.0-4.8); LYMPH % 20 % (24-48); MEAN CORPUSCULAR HEMOGLOBIN 27 pg (25-35); MEAN CORPUSCULAR HGB CONC 32 g/dL (31-37); MEAN CORPUSCULAR VOLUME 82 fL (79-100); MONO # 1.3 x10^3/uL (0.0-1.1); MONO % 12 % (0-9); NEUT # 7.3 x10^3/uL (1.8-7.7); NEUT % 67 % (31-73); PLATELET COUNT 593 x10^3/uL (140-400); RED BLOOD COUNT 4.36 x10^6/uL (3.50-5.40)
[2020-06-20 20:24] LABS: CALCIUM 9.5 mg/dL (8.5-10.1); CREATININE 0.9 mg/dL (0.6-1.0); GFR 87.8; POTASSIUM 3.2 mmol/L (3.5-5.1)
[2020-06-20 20:27] LABS: ALBUMIN 3.2 g/dL (3.4-5.0); ALBUMIN/GLOBULIN RATIO 0.6 (1.0-1.7); TOTAL BILIRUBIN 0.2 mg/dL (0.2-1.0); TOTAL PROTEIN 8.7 g/dL (6.4-8.2)
[2020-06-20] MEDS ORDERED: DICYCLOMINE 20 MG/2 ML VIAL. IM ONE (20:45)
[2020-06-20] MEDS ORDERED: CONTRAST GIVEN. MC PRN (21:15)
--- NOTE | 2020-06-20 21:28 | RAD ---
Exam: CT of abdomen and pelvis with contrast INDICATION: Abdominal pain, nausea and vomiting TECHNIQUE: Sequential axial images through the abdomen and pelvis obtained following the administrati on of 75 mL of Omni 300 IV contrast. Sagittal and coronal reformatted images were reconstructed from the axial data and reviewed. Comparisons: None FINDINGS: Heart size is normal. No pericardial effusion. Visualized lung bases are clear. No pleural effusion. Liver, spleen, pancreas, and adrenals are unremarkable. Gallbladder is distended. No perinephric inflammation or hydronephrosis. No renal or ureteral calculi are identified. Bladder is decompressed not well evaluated. Uterus is nonenlarged. No abnormal adnexal mass. There is mild wall thickening involving the sigmoid colon. Postsurgical changes are seen at the dista l stomach. Remainder large and small bowel are unremarkable. No free intra-abdominal air or fluid. No obstruction. Abdominal aorta has a normal course caliber. Abdominal vasculature is patent. No enlarged intra-abdominal lymph nodes are identified. No suspicious osseous lesions or acute fractures. IMPRESSION: 1. Mild wall thickening at the sigmoid colon may relate to focal colitis. 2. Gallbladder is mildly distended. Correlate with symptomatology to determine the need for further evaluation with ultrasound. Exposure: One or more of the following in the visualized dose reduction techniques were utilized for this examination: 1. Automated exposure control 2. Adjustment of the MA and/or KV according to patient size 3. Use of iterative of reconstructive technique Electronically signed by: Terry Oleary MD (06/20/2020 9:26 PM) [facility]
[2020-06-20] MEDS ORDERED: IOHEXOL 300 MG/ML 100ML VIAL. IV ONE (21:30)
[2020-06-20] MEDS ORDERED: POTASSIUM CHLORIDE 10 MEQ TABLET.ER. PO ONE (21:30)
[2020-06-20] MEDS ORDERED: ONDA4TAB7 PO (21:54)
[2020-06-20] MEDS ORDERED: TRAM50TA PO (21:54)
[2020-06-20 22:00] VITALS: BP 105/75
[2020-06-20] MEDS ORDERED: fentaNYL PF VIAL 100 MCG/2 ML VIAL IVP ONE (22:00)
[2020-06-20] MEDS ORDERED: PRED20TA PO (22:11)
== END 2020-06-20 22:05 | disposition home or self-care (01) ==
LOC: ER 19:22
DX: G89.29 Other chronic pain (principal); R10.13 Epigastric pain; E87.6 Hypokalemia; R11.2 Nausea with vomiting, unspecified; K50.90 Crohn's disease, unspecified, without complications; Z93.3 Colostomy status; Z88.5 Allergy status to narcotic agent
CPT/HCPCS: 36415; 74177; 80053; 81001; 81025; 83690; 85025; 96361; 96374; 99285; J3010; J7030; Q9967

== ENCOUNTER 2020-07-19 18:03 | Inpatient (IN) | payer OTHER ==
[~2020-07-19] VITALS: Ht 157.5 cm; Wt 55.9 kg
[~2020-07-19 18:03] MED LIST changes: +ACYC-12 PO; -ACYC400T PO; +TRAM50TA PO
[2020-07-19 19:08] LABS: BILIRUBIN,URINE SMALL (NEG); CLARITY,URINE CLEAR; COLOR,URINE YELLOW; NITRITE,URINE NEGATIVE (NEG); PROTEIN,URINE 30 mg/dL (NEG-TRACE); UROBILINOGEN,URINE 0.2 mg/dL (0.2 mg/dL)
[2020-07-19 19:14] LABS: BARBITURATES NEG (NEG); BENZODIAZEPINES NEG (NEG); CANNABINOIDS POS (NEG); COCAINE NEG (NEG); METHADONE NEG (NEG); OPIATES POS (NEG); PHENCYCLIDINE NEG (NEG)
[2020-07-19 19:17] LABS: AMPHETAMINE/METHAMPHETAMINE POS (NEG)
[2020-07-19 19:23] LABS: BACTERIA,URINE FEW /HPF (0-FEW); HYALINE CASTS, URINE OCCASIONAL /HPF
[2020-07-19 19:24] LABS: RBC,URINE 0 /HPF (0-2)
--- NOTE | 2020-07-19 19:41 | PHYS DOC ---
Past Medical History Past Medical History: Other Additional Past Medical Histor: Crohn's tx with remicade, PANCREATITIS X'S 3. Past Surgical History: Other Additional Past Surgical Histo: colostomy with takedown 2010 Smoking Status: Never Smoker Alcohol Use: None Drug Use: None General Adult EDM: Chief Complaint: ABDOMINAL PAIN HPI: HPI: 35-year-old female past medical history significant for Crohn's disease and history of pancreatitis (x3), presents the ED with complaints of " I am dying on the inside. I cannot eat, sleep and constantly have diarrhea with some bright red blood." Reports history of C. difficile infection and states her current presentation is not similar to that, has no malodorous, foul-smelling diarrhea. History of Remicade treatment. Patient states that she she was admitted to the hospital a few months ago she saw Dr. West at the end of May and beginning June but insurance denied her Stelara injection. EMR was reviewed and patient had an EGD and colonoscopy within the past few months with GI that showed anal and sigmoid strictures from Crohn's and crohns coltiis. Review of Systems: Review of Systems: Constitutional: Denies fever or chills. [] Eyes: Denies change in visual acuity. [] HENT: Denies nasal congestion or sore throat. [] Respiratory: Denies cough or shortness of breath. [] Cardiovascular: Denies chest pain or edema. [] GI: Denies abdominal pain, nausea, vomiting, bloody stools or diarrhea. [] : Denies dysuria. [] Musculoskeletal: Denies back pain or joint pain. [] Integument: Denies rash. [] Neurologic: Denies headache, focal weakness or sensory changes. [] Endocrine: Denies polyuria or polydipsia. [] Lymphatic: Denies swollen glands. [] Psychiatric: Denies depression or anxiety. [] Heart Score: Risk Factors: Risk Factors: DM, Current or recent (<one month) smoker, HTN, HLP, family history of CAD, obesity. Risk Scores: Score 0 - 3: 2.5% MACE over next 6 weeks - Discharge Home Score 4 - 6: 20.3% MACE over next 6 weeks - Admit for Clinical Observation Score 7 - 10: 72.7% MACE over next 6 weeks - Early Invasive Strategies Current Medications: Current Medications Medications (Trade) Dose Ordered Sig/Nguyen Start Time Stop Time Status Last Admin Dose Admin Sodium Chloride 1,000 ml @ 1,000 mls/hr 1X ONCE 07/19/20 19:45 07/19/20 20:44 UNV Allergies: Allergies: Allergies Coded Allergies Type Severity Reaction Last Updated Verified NSAIDS (Non-Steroidal Anti-Inflamma Allergy Intermediate 06/20/20 Yes morphine Allergy Intermediate Itching 05/29/20 Yes Physical Exam: PE: Constitutional: Afebrile, restless/frustrated HENT: Normocephalic, atraumatic, Eyes: EOMI, conjunctiva normal, very dry mucous membranes Neck: Normal range of motion, supple, Cardiovascular: S1/2 present, tachycardic Lungs & Thorax: Speaking in full sentences, bilateral equal chest rise, no tachypnea or increased work of breathing Abdomen: soft, no focal ttp Skin: Warm, dry, no erythema, no rash. [] Back: No tenderness, no CVA tenderness. [] Extremities: No tenderness, no cyanosis, no edema Neurologic: Alert and oriented X 3, normal motor function, normal sensory function, no focal deficits noted. [] Psychologic: Affect normal, judgement normal, mood normal. [] Current Patient Data: Labs: Laboratory Tests Test 07/19/20 18:50 07/19/20 18:57 Urine Collection Type Unknown Urine Color Yellow Urine Clarity Clear Urine pH 6.0 (<5.0-8.0) Urine Specific [place] >=1.030 (1.000-1.030) Urine Protein 30 mg/dL (NEG-TRACE) Urine Glucose (UA) Negative mg/dL (NEG) Urine Ketones (Stick) Trace mg/dL (NEG) Urine Blood Negative (NEG) Urine Nitrite Negative (NEG) Urine Bilirubin Small (NEG) Urine Urobilinogen Dipstick 0.2 mg/dL (0.2 mg/dL) Urine Leukocyte Esterase Negative (NEG) Urine RBC 0 /HPF (0-2) Urine WBC 1-4 /HPF (0-4) Urine Squamous Epithelial Cells Few /LPF Urine Bacteria Few /HPF (0-FEW) Urine Hyaline Casts Occasional /HPF Urine Mucus Mod /LPF Urine Opiates Screen Pos (NEG) Urine Methadone Screen Neg (NEG) Urine Barbiturates Neg (NEG) Urine Phencyclidine Screen Neg (NEG) Urine Amphetamine/Methamphetamine Pos (NEG) Urine Benzodiazepines Screen Neg (NEG) Urine Cocaine Screen Neg (NEG) Urine Cannabinoids Screen Pos (NEG) Urine Ethyl Alcohol Neg (NEG) POC Urine HCG, Qualitative Hcg negative (Negative) Vital Signs: Vital Signs Date Time Temp Pulse Resp B/P (MAP) Pulse Ox O2 Delivery O2 Flow Rate FiO2 07/19/20 18:20 98.4 114 20 95/72 (80) 97 Room Air 98.4 EKG: EKG: [] Radiology/Procedures: Radiology/Procedures: [] Course & Med Decision Making: Course & Med Decision Making Pertinent Labs and Imaging studies reviewed. (See chart for details) Patient educated on risk of malignancy induced cancer from repeat radiation, CT imaging and states "I do not care." Suspect PSA - denies meth use but states "I'm around alot a people who smoke meth." CT consistent with Crohn's flare, colitis, with new low-density lesion of the pancreas, possible pseudocyst. Given patient's dehydration with tachycardia and trace ketonuria, failed outpatient management, will admit for medical management and GI consultation for Crohn's flare. UA with no hematuria or signs of infection. Patient with nonspecific white count of 12.2. Patient stable at time of admission and agrees with this plan. Patient appreciative of her care. I have spoken with the patient and/or caregivers. I have explained the patient's condition, diagnosis and treatment plan based on the information available to me at this time. I have answered the patient's and/or caregivers questions and answered any concerns. The patient and/or caregivers have as good an understanding of the patient's diagnosis, condition and treatment plan as can be expected at this point. The patient has been stabilized within the capability of the emergency department. The patient will be transported for further care and management or will be moved to an observation or inpatient service. I have communicated with the staff or medical practitioner taking over this patient's care. Rhonda Disclaimer: Rhonda Disclaimer: This electronic medical record was generated, in whole or in part, using a voice recognition dictation system. Departure Departure Impression: Primary Impression: Exacerbation of Crohn's disease Additional Impressions: Abdominal pain Diarrhea Ketonuria Dehydration Disposition: ADMITTED INPT THIS HOSP Admitting Physician: CHAYITO (Dr. Hayden) Condition: STABLE Referrals: NO PCP (PCP) RAGINI MURRY DO Jul 19, 2020 19:41
[2020-07-19] MEDS ORDERED: IV NORMAL SALINE 1000ML BAG 1,000 ML IV ONE ×2 (19:45→20:45)
[2020-07-19 20:43] LABS: BASO # 0.1 x10^3/uL (0.0-0.2); BASO % 1 % (0-3); EOS # 0.3 x10^3/uL (0.0-0.7); EOS % 3 % (0-3); HEMATOCRIT 39.2 % (36.0-47.0); HEMOGLOBIN 12.5 g/dL (12.0-15.5); LYMPH # 2.6 x10^3/uL (1.0-4.8); LYMPH % 22 % (24-48); MEAN CORPUSCULAR HEMOGLOBIN 26 pg (25-35); MEAN CORPUSCULAR HGB CONC 32 g/dL (31-37); MEAN CORPUSCULAR VOLUME 82 fL (79-100); MONO # 1.3 x10^3/uL (0.0-1.1); MONO % 10 % (0-9); NEUT # 7.9 x10^3/uL (1.8-7.7); NEUT % 65 % (31-73); PLATELET COUNT 740 x10^3/uL (140-400); RED CELL DISTRIBUTION WIDTH 17.3 % (11.5-14.5); WHITE BLOOD COUNT 12.2 x10^3/uL (4.0-11.0)
[2020-07-19] MEDS ORDERED: METOCLOPRAMIDE HCL 10 MG/2 ML VIAL. IVP ONE (20:45)
[2020-07-19] MEDS ORDERED: FAMOTIDINE 20 MG/2 ML VIAL IVP ONE (20:45)
[2020-07-19 20:53] LABS: CALCIUM 10.4 mg/dL (8.5-10.1); CREATININE 0.7 mg/dL (0.6-1.0); GFR 116.6; POTASSIUM 3.2 mmol/L (3.5-5.1)
[2020-07-19 20:58] LABS: ALBUMIN 3.9 g/dL (3.4-5.0); DIRECT BILIRUBIN 0.1 mg/dL (0.0-0.2); TOTAL BILIRUBIN 0.2 mg/dL (0.2-1.0); TOTAL PROTEIN 9.9 g/dL (6.4-8.2)
[2020-07-19] MEDS ORDERED: HYDROmorphone 2 MG/ML VIAL IVP ONE ×3 (21:15→23:45)
[2020-07-19] MEDS ORDERED: CONTRAST GIVEN. MC PRN (21:15)
[2020-07-19] MEDS ORDERED: IOHEXOL 300 MG/ML 100ML VIAL. IV ONE (21:15)
--- NOTE | 2020-07-19 21:35 | RAD ---
CT abdomen pelvis with contrast dated 07/19/2020. Comparison made to 06/20/2020. CLINICAL INDICATION: Abdominal pain. TECHNIQUE: Contiguous axial imaging of the abdomen pelvis performed after the administration of 75 cc Omnipaque 300. One or more of the following individualized dose reduction techniques were utilized for this examinat ion: 1. Automated exposure control 2. Adjustment of the mA and/or kV according to patient size 3. Use of iterative reconstruction technique FINDINGS: There is evidence of prior colon resection with anastomosis in the left mid abdomen and right mid abd omen. Mild wall thickening of the sigmoid colon is similar to prior study. There is also a loop of vidhi wel that extends transversely at the mid abdomen that is thickened and shows mucosal enhancement, inc reased from prior study. There is also some mild luminal narrowing. There are distal small bowel loop s that show wall thickening and mucosal enhancement at the left mid and lower abdomen. No apparent pn eumoperitoneum. No well-circumscribed fluid collection to suggest abscess. Liver and spleen are homogeneous. Pancreas is somewhat prominent. There is a low-density focus along the inferior anterior margin of the pancreatic head on image 33 that measures 1.3 cm, new from prior study. No significant inflammatory changes around the gland. The SMV is patent. Spleen is normal in size. Adrenal glands and kidneys are unremarkable. No hydronephrosis. Liver and g allbladder are unremarkable. There are multiple enlarged lymph nodes in the central mesentery that mascorro ve increased in size from prior study measuring 10 mm short axis versus 7 mm previously. No retroperi toneal adenopathy. Limited images of lung bases are clear. Heart size within normal limits. No pleural or pericardial ef fusion. Images of pelvis show nondistended urinary bladder. Uterus and adnexa are unremarkable. No free fluid . No pelvic adenopathy. Bone windows show no acute findings. IMPRESSION: 1. Evidence of prior multifocal colon resection. There are loops of small bowel and colon that show w all thickening and mucosal enhancement, progressed from prior exam consistent with acute colitis/ente ritis. Consider inflammatory bowel disease or infectious etiology. 2. Increasing mesenteric lymphadenopathy, likely reactive. 3. There is an indeterminate small low-density focus near the pancreatic head that is new from prior study. This could represent small pseudocysts, although there are no inflammatory changes around the gland. Follow-up imaging may be warranted to ensure resolution. Electronically signed by: Aryan Flores MD (07/19/2020 9:33 PM) [id number]
[2020-07-19] MEDS ORDERED: ONDANSETRON PF 4 MG/2 ML VIAL. IV PRN (23:45)
[2020-07-20] VITALS (7 sets, daily range): BP systolic 106–126; BP diastolic 60–82
[2020-07-20] MEDS ORDERED: MAGNESIUM HYDROXIDE 2,400 MG/30 ML ORAL.SUSP. PO PRN (00:30)
[2020-07-20] MEDS ORDERED: methylPREDNISolone SOD SUCC PF 40 MG/ML VIAL. IV SCH (00:30)
[2020-07-20] MEDS ORDERED: MAG HYDROX/ALUMINUM HYD/SIMETH 30 ML ORAL.SUSP PO PRN (00:30)
[2020-07-20] MEDS ORDERED: ONDANSETRON PF 4 MG/2 ML VIAL. IVP PRN (00:30)
[2020-07-20] MEDS ORDERED: CALCIUM CARBONATE 500 MG TAB.CHEW PO PRN (00:30)
[2020-07-20] MEDS ORDERED: PROCHLORPERAZINE 10 MG/2 ML VIAL. IVP PRN (00:30)
[2020-07-20] MEDS ORDERED: BISACODYL 10 MG SUPP.RECT. PR PRN (00:30)
--- NOTE | 2020-07-20 00:36 | NUR ---
Patient admitted to room 428. Policies reviewed. Patient had no questions. Patient stated " Karime been here before, I know the routine." Patient was updated that patient would be NPO with a GI consult pending.
[2020-07-20] MEDS ORDERED: methylPREDNISolone SOD SUCC PF 40 MG/ML VIAL. IV ONE (00:45)
[2020-07-20] MEDS: HYDROmorphone 2 MG/ML VIAL IVP PRN ×6 (00:54→21:08)
[2020-07-20] MEDS: IV NORMAL SALINE 1000ML BAG 1,000 ML IV SCH ×3 (01:09→21:11)
--- NOTE | 2020-07-20 02:13 | NUR ---
Patient insisting to have ice chips. Patient stated " I am always allowed to have ice chips when I am here." Patient was reminded that Dr's order is NPO. Patient was found with cup of ice at bedside. Patient stated RN allowed patient to have ice. Patient walked around the unit 3 times, stating she has to do this every night.
--- NOTE | 2020-07-20 05:20 | NUR ---
This RN resumed care at 0415.
[2020-07-20] MEDS: methylPREDNISolone SOD SUCC PF 40 MG/ML VIAL. IV SCH ×3 (05:51→17:33)
[2020-07-20] MEDS ORDERED: QUEtiapine 25 MG TABLET. PO PRN (08:00)
[2020-07-20] MEDS ORDERED: LOPERAMIDE 2 MG CAPSULE PO PRN (08:00)
[2020-07-20] MEDS ORDERED: ONDANSETRON PF 4 MG/2 ML VIAL. IV PRN (08:00)
--- NOTE | 2020-07-20 08:15 | PDOC1 ---
History and Physical Date of Admission Date of Admission DATE: 07/20/20 TIME: 07:48 Identification/Chief Complaint Chief Complaint " I am dying on the inside." Source Source: Patient History of Present Illness History of Present Illness Ms Jose is a 35yo F [id number] (12 years ago term spontaneous vaginal delivery, miscarriage December 2019) w/ PMHx Crohns (s/p colostomy and takedown 2010), pancreatitis x3, prior c. difficile colitis who presented to the ER with abd pain and RLE cramping. Patient notes I cannot eat, sleep and constantly have diarrhea with some bright red blood. Pain is 10/10, radiates throughout her abdomen with associated nausea, no vomiting. No recent sick contacts, no cough or SOB. CT abdomen reveals prior multifocal colon resection and loops of small bowel and colon that show wall thickening and mucosal enhancement, progressed from prior exam consistent with acute colitis/enteritis. Also with increasing mesenteric lymphadenopathy. An indeterminate small low-density focus near the pancreatic head is new. Labs WBC 12.2 with left shift, Hb 12.5, platelets 740, NA 139, K3.2, BUN 12, CR 0.7, glucose 76, calcium 10.4, elevated Alkaline phosphatase 78, CRP 69.2 UDS positive for opioids cannabinoids and amphetamines. Prescription review reveals opioid and gabapentin prescriptions from multiple providers only, no amphetamine prescriptions. History of Remicade treatment and recently insurance denied her Stelara injections. She did have 4 recent admissions over the past 6 months here, and an EGD and colonoscopy with GI that showed anal and sigmoid strictures from Crohn's and crohns coltis. The pt has had Crohn dz since she was 12yo. She is currently on Bentyl, oxycodone 15 and prednisone. Previously d/aurelia from her last GI due to frequent no shows, but started again. She has previously been on azathioprine with [facility] for on and off for years but it was discontinued in 2019 due to recurrent pancreatitis admissions. She has active prescription for mesalamine which she says does not help. She has felt desperate and feels like "ending it". Especially after she received her denial letter for medication. She has had a small bowel resection that lead to an ostomy with the subsequent takedown. She has also had surgery for removal of fistulas previously. Admitted for further care and pain control. Past Medical History Cardiovascular: No pertinent hx Pulmonary: No pertinent hx CENTRAL NERVOUS SYSTEM: Other GI: Inflam bowel disease Heme/Onc: Anemia NOS, Other Hepatobiliary: No pertinent hx Psych: No pertinent hx Musculoskeletal: Other Rheumatologic: No pertinent hx Infectious disease: No pertinent hx, Other Renal/: No pertinent hx Endocrine: No pertinent hx Past Surgical History Past Surgical History: Colon Resection Family History Family History: Alzheimer's Disease, Adopted Social History Smoke: <1 pack per day ALCOHOL: none Drugs: Marijuana, Crystal meth Current Problem List Problem List Problems Medical Problems: (1) Abdominal pain Status: Acute (2) Dehydration Status: Acute (3) Diarrhea Status: Acute (4) Exacerbation of Crohn's disease Status: Acute (5) Ketonuria Status: Acute Current Medications Current Medications Current Medications Sodium Chloride 1,000 ml @ 1,000 mls/hr 1X ONCE IV Last administered on 07/19/20at 20:55; Start 07/19/20 at 19:45; Stop 07/19/20 at 20:44; Status DC Sodium Chloride 1,000 ml @ 1,000 mls/hr 1X ONCE IV ; Start 07/19/20 at 20:45; Stop 07/19/20 at 21:44; Status DC Famotidine (Pepcid Vial) 20 mg 1X ONCE IVP Last administered on 07/19/20at 20:57; Start 07/19/20 at 20:45; Stop 07/19/20 at 20:46; Status DC Metoclopramide HCl (Reglan Vial) 10 mg 1X ONCE IVP Last administered on 07/19/20at 20:57; Start 07/19/20 at 20:45; Stop 07/19/20 at 20:46; Status DC Iohexol (Omnipaque 300 Mg/ml) 75 ml 1X ONCE IV Last administered on 07/19/20at 21:11; Start 07/19/20 at 21:15; Stop 07/19/20 at 21:16; Status DC Hydromorphone HCl (Dilaudid) 1 mg 1X ONCE IVP Last administered on 07/19/20at 21:43; Start 07/19/20 at 21:15; Stop 07/19/20 at 21:16; Status DC Info (CONTRAST GIVEN -- Rx MONITORING) 1 each PRN DAILY PRN MC SEE COMMENTS; Start 07/19/20 at 21:15; Stop 07/21/20 at 21:14 Hydromorphone HCl (Dilaudid) 1 mg 1X ONCE IVP Last administered on 07/19/20at 23:23; Start 07/19/20 at 23:00; Stop 07/19/20 at 23:01; Status DC Ondansetron HCl (Zofran) 4 mg PRN Q8HRS PRN IV NAUSEA/VOMITING; Start 07/19/20 at 23:45; Stop 07/20/20 at 23:44 Sodium Chloride 1,000 ml @ 100 mls/hr Q10H IV Last administered on 07/20/20at 01:09; Start 07/19/20 at 23:45; Stop 07/20/20 at 23:44 Hydromorphone HCl (Dilaudid) 1 mg ONCE ONCE IVP ; Start 07/19/20 at 23:45; Stop 07/19/20 at 23:47; Status DC Hydromorphone HCl (Dilaudid) 2 mg PRN Q4HRS PRN IVP PAIN; Start 07/20/20 at 00:30 Hydromorphone HCl (Dilaudid) 4 mg PRN Q4HRS PRN IVP SEVERE PAIN 7-10 Last administered on 07/20/20at 04:55; Start 07/20/20 at 00:30 Methylprednisolone Sodium Succinate (SOLU-Medrol 40MG VIAL) 15 mg Q6HRS IV ; Start 07/20/20 at 00:30; Stop 07/20/20 at 00:32; Status DC Ondansetron HCl (Zofran) 4 mg PRN Q6HRS PRN IVP NAUSEA/VOMITING; Start 07/20/20 at 00:30 Prochlorperazine Edisylate (Compazine) 10 mg PRN Q6HRS PRN IVP NAUSEA/VOMITING Last administered on 07/20/20at 00:53; Start 07/20/20 at 00:30 Al Hydroxide/Mg Hydroxide (Mylanta Plus Xs) 30 ml PRN Q3HRS PRN PO HEARTBURN / GAS; Start 07/20/20 at 00:30 Calcium Carbonate/ Glycine (Tums) 500 mg PRN Q3HRS PRN PO UPSET STOMACH; Start 07/20/20 at 00:30 Acetaminophen (Tylenol) 650 mg PRN Q6HRS PRN PO Headaches, Temp > 101.5F; Start 07/20/20 at 00:30 Magnesium Hydroxide (Milk Of Magnesia) 2,400 mg PRN Q12HR PRN PO CONSTIPATION; Start 07/20/20 at 00:30 Bisacodyl (Dulcolax Supp) 10 mg PRN DAILY PRN ND CONSTIPATION; Start 07/20/20 at 00:30 Methylprednisolone Sodium Succinate (SOLU-Medrol 40MG VIAL) 15 mg Q6HRS IV Last administered on 07/20/20at 05:51; Start 07/20/20 at 06:00 Methylprednisolone Sodium Succinate (SOLU-Medrol 40MG VIAL) 40 mg 1X ONCE IV Last administered on 07/20/20at 00:54; Start 07/20/20 at 00:45; Stop 07/20/20 at 00:48; Status DC Lorazepam (Ativan Inj) 1 mg PRN Q4HRS PRN IVP ANXIETY / AGITATION; Start 07/20/20 at 00:45 Active Scripts Active Prednisone 20 Mg Tablet 1 Tab PO DAILY 12 Days Zofran (Ondansetron Hcl) 4 Mg Tablet 1 Tab PO Q6HRS PRN Tramadol Hcl 50 Mg Tablet 50 Mg PO Q6HRS PRN Medrol (Methylprednisolone) 4 Mg Tab.ds.pk 1 Pkg PO UD Pepcid (Famotidine) 20 Mg Tablet 20 Mg PO BID 7 Days Zofran (Ondansetron Hcl) 4 Mg Tablet 1 Tab PO PRN Q6-8HRS Pantoprazole Sodium (Pantoprazole Sodium) 40 Mg Tablet.dr 40 Mg PO DAILYAC 30 Days Percocet 10-325 Mg Tablet (Oxycodone/Acetaminophen) 1 Each Tablet 2 Tab PO PRN Q6HRS PRN 10 Days Dicyclomine Hcl 10 Mg Capsule 20 Mg PO Q6HRS 30 Days Reported Prednisone 20 Mg Tablet 1 Tab PO DAILY Allergies Allergies: Coded Allergies: NSAIDS (Non-Steroidal Anti-Inflamma (Verified Allergy, Intermediate, 06/20/20) morphine (Verified Allergy, Intermediate, Itching, 07/19/20) Tolerates Dilaudid Physical Exam General: Alert, Oriented X3, Cooperative, moderate distress HEENT: Atraumatic, PERRLA, EOMI, Mucous membr. moist/pink Lungs: Clear to auscultation, Normal air movement Heart: S1S2, RRR, no thrills, no rubs, no gallops, no murmurs Abdomen: Normal bowel sounds, No hepatosplenomegaly, No masses, Other (Diffu sely tender, multiple scars) Rectal Exam: not examined Extremities: No clubbing, No cyanosis, No edema, Normal pulses, No tenderness/swelling Skin: No rashes, No breakdown, No significant lesion Neuro: Normal gait, Normal speech, Strength at 5/5 X4 ext, Normal tone, Sensation intact, Cranial nerves 3-12 NL, Reflexes 2+ Psych/Mental Status: Mental status NL, Mood NL Vitals Vitals Vital Signs Date Time Temp Pulse Resp B/P (MAP) Pulse Ox O2 Delivery O2 Flow Rate FiO2 07/20/20 07:29 Room Air 07/20/20 03:00 96.9 109 18 106/73 (84) 100 96.9 Labs Labs Laboratory Tests Test 07/19/20 18:50 07/19/20 18:57 07/19/20 20:30 Urine Collection Type Unknown Urine Color Yellow Urine Clarity Clear Urine pH 6.0 (<5.0-8.0) Urine Specific Nelson >=1.030 (1.000-1.030) Urine Protein 30 mg/dL (NEG-TRACE) Urine Glucose (UA) Negative mg/dL (NEG) Urine Ketones (Stick) Trace mg/dL (NEG) Urine Blood Negative (NEG) Urine Nitrite Negative (NEG) Urine Bilirubin Small (NEG) Urine Urobilinogen Dipstick 0.2 mg/dL (0.2 mg/dL) Urine Leukocyte Esterase Negative (NEG) Urine RBC 0 /HPF (0-2) Urine WBC 1-4 /HPF (0-4) Urine Squamous Epithelial Cells Few /LPF Urine Bacteria Few /HPF (0-FEW) Urine Hyaline Casts Occasional /HPF Urine Mucus Mod /LPF Urine Opiates Screen Pos (NEG) Urine Methadone Screen Neg (NEG) Urine Barbiturates Neg (NEG) Urine Phencyclidine Screen Neg (NEG) Urine Amphetamine/Methamphetamine Pos (NEG) Urine Benzodiazepines Screen Neg (NEG) Urine Cocaine Screen Neg (NEG) Urine Cannabinoids Screen Pos (NEG) Urine Ethyl Alcohol Neg (NEG) Bedside Urine HCG, Qualitative Hcg negative (Negative) White Blood Count 12.2 x10^3/uL (4.0-11.0) Red Blood Count 4.80 x10^6/uL (3.50-5.40) Hemoglobin 12.5 g/dL (12.0-15.5) Hematocrit 39.2 % (36.0-47.0) Mean Corpuscular Volume 82 fL (79-100) Mean Corpuscular Hemoglobin 26 pg (25-35) Mean Corpuscular Hemoglobin Concent 32 g/dL (31-37) Red Cell Distribution Width 17.3 % (11.5-14.5) Platelet Count 740 x10^3/uL (140-400) Neutrophils (%) (Auto) 65 % (31-73) Lymphocytes (%) (Auto) 22 % (24-48) Monocytes (%) (Auto) 10 % (0-9) Eosinophils (%) (Auto) 3 % (0-3) Basophils (%) (Auto) 1 % (0-3) Neutrophils # (Auto) 7.9 x10^3/uL (1.8-7.7) Lymphocytes # (Auto) 2.6 x10^3/uL (1.0-4.8) Monocytes # (Auto) 1.3 x10^3/uL (0.0-1.1) Eosinophils # (Auto) 0.3 x10^3/uL (0.0-0.7) Basophils # (Auto) 0.1 x10^3/uL (0.0-0.2) Sodium Level 139 mmol/L (136-145) Potassium Level 3.2 mmol/L (3.5-5.1) Chloride Level 98 mmol/L (98-107) Carbon Dioxide Level 25 mmol/L (21-32) Anion Gap 16 (6-14) Blood Urea Nitrogen 12 mg/dL (7-20) Creatinine 0.7 mg/dL (0.6-1.0) Estimated GFR (Cockcroft-Gault) 116.6 Glucose Level 76 mg/dL (70-99) Calcium Level 10.4 mg/dL (8.5-10.1) Total Bilirubin 0.2 mg/dL (0.2-1.0) Direct Bilirubin 0.1 mg/dL (0.0-0.2) Aspartate Amino Transf (AST/SGOT) 16 U/L (15-37) Alanine Aminotransferase (ALT/SGPT) 20 U/L (14-59) Alkaline Phosphatase 178 U/L (46-116) Creatine Kinase 26 U/L (26-192) C-Reactive Protein, Quantitative 69.2 mg/L (0-3.3) Total Protein 9.9 g/dL (6.4-8.2) Albumin 3.9 g/dL (3.4-5.0) Lipase 192 U/L (73-393) Laboratory Tests Test 07/19/20 18:50 07/19/20 18:57 07/19/20 20:30 Urine Collection Type Unknown Urine Color Yellow Urine Clarity Clear Urine pH 6.0 (<5.0-8.0) Urine Specific Nelson >=1.030 (1.000-1.030) Urine Protein 30 mg/dL (NEG-TRACE) Urine Glucose (UA) Negative mg/dL (NEG) Urine Ketones (Stick) Trace mg/dL (NEG) Urine Blood Negative (NEG) Urine Nitrite Negative (NEG) Urine Bilirubin Small (NEG) Urine Urobilinogen Dipstick 0.2 mg/dL (0.2 mg/dL) Urine Leukocyte Esterase Negative (NEG) Urine RBC 0 /HPF (0-2) Urine WBC 1-4 /HPF (0-4) Urine Squamous Epithelial Cells Few /LPF Urine Bacteria Few /HPF (0-FEW) Urine Hyaline Casts Occasional /HPF Urine Mucus Mod /LPF Urine Opiates Screen Pos (NEG) Urine Methadone Screen Neg (NEG) Urine Barbiturates Neg (NEG) Urine Phencyclidine Screen Neg (NEG) Urine Amphetamine/Methamphetamine Pos (NEG) Urine Benzodiazepines Screen Neg (NEG) Urine Cocaine Screen Neg (NEG) Urine Cannabinoids Screen Pos (NEG) Urine Ethyl Alcohol Neg (NEG) Bedside Urine HCG, Qualitative Hcg negative (Negative) White Blood Count 12.2 x10^3/uL (4.0-11.0) Red Blood Count 4.80 x10^6/uL (3.50-5.40) Hemoglobin 12.5 g/dL (12.0-15.5) Hematocrit 39.2 % (36.0-47.0) Mean Corpuscular Volume 82 fL (79-100) Mean Corpuscular Hemoglobin 26 pg (25-35) Mean Corpuscular Hemoglobin Concent 32 g/dL (31-37) Red Cell Distribution Width 17.3 % (11.5-14.5) Platelet Count 740 x10^3/uL (140-400) Neutrophils (%) (Auto) 65 % (31-73) Lymphocytes (%) (Auto) 22 % (24-48) Monocytes (%) (Auto) 10 % (0-9) Eosinophils (%) (Auto) 3 % (0-3) Basophils (%) (Auto) 1 % (0-3) Neutrophils # (Auto) 7.9 x10^3/uL (1.8-7.7) Lymphocytes # (Auto) 2.6 x10^3/uL (1.0-4.8) Monocytes # (Auto) 1.3 x10^3/uL (0.0-1.1) Eosinophils # (Auto) 0.3 x10^3/uL (0.0-0.7) Basophils # (Auto) 0.1 x10^3/uL (0.0-0.2) Sodium Level 139 mmol/L (136-145) Potassium Level 3.2 mmol/L (3.5-5.1) Chloride Level 98 mmol/L (98-107) Carbon Dioxide Level 25 mmol/L (21-32) Anion Gap 16 (6-14) Blood Urea Nitrogen 12 mg/dL (7-20) Creatinine 0.7 mg/dL (0.6-1.0) Estimated GFR (Cockcroft-Gault) 116.6 Glucose Level 76 mg/dL (70-99) Calcium Level 10.4 mg/dL (8.5-10.1) Total Bilirubin 0.2 mg/dL (0.2-1.0) Direct Bilirubin 0.1 mg/dL (0.0-0.2) Aspartate Amino Transf (AST/SGOT) 16 U/L (15-37) Alanine Aminotransferase (ALT/SGPT) 20 U/L (14-59) Alkaline Phosphatase 178 U/L (46-116) Creatine Kinase 26 U/L (26-192) C-Reactive Protein, Quantitative 69.2 mg/L (0-3.3) Total Protein 9.9 g/dL (6.4-8.2) Albumin 3.9 g/dL (3.4-5.0) Lipase 192 U/L (73-393) Images Images CT abdomen/pelvis: There is evidence of prior colon resection with anastomosis in the left mid abdomen and right mid abdomen. Mild wall thickening of the sigmoid colon is similar to prior study. There is also a loop of bowel that extends transversely at the mid abdomen that is thickened and shows mucosal enhancement, increased from prior study. There is also some mild luminal narrowing. There are distal small bowel loops that show wall thickening and mucosal enhancement at the left mid and lower abdomen. No apparent pneumoperitoneum. No well-circumscribed fluid collection to suggest abscess. Liver and spleen are homogeneous. Pancreas is somewhat prominent. There is a low-density focus along the inferior anterior margin of the pancreatic head on image 33 that measures 1.3 cm, new from prior study. No significant inflammatory changes around the gland. The SMV is patent. Spleen is normal in size. Adrenal glands and kidneys are unremarkable. No hydronephrosis. Liver and gallbladder are unremarkable. There are multiple enlarged lymph nodes in the central mesentery that have increased in size from prior study measuring 10 mm short axis versus 7 mm previously. No retroperitoneal adenopathy. Limited images of lung bases are clear. Heart size within normal limits. No pleural or pericardial effusion. Images of pelvis show nondistended urinary bladder. Uterus and adnexa are unremarkable. No free fluid. No pelvic adenopathy. Bone windows show no acute findings. IMPRESSION: 1. Evidence of prior multifocal colon resection. There are loops of small bowel and colon that show wall thickening and mucosal enhancement, progressed from prior exam consistent with acute colitis/enteritis. Consider inflammatory bowel disease or infectious etiology. 2. Increasing mesenteric lymphadenopathy, likely reactive. 3. There is an indeterminate small low-density focus near the pancreatic head th at is new from prior study. This could represent small pseudocysts, although there are no inflammatory changes around the gland. Follow-up imaging may be warranted to ensure resolution. VTE Prophylaxis Ordered VTE Prophylaxis Devices: No VTE Pharmacological Prophylaxi: Yes Assessment/Plan Assessment/Plan A/P: Crohns with flare - solumedrol IV, dilaudid for breakthrough pain. GI consult pending. Diarrhea - with blood, history of c. difficile. Given this is likely crohns flare will treat for this. Anemia Likely of chronic disease, monitor RLE cramping most likely related to electrolyte imbalance Leukocytosis - SIRS with end-organ dysfunction, most likely secondary to acute Crohn's exacerbation Hypokalemia - replace Hypercalcemia - will give IVF, f/u Thrombocytosis - likely reactive given crohns flare, will monitor Narcotic dependence - she also takes opioids for pain - offered opioid taper. Amphetamine positive - patient denies, though states it is possible she was "around it" FEN - NPO PPX - Lovenox, pepcid FULL CODE Dispo - inpatient at least 2 midnights Justifications for Admission Other Justification Crohn's Flare WILD KIMBROUGH MD Jul 20, 2020 08:15
[2020-07-20] MEDS: FAMOTIDINE 20 MG/2 ML VIAL IVP SCH ×2 (08:56→21:10)
[2020-07-20] MEDS: ENOXAPARIN 40 MG/0.4 ML SYRINGE. SQ SCH (09:00)
[2020-07-20 09:25] LABS: BASO % 0 % (0-3); EOS % 0 % (0-3); HEMATOCRIT 33.4 % (36.0-47.0); HEMOGLOBIN 10.4 g/dL (12.0-15.5); LYMPH # 1.1 x10^3/uL (1.0-4.8); LYMPH % 10 % (24-48); MEAN CORPUSCULAR HEMOGLOBIN 26 pg (25-35); MEAN CORPUSCULAR HGB CONC 31 g/dL (31-37); MEAN CORPUSCULAR VOLUME 83 fL (79-100); MONO # 0.1 x10^3/uL (0.0-1.1); MONO % 1 % (0-9); NEUT # 10.2 x10^3/uL (1.8-7.7); NEUT % 90 % (31-73); PLATELET COUNT 527 x10^3/uL (140-400); RED BLOOD COUNT 4.03 x10^6/uL (3.50-5.40); RED CELL DISTRIBUTION WIDTH 17.3 % (11.5-14.5); WHITE BLOOD COUNT 11.4 x10^3/uL (4.0-11.0)
--- NOTE | 2020-07-20 09:34 | NUR ---
SW following. Discussed with RN, pt from home, room air, NPO. Pt positive for methamphetamine, marijuana,and opiates - pt denying any methamphetamine use. Dr. Cadet is not requesting a PAT consult at this time. GI consulted. JAZMYN will continue to follow.
[2020-07-20 09:38] LABS: ALBUMIN 2.8 g/dL (3.4-5.0); ALBUMIN/GLOBULIN RATIO 0.6 (1.0-1.7); CALCIUM 9.5 mg/dL (8.5-10.1); CREATININE 0.7 mg/dL (0.6-1.0); GFR 116.6; MAGNESIUM 1.8 mg/dL (1.8-2.4); PHOSPHORUS 3.6 mg/dL (2.6-4.7); POTASSIUM 3.9 mmol/L (3.5-5.1); TOTAL BILIRUBIN 0.1 mg/dL (0.2-1.0); TOTAL PROTEIN 7.8 g/dL (6.4-8.2)
--- NOTE | 2020-07-20 09:38 | PDOC2 ---
GI CONSULT Date of Service: DATE: 07/20/20 TIME: 09:38 Reason For Consult: Crohn's flare HPI: HPI: 35 y/o female who we have seen many times. To ER yesterday w/ left-sided and middle abdominal pain ("groggy sounds" and "tightness" that is sometimes worse after eating and sometimes not), diarrhea (8 times in 24 hours period), insomnia, vomiting x 2. Not sure when she last took prednisone but thinks she's been off of it for awhile - more than a month. H/o Crohn's disease - diagnosed in 1999, s/p bowel resection. After a recent admission did follow-up for an office visit and 'scopes. EGD and colonoscopy 04/[address] West (to hepatic flexure then turning cable bro ke): healed reflux, non-specific antral erythema (biopsies w/ chronic gastritis and negative for H. pylori), normal duodenum, anal (dilated w/ finger) and sigmoid (SB scope used) strictures from Crohn's, Crohn's colitis. Recommendation to continue current medications (at that time I believe was on prednisone), consider barium enema, and follow-up in the office. After that, she says she had a phone visit w/ Dr. West and also called the office to tell them she was going to the hospital for pancreatitis and at some point her "phone was cut off." Past treatment w/ Imuran and biologics. Most recently steroids and narcotics, intermittent mesalamine. Recent insurance denial for Ping - she has paperwork. Several admissions/ER visits here since 02/2020. In the past has requested specific pain regimen, has not been too communicative w/ nursing staff re: stooling, often requests regular diet while complaining of abdominal pain. H/o C diff - negative 04/03 and 04/06/2020. Has had seven abdominal/pelvic CTs here since 03/07/20. No GB, liver, or PUD history. Reports ~4 episodes of pancreatitis - last ~2 weeks ago (tells me at [facility]) where she had labs and was given "oxy 10s." Also says she had pancreatitis at [facility] on the [place] in summer 2019 and at in 2018. Says they checked her gallbladder. Doesn't know what caused recurrent pancreatitis. Says her living situation isn't the best. PMH: PMH: per HPI FH: Family History: No pertinent hx Social History: ALCOHOL: none Drugs: Marijuana (says she has "used the oil"), Crystal meth (tox screen positive - she denies using but says she's around people who do) ROS: GEN: Denies fevers, chills, sweats HEENT: Denies blurred vision, sore throat CV: Denies chest pain RESP: Denies shortness of air, cough GI: Per HPI : Denies hematuria, dysuria ENDO: Denies weight changes NEURO: Denies confusion, dizziness MSK: Denies weakness, joint pain/swelling SKIN: Denies jaundice, pruritus Vitals: Vitals: Vital Signs Date Time Temp Pulse Resp B/P (MAP) Pulse Ox O2 Delivery O2 Flow Rate FiO2 07/20/20 09:01 Room Air 07/20/20 07:00 98.0 98 18 110/71 (84) 98 98.0 Labs: Labs: Laboratory Tests Test 07/19/20 18:50 07/19/20 18:57 07/19/20 20:30 07/20/20 09:05 Urine Collection Type Unknown Urine Color Yellow Urine Clarity Clear Urine pH 6.0 (<5.0-8.0) Urine Specific [place] >=1.030 (1.000-1.030) Urine Protein 30 mg/dL (NEG-TRACE) Urine Glucose (UA) Negative mg/dL (NEG) Urine Ketones (Stick) Trace mg/dL (NEG) Urine Blood Negative (NEG) Urine Nitrite Negative (NEG) Urine Bilirubin Small (NEG) Urine Urobilinogen Dipstick 0.2 mg/dL (0.2 mg/dL) Urine Leukocyte Esterase Negative (NEG) Urine RBC 0 /HPF (0-2) Urine WBC 1-4 /HPF (0-4) Urine Squamous Epithelial Cells Few /LPF Urine Bacteria Few /HPF (0-FEW) Urine Hyaline Casts Occasional /HPF Urine Mucus Mod /LPF Urine Opiates Screen Pos (NEG) Urine Methadone Screen Neg (NEG) Urine Barbiturates Neg (NEG) Urine Phencyclidine Screen Neg (NEG) Urine Amphetamine/Methamphetamine Pos (NEG) Urine Benzodiazepines Screen Neg (NEG) Urine Cocaine Screen Neg (NEG) Urine Cannabinoids Screen Pos (NEG) Urine Ethyl Alcohol Neg (NEG) Bedside Urine HCG, Qualitative Hcg negative (Negative) White Blood Count 12.2 x10^3/uL (4.0-11.0) 11.4 x10^3/uL (4.0-11.0) Red Blood Count 4.80 x10^6/uL (3.50-5.40) 4.03 x10^6/uL (3.50-5.40) Hemoglobin 12.5 g/dL (12.0-15.5) 10.4 g/dL (12.0-15.5) Hematocrit 39.2 % (36.0-47.0) 33.4 % (36.0-47.0) Mean Corpuscular Volume 82 fL (79-100) 83 fL (79-100) Mean Corpuscular Hemoglobin 26 pg (25-35) 26 pg (25-35) Mean Corpuscular Hemoglobin Concent 32 g/dL (31-37) 31 g/dL (31-37) Red Cell Distribution Width 17.3 % (11.5-14.5) 17.3 % (11.5-14.5) Platelet Count 740 x10^3/uL (140-400) 527 x10^3/uL (140-400) Neutrophils (%) (Auto) 65 % (31-73) 90 % (31-73) Lymphocytes (%) (Auto) 22 % (24-48) 10 % (24-48) Monocytes (%) (Auto) 10 % (0-9) 1 % (0-9) Eosinophils (%) (Auto) 3 % (0-3) 0 % (0-3) Basophils (%) (Auto) 1 % (0-3) 0 % (0-3) Neutrophils # (Auto) 7.9 x10^3/uL (1.8-7.7) 10.2 x10^3/uL (1.8-7.7) Lymphocytes # (Auto) 2.6 x10^3/uL (1.0-4.8) 1.1 x10^3/uL (1.0-4.8) Monocytes # (Auto) 1.3 x10^3/uL (0.0-1.1) 0.1 x10^3/uL (0.0-1.1) Eosinophils # (Auto) 0.3 x10^3/uL (0.0-0.7) 0.0 x10^3/uL (0.0-0.7) Basophils # (Auto) 0.1 x10^3/uL (0.0-0.2) 0.0 x10^3/uL (0.0-0.2) Sodium Level 139 mmol/L (136-145) Potassium Level 3.2 mmol/L (3.5-5.1) Chloride Level 98 mmol/L (98-107) Carbon Dioxide Level 25 mmol/L (21-32) Anion Gap 16 (6-14) Blood Urea Nitrogen 12 mg/dL (7-20) Creatinine 0.7 mg/dL (0.6-1.0) Estimated GFR (Cockcroft-Gault) 116.6 Glucose Level 76 mg/dL (70-99) Calcium Level 10.4 mg/dL (8.5-10.1) Total Bilirubin 0.2 mg/dL (0.2-1.0) Direct Bilirubin 0.1 mg/dL (0.0-0.2) Aspartate Amino Transf (AST/SGOT) 16 U/L (15-37) Alanine Aminotransferase (ALT/SGPT) 20 U/L (14-59) Alkaline Phosphatase 178 U/L (46-116) Creatine Kinase 26 U/L (26-192) C-Reactive Protein, Quantitative 69.2 mg/L (0-3.3) Total Protein 9.9 g/dL (6.4-8.2) Albumin 3.9 g/dL (3.4-5.0) Lipase 192 U/L (73-393) Allergies: Coded Allergies: NSAIDS (Non-Steroidal Anti-Inflamma (Verified Allergy, Intermediate, 06/20/20) morphine (Verified Allergy, Intermediate, Itching, 07/19/20) Tolerates Dilaudid Medications: Current Medications Medications (Trade) Dose Ordered Sig/Nguyen Route PRN Reason Start Time Stop Time Status Last Admin Dose Admin Sodium Chloride 1,000 ml @ 1,000 mls/hr 1X ONCE IV 07/19/20 19:45 07/19/20 20:44 DC 07/19/20 20:55 Famotidine (Pepcid Vial) 20 mg 1X ONCE IVP 07/19/20 20:45 07/19/20 20:46 DC 07/19/20 20:57 Metoclopramide HCl (Reglan Vial) 10 mg 1X ONCE IVP 07/19/20 20:45 07/19/20 20:46 DC 07/19/20 20:57 Iohexol (Omnipaque 300 Mg/ml) 75 ml 1X ONCE IV 07/19/20 21:15 07/19/20 21:16 DC 07/19/20 21:11 Hydromorphone HCl (Dilaudid) 1 mg 1X ONCE IVP 07/19/20 21:15 07/19/20 21:16 DC 07/19/20 21:43 Hydromorphone HCl (Dilaudid) 1 mg 1X ONCE IVP 07/19/20 23:00 07/19/20 23:01 DC 07/19/20 23:23 Sodium Chloride 1,000 ml @ 100 mls/hr Q10H IV 07/19/20 23:45 07/20/20 23:44 07/20/20 01:09 Hydromorphone HCl (Dilaudid) 4 mg PRN Q4HRS PRN IVP SEVERE PAIN 7-10 07/20/20 00:30 07/20/20 09:01 Prochlorperazine Edisylate (Compazine) 10 mg PRN Q6HRS PRN IVP NAUSEA/VOMITING 07/20/20 00:30 07/20/20 00:53 Methylprednisolone Sodium Succinate (SOLU-Medrol 40MG VIAL) 15 mg Q6HRS IV 07/20/20 06:00 07/20/20 05:51 Methylprednisolone Sodium Succinate (SOLU-Medrol 40MG VIAL) 40 mg 1X ONCE IV 07/20/20 00:45 07/20/20 00:48 DC 07/20/20 00:54 Famotidine (Pepcid Vial) 20 mg BID IVP 07/20/20 09:00 07/20/20 08:56 Imaging: Imaging: CT A/P 07/19/20 IMPRESSION: 1. Evidence of prior multifocal colon resection. There are loops of small bowel and colon that show wall thickening and mucosal enhancement, progressed from prior exam consistent with acute colitis/enteritis. Consider inflammatory bowel disease or infectious etiology. 2. Increasing mesenteric lymphadenopathy, likely reactive. 3. There is an indeterminate small low-density focus near the pancreatic head that is new from prior study. This could represent small pseudocysts, although there are no inflammatory changes around the gland. Follow-up imaging may be warranted to ensure resolution. PE: GEN: NAD HEENT: Atraumatic, PERRL LUNGS: CTAB HEART: RRR ABD: pretty quiet, soft, left periumbilical/LLQ discomfort EXTREMITY: No edema SKIN: No rashes, no jaundice NEURO/PSYCH: A & O 3 A/P: A/P: Chronic abd pain and diarrhea Mild leukocytosis, chronic anemia, elevated CRP Abnormal CT - loops of SB and colon w/ wall thickening and mucosal enhancement - progressed from prior exam, increasing mesenteric lymphadenopathy, indeterminate new small low-density focus near the pancreatic head GERD H/o Crohn's disease s/p bowel resection CRC screen - 04/2020 as above H/o C Diff H/o pancreatitis - says most recently ~2 weeks ago Non-compliance, narcotic dependency, +amphetamines, +cannabinoids -- Already started on IV steroids. Will return to see w/ Dr. West and review CT. NPO for now. ONELIA KING Jul 20, 2020 09:38
[2020-07-20 11:41] LABS: % BANDS 5 % (0-9); % LYMPHS 11 % (24-48); % SEGS 84 % (35-66); ANISOCYTOSIS SLIGHT; PLT ESTIMATE INCREASED (ADEQUATE)
[2020-07-20] MEDS: PSYLLIUM HUSK (SUGAR FREE) 1 PKT PACKET PO SCH (21:10)
[2020-07-21] MEDS: methylPREDNISolone SOD SUCC PF 40 MG/ML VIAL. IV SCH ×4 (01:10→17:18)
[2020-07-21] MEDS: HYDROmorphone 2 MG/ML VIAL IVP PRN ×6 (01:22→21:21)
[2020-07-21 03:04] VITALS: BP 114/79
[2020-07-21 07:00] VITALS: BP 127/55
[2020-07-21 07:30] LABS: BASO % 0 % (0-3); EOS % 0 % (0-3); HEMATOCRIT 31.1 % (36.0-47.0); HEMOGLOBIN 9.7 g/dL (12.0-15.5); LYMPH % 8 % (24-48); MEAN CORPUSCULAR HEMOGLOBIN 26 pg (25-35); MEAN CORPUSCULAR HGB CONC 31 g/dL (31-37); MEAN CORPUSCULAR VOLUME 83 fL (79-100); MONO # 0.7 x10^3/uL (0.0-1.1); MONO % 6 % (0-9); NEUT # 10.1 x10^3/uL (1.8-7.7); NEUT % 86 % (31-73); PLATELET COUNT 505 x10^3/uL (140-400); RED BLOOD COUNT 3.73 x10^6/uL (3.50-5.40); RED CELL DISTRIBUTION WIDTH 16.9 % (11.5-14.5); WHITE BLOOD COUNT 11.8 x10^3/uL (4.0-11.0)
[2020-07-21] MEDS: ENOXAPARIN 40 MG/0.4 ML SYRINGE. SQ SCH (08:55)
[2020-07-21] MEDS: FAMOTIDINE 20 MG/2 ML VIAL IVP SCH ×2 (09:25→21:21)
--- NOTE | 2020-07-21 09:28 | PDOC ---
Date of Service: DATE: 07/21/20 TIME: 09:24 Subjective: Subjective: Didn't sleep well due to pain, also says she had several stools overnight. Not feeling great. Wonders if she has pancreatitis because her upper abdomen hurts and she feels stabbing around to right side of back. Objective: Objective: D/w nurse - specific requests w/ pain meds. Lipase normal. On CT: Pancreas is somewhat prominent. There is a low-density focus along the inferior anterior margin of the pancreatic head on image 33 that measures 1.3 cm, new from prior study. Vital Signs: Vital Signs Date Time Temp Pulse Resp B/P (MAP) Pulse Ox O2 Delivery O2 Flow Rate FiO2 07/21/20 07:00 97.9 92 18 127/55 (79) 99 Room Air 97.9 Labs: Laboratory Tests Test 07/21/20 07:04 White Blood Count 11.8 x10^3/uL Red Blood Count 3.73 x10^6/uL Hemoglobin 9.7 g/dL Hematocrit 31.1 % Mean Corpuscular Volume 83 fL Mean Corpuscular Hemoglobin 26 pg Mean Corpuscular Hemoglobin Concent 31 g/dL Red Cell Distribution Width 16.9 % Platelet Count 505 x10^3/uL Neutrophils (%) (Auto) 86 % Lymphocytes (%) (Auto) 8 % Monocytes (%) (Auto) 6 % Eosinophils (%) (Auto) 0 % Basophils (%) (Auto) 0 % Neutrophils # (Auto) 10.1 x10^3/uL Lymphocytes # (Auto) 1.0 x10^3/uL Monocytes # (Auto) 0.7 x10^3/uL Eosinophils # (Auto) 0.0 x10^3/uL Basophils # (Auto) 0.0 x10^3/uL PE: GEN: NAD LUNGS: CTAB HEART: RRR ABD: quiet BS - mostly to right, tender periumbilical to left and also some RUQ/flank NEURO/PSYCH: A & O 3 A/P: Crohn's flare H/o pancreatitis Non-compliance, narcotic dependency, +amphetamines, +cannabinoids -- Continue IV steroids, try clears. Justicifation of Admission Dx: Justifications for Admission: Justification of Admission Dx: N/A ONELIA KING Jul 21, 2020 09:28
[2020-07-21 09:31] LABS: ALBUMIN 2.7 g/dL (3.4-5.0); ALBUMIN/GLOBULIN RATIO 0.6 (1.0-1.7); CALCIUM 9.3 mg/dL (8.5-10.1); CREATININE 0.7 mg/dL (0.6-1.0); GFR 116.6; POTASSIUM 3.5 mmol/L (3.5-5.1); TOTAL BILIRUBIN 0.1 mg/dL (0.2-1.0); TOTAL PROTEIN 7.5 g/dL (6.4-8.2)
--- NOTE | 2020-07-21 09:39 | NUR ---
SW following. Discussed with RN, pt from home with mother, room air, NPO (possibly advancing to clears today). PAT not consulted, per Dr. Cadet. RN advised no SW needs at this time. SW will continue to follow.
[2020-07-21 11:00] VITALS: BP 119/73
--- NOTE | 2020-07-21 12:13 | PDOC ---
[employer] PROGRESS NOTE Date of Service DOS: DATE: 07/21/20 TIME: 12:09 Chief Complaint Chief Complaint A/P: Crohns with flare - solumedrol IV, dilaudid for breakthrough pain. GI consulted Diarrhea - with blood, history of c. difficile. Given this is likely crohns flare will treat for this. Anemia Likely of chronic disease, monitor RLE cramping most likely related to electrolyte imbalance Leukocytosis - SIRS with end-organ dysfunction, most likely secondary to acute Crohn's exacerbation Hypokalemia - replace Hypercalcemia - will give IVF, f/u Thrombocytosis - likely reactive given crohns flare, will monitor Narcotic dependence - she also takes opioids for pain - offered opioid taper. Amphetamine positive - patient denies, though states it is possible she was "around it" FEN - NPO PPX - Lovenox, pepcid FULL CODE Dispo - inpatient at least 2 midnights History of Present Illness History of Present Illness Ms Jose is a 35yo F [id number] (12 years ago term spontaneous vaginal delivery, miscarriage December 2019) w/ PMHx Crohns (s/p colostomy and takedown 2010), pancreatitis x3, prior c. difficile colitis who presented to the ER with abd pain and blood diarrhea. Treating for crohns flare up. CT abdomen reveals prior multifocal colon resection and loops of small bowel and colon that show wall thickening and mucosal enhancement, progressed from prior exam consistent with acute colitis/enteritis. Also with increasing mesenteric lymphadenopathy. An indeterminate small low-density focus near the pancreatic head is new. Labs WBC 12.2 with left shift, Hb 12.5, platelets 740, NA 139, K3.2, BUN 12, CR 0.7, glucose 76, calcium 10.4, elevated Alkaline phosphatase 78, CRP 69.2 UDS positive for opioids cannabinoids and amphetamines. Afebrile. Several stools overnight. Did not sleep much. Very drowsy today. Pain 9/10. Plan: Cont NPO per GI recs Cont IV steroids Start procalamine Vitals/I&O Vitals/I&O: Vital Signs Date Time Temp Pulse Resp B/P (MAP) Pulse Ox O2 Delivery O2 Flow Rate FiO2 07/21/20 11:00 97.6 87 18 119/73 (88) 100 Room Air 97.6 Physical Exam General: Alert, Oriented X3, Cooperative, moderate distress Lungs: Clear Abdomen: Normal bowel sounds, No hepatosplenomegaly, No masses, Other (Diffusely tender, multiple scars) Extremities: No clubbing, No cyanosis, No edema, Normal pulses, No tenderness/swelling Skin: No rashes, No breakdown, No significant lesion Labs Labs: Laboratory Tests Test 07/21/20 07:04 White Blood Count 11.8 x10^3/uL (4.0-11.0) Red Blood Count 3.73 x10^6/uL (3.50-5.40) Hemoglobin 9.7 g/dL (12.0-15.5) Hematocrit 31.1 % (36.0-47.0) Mean Corpuscular Volume 83 fL (79-100) Mean Corpuscular Hemoglobin 26 pg (25-35) Mean Corpuscular Hemoglobin Concent 31 g/dL (31-37) Red Cell Distribution Width 16.9 % (11.5-14.5) Platelet Count 505 x10^3/uL (140-400) Neutrophils (%) (Auto) 86 % (31-73) Lymphocytes (%) (Auto) 8 % (24-48) Monocytes (%) (Auto) 6 % (0-9) Eosinophils (%) (Auto) 0 % (0-3) Basophils (%) (Auto) 0 % (0-3) Neutrophils # (Auto) 10.1 x10^3/uL (1.8-7.7) Lymphocytes # (Auto) 1.0 x10^3/uL (1.0-4.8) Monocytes # (Auto) 0.7 x10^3/uL (0.0-1.1) Eosinophils # (Auto) 0.0 x10^3/uL (0.0-0.7) Basophils # (Auto) 0.0 x10^3/uL (0.0-0.2) Sodium Level 142 mmol/L (136-145) Potassium Level 3.5 mmol/L (3.5-5.1) Chloride Level 107 mmol/L (98-107) Carbon Dioxide Level 20 mmol/L (21-32) Anion Gap 15 (6-14) Blood Urea Nitrogen 4 mg/dL (7-20) Creatinine 0.7 mg/dL (0.6-1.0) Estimated GFR (Cockcroft-Gault) 116.6 BUN/Creatinine Ratio 6 (6-20) Glucose Level 146 mg/dL (70-99) Calcium Level 9.3 mg/dL (8.5-10.1) Total Bilirubin 0.1 mg/dL (0.2-1.0) Aspartate Amino Transf (AST/SGOT) 8 U/L (15-37) Alanine Aminotransferase (ALT/SGPT) 12 U/L (14-59) Alkaline Phosphatase 109 U/L (46-116) Total Protein 7.5 g/dL (6.4-8.2) Albumin 2.7 g/dL (3.4-5.0) Albumin/Globulin Ratio 0.6 (1.0-1.7) Assessment and Plan Assessmemt and Plan Problems Medical Problems: (1) Abdominal pain Status: Acute (2) Dehydration Status: Acute (3) Diarrhea Status: Acute (4) Exacerbation of Crohn's disease Status: Acute (5) Ketonuria Status: Acute Comment Review of Relevant I have reviewed the following items dania (where applicable) has been applied. Medications: Current Medications Medications (Trade) Dose Ordered Sig/Nguyen Route PRN Reason Start Time Stop Time Status Last Admin Dose Admin Psyllium Hydrophilic Mucilloid (Metamucil Fiber Packet) 1 pkt QHS PO 07/20/20 21:00 07/20/20 21:10 Justifications for Admission Other Justification Crohn's Flare WILD KIMBROUGH MD Jul 21, 2020 12:13
[2020-07-21] MEDS: AMINO AC 3%/ELECTROLYTE/GLYCER 1,000 ML IV SCH (13:18)
[2020-07-21 15:00] VITALS: BP 119/71
[2020-07-21 19:00] VITALS: BP 123/80
[2020-07-21] MEDS: PSYLLIUM HUSK (SUGAR FREE) 1 PKT PACKET PO SCH (21:00)
[2020-07-21] MEDS: ACETAMINOPHEN 325 MG TABLET. PO PRN (21:20)
[2020-07-21 22:51] VITALS: BP 118/85
[2020-07-22] MEDS: methylPREDNISolone SOD SUCC PF 40 MG/ML VIAL. IV SCH ×4 (00:10→21:26)
[2020-07-22] MEDS: AMINO AC 3%/ELECTROLYTE/GLYCER 1,000 ML IV SCH ×2 (00:45→09:19)
[2020-07-22] MEDS: HYDROmorphone 2 MG/ML VIAL IVP PRN ×6 (01:22→22:23)
[2020-07-22 03:00] VITALS: BP 130/93
[2020-07-22] MEDS: ACETAMINOPHEN 325 MG TABLET. PO PRN (04:44)
--- NOTE | 2020-07-22 05:51 | NUR ---
Pt explaining not wanting PPN to run d/t burning in arm.
[2020-07-22 07:00] VITALS: BP 118/76
[2020-07-22] MEDS: ENOXAPARIN 40 MG/0.4 ML SYRINGE. SQ SCH (07:57)
--- NOTE | 2020-07-22 08:18 | PDOC ---
[employer] PROGRESS NOTE Date of Service DOS: DATE: 07/22/20 TIME: 08:18 Chief Complaint Chief Complaint A/P: Crohns with flare - solumedrol IV, dilaudid for breakthrough pain. GI consulted Diarrhea - with blood, history of c. difficile. Given this is likely crohns flare will treat for this. Anemia Likely of chronic disease, monitor RLE cramping most likely related to electrolyte imbalance Leukocytosis - SIRS with end-organ dysfunction, most likely secondary to acute Crohn's exacerbation Hypokalemia - replace Hypercalcemia - will give IVF, f/u Thrombocytosis - likely reactive given crohns flare, will monitor Narcotic dependence - she also takes opioids for pain - offered opioid taper. Amphetamine positive - patient denies, though states it is possible she was "around it" FEN - NPO PPX - Lovenox, pepcid FULL CODE Dispo - inpatient at least 2 midnights History of Present Illness History of Present Illness Ms Jose is a 35yo F [id number] (12 years ago term spontaneous vaginal delivery, miscarriage December 2019) w/ PMHx Crohns (s/p colostomy and takedown 2010), pancreatitis x3, prior c. difficile colitis who presented to the ER with abd pain and blood diarrhea. Treating for crohns flare up. CT abdomen reveals prior multifocal colon resection and loops of small bowel and colon that show wall thickening and mucosal enhancement, progressed from prior exam consistent with acute colitis/enteritis. Also with increasing mesenteric lymphadenopathy. An indeterminate small low-density focus near the pancreatic head is new. Labs WBC 12.2 with left shift, Hb 12.5, platelets 740, NA 139, K3.2, BUN 12, CR 0.7, glucose 76, calcium 10.4, elevated Alkaline phosphatase 78, CRP 69.2 UDS positive for opioids cannabinoids and amphetamines. 07/21: Afebrile. Several stools overnight. Did not sleep much. Very drowsy today. Pain 9/10. Advanced to clear liquid diet. Asking for her p.o. pain meds. No chest pain or shortness of breath. Plan: Cont IV steroids Vitals/I&O Vitals/I&O: Vital Signs Date Time Temp Pulse Resp B/P (MAP) Pulse Ox O2 Delivery O2 Flow Rate FiO2 07/22/20 07:31 Room Air 07/22/20 07:00 98.3 66 16 118/76 (90) 99 98.3 I & O 07/21/20 07/21/20 07/22/20 15:00 23:00 07:00 Intake Total 250 ml Balance 250 ml Physical Exam General: Alert, Oriented X3, Cooperative, moderate distress Lungs: Clear Abdomen: Normal bowel sounds, No hepatosplenomegaly, No masses, Other (Diffusely tender, multiple scars) Extremities: No clubbing, No cyanosis, No edema, Normal pulses, No tenderness/swelling Skin: No rashes, No breakdown, No significant lesion Assessment and Plan Assessmemt and Plan Problems Medical Problems: (1) Abdominal pain Status: Acute (2) Dehydration Status: Acute (3) Diarrhea Status: Acute (4) Exacerbation of Crohn's disease Status: Acute (5) Ketonuria Status: Acute Comment Review of Relevant I have reviewed the following items dania (where applicable) has been applied. Medications: Current Medications Medications (Trade) Dose Ordered Sig/Nguyen Route PRN Reason Start Time Stop Time Status Last Admin Dose Admin Amino Acids/ Glycerin/ Electrolytes 1,000 ml @ 80 mls/hr [id number] IV 07/21/20 12:15 07/21/20 13:18 Justifications for Admission Other Justification Crohn's Flare WILD KIMBROUGH MD Jul 22, 2020 08:18
[2020-07-22 09:07] LABS: BASO % 0 % (0-3); EOS % 0 % (0-3); HEMATOCRIT 28.9 % (36.0-47.0); HEMOGLOBIN 9.1 g/dL (12.0-15.5); LYMPH # 1.1 x10^3/uL (1.0-4.8); LYMPH % 11 % (24-48); MEAN CORPUSCULAR HEMOGLOBIN 26 pg (25-35); MEAN CORPUSCULAR HGB CONC 32 g/dL (31-37); MEAN CORPUSCULAR VOLUME 82 fL (79-100); MONO # 0.9 x10^3/uL (0.0-1.1); MONO % 9 % (0-9); NEUT # 7.7 x10^3/uL (1.8-7.7); NEUT % 79 % (31-73); PLATELET COUNT 424 x10^3/uL (140-400); RED CELL DISTRIBUTION WIDTH 16.8 % (11.5-14.5); WHITE BLOOD COUNT 9.7 x10^3/uL (4.0-11.0)
[2020-07-22] MEDS: FAMOTIDINE 20 MG/2 ML VIAL IVP SCH ×2 (09:35→21:26)
[2020-07-22 10:33] LABS: ALBUMIN 2.5 g/dL (3.4-5.0); ALBUMIN/GLOBULIN RATIO 0.6 (1.0-1.7); CALCIUM 9.3 mg/dL (8.5-10.1); CREATININE 0.5 mg/dL (0.6-1.0); GFR 171.9; POTASSIUM 3.9 mmol/L (3.5-5.1)
[2020-07-22 10:42] LABS: TOTAL BILIRUBIN 0.1 mg/dL (0.2-1.0)
[2020-07-22] MEDS ORDERED: oxyCODONE/APAP 5/325 1 TAB TABLET PO PRN (11:30)
[2020-07-22] MEDS ORDERED: ONDANSETRON ODT 4 MG TAB.RAPDIS. PO PRN (12:00)
[2020-07-22] MEDS: DICYCLOMINE HCL 10 MG CAPSULE PO SCH ×3 (12:05→23:44)
--- NOTE | 2020-07-22 12:41 | PDOC ---
G I PROGRESS NOTE Subjective Still with diarrhea and pretty uncomfortable. No N,V. Physical Exam Lungs clear. RRR Abdomen soft, generally tender. Review of Relevant I have reviewed the following items dania (where applicable) has been applied. Labs Laboratory Tests Test 07/21/20 07:04 07/22/20 08:40 White Blood Count 11.8 x10^3/uL (4.0-11.0) 9.7 x10^3/uL (4.0-11.0) Red Blood Count 3.73 x10^6/uL (3.50-5.40) 3.50 x10^6/uL (3.50-5.40) Hemoglobin 9.7 g/dL (12.0-15.5) 9.1 g/dL (12.0-15.5) Hematocrit 31.1 % (36.0-47.0) 28.9 % (36.0-47.0) Mean Corpuscular Volume 83 fL (79-100) 82 fL (79-100) Mean Corpuscular Hemoglobin 26 pg (25-35) 26 pg (25-35) Mean Corpuscular Hemoglobin Concent 31 g/dL (31-37) 32 g/dL (31-37) Red Cell Distribution Width 16.9 % (11.5-14.5) 16.8 % (11.5-14.5) Platelet Count 505 x10^3/uL (140-400) 424 x10^3/uL (140-400) Neutrophils (%) (Auto) 86 % (31-73) 79 % (31-73) Lymphocytes (%) (Auto) 8 % (24-48) 11 % (24-48) Monocytes (%) (Auto) 6 % (0-9) 9 % (0-9) Eosinophils (%) (Auto) 0 % (0-3) 0 % (0-3) Basophils (%) (Auto) 0 % (0-3) 0 % (0-3) Neutrophils # (Auto) 10.1 x10^3/uL (1.8-7.7) 7.7 x10^3/uL (1.8-7.7) Lymphocytes # (Auto) 1.0 x10^3/uL (1.0-4.8) 1.1 x10^3/uL (1.0-4.8) Monocytes # (Auto) 0.7 x10^3/uL (0.0-1.1) 0.9 x10^3/uL (0.0-1.1) Eosinophils # (Auto) 0.0 x10^3/uL (0.0-0.7) 0.0 x10^3/uL (0.0-0.7) Basophils # (Auto) 0.0 x10^3/uL (0.0-0.2) 0.0 x10^3/uL (0.0-0.2) Sodium Level 142 mmol/L (136-145) 140 mmol/L (136-145) Potassium Level 3.5 mmol/L (3.5-5.1) 3.9 mmol/L (3.5-5.1) Chloride Level 107 mmol/L (98-107) 104 mmol/L (98-107) Carbon Dioxide Level 20 mmol/L (21-32) 27 mmol/L (21-32) Anion Gap 15 (6-14) 9 (6-14) Blood Urea Nitrogen 4 mg/dL (7-20) 8 mg/dL (7-20) Creatinine 0.7 mg/dL (0.6-1.0) 0.5 mg/dL (0.6-1.0) Estimated GFR (Cockcroft-Gault) 116.6 171.9 BUN/Creatinine Ratio 6 (6-20) 16 (6-20) Glucose Level 146 mg/dL (70-99) 151 mg/dL (70-99) Calcium Level 9.3 mg/dL (8.5-10.1) 9.3 mg/dL (8.5-10.1) Total Bilirubin 0.1 mg/dL (0.2-1.0) 0.1 mg/dL (0.2-1.0) Aspartate Amino Transf (AST/SGOT) 8 U/L (15-37) 6 U/L (15-37) Alanine Aminotransferase (ALT/SGPT) 12 U/L (14-59) 14 U/L (14-59) Alkaline Phosphatase 109 U/L (46-116) 93 U/L (46-116) Total Protein 7.5 g/dL (6.4-8.2) 7.0 g/dL (6.4-8.2) Albumin 2.7 g/dL (3.4-5.0) 2.5 g/dL (3.4-5.0) Albumin/Globulin Ratio 0.6 (1.0-1.7) 0.6 (1.0-1.7) Laboratory Tests Test 07/22/20 08:40 White Blood Count 9.7 x10^3/uL (4.0-11.0) Red Blood Count 3.50 x10^6/uL (3.50-5.40) Hemoglobin 9.1 g/dL (12.0-15.5) Hematocrit 28.9 % (36.0-47.0) Mean Corpuscular Volume 82 fL (79-100) Mean Corpuscular Hemoglobin 26 pg (25-35) Mean Corpuscular Hemoglobin Concent 32 g/dL (31-37) Red Cell Distribution Width 16.8 % (11.5-14.5) Platelet Count 424 x10^3/uL (140-400) Neutrophils (%) (Auto) 79 % (31-73) Lymphocytes (%) (Auto) 11 % (24-48) Monocytes (%) (Auto) 9 % (0-9) Eosinophils (%) (Auto) 0 % (0-3) Basophils (%) (Auto) 0 % (0-3) Neutrophils # (Auto) 7.7 x10^3/uL (1.8-7.7) Lymphocytes # (Auto) 1.1 x10^3/uL (1.0-4.8) Monocytes # (Auto) 0.9 x10^3/uL (0.0-1.1) Eosinophils # (Auto) 0.0 x10^3/uL (0.0-0.7) Basophils # (Auto) 0.0 x10^3/uL (0.0-0.2) Sodium Level 140 mmol/L (136-145) Potassium Level 3.9 mmol/L (3.5-5.1) Chloride Level 104 mmol/L (98-107) Carbon Dioxide Level 27 mmol/L (21-32) Anion Gap 9 (6-14) Blood Urea Nitrogen 8 mg/dL (7-20) Creatinine 0.5 mg/dL (0.6-1.0) Estimated GFR (Cockcroft-Gault) 171.9 BUN/Creatinine Ratio 16 (6-20) Glucose Level 151 mg/dL (70-99) Calcium Level 9.3 mg/dL (8.5-10.1) Total Bilirubin 0.1 mg/dL (0.2-1.0) Aspartate Amino Transf (AST/SGOT) 6 U/L (15-37) Alanine Aminotransferase (ALT/SGPT) 14 U/L (14-59) Alkaline Phosphatase 93 U/L (46-116) Total Protein 7.0 g/dL (6.4-8.2) Albumin 2.5 g/dL (3.4-5.0) Albumin/Globulin Ratio 0.6 (1.0-1.7) Vitals/I & O Vital Sign - Last 24 Hours 07/21/20 07/21/20 07/21/20 07/21/20 13:25 14:00 15:00 17:14 Temp 97.6 97.6 Pulse 94 Resp 18 B/P (MAP) 119/71 (87) Pulse Ox 97 O2 Delivery Room Air Room Air Room Air Room Air 07/21/20 07/21/20 07/21/20 07/21/20 17:45 19:00 19:40 21:21 Temp 98.4 98.4 Pulse 93 Resp 18 16 B/P (MAP) 123/80 (94) Pulse Ox 99 O2 Delivery Room Air Room Air Room Air Room Air 07/21/20 07/21/20 07/22/20 07/22/20 21:51 22:51 01:22 01:52 Temp 97.6 97.6 Pulse 82 Resp 16 18 16 16 B/P (MAP) 118/85 (96) Pulse Ox 100 O2 Delivery Room Air Room Air Room Air Room Air 07/22/20 07/22/20 07/22/20 07/22/20 03:00 05:20 05:50 07:00 Temp 98.5 98.3 98.5 98.3 Pulse 90 66 Resp 18 16 16 16 B/P (MAP) 130/93 (105) 118/76 (90) Pulse Ox 95 99 O2 Delivery Room Air Room Air Room Air Room Air 07/22/20 07:31 O2 Delivery Room Air Intake and Output 07/21/20 07/21/2021 15:00 23:00 07:00 Intake Total 250 ml Balance 250 ml Problem List Problems Medical Problems: (1) Abdominal pain Status: Acute (2) Dehydration Status: Acute (3) Diarrhea Status: Acute (4) Exacerbation of Crohn's disease Status: Acute (5) Ketonuria Status: Acute Assessment Crohn's with flare, stable if not improved. Plan of Care Note Continue steroids. Would stay at [facility] for now. Discussed with Dr. Cadet. Justicifation of Admission Dx: Justifications for Admission: Justification of Admission Dx: N/A CÉSAR CARVALHO MD Jul 22, 2020 12:41
[2020-07-22 15:00] VITALS: BP 134/85
[2020-07-22] MEDS: oxyCODONE/APAP 10/325 1 TAB TABLET PO PRN ×2 (16:21→23:45)
[2020-07-22 19:14] VITALS: BP 122/91
--- NOTE | 2020-07-22 19:50 | NUR ---
This RN sitting at community relations coordinator's desk at ER entrance. At 1947 pt walked in from outside ER parking lot. Pt stated "I need to go back to my room." This RN stated that visiting hours are over. The pt then clarified that she was a pt in room 428. Pt then stated, "I had to look for a espinoza, or something." This RN called floor to verify that she was a patient and that she would be coming back upstairs. Before patient left, this RN educated patient that she cannot leave unit unattended. Security looked back at cameras and notes patient walking out of hospital via North door at 1934, walking around corner of [facility] and returning inside ER entrance at 1947.
--- NOTE | 2020-07-22 20:30 | NUR ---
Notified by SYLVIE Felix ED called to unit explaining pt outside smoking. Pt returned to unit. Asked pt to give RN cigarettes. Pt explains she does not have any cigarettes that she was outside because she needed to breath fresh air and talk with cousin. Explained to pt if she would like to go outside she needs to notify RN to assist her. Pt voices understanding.
[2020-07-22] MEDS: PSYLLIUM HUSK (SUGAR FREE) 1 PKT PACKET PO SCH (21:00)
[2020-07-22 22:57] VITALS: BP 119/80
[2020-07-22] MEDS: traZODone 50 MG TABLET. PO SCH (23:46)
[2020-07-23] MEDS: HYDROmorphone 2 MG/ML VIAL IVP PRN ×5 (02:27→20:21)
[2020-07-23 02:53] VITALS: BP 124/85
[2020-07-23] MEDS: DICYCLOMINE HCL 10 MG CAPSULE PO SCH ×3 (06:07→16:17)
[2020-07-23] MEDS: oxyCODONE/APAP 10/325 1 TAB TABLET PO PRN ×3 (06:09→19:26)
[2020-07-23 07:00] VITALS: BP 115/74
[2020-07-23] MEDS: ENOXAPARIN 40 MG/0.4 ML SYRINGE. SQ SCH (07:19)
[2020-07-23] MEDS: methylPREDNISolone SOD SUCC PF 40 MG/ML VIAL. IV SCH ×2 (08:00→20:20)
[2020-07-23] MEDS: FAMOTIDINE 20 MG/2 ML VIAL IVP SCH (08:01)
--- NOTE | 2020-07-23 08:51 | PDOC ---
[employer] PROGRESS NOTE Date of Service DOS: DATE: 07/23/20 TIME: 08:51 Chief Complaint Chief Complaint A/P: Crohns with flare - solumedrol IV, dilaudid for breakthrough pain. GI consulted Diarrhea - with blood, history of c. difficile. Given this is likely crohns flare will treat for this. Anemia Likely of chronic disease, monitor RLE cramping most likely related to electrolyte imbalance Leukocytosis - SIRS with end-organ dysfunction, most likely secondary to acute Crohn's exacerbation Hypokalemia - replace Hypercalcemia - will give IVF, f/u Thrombocytosis - likely reactive given crohns flare, will monitor Narcotic dependence - she also takes opioids for pain - offered opioid taper. Amphetamine positive - patient denies, though states it is possible she was "around it" FEN - NPO PPX - Lovenox, pepcid FULL CODE Dispo - inpatient at least 2 midnights History of Present Illness History of Present Illness Ms Jose is a 35yo F [id number] (12 years ago term spontaneous vaginal delivery, miscarriage December 2019) w/ PMHx Crohns (s/p colostomy and takedown 2010), pancreatitis x3, prior c. difficile colitis who presented to the ER with abd pain and blood diarrhea. Treating for crohns flare up. CT abdomen reveals prior multifocal colon resection and loops of small bowel and colon that show wall thickening and mucosal enhancement, progressed from prior exam consistent with acute colitis/enteritis. Also with increasing mesenteric lymphadenopathy. An indeterminate small low-density focus near the pancreatic head is new. Labs WBC 12.2 with left shift, Hb 12.5, platelets 740, NA 139, K3.2, BUN 12, CR 0.7, glucose 76, calcium 10.4, elevated Alkaline phosphatase 78, CRP 69.2 UDS positive for opioids cannabinoids and amphetamines. 07/21: Afebrile. Several stools overnight. Did not sleep much. Very drowsy today. Pain 03/09. 07/22: Advanced to clear liquid diet. Asking for her p.o. pain meds. No chest pain or shortness of breath. Seen sitting on toilet. No CP or SOB, still with loose bowels. Tolerating liquid diet well, wants to try soft foods later. Plan: Cont IV steroids Vitals/I&O Vitals/I&O: Vital Signs Date Time Temp Pulse Resp B/P (MAP) Pulse Ox O2 Delivery O2 Flow Rate FiO2 07/23/20 07:36 Room Air 07/23/20 07:00 98.2 64 20 115/74 (88) 100 98.2 I & O 07/22/20 07/22/20 07/23/20 15:00 23:00 07:00 Intake Total 180 ml 0 ml Balance 180 ml 0 ml Physical Exam General: Alert, Oriented X3, Cooperative, moderate distress Lungs: Clear Abdomen: Normal bowel sounds, No hepatosplenomegaly, No masses, Other (Diffusely tender, multiple scars) Extremities: No clubbing, No cyanosis, No edema, Normal pulses, No tenderness/swelling Skin: No rashes, No breakdown, No significant lesion Assessment and Plan Assessmemt and Plan Problems Medical Problems: (1) Abdominal pain Status: Acute (2) Dehydration Status: Acute (3) Diarrhea Status: Acute (4) Exacerbation of Crohn's disease Status: Acute (5) Ketonuria Status: Acute Comment Review of Relevant I have reviewed the following items dania (where applicable) has been applied. Medications: Current Medications Medications (Trade) Dose Ordered Sig/Nguyen Route PRN Reason Start Time Stop Time Status Last Admin Dose Admin Oxycodone/ Acetaminophen (Percocet 5/325) 1 tab PRN Q6HRS PRN PO MODERATE TO SEVERE PAIN 07/22/20 11:30 07/22/20 16:08 DC 07/22/20 12:05 Dicyclomine HCl (Bentyl) 20 mg Q6HRS PO 07/22/20 12:00 07/23/20 06:07 Trazodone HCl (Desyrel) 50 mg QHS PO 07/22/20 21:00 07/22/20 23:46 Methylprednisolone Sodium Succinate (SOLU-Medrol 40MG VIAL) 40 mg BID IV 07/22/20 21:00 07/23/20 08:00 Oxycodone/ Acetaminophen (Percocet 10/325) 1 tab PRN Q6HRS PRN PO MODERATE TO SEVERE PAIN 07/22/20 16:15 07/23/20 06:09 Justifications for Admission Other Justification Crohn's Flare WILD KIMBROUGH MD Jul 23, 2020 08:51
[2020-07-23 11:00] VITALS: BP 120/76
[2020-07-23 15:00] VITALS: BP 121/78
[2020-07-23 19:30] VITALS: BP 145/55
[2020-07-23] MEDS: FAMOTIDINE 20 MG TABLET. PO SCH (20:20)
[2020-07-23] MEDS: traZODone 50 MG TABLET. PO SCH (20:21)
[2020-07-23] MEDS: PSYLLIUM HUSK (SUGAR FREE) 1 PKT PACKET PO SCH (20:30)
[2020-07-23 23:45] VITALS: BP 121/78
[2020-07-24] MEDS: DICYCLOMINE HCL 10 MG CAPSULE PO SCH ×4 (00:15→19:03)
[2020-07-24] MEDS: HYDROmorphone 2 MG/ML VIAL IVP PRN ×6 (00:22→20:42)
[2020-07-24] MEDS: ACETAMINOPHEN 325 MG TABLET. PO PRN (00:23)
[2020-07-24] MEDS: oxyCODONE/APAP 10/325 1 TAB TABLET PO PRN ×4 (01:27→19:02)
[2020-07-24 03:27] VITALS: BP 99/60
[2020-07-24 07:00] VITALS: BP 102/67
[2020-07-24] MEDS: FAMOTIDINE 20 MG TABLET. PO SCH ×2 (07:35→20:43)
[2020-07-24] MEDS: ENOXAPARIN 40 MG/0.4 ML SYRINGE. SQ SCH (07:39)
[2020-07-24] MEDS: methylPREDNISolone SOD SUCC PF 40 MG/ML VIAL. IV SCH ×2 (08:43→20:43)
--- NOTE | 2020-07-24 09:38 | NUR ---
SW following. Discussed with RN, pt from home with mother, room air, clear liquid diet. Pt being checked for Cdiff today. RN advised no SW needs at this time. SW will continue to follow.
--- NOTE | 2020-07-24 09:45 | PDOC ---
Date of Service: DATE: 07/24/20 TIME: 09:39 Subjective: Subjective: Had "another episode" overnight, also this morning - abd pain, diarrhea. Diarrhea wakes her up and once over the weekend had a soiling episode while sleeping. Says she's going to back off on clears because that makes diarrhea worse. Says nursing has asked her to communicate re: frequency of stools. Objective: Vital Signs: Vital Signs Date Time Temp Pulse Resp B/P (MAP) Pulse Ox O2 Delivery O2 Flow Rate FiO2 07/24/20 07:41 Room Air 07/24/20 07:35 20 07/24/20 07:00 97.8 81 102/67 (79) 98 97.8 PE: GEN: NAD LUNGS: CTAB HEART: RRR ABD: NABS, tender mostly left mid abdomen, some LLQ NEURO/PSYCH: A & O 3 A/P: Crohn's flare -- H/o C Diff - will check for completeness. Continue IV steroids, clears. Justicifation of Admission Dx: Justifications for Admission: Justification of Admission Dx: N/A ONELIA KING Jul 24, 2020 09:45
--- NOTE | 2020-07-24 10:52 | PDOC ---
[employer] PROGRESS NOTE Date of Service DOS: DATE: 07/24/20 TIME: 10:44 Chief Complaint Chief Complaint Crohns with flare Diarrhea Anemia RLE cramping Leukocytosis Hypokalemia Hypercalcemia Thrombocytosis Narcotic dependence Amphetamine positive History of Present Illness History of Present Illness Ms Jose is a 35yo F [id number] (12 years ago term spontaneous vaginal delivery, miscarriage December 2019) w/ PMHx Crohns (s/p colostomy and takedown 2010), pancreatitis x3, prior c. difficile colitis who presented to the ER with abd pain and blood diarrhea. Treating for crohns flare up. CT abdomen reveals prior multifocal colon resection and loops of small bowel and colon that show wall thickening and mucosal enhancement, progressed from prior exam consistent with acute colitis/enteritis. Also with increasing mesenteric lymphadenopathy. An indeterminate small low-density focus near the pancreatic head is new. Labs WBC 12.2 with left shift, Hb 12.5, platelets 740, NA 139, K3.2, BUN 12, CR 0.7, glucose 76, calcium 10.4, elevated Alkaline phosphatase 78, CRP 69.2 UDS positive for opioids cannabinoids and amphetamines. 07/21: Afebrile. Several stools overnight. Did not sleep much. Very drowsy today. Pain 9/10. 07/22: Advanced to clear liquid diet. Asking for her p.o. pain meds. No chest pain or shortness of breath. Seen sitting on toilet. No CP or SOB, still with loose bowels. Tolerating liquid diet well, wants to try soft foods later. 07/24/2020: -Patient seen and examined. -Patient reports history of C diff. Per GI, will check c diff culture today -Bora RN. Bora registered nurse hh case manager. -Chart reviewed. Vitals/I&O Vitals/I&O: Vital Signs Date Time Temp Pulse Resp B/P (MAP) Pulse Ox O2 Delivery O2 Flow Rate FiO2 07/24/20 07:41 Room Air 07/24/20 07:35 20 07/24/20 07:00 97.8 81 102/67 (79) 98 97.8 I & O 07/23/20 07/23/20 07/24/20 15:00 23:00 07:00 Intake Total 550 ml 450 ml 240 ml Balance 550 ml 450 ml 240 ml Physical Exam General: Alert, Oriented X3, Cooperative, moderate distress Lungs: Clear Abdomen: Normal bowel sounds, No hepatosplenomegaly, No masses, Other (Diffusely tender, multiple scars) Extremities: No clubbing, No cyanosis, No edema, Normal pulses, No tenderness/swelling Skin: No rashes, No breakdown, No significant lesion Review of Systems Review of Systems: Denies dysuria. Denies headache. Assessment and Plan Assessmemt and Plan Problems Medical Problems: (1) Abdominal pain Status: Acute (2) Dehydration Status: Acute (3) Diarrhea Status: Acute (4) Exacerbation of Crohn's disease Status: Acute (5) Ketonuria Status: Acute Crohns with flare Diarrhea Anemia RLE cramping Leukocytosis Hypokalemia Hypercalcemia Thrombocytosis Narcotic dependence Amphetamine positive 07/24/2020 Plan 1. Await further GI input 2. Check C diff today per GI 3. Continue ProcalAmine 4. Continue steroids 5. Clear liquid diet 6. Pain meds 7. Home meds 8. DVT prophylaxis 9. PT/OT 10. Trend labs 11. Full code Comment Review of Relevant I have reviewed the following items dania (where applicable) has been applied. Medications: Current Medications Medications (Trade) Dose Ordered Sig/Nguyen Route PRN Reason Start Time Stop Time Status Last Admin Dose Admin Famotidine (Pepcid) 20 mg BID PO 07/23/20 21:00 07/24/20 07:35 Justifications for Admission Other Justification Crohn's Flare MO SINGLETARY III DO Jul 24, 2020 10:52
[2020-07-24 10:58] VITALS: BP 114/77
--- NOTE | 2020-07-24 13:43 | NUR ---
specimen obtained for c diff and sent to the lab. states her pain during the day is worse than at nights. she is up and about in the room. she states that she has had approx 4-5 stools thus far. continues to rate her pain 7-8. it does take the "sharpness" after the Dilaudid iv.
[2020-07-24 14:39] VITALS: BP 125/74
[2020-07-24 19:37] VITALS: BP 134/84
[2020-07-24] MEDS: traZODone 50 MG TABLET. PO SCH (20:43)
[2020-07-24] MEDS: PSYLLIUM HUSK (SUGAR FREE) 1 PKT PACKET PO SCH (20:43)
[2020-07-24 23:13] VITALS: BP 123/74
[2020-07-25] MEDS: DICYCLOMINE HCL 10 MG CAPSULE PO SCH ×4 (00:41→19:57)
[2020-07-25] MEDS: HYDROmorphone 2 MG/ML VIAL IVP PRN ×6 (00:42→21:50)
[2020-07-25] MEDS: oxyCODONE/APAP 10/325 1 TAB TABLET PO PRN ×4 (01:16→20:43)
[2020-07-25 03:03] VITALS: BP 122/79
[2020-07-25 07:15] VITALS: BP 127/88
[2020-07-25] MEDS: ENOXAPARIN 40 MG/0.4 ML SYRINGE. SQ SCH (09:00)
[2020-07-25] MEDS: FAMOTIDINE 20 MG TABLET. PO SCH (09:19)
[2020-07-25] MEDS: methylPREDNISolone SOD SUCC PF 40 MG/ML VIAL. IV SCH ×2 (09:19→20:26)
--- NOTE | 2020-07-25 09:23 | PDOC ---
Date of Service: DATE: 07/25/20 TIME: 09:18 Subjective: Subjective: Symptoms worse during the night - didn't sleep well - pain and diarrhea the same, also mentions "mind racing." Says nurse mentioned something about her pancreas on CT - she is concerned - had an aunt who passed from pancreatic cancer. Objective: Vital Signs: Vital Signs Date Time Temp Pulse Resp B/P (MAP) Pulse Ox O2 Delivery O2 Flow Rate FiO2 07/25/20 07:20 Room Air 07/25/20 07:15 97.6 72 16 127/88 (101) 98 97.6 PE: GEN: NAD - having blood drawn LUNGS: CTAB HEART: RRR ABD: soft, less tender NEURO/PSYCH: A & O 3 A/P: Crohn's flare - h/o SBRs, sigmoid stricture and colitis on recent colonoscopy -- Await recheck of CRP and C Diff. Has surgical disease - will ask surgery team to comment. Will review her concerns re: pancreatic findings on CT w/ Dr. West. Called by Dr. Mittal - wondering about discharging today. Remains on clears, IV steroids. CRP has improved. Will d/w Dr. West. Justicifation of Admission Dx: Justifications for Admission: Justification of Admission Dx: N/A ONELIA KING Jul 25, 2020 09:23
[2020-07-25 09:36] LABS: BASO % 0 % (0-3); EOS % 0 % (0-3); HEMATOCRIT 31.9 % (36.0-47.0); LYMPH # 2.1 x10^3/uL (1.0-4.8); LYMPH % 12 % (24-48); MEAN CORPUSCULAR HEMOGLOBIN 26 pg (25-35); MEAN CORPUSCULAR HGB CONC 31 g/dL (31-37); MEAN CORPUSCULAR VOLUME 82 fL (79-100); MONO # 1.7 x10^3/uL (0.0-1.1); MONO % 10 % (0-9); NEUT % 78 % (31-73); PLATELET COUNT 634 x10^3/uL (140-400); RED CELL DISTRIBUTION WIDTH 17.4 % (11.5-14.5); WHITE BLOOD COUNT 17.9 x10^3/uL (4.0-11.0)
--- NOTE | 2020-07-25 09:55 | PDOC2 ---
SONIDO DOWNEY UTILITY SALES AND SERVICE MANAGER 07/25/20 0954: CONSULT Date of Consult Date of Consult DATE: 07/25/20 TIME: 09:46 Reason for Consult Reason for Consult: crohns Referring Physician Referring Physician: Dr West Identification/Chief Complaint Chief Complaint abdominal pain Source Source: Chart review, Patient History of Present Illness Reason for Visit: Long standing hx of crohns, 2 surgeries, ileostomy and takedown in past. Has talked with surgeon before--not really interested because has been told ostomy may be permanent -does not want that, wants to continue medical therapy. miscarriage in December-- significant adhesive disease when they operated per patient Gi following--poor compliance--recent scope with significant sigmoid stricture--denied stelara, attempting to appeal reports recurrent pancreatitis without source, has been found at [facility] ---CT findings here with active IBD and indeterminate small low-density focus near the pancreatic head that is new from prior study. This could represent small pseudocysts Past Medical History Cardiovascular: No pertinent hx Pulmonary: No pertinent hx CENTRAL NERVOUS SYSTEM: Other GI: Inflam bowel disease Heme/Onc: Anemia NOS, Other Hepatobiliary: No pertinent hx Psych: No pertinent hx Musculoskeletal: Other Rheumatologic: No pertinent hx Infectious disease: No pertinent hx, Other Renal/: No pertinent hx Endocrine: No pertinent hx Past Surgical History Past Surgical History: Colon Resection Family History Family History: Alzheimer's Disease, Adopted Social History ALCOHOL: none Drugs: Marijuana (says she has "used the oil"), Crystal meth (tox screen positive - she denies using but says she's around people who do) Lives: with Family Current Problem List Problem List Problems Medical Problems: (1) Abdominal pain Status: Acute (2) Dehydration Status: Acute (3) Diarrhea Status: Acute (4) Exacerbation of Crohn's disease Status: Acute (5) Ketonuria Status: Acute Current Medications Current Medications Current Medications Sodium Chloride 1,000 ml @ 1,000 mls/hr 1X ONCE IV Last administered on 07/19/20at 20:55; Start 07/19/20 at 19:45; Stop 07/19/20 at 20:44; Status DC Sodium Chloride 1,000 ml @ 1,000 mls/hr 1X ONCE IV ; Start 07/19/20 at 20:45; Stop 07/19/20 at 21:44; Status DC Famotidine (Pepcid Vial) 20 mg 1X ONCE IVP Last administered on 07/19/20at 20:57; Start 07/19/20 at 20:45; Stop 07/19/20 at 20:46; Status DC Metoclopramide HCl (Reglan Vial) 10 mg 1X ONCE IVP Last administered on at 20:57; Start 07/19/20 at 20:45; Stop 07/19/20 at 20:46; Status DC Iohexol (Omnipaque 300 Mg/ml) 75 ml 1X ONCE IV Last administered on 07/19/20at 21:11; Start 07/19/20 at 21:15; Stop 07/19/20 at 21:16; Status DC Hydromorphone HCl (Dilaudid) 1 mg 1X ONCE IVP Last administered on 07/19/20at 21:43; Start 07/19/20 at 21:15; Stop 07/19/20 at 21:16; Status DC Info (CONTRAST GIVEN -- Rx MONITORING) 1 each PRN DAILY PRN MC SEE COMMENTS; Start 07/19/20 at 21:15; Stop 07/21/20 at 21:14; Status DC Hydromorphone HCl (Dilaudid) 1 mg 1X ONCE IVP Last administered on 07/19/20at 23:23; Start 07/19/20 at 23:00; Stop 07/19/20 at 23:01; Status DC Ondansetron HCl (Zofran) 4 mg PRN Q8HRS PRN IV NAUSEA/VOMITING; Start 07/19/20 at 23:45; Stop 07/20/20 at 08:00; Status DC Sodium Chloride 1,000 ml @ 100 mls/hr Q10H IV Last administered on 07/20/20at 21:11; Start 07/19/20 at 23:45; Stop 07/20/20 at 23:44; Status DC Hydromorphone HCl (Dilaudid) 1 mg ONCE ONCE IVP ; Start 07/19/20 at 23:45; Stop 07/19/20 at 23:47; Status DC Hydromorphone HCl (Dilaudid) 2 mg PRN Q4HRS PRN IVP MODERATE PAIN Last administered on 07/23/20at 02:27; Start 07/20/20 at 00:30 Hydromorphone HCl (Dilaudid) 4 mg PRN Q4HRS PRN IVP SEVERE PAIN 7-10 Last administered on 07/25/20at 09:20; Start 07/20/20 at 00:30 Methylprednisolone Sodium Succinate (SOLU-Medrol 40MG VIAL) 15 mg Q6HRS IV ; Start 07/20/20 at 00:30; Stop 07/20/20 at 00:32; Status DC Ondansetron HCl (Zofran) 4 mg PRN Q6HRS PRN IVP NAUSEA/VOMITING; Start 07/20/20 at 00:30; Stop 07/20/20 at 09:44; Status DC Prochlorperazine Edisylate (Compazine) 10 mg PRN Q6HRS PRN IVP NAUSEA/VOMITING, 2ND CHOICE Last administered on 07/20/20at 00:53; Start 07/20/20 at 00:30 Al Hydroxide/Mg Hydroxide (Mylanta Plus Xs) 30 ml PRN Q3HRS PRN PO HEARTBURN / GAS; Start 07/20/20 at 00:30 Calcium Carbonate/ Glycine (Tums) 500 mg PRN Q3HRS PRN PO UPSET STOMACH; Start 07/20/20 at 00:30 Acetaminophen (Tylenol) 650 mg PRN Q6HRS PRN PO Headaches, Temp > 101.5F Last administered on 07/24/20at 00:23; Start 07/20/20 at 00:30 Magnesium Hydroxide (Milk Of Magnesia) 2,400 mg PRN Q12HR PRN PO CONSTIPATION; Start 07/20/20 at 00:30 Bisacodyl (Dulcolax Supp) 10 mg PRN DAILY PRN ID CONSTIPATION; Start 07/20/20 at 00:30 Methylprednisolone Sodium Succinate (SOLU-Medrol 40MG VIAL) 15 mg Q6HRS IV Last administered on 07/22/20at 12:06; Start 07/20/20 at 06:00; Stop 07/22/20 at 12:37; Status DC Methylprednisolone Sodium Succinate (SOLU-Medrol 40MG VIAL) 40 mg 1X ONCE IV Last administered on 07/20/20at 00:54; Start 07/20/20 at 00:45; Stop 07/20/20 at 00:48; Status DC Lorazepam (Ativan Inj) 1 mg PRN Q4HRS PRN IVP ANXIETY / AGITATION; Start 07/20/20 at 00:45; Stop 07/20/20 at 08:00; Status DC Ondansetron HCl (Zofran) 4 mg PRN Q4HRS PRN IV NAUSEA/VOMITING, 1ST CHOICE Last administered on 07/21/20at 21:21; Start 07/20/20 at 08:00 Psyllium Hydrophilic Mucilloid (Metamucil Fiber Packet) 1 pkt QHS PO Last administered on 07/20/20at 21:10; Start 07/20/20 at 21:00 Olanzapine (ZyPREXA ZYDIS) 5 mg PRN BID PRN PO ANXIETY / AGITATION; Start 07/01 07/20 at 08:00 Quetiapine Fumarate (SEROquel) 25 mg PRN QHS PRN PO Sleep/Agitation; Start 07/20/20 at 08:00 Loperamide HCl (Imodium) 2 mg PRN Q15MIN PRN PO DIARRHEA; Start 07/20/20 at 08:00 Famotidine (Pepcid Vial) 20 mg BID IVP Last administered on 07/23/20at 08:01; Start 07/20/20 at 09:00; Stop 07/23/20 at 13:10; Status DC Enoxaparin Sodium (Lovenox 40mg Syringe) 40 mg Q24H SQ ; Start 07/20/20 at 09:00 Amino Acids/ Glycerin/ Electrolytes 1,000 ml @ 80 mls/hr [id number] IV Last administered on 07/21/20at 13:18; Start 07/21/20 at 12:15; Stop 07/22/20 at 11:36; Status DC Oxycodone/ Acetaminophen (Percocet 5/325) 1 tab PRN Q6HRS PRN PO MODERATE TO SEVERE PAIN Last administered on 07/22/20at 12:05; Start 07/22/20 at 11:30; Stop 07/22/20 at 16:08; Status DC Dicyclomine HCl (Bentyl) 20 mg Q6HRS PO Last administered on 07/25/20at 07:19; Start 07/22/20 at 12:00 Ondansetron HCl (Zofran Odt) 4 mg PRN Q6HRS PRN PO NAUSEA/VOMITING; Start 07/22/20 at 12:00 Trazodone HCl (Desyrel) 50 mg QHS PO Last administered on 07/24/20at 20:43; Start 07/22/20 at 21:00 Methylprednisolone Sodium Succinate (SOLU-Medrol 40MG VIAL) 40 mg BID IV Last administered on 07/25/20at 09:19; Start 07/22/20 at 21:00 Oxycodone/ Acetaminophen (Percocet 10/325) 1 tab PRN Q6HRS PRN PO MODERATE TO SEVERE PAIN Last administered on 07/25/20at 07:20; Start 07/22/20 at 16:15 Famotidine (Pepcid) 20 mg BID PO Last administered on 07/25/20at 09:19; Start 07/23/20 at 21:00 Active Scripts Active Prednisone 20 Mg Tablet 1 Tab PO DAILY 12 Days Zofran (Ondansetron Hcl) 4 Mg Tablet 1 Tab PO Q6HRS PRN Tramadol Hcl 50 Mg Tablet 50 Mg PO Q6HRS PRN Medrol (Methylprednisolone) 4 Mg Tab.ds.pk 1 Pkg PO UD Pepcid (Famotidine) 20 Mg Tablet 20 Mg PO BID 7 Days Zofran (Ondansetron Hcl) 4 Mg Tablet 1 Tab PO PRN Q6-8HRS Pantoprazole Sodium (Pantoprazole Sodium) 40 Mg Tablet.dr 40 Mg PO DAILYAC 30 Days Percocet 10-325 Mg Tablet (Oxycodone/Acetaminophen) 1 Each Tablet 2 Tab PO PRN Q6HRS PRN 10 Days Dicyclomine Hcl 10 Mg Capsule 20 Mg PO Q6HRS 30 Days Reported Prednisone 20 Mg Tablet 1 Tab PO DAILY Allergies Allergies: Coded Allergies: NSAIDS (Non-Steroidal Anti-Inflamma (Verified Allergy, Intermediate, 06/20/20) morphine (Verified Allergy, Intermediate, Itching, 07/19/20) Tolerates Dilaudid ROS General: No: Chills, Other (fevers ) PSYCHOLOGICAL ROS: YES: Anxiety; No: Depression Eyes: No Blurry vision, No Double vision HEENT: No: Heacaches, Sore Throat Hematological and Lymphatic: No: Bleeding Problems, Blood Clots Respiratory: No: Cough, Shortness of breath Cardiovascular: No Chest Pain, No Palpitations Gastrointestinal: Yes Abdominal Pain, Yes Diarrhea Genitourinary: No Dysuria, No Hematuria Musculoskeletal: No Joint Pain, No Muscle Pain Neurological: No Confusion, No Impaired Coord/balance Skin: No Pruritus, No Rash Physical Exam General: Alert, Oriented X3, Cooperative HEENT: Atraumatic, PERRLA Lungs: Clear to auscultation, Normal air movement Heart: Regular rate, Normal S1, Normal S2 Abdomen: Soft, Other (mid line scar, ostomy scar) Extremities: No clubbing, No cyanosis Skin: No rashes, No breakdown Neuro: Normal gait, Normal speech Psych/Mental Status: Mental status NL, Mood NL MUSCULOSKELETAL: No deformity, No swelling Vitals VITALS Vital Signs Date Time Temp Pulse Resp B/P (MAP) Pulse Ox O2 Delivery O2 Flow Rate FiO2 07/25/20 09:20 Room Air 07/25/20 07:15 97.6 72 16 127/88 (101) 98 97.6 Labs Labs Laboratory Tests Test 07/25/20 08:30 White Blood Count 17.9 x10^3/uL (4.0-11.0) Red Blood Count 3.90 x10^6/uL (3.50-5.40) Hemoglobin 10.0 g/dL (12.0-15.5) Hematocrit 31.9 % (36.0-47.0) Mean Corpuscular Volume 82 fL (79-100) Mean Corpuscular Hemoglobin 26 pg (25-35) Mean Corpuscular Hemoglobin Concent 31 g/dL (31-37) Red Cell Distribution Width 17.4 % (11.5-14.5) Platelet Count 634 x10^3/uL (140-400) Neutrophils (%) (Auto) 78 % (31-73) Lymphocytes (%) (Auto) 12 % (24-48) Monocytes (%) (Auto) 10 % (0-9) Eosinophils (%) (Auto) 0 % (0-3) Basophils (%) (Auto) 0 % (0-3) Neutrophils # (Auto) 14.0 x10^3/uL (1.8-7.7) Lymphocytes # (Auto) 2.1 x10^3/uL (1.0-4.8) Monocytes # (Auto) 1.7 x10^3/uL (0.0-1.1) Eosinophils # (Auto) 0.0 x10^3/uL (0.0-0.7) Basophils # (Auto) 0.0 x10^3/uL (0.0-0.2) Laboratory Tests Test 07/25/20 08:30 White Blood Count 17.9 x10^3/uL (4.0-11.0) Red Blood Count 3.90 x10^6/uL (3.50-5.40) Hemoglobin 10.0 g/dL (12.0-15.5) Hematocrit 31.9 % (36.0-47.0) Mean Corpuscular Volume 82 fL (79-100) Mean Corpuscular Hemoglobin 26 pg (25-35) Mean Corpuscular Hemoglobin Concent 31 g/dL (31-37) Red Cell Distribution Width 17.4 % (11.5-14.5) Platelet Count 634 x10^3/uL (140-400) Neutrophils (%) (Auto) 78 % (31-73) Lymphocytes (%) (Auto) 12 % (24-48) Monocytes (%) (Auto) 10 % (0-9) Eosinophils (%) (Auto) 0 % (0-3) Basophils (%) (Auto) 0 % (0-3) Neutrophils # (Auto) 14.0 x10^3/uL (1.8-7.7) Lymphocytes # (Auto) 2.1 x10^3/uL (1.0-4.8) Monocytes # (Auto) 1.7 x10^3/uL (0.0-1.1) Eosinophils # (Auto) 0.0 x10^3/uL (0.0-0.7) Basophils # (Auto) 0.0 x10^3/uL (0.0-0.2) Assessment/Plan Assessment/Plan [facility] pancreatic changes on CT c diff pending, does have hx + meth on drug screen previous surgeries, likely hostile abdomen will review with Dr Hector continue medical therapy JERSON HECTOR MD 07/25/20 5330: CONSULT Assessment/Plan Assessment/Plan Pt seen and examined. Agree with Ms. Downey's note Pt feels better with medical management and will consider ADAT and d/c recommend f/u to consider cholecystectomy regarding recurrent pancreatitis with f/u imaging. Agree with cont care per GI. Thanks for consult! SONIDO DOWNEY APRN Jul 25, 2020 09:54 JERSON HECTOR MD Jul 25, 2020 14:50
[2020-07-25 10:03] LABS: CALCIUM 9.6 mg/dL (8.5-10.1); CREATININE 0.7 mg/dL (0.6-1.0); GFR 116.6
--- NOTE | 2020-07-25 10:03 | NUR ---
SW following. Discussed with RN, pt from home with mother, room air, clear liquid diet. GI and surgery following. Dr. Mittal plans to discharge pt today if GI and surgical team do not plan to do anything. RN advised no SW needs at this time. SW will continue to follow.
[2020-07-25 10:32] LABS: % BANDS 3 % (0-9); % LYMPHS 14 % (24-48); % MONOS 4 % (0-10); % SEGS 79 % (35-66); PLT ESTIMATE INCREASED (ADEQUATE)
[2020-07-25 10:33] LABS: ANISOCYTOSIS SLIGHT
[2020-07-25 10:45] LABS: POTASSIUM 3.9 mmol/L (3.5-5.1)
[2020-07-25 10:54] VITALS: BP 129/81
--- NOTE | 2020-07-25 11:17 | PDOC ---
[employer] PROGRESS NOTE Date of Service DOS: DATE: 07/25/20 TIME: 11:13 Chief Complaint Chief Complaint Crohns with flare Diarrhea Anemia RLE cramping Leukocytosis Hypokalemia Hypercalcemia Thrombocytosis Narcotic dependence Amphetamine positive History of Present Illness History of Present Illness Ms Jose is a 35yo F [id number] (12 years ago term spontaneous vaginal delivery, miscarriage December 2019) w/ PMHx Crohns (s/p colostomy and takedown 2010), pancreatitis x3, prior c. difficile colitis who presented to the ER with abd pain and blood diarrhea. Treating for crohns flare up. CT abdomen reveals prior multifocal colon resection and loops of small bowel and colon that show wall thickening and mucosal enhancement, progressed from prior exam consistent with acute colitis/enteritis. Also with increasing mesenteric lymphadenopathy. An indeterminate small low-density focus near the pancreatic head is new. Labs WBC 12.2 with left shift, Hb 12.5, platelets 740, NA 139, K3.2, BUN 12, CR 0.7, glucose 76, calcium 10.4, elevated Alkaline phosphatase 78, CRP 69.2 UDS positive for opioids cannabinoids and amphetamines. 07/21: Afebrile. Several stools overnight. Did not sleep much. Very drowsy today. Pain 9/10. 07/22: Advanced to clear liquid diet. Asking for her p.o. pain meds. No chest pain or shortness of breath. Seen sitting on toilet. No CP or SOB, still with loose bowels. Tolerating liquid diet well, wants to try soft foods later. 07/24/2020: -Patient seen and examined. -Patient reports history of C diff. Per GI, will check c diff culture today -Bora REDDY. Bora insurance case manager. -Chart reviewed. 07/24/2020: -Patient seen and examined. - Pt at baselines with pain under control, but worried regarding findings of CT showing "spot" on pancreas. -Awaiting results of c diff culture today -Bora Sahni insurance case manager. -Chart reviewed. Vitals/I&O Vitals/I&O: Vital Signs Date Time Temp Pulse Resp B/P (MAP) Pulse Ox O2 Delivery O2 Flow Rate FiO2 07/25/20 10:54 98.3 72 18 129/81 (97) 97 Room Air 98.3 I & O 1/07/24/20 07/25/20 15:00 23:00 07:00 Intake Total 480 ml Output Total 150 ml Balance -150 ml 480 ml Physical Exam General: Alert, Oriented X3, Cooperative Heart: Regular rate, Normal S1, Normal S2 Lungs: Clear Abdomen: Soft, Other Extremities: No clubbing, No cyanosis Skin: No rashes, No breakdown Labs Labs: Laboratory Tests Test 07/25/20 08:30 White Blood Count 17.9 x10^3/uL (4.0-11.0) Red Blood Count 3.90 x10^6/uL (3.50-5.40) Hemoglobin 10.0 g/dL (12.0-15.5) Hematocrit 31.9 % (36.0-47.0) Mean Corpuscular Volume 82 fL (79-100) Mean Corpuscular Hemoglobin 26 pg (25-35) Mean Corpuscular Hemoglobin Concent 31 g/dL (31-37) Red Cell Distribution Width 17.4 % (11.5-14.5) Platelet Count 634 x10^3/uL (140-400) Neutrophils (%) (Auto) 78 % (31-73) Lymphocytes (%) (Auto) 12 % (24-48) Monocytes (%) (Auto) 10 % (0-9) Eosinophils (%) (Auto) 0 % (0-3) Basophils (%) (Auto) 0 % (0-3) Neutrophils # (Auto) 14.0 x10^3/uL (1.8-7.7) Lymphocytes # (Auto) 2.1 x10^3/uL (1.0-4.8) Monocytes # (Auto) 1.7 x10^3/uL (0.0-1.1) Eosinophils # (Auto) 0.0 x10^3/uL (0.0-0.7) Basophils # (Auto) 0.0 x10^3/uL (0.0-0.2) Segmented Neutrophils % 79 % (35-66) Band Neutrophils % 3 % (0-9) Lymphocytes % 14 % (24-48) Monocytes % 4 % (0-10) Platelet Estimate Increased (ADEQUATE) Anisocytosis Slight Sodium Level 141 mmol/L (136-145) Potassium Level 3.9 mmol/L (3.5-5.1) Chloride Level 102 mmol/L (98-107) Carbon Dioxide Level 30 mmol/L (21-32) Anion Gap 9 (6-14) Blood Urea Nitrogen 13 mg/dL (7-20) Creatinine 0.7 mg/dL (0.6-1.0) Estimated GFR (Cockcroft-Gault) 116.6 Glucose Level 89 mg/dL (70-99) Calcium Level 9.6 mg/dL (8.5-10.1) C-Reactive Protein, Quantitative 6.1 mg/L (0-3.3) Review of Systems Review of Systems: pt denies change in vision and headaches Assessment and Plan Assessmemt and Plan Problems Medical Problems: (1) Abdominal pain Status: Acute (2) Dehydration Status: Acute (3) Diarrhea Status: Acute (4) Exacerbation of Crohn's disease Status: Acute (5) Ketonuria Status: Acute 07/25/2020 Assessment -Crohns with flare -Diarrhea -Anemia -RLE cramping -Leukocytosis -Hypokalemia -Hypercalcemia -Thrombocytosis -Narcotic dependence -Amphetamine positive Plan -appreciated input of subspecialists -continue pain control with Dilaudid -potential d/c tomorrow am -await input from GI specialists regarding potential findings on pancreas Comment Review of Relevant I have reviewed the following items dania (where applicable) has been applied. Justifications for Admission Other Justification Crohn's Flare MO SINGLETARY III DO Jul 25, 2020 11:17
--- NOTE | 2020-07-25 13:24 | DS ---
DATE OF DISCHARGE: 07/25/2020 ADMISSION DIAGNOSIS: Crohn's flare. DISCHARGE DIAGNOSES: Resolving Crohn's flare, she also has a small cyst on her pancreas, but it does not show any inflammation, resolving diarrhea, anemia, leukocytosis, hypokalemia, hypercalcemia, thrombocytosis, narcotic dependence, amphetamine abuse. CONSULTS: GI and General Surgery. PROCEDURES: None. HOSPITAL COURSE: The patient is a pleasant middle-aged female, well known to my service. We admit her quite often with Crohn's flares. Basically, she was admitted this time. We gave her p.r.n. pain meds. She has been receiving a lot of Dilaudid. She seems to be dependent on that. We did consult GI. We gave her IV steroids, p.r.n. Zofran. She has developed a little bit of diarrhea. We gave her some loperamide. We are also checking for C. diff, but overall this morning, she is at her baseline. I saw her and examined her. Heart tones are normal. Lungs are clear. Abdomen is soft. We plan to discharge her if her C. diff is negative. I left a prescription for 15 tablets of Dilaudid as she seems to be dependent on those, 2 mg tablets one q.6 hours p.r.n. DISPOSITION: Home. ACTIVITY: As tolerated. DIET: Low sodium. MEDICATIONS: Please see the MRAD. TOTAL TIME: 32 minutes. LEANAL Arben SINGLETARY DO DR: KENNEDY/christina JOB#: [id number] / [id number]
[2020-07-25 14:51] VITALS: BP 136/91
[2020-07-25 19:00] VITALS: BP 122/92
[2020-07-25] MEDS: traZODone 50 MG TABLET. PO SCH (20:25)
[2020-07-25] MEDS: PSYLLIUM HUSK (SUGAR FREE) 1 PKT PACKET PO SCH (20:30)
[2020-07-25 23:07] VITALS: BP 116/79
[2020-07-26] MEDS: HYDROmorphone 2 MG/ML VIAL IVP PRN ×5 (01:52→17:15)
[2020-07-26] MEDS: DICYCLOMINE HCL 10 MG CAPSULE PO SCH ×4 (02:43→18:00)
[2020-07-26] MEDS: oxyCODONE/APAP 10/325 1 TAB TABLET PO PRN ×3 (02:43→15:24)
[2020-07-26 03:08] VITALS: BP 112/72
[2020-07-26 07:15] LABS: BASO % 0 % (0-3); EOS % 0 % (0-3); HEMATOCRIT 29.1 % (36.0-47.0); HEMOGLOBIN 9.3 g/dL (12.0-15.5); LYMPH # 1.8 x10^3/uL (1.0-4.8); LYMPH % 9 % (24-48); MEAN CORPUSCULAR HEMOGLOBIN 26 pg (25-35); MEAN CORPUSCULAR HGB CONC 32 g/dL (31-37); MEAN CORPUSCULAR VOLUME 82 fL (79-100); MONO # 2.2 x10^3/uL (0.0-1.1); MONO % 11 % (0-9); NEUT # 15.5 x10^3/uL (1.8-7.7); NEUT % 80 % (31-73); PLATELET COUNT 517 x10^3/uL (140-400); RED BLOOD COUNT 3.58 x10^6/uL (3.50-5.40); RED CELL DISTRIBUTION WIDTH 16.9 % (11.5-14.5); WHITE BLOOD COUNT 19.5 x10^3/uL (4.0-11.0)
[2020-07-26 07:23] LABS: CALCIUM 9.1 mg/dL (8.5-10.1); CREATININE 0.5 mg/dL (0.6-1.0); GFR 171.9
[2020-07-26 07:24] VITALS: BP 130/85
[2020-07-26] MEDS ORDERED: PANTOPRAZOLE 40 MG TABLET.DR. PO SCH (07:30)
[2020-07-26] MEDS: ENOXAPARIN 40 MG/0.4 ML SYRINGE. SQ SCH (09:00)
--- NOTE | 2020-07-26 09:04 | PDOC ---
[employer] [facility] PROGRESS NOTE Date of Service DOS: DATE: 07/26/20 TIME: 09:01 Chief Complaint Chief Complaint Crohns with flare Diarrhea Anemia RLE cramping Leukocytosis Hypokalemia Hypercalcemia Thrombocytosis Narcotic dependence Amphetamine positive History of Present Illness History of Present Illness Ms Jose is a 35yo F [id number] (12 years ago term spontaneous vaginal delivery, miscarriage December 2019) w/ PMHx Crohns (s/p colostomy and takedown 2010), pancreatitis x3, prior c. difficile colitis who presented to the ER with abd pain and blood diarrhea. Treating for crohns flare up. CT abdomen reveals prior multifocal colon resection and loops of small bowel and colon that show wall thickening and mucosal enhancement, progressed from prior exam consistent with acute colitis/enteritis. Also with increasing mesenteric lymphadenopathy. An indeterminate small low-density focus near the pancreatic head is new. Labs WBC 12.2 with left shift, Hb 12.5, platelets 740, NA 139, K3.2, BUN 12, CR 0.7, glucose 76, calcium 10.4, elevated Alkaline phosphatase 78, CRP 69.2 UDS positive for opioids cannabinoids and amphetamines. 07/21: Afebrile. Several stools overnight. Did not sleep much. Very drowsy today. Pain 9/10. 07/22: Advanced to clear liquid diet. Asking for her p.o. pain meds. No chest pain or shortness of breath. Seen sitting on toilet. No CP or SOB, still with loose bowels. Tolerating liquid diet well, wants to try soft foods later. 07/24/2020: -Patient seen and examined. -Patient reports history of C diff. Per GI, will check c diff culture today -Bora REDDY. Bora case investigator. -Chart reviewed. 07/25/2020: -Patient seen and examined. - Pt at baselines with pain under control, but worried regarding findings of CT showing "spot" on pancreas. -Awaiting results of c diff culture today -Bora Sahni case investigator. -Chart reviewed. 07/26/2020: -Patient seen and examined. - Pt at baselines - c diff culture results negative -Bora REDDY. -Chart reviewed. Vitals/I&O Vitals/I&O: Vital Signs Date Time Temp Pulse Resp B/P (MAP) Pulse Ox O2 Delivery O2 Flow Rate FiO2 07/26/20 07:24 98.4 72 18 130/85 (100) 100 Room Air 98.4 I & O 07/25/20 07/25/20 07/26/20 15:00 23:00 07:00 Intake Total 460 ml 740 ml 150 ml Balance 460 ml 740 ml 150 ml Physical Exam General: Alert, Oriented X3, Cooperative Heart: Regular rate, Normal S1, Normal S2 Lungs: Clear Abdomen: Soft, Other Extremities: No clubbing, No cyanosis Skin: No rashes, No breakdown Labs Labs: Laboratory Tests Test 07/26/20 05:00 07/26/20 06:35 White Blood Count 19.5 x10^3/uL (4.0-11.0) Red Blood Count 3.58 x10^6/uL (3.50-5.40) Hemoglobin 9.3 g/dL (12.0-15.5) Hematocrit 29.1 % (36.0-47.0) Mean Corpuscular Volume 82 fL (79-100) Mean Corpuscular Hemoglobin 26 pg (25-35) Mean Corpuscular Hemoglobin Concent 32 g/dL (31-37) Red Cell Distribution Width 16.9 % (11.5-14.5) Platelet Count 517 x10^3/uL (140-400) Neutrophils (%) (Auto) 80 % (31-73) Lymphocytes (%) (Auto) 9 % (24-48) Monocytes (%) (Auto) 11 % (0-9) Eosinophils (%) (Auto) 0 % (0-3) Basophils (%) (Auto) 0 % (0-3) Neutrophils # (Auto) 15.5 x10^3/uL (1.8-7.7) Lymphocytes # (Auto) 1.8 x10^3/uL (1.0-4.8) Monocytes # (Auto) 2.2 x10^3/uL (0.0-1.1) Eosinophils # (Auto) 0.0 x10^3/uL (0.0-0.7) Basophils # (Auto) 0.0 x10^3/uL (0.0-0.2) Sodium Level 140 mmol/L (136-145) Potassium Level 4.0 mmol/L (3.5-5.1) Chloride Level 102 mmol/L (98-107) Carbon Dioxide Level 31 mmol/L (21-32) Anion Gap 7 (6-14) Blood Urea Nitrogen 19 mg/dL (7-20) Creatinine 0.5 mg/dL (0.6-1.0) Estimated GFR (Cockcroft-Gault) 171.9 Glucose Level 131 mg/dL (70-99) Calcium Level 9.1 mg/dL (8.5-10.1) Review of Systems Review of Systems: pt denies headache or change in vision Assessment and Plan Assessmemt and Plan Problems Medical Problems: (1) Abdominal pain Status: Acute (2) Dehydration Status: Acute (3) Diarrhea Status: Acute (4) Exacerbation of Crohn's disease Status: Acute (5) Ketonuria Status: Acute Assessment -Crohns with flare -Diarrhea -Anemia -RLE cramping -Leukocytosis -Hypokalemia -Hypercalcemia -Thrombocytosis -Narcotic dependence -Amphetamine positive Plan - pain control - d/c in afternoon probable - discuss resources available with pt - appreciate subspecialists input - instruct pt to f/u with GI specialist Comment Review of Relevant I have reviewed the following items dania (where applicable) has been applied. Medications: Current Medications Medications (Trade) Dose Ordered Sig/Nguyen Route PRN Reason Start Time Stop Time Status Last Admin Dose Admin Pantoprazole Sodium (Protonix) 40 mg DAILYAC PO 07/26/20 07:30 07/26/20 05:42 Justifications for Admission Other Justification Crohn's Flare MO SINGLETARY III DO Jul 26, 2020 09:04
--- NOTE | 2020-07-26 09:27 | PDOC ---
Date of Service: DATE: 07/26/20 TIME: 09:23 Subjective: Subjective: Rough night, didn't sleep well, ongoing abd pain and diarrhea, doesn't want to discharge, doesn't want breakfast today. Objective: Objective: D/w staff - ordered Go Chicken Go last night. Ideally would discharge today. Reviewed surgery note: Pt feels better with medical management and will consider ADAT and d/c recommend f/u to consider cholecystectomy regarding recurrent pancreatitis with f/u imaging. Agree with cont care per GI. Vital Signs: Vital Signs Date Time Temp Pulse Resp B/P (MAP) Pulse Ox O2 Delivery O2 Flow Rate FiO2 07/26/20 07:24 98.4 72 18 130/85 (100) 100 Room Air 98.4 Labs: Laboratory Tests Test 07/26/20 05:00 07/26/20 06:35 White Blood Count 19.5 x10^3/uL Red Blood Count 3.58 x10^6/uL Hemoglobin 9.3 g/dL Hematocrit 29.1 % Mean Corpuscular Volume 82 fL Mean Corpuscular Hemoglobin 26 pg Mean Corpuscular Hemoglobin Concent 32 g/dL Red Cell Distribution Width 16.9 % Platelet Count 517 x10^3/uL Neutrophils (%) (Auto) 80 % Lymphocytes (%) (Auto) 9 % Monocytes (%) (Auto) 11 % Eosinophils (%) (Auto) 0 % Basophils (%) (Auto) 0 % Neutrophils # (Auto) 15.5 x10^3/uL Lymphocytes # (Auto) 1.8 x10^3/uL Monocytes # (Auto) 2.2 x10^3/uL Eosinophils # (Auto) 0.0 x10^3/uL Basophils # (Auto) 0.0 x10^3/uL Sodium Level 140 mmol/L Potassium Level 4.0 mmol/L Chloride Level 102 mmol/L Carbon Dioxide Level 31 mmol/L Anion Gap 7 Blood Urea Nitrogen 19 mg/dL Creatinine 0.5 mg/dL Estimated GFR (Cockcroft-Gault) 171.9 Glucose Level 131 mg/dL Calcium Level 9.1 mg/dL PE: GEN: NAD LUNGS: CTAB HEART: RRR ABD: quiet BS, some distention, soft, non-specific discomfort NEURO/PSYCH: A & O 3 A/P: Crohn's flare - h/o SBRs, sigmoid stricture and colitis on recent colonoscopy - CRP improved Narcotic dependency -- Ordering outside food, ongoing c/o pain and diarrhea, possibility of DC - will return w/ Dr. West. Will need Rx for PO steroids on DC, would also continue PPI. Follow-up w/ surgery. Justicifation of Admission Dx: Justifications for Admission: Justification of Admission Dx: N/A ONELIA KING Jul 26, 2020 09:27
[2020-07-26] MEDS: methylPREDNISolone SOD SUCC PF 40 MG/ML VIAL. IV SCH (09:46)
[2020-07-26 11:02] VITALS: BP 140/81
[2020-07-26 15:04] VITALS: BP 129/80
--- NOTE | 2020-07-26 15:15 | PDOC ---
SURGICAL PROGRESS NOTE DATE: 07/26/20 TIME: 15:14 Subjective Pt with c/o not feeling well and c/o pain with eating Vital Signs Vital Signs Date Time Temp Pulse Resp B/P (MAP) Pulse Ox O2 Delivery O2 Flow Rate FiO2 07/26/20 15:04 98.1 74 18 129/80 (96) 98 Room Air 98.1 I&O Intake and Output 07/26/20 07:00 Intake Total 1350 ml Balance 1350 ml Intake Oral 1350 ml # Voids 4 General: Alert, Oriented X3, Cooperative, No acute distress Abdomen: Soft, No tenderness Labs Laboratory Tests Test 07/25/20 08:30 07/26/20 05:00 07/26/20 06:35 White Blood Count 17.9 x10^3/uL (4.0-11.0) 19.5 x10^3/uL (4.0-11.0) Red Blood Count 3.90 x10^6/uL (3.50-5.40) 3.58 x10^6/uL (3.50-5.40) Hemoglobin 10.0 g/dL (12.0-15.5) 9.3 g/dL (12.0-15.5) Hematocrit 31.9 % (36.0-47.0) 29.1 % (36.0-47.0) Mean Corpuscular Volume 82 fL (79-100) 82 fL (79-100) Mean Corpuscular Hemoglobin 26 pg (25-35) 26 pg (25-35) Mean Corpuscular Hemoglobin Concent 31 g/dL (31-37) 32 g/dL (31-37) Red Cell Distribution Width 17.4 % (11.5-14.5) 16.9 % (11.5-14.5) Platelet Count 634 x10^3/uL (140-400) 517 x10^3/uL (140-400) Neutrophils (%) (Auto) 78 % (31-73) 80 % (31-73) Lymphocytes (%) (Auto) 12 % (24-48) 9 % (24-48) Monocytes (%) (Auto) 10 % (0-9) 11 % (0-9) Eosinophils (%) (Auto) 0 % (0-3) 0 % (0-3) Basophils (%) (Auto) 0 % (0-3) 0 % (0-3) Neutrophils # (Auto) 14.0 x10^3/uL (1.8-7.7) 15.5 x10^3/uL (1.8-7.7) Lymphocytes # (Auto) 2.1 x10^3/uL (1.0-4.8) 1.8 x10^3/uL (1.0-4.8) Monocytes # (Auto) 1.7 x10^3/uL (0.0-1.1) 2.2 x10^3/uL (0.0-1.1) Eosinophils # (Auto) 0.0 x10^3/uL (0.0-0.7) 0.0 x10^3/uL (0.0-0.7) Basophils # (Auto) 0.0 x10^3/uL (0.0-0.2) 0.0 x10^3/uL (0.0-0.2) Segmented Neutrophils % 79 % (35-66) Band Neutrophils % 3 % (0-9) Lymphocytes % 14 % (24-48) Monocytes % 4 % (0-10) Platelet Estimate Increased (ADEQUATE) Anisocytosis Slight Sodium Level 141 mmol/L (136-145) 140 mmol/L (136-145) Potassium Level 3.9 mmol/L (3.5-5.1) 4.0 mmol/L (3.5-5.1) Chloride Level 102 mmol/L (98-107) 102 mmol/L (98-107) Carbon Dioxide Level 30 mmol/L (21-32) 31 mmol/L (21-32) Anion Gap 9 (6-14) 7 (6-14) Blood Urea Nitrogen 13 mg/dL (7-20) 19 mg/dL (7-20) Creatinine 0.7 mg/dL (0.6-1.0) 0.5 mg/dL (0.6-1.0) Estimated GFR (Cockcroft-Gault) 116.6 171.9 Glucose Level 89 mg/dL (70-99) 131 mg/dL (70-99) Calcium Level 9.6 mg/dL (8.5-10.1) 9.1 mg/dL (8.5-10.1) C-Reactive Protein, Quantitative 6.1 mg/L (0-3.3) 5.3 mg/L (0-3.3) Laboratory Tests Test 07/26/20 05:00 07/26/20 06:35 White Blood Count 19.5 x10^3/uL (4.0-11.0) Red Blood Count 3.58 x10^6/uL (3.50-5.40) Hemoglobin 9.3 g/dL (12.0-15.5) Hematocrit 29.1 % (36.0-47.0) Mean Corpuscular Volume 82 fL (79-100) Mean Corpuscular Hemoglobin 26 pg (25-35) Mean Corpuscular Hemoglobin Concent 32 g/dL (31-37) Red Cell Distribution Width 16.9 % (11.5-14.5) Platelet Count 517 x10^3/uL (140-400) Neutrophils (%) (Auto) 80 % (31-73) Lymphocytes (%) (Auto) 9 % (24-48) Monocytes (%) (Auto) 11 % (0-9) Eosinophils (%) (Auto) 0 % (0-3) Basophils (%) (Auto) 0 % (0-3) Neutrophils # (Auto) 15.5 x10^3/uL (1.8-7.7) Lymphocytes # (Auto) 1.8 x10^3/uL (1.0-4.8) Monocytes # (Auto) 2.2 x10^3/uL (0.0-1.1) Eosinophils # (Auto) 0.0 x10^3/uL (0.0-0.7) Basophils # (Auto) 0.0 x10^3/uL (0.0-0.2) C-Reactive Protein, Quantitative 5.3 mg/L (0-3.3) Sodium Level 140 mmol/L (136-145) Potassium Level 4.0 mmol/L (3.5-5.1) Chloride Level 102 mmol/L (98-107) Carbon Dioxide Level 31 mmol/L (21-32) Anion Gap 7 (6-14) Blood Urea Nitrogen 19 mg/dL (7-20) Creatinine 0.5 mg/dL (0.6-1.0) Estimated GFR (Cockcroft-Gault) 171.9 Glucose Level 131 mg/dL (70-99) Calcium Level 9.1 mg/dL (8.5-10.1) Problem List Problems Medical Problems: (1) Abdominal pain Status: Acute (2) Dehydration Status: Acute (3) Diarrhea Status: Acute (4) Exacerbation of Crohn's disease Status: Acute (5) Ketonuria Status: Acute Assessment/Plan crohn's-defer to GI pancreatitis-consider elective cholecystectomy pancreatic cyst-f/u US Justicifation of Admission Dx: Justifications for Admission: Justification of Admission Dx: N/A JERSON SR MD Jul 26, 2020 15:15
--- NOTE | 2020-07-26 15:55 | NUR ---
called in script for Bentyl 20 mg to [facility] on [address] pt has three written scripts in her possession and she will be dropping them off to be filled. Alejandro Arriaga RN
--- NOTE | 2020-07-26 19:31 | NUR ---
pt was walked out of the ED exit to her brother that came to pick her up at 1931. Alejandro Arriaga RN
--- NOTE | 2020-07-27 13:51 | DS ---
DATE OF DISCHARGE: 07/26/2020 ADMISSION DIAGNOSIS: Crohn's exacerbation. DISCHARGE DIAGNOSES: Resolving Crohn's exacerbation, history of narcotic dependence, a small cyst noted on her pancreas. CONSULTS: Dr. Hector and Dr. West. PROCEDURES: None. HOSPITAL COURSE: The patient is a pleasant middle-aged female well known to our service. She gets admitted quite often with Crohn's flares. We admitted her. The above consults were obtained. We gave her pain meds and Protonix and steroids, p.r.n. Zofran, Bentyl, Metamucil and continued her home meds. Over the next few days, she returned to her baseline. We discharged to home. DISPOSITION: Home. ACTIVITY: As tolerated. DIET: Low sodium. MEDICATIONS: Please see the MRAD. TOTAL TIME: 32 minutes. MO SINGLETARY DO DR: KENNEDY/christina JOB#: [id number] / [id number]
[2020-08-09] MEDS ORDERED: ONDA4TAB12 PO (00:08)
[2020-08-11] MEDS ORDERED: PRED-220 PO (12:49)
[2020-08-11] MEDS ORDERED: ACET325T9 PO (12:49)
== END 2020-07-26 19:32 | disposition home or self-care (01) | DRG 385 ==
LOC: ER 18:03 → 4 NORTH 23:45
PROVIDERS: ADMIT Family Medicine; ATTEND Family Medicine
DX: K50.90 Crohn's disease, unspecified, without complications (principal); R65.11 Systemic inflammatory response syndrome (SIRS) of non-infectious origin with acute organ dysfunction; F11.20 Opioid dependence, uncomplicated; K86.2 Cyst of pancreas; K86.1 Other chronic pancreatitis; E87.6 Hypokalemia; Z20.822 Contact with and (suspected) exposure to COVID-19; Z93.3 Colostomy status; Z88.5 Allergy status to narcotic agent; F17.210 Nicotine dependence, cigarettes, uncomplicated; E86.0 Dehydration; R82.4 Acetonuria; D64.9 Anemia, unspecified; E83.52 Hypercalcemia; D47.3 Essential (hemorrhagic) thrombocythemia; F15.10 Other stimulant abuse, uncomplicated; Z82.0 Family history of epilepsy and other diseases of the nervous system; Z90.49 Acquired absence of other specified parts of digestive tract
CPT/HCPCS: 36415; 74177; 80048; 80053; 80076; 80307; 81001; 81025; 82550; 83690; 83735; 84100; 85007; 85025; 86140; 87493; 96361; 96374; 96375; 96376; J0780; J1170; J2405; J2765; J2920; J3490; J7030; Q9967; 99285-25; G0378

== ENCOUNTER 2020-11-15 22:02 | Emergency (ER) | payer OTHER ==
[~2020-11-15] VITALS: Ht 157.5 cm; Wt 54.5 kg
[~2020-11-15 22:02] MED LIST changes: +ACET325T9 PO; +PRED-220 PO
[2020-11-15 22:59] LABS: BILIRUBIN,URINE SMALL (NEG); CLARITY,URINE CLEAR; COLOR,URINE YELLOW; NITRITE,URINE NEGATIVE (NEG); PH,URINE 6.5 (<5.0-8.0); PROTEIN,URINE NEGATIVE (NEG-TRACE); UROBILINOGEN,URINE 0.2 mg/dL (0.2 mg/dL)
[2020-11-15 23:06] LABS: BACTERIA,URINE FEW /HPF (0-FEW); RBC,URINE 0 /HPF (0-2); WBC,URINE OCC /HPF (0-4)
[2020-11-15 23:22] LABS: BASO # 0.1 x10^3/uL (0.0-0.2); BASO % 1 % (0-3); EOS # 0.1 x10^3/uL (0.0-0.7); EOS % 1 % (0-3); HEMATOCRIT 35.4 % (36.0-47.0); HEMOGLOBIN 10.9 g/dL (12.0-15.5); LYMPH # 2.7 x10^3/uL (1.0-4.8); LYMPH % 25 % (24-48); MEAN CORPUSCULAR HEMOGLOBIN 25 pg (25-35); MEAN CORPUSCULAR HGB CONC 31 g/dL (31-37); MEAN CORPUSCULAR VOLUME 80 fL (79-100); MONO # 1.3 x10^3/uL (0.0-1.1); MONO % 12 % (0-9); NEUT # 6.7 x10^3/uL (1.8-7.7); NEUT % 62 % (31-73); PLATELET COUNT 522 x10^3/uL (140-400); RED BLOOD COUNT 4.44 x10^6/uL (3.50-5.40); RED CELL DISTRIBUTION WIDTH 18.3 % (11.5-14.5); WHITE BLOOD COUNT 10.9 x10^3/uL (4.0-11.0)
[2020-11-15 23:29] LABS: CALCIUM 8.8 mg/dL (8.5-10.1); CREATININE 0.7 mg/dL (0.6-1.0); GFR 116.6; POTASSIUM 3.3 mmol/L (3.5-5.1)
[2020-11-15 23:41] LABS: ALBUMIN 3.2 g/dL (3.4-5.0); ALBUMIN/GLOBULIN RATIO 0.7 (1.0-1.7); TOTAL BILIRUBIN 0.1 mg/dL (0.2-1.0); TOTAL PROTEIN 7.5 g/dL (6.4-8.2)
[2020-11-15] MEDS ORDERED: fentaNYL PF VIAL 100 MCG/2 ML VIAL IVP ONE (23:45)
--- NOTE | 2020-11-16 00:11 | PHYS DOC ---
Past Medical History Past Medical History: Other Additional Past Medical Histor: Crohn's tx with remicade, PANCREATITIS X'S 3. Past Surgical History: Other Additional Past Surgical Histo: colostomy with takedown 2010 Smoking Status: Never Smoker Alcohol Use: None Drug Use: None General Adult EDM: Chief Complaint: ABDOMINAL PAIN HPI: HPI: Patient is a 35 year old female past medical history Crohn's presents with a chief complaint of left sided abdominal pain. Patient's pain radiates from left lower abdomen left upper quadrant. She states pain started "a day or 2 ago". Patient associated nausea and vomiting but denies any diarrhea. Patient states she is out of several of her medications. Review of Systems: Review of Systems: Review of systems: Constitutional symptoms- No fever, no chills. Eyes- No Discharge, No Visual Loss Respiratory symptoms- No shortness of breath, No wheezing, No Dyspnea on Exert ion Cardiovascular Systems; No chest pain, No Palpitations, No syncope Gastrointestinal symptoms: Positive abdominal pain, Positive nausea, Positive vomiting no diarrhea. Genitourinary symptoms: No dysuria. Musculoskeletal symptoms: No back pain No extremity pain. NEUROLOGICAL Symptoms: No headache, no generalized weakness; No focal Weakness Heart Score: C/O Chest Pain: N/A Risk Factors: Risk Factors: DM, Current or recent (<one month) smoker, HTN, HLP, family history of CAD, obesity. Risk Scores: Score 0 - 3: 2.5% MACE over next 6 weeks - Discharge Home Score 4 - 6: 20.3% MACE over next 6 weeks - Admit for Clinical Observation Score 7 - 10: 72.7% MACE over next 6 weeks - Early Invasive Strategies Current Medications: Current Medications Medications (Trade) Dose Ordered Sig/Nguyen Start Time Stop Time Status Last Admin Dose Admin Fentanyl Citrate (Fentanyl 2ml Vial) 50 mcg 1X ONCE 11/15/20 23:45 11/15/20 23:46 DC 11/15/20 23:38 50 MCG Methylprednisolone Sodium Succinate (SOLU-Medrol 125MG VIAL) 125 mg 1X ONCE 11/16/20 00:00 11/16/20 00:01 UNV Allergies: Allergies: Allergies Coded Allergies Type Severity Reaction Last Updated Verified NSAIDS (Non-Steroidal Anti-Inflamma Allergy Intermediate 06/20/20 Yes morphine Allergy Intermediate Itching 07/19/20 Yes Physical Exam: PE: General: alert, no acute distress. Skin: warm, dry and intact. Head:: Normocephalic, atraumatic. Neck: Trachea midline. Eyes: EOMI, Normal conjunctiva, No drainage CARDIOVASCULAR: Regular rate and rhythm RESPIRATORY: No respiratory distress Back: Full range of motion. MUSCULOSKELETAL: Full range of motion of bilateral upper and lower extremities. GASTROINTESTINAL: Abdomen soft without rebound or guarding. NEUROLOGICAL: Alert and noted to person, place and time. No neurological deficits observed Psychiatric: Cooperative. Normal judgment Current Patient Data: Labs: Laboratory Tests Test 11/15/20 22:45 11/15/20 23:10 Urine Collection Type Unknown Urine Color Yellow Urine Clarity Clear Urine pH 6.5 (<5.0-8.0) Urine Specific [place] 1.025 (1.000-1.030) Urine Protein Negative mg/dL (NEG-TRACE) Urine Glucose (UA) Negative mg/dL (NEG) Urine Ketones (Stick) Trace mg/dL (NEG) Urine Blood Negative (NEG) Urine Nitrite Negative (NEG) Urine Bilirubin Small (NEG) Urine Urobilinogen Dipstick 0.2 mg/dL (0.2 mg/dL) Urine Leukocyte Esterase Small (NEG) Urine RBC 0 /HPF (0-2) Urine WBC Occ /HPF (0-4) Urine Squamous Epithelial Cells Mod /LPF Urine Bacteria Few /HPF (0-FEW) Urine Mucus Marked /LPF White Blood Count 10.9 x10^3/uL (4.0-11.0) Red Blood Count 4.44 x10^6/uL (3.50-5.40) Hemoglobin 10.9 g/dL (12.0-15.5) L Hematocrit 35.4 % (36.0-47.0) L Mean Corpuscular Volume 80 fL (79-100) Mean Corpuscular Hemoglobin 25 pg (25-35) Mean Corpuscular Hemoglobin Concent 31 g/dL (31-37) Red Cell Distribution Width 18.3 % (11.5-14.5) H Platelet Count 522 x10^3/uL (140-400) H Neutrophils (%) (Auto) 62 % (31-73) Lymphocytes (%) (Auto) 25 % (24-48) Monocytes (%) (Auto) 12 % (0-9) H Eosinophils (%) (Auto) 1 % (0-3) Basophils (%) (Auto) 1 % (0-3) Neutrophils # (Auto) 6.7 x10^3/uL (1.8-7.7) Lymphocytes # (Auto) 2.7 x10^3/uL (1.0-4.8) Monocytes # (Auto) 1.3 x10^3/uL (0.0-1.1) H Eosinophils # (Auto) 0.1 x10^3/uL (0.0-0.7) Basophils # (Auto) 0.1 x10^3/uL (0.0-0.2) Sodium Level 143 mmol/L (136-145) Potassium Level 3.3 mmol/L (3.5-5.1) L Chloride Level 105 mmol/L (98-107) Carbon Dioxide Level 27 mmol/L (21-32) Anion Gap 11 (6-14) Blood Urea Nitrogen 19 mg/dL (7-20) Creatinine 0.7 mg/dL (0.6-1.0) Estimated GFR (Cockcroft-Gault) 116.6 BUN/Creatinine Ratio 27 (6-20) H Glucose Level 84 mg/dL (70-99) Calcium Level 8.8 mg/dL (8.5-10.1) Total Bilirubin 0.1 mg/dL (0.2-1.0) L Aspartate Amino Transferase (AST) 8 U/L (15-37) L Alanine Aminotransferase (ALT) 14 U/L (14-59) Alkaline Phosphatase 63 U/L (46-116) Total Protein 7.5 g/dL (6.4-8.2) Albumin 3.2 g/dL (3.4-5.0) L Albumin/Globulin Ratio 0.7 (1.0-1.7) L Lipase 145 U/L (73-393) Laboratory Tests 11/15/20 23:10 Laboratory Tests 11/15/20 23:10 Vital Signs: Vital Signs Date Time Temp Pulse Resp B/P (MAP) Pulse Ox O2 Delivery O2 Flow Rate FiO2 11/15/20 23:38 97 11/15/20 22:05 98.6 112 18 115/80 (92) Room Air 98.6 EKG: EKG: [] Radiology/Procedures: Radiology/Procedures: [] Impression: wet read abdominal series no acute process Course & Med Decision Making: Course & Med Decision Making Pertinent Labs and Imaging studies reviewed. (See chart for details) [] Patient was evaluated for chief complaint. Work-up consisted of laboratory analysis and radiologic imaging. Results reviewed and discussed with patient. Patient noted to have a potassium of 3.3 white count and hemoglobin within normal limits. Patient's lipase is not elevated. Valentina in the ER included IV fluids fentanyl Dilaudid Solu-Medrol. Acute abdominal series wet read no acute abnormalities. Patient states she is out of her medications will refill and DC home. Patient advised to increase her prednisone x7 days Dragon Disclaimer: Rhonda Disclaimer: This electronic medical record was generated, in whole or in part, using a voice recognition dictation system. Departure Departure Impression: Primary Impression: Abdominal pain Additional Impression: Exacerbation of Crohn's disease Disposition: HOME / SELF CARE / HOMELESS Condition: STABLE Referrals: NO PCP (PCP) Patient Instructions: Crohn's Disease Scripts Dicyclomine Hcl (DICYCLOMINE HCL) 20 Mg Tablet 1 TAB PO TID, #30 TAB 1 Refill Prov: LATOYA RICE DO 11/16/20 Oxycodone/Apap 10-325 (PERCOCET 10-325 MG TABLET ) 1 Each Tablet 1 TAB PO PRN TID PRN for PAIN MDD 3 Tablet(s) for 5 Days, #15 TAB 0 Refills Prov: LATOYA RICE DO 11/16/20 LATOYA RICE DO November 16, 2020 00:11
[2020-11-16] MEDS ORDERED: HYDROmorphone 2 MG/ML VIAL IVP ONE ×2 (00:30→03:00)
[2020-11-16] MEDS ORDERED: methylPREDNISolone SOD SUCC PF 125 MG/2 ML VIAL. IV ONE (00:30)
[2020-11-16] MEDS ORDERED: DICY20TA3 PO (02:46)
[2020-11-16] MEDS ORDERED: OXYC1TAB22 PO (02:46)
[2020-11-16] MEDS ORDERED: IV NORMAL SALINE 500ML BAG 500 ML IV ONE (03:00)
[2020-11-16 03:39] VITALS: BP 102/61
--- NOTE | 2020-11-16 04:34 | RAD ---
INDICATION: Reason: abd pain / Spl. Instructions: / History: COMPARISON: Chest x-ray July [address] abdomen IMPRESSION: 3 views of the chest and abdomen obtained. Cardiac silhouette is unremarkable. No definite focal airspace consolidation. Nonspecific bowel gas pattern with postoperative changes to the abdomen. Electronically signed by: Serge Chandra MD (11/16/2020 4:32 AM) [id number]
== END 2020-11-16 03:48 | disposition home or self-care (01) ==
LOC: ER 22:02
DX: K50.90 Crohn's disease, unspecified, without complications (principal); Z93.3 Colostomy status; Z88.5 Allergy status to narcotic agent; Z88.6 Allergy status to analgesic agent
CPT/HCPCS: 36415; 74022; 80053; 81001; 81025; 83690; 85025; 87086; 96361; 96374; 96375; 96376; 99285; J1170; J2930; J3010; J7040

== ENCOUNTER 2021-02-17 03:30 | Emergency (ER) | payer OTHER ==
[~2021-02-17] VITALS: Ht 157.5 cm; Wt 52.3 kg
[~2021-02-17 03:30] MED LIST changes: +LIPA1CAP31 PO; +Lido:Maalox 1:1 PO; +OXYC5TAB4 PO
[2021-02-17] MEDS ORDERED: FAMOTIDINE 20 MG/2 ML VIAL IVP ONE (03:45)
[2021-02-17] MEDS ORDERED: IV NORMAL SALINE 1000ML BAG 1,000 ML IV ONE (03:45)
[2021-02-17] MEDS ORDERED: HYOSCYAMINE 0.125 MG TAB.RAPDIS PO ONE (03:45)
[2021-02-17] MEDS ORDERED: ONDANSETRON PF 4 MG/2 ML VIAL. IVP ONE (03:45)
[2021-02-17 04:40] LABS: BILIRUBIN,URINE NEGATIVE (NEG); CLARITY,URINE CLEAR; COLOR,URINE YELLOW; NITRITE,URINE NEGATIVE (NEG); PROTEIN,URINE 100 mg/dL (NEG-TRACE)
[2021-02-17 04:50] LABS: BASO % 0 % (0-3); EOS % 0 % (0-3); HEMATOCRIT 29.4 % (36.0-47.0); HEMOGLOBIN 9.3 g/dL (12.0-15.5); LYMPH % 14 % (24-48); MEAN CORPUSCULAR HEMOGLOBIN 23 pg (25-35); MEAN CORPUSCULAR HGB CONC 32 g/dL (31-37); MEAN CORPUSCULAR VOLUME 74 fL (79-100); MONO # 1.3 x10^3/uL (0.0-1.1); MONO % 9 % (0-9); NEUT # 10.9 x10^3/uL (1.8-7.7); NEUT % 77 % (31-73); PLATELET COUNT 525 x10^3/uL (140-400); RED BLOOD COUNT 3.99 x10^6/uL (3.50-5.40); RED CELL DISTRIBUTION WIDTH 20.9 % (11.5-14.5); WHITE BLOOD COUNT 14.3 x10^3/uL (4.0-11.0)
[2021-02-17 05:02] LABS: ANION GAP 8 (6-14); BLOOD UREA NITROGEN 19 mg/dL (7-20); BUN/CREATININE RATIO 32 (6-20); CALCIUM 9.1 mg/dL (8.5-10.1); CARBON DIOXIDE 27 mmol/L (21-32); CHLORIDE 106 mmol/L (98-107); CREATININE 0.6 mg/dL (0.6-1.0); GFR 139.3; GLUCOSE 122 mg/dL (70-99); POTASSIUM 3.9 mmol/L (3.5-5.1); SODIUM 141 mmol/L (136-145)
[2021-02-17 05:07] LABS: ALBUMIN 2.9 g/dL (3.4-5.0); ALBUMIN/GLOBULIN RATIO 0.6 (1.0-1.7); ALK PHOS 70 U/L (46-116); ALT (SGPT) 15 U/L (14-59); AST (SGOT) 10 U/L (15-37); LIPASE 183 U/L (73-393); MAGNESIUM 2.1 mg/dL (1.8-2.4); TOTAL PROTEIN 7.4 g/dL (6.4-8.2)
[2021-02-17 05:12] LABS: TOTAL BILIRUBIN < 0.1 mg/dL (0.2-1.0)
[2021-02-17 05:33] LABS: BACTERIA,URINE MODERATE /HPF (0-FEW); WBC,URINE >40 /HPF (0-4)
[2021-02-17] MEDS ORDERED: cefTRIAXone IV Push 1 GM VIAL. IVP ONE (06:00)
[2021-02-17] MEDS ORDERED: PHENAZOPYRIDINE 200 MG TABLET. PO ONE (06:00)
[2021-02-17] MEDS ORDERED: OXYC1TAB15 PO (06:10)
[2021-02-17] MEDS ORDERED: CEPH500C PO (06:10)
[2021-02-17] MEDS ORDERED: DICY10CA3 PO (06:10)
[2021-02-17] MEDS ORDERED: PHEN-318 PO (06:10)
--- NOTE | 2021-02-17 06:12 | PHYS DOC ---
Past Medical History Past Medical History: Pancreatitis, Other Additional Past Medical Histor: CROHNS Past Surgical History: Other Additional Past Surgical Histo: Ileostomy surgery 2010 Smoking Status: Former Smoker Alcohol Use: None Drug Use: None General Adult EDM: Chief Complaint: ABDOMINAL PAIN HPI: HPI: Patient is a 35 year old [f__sex] who presents with [] Review of Systems: Review of Systems: Constitutional: Denies fever or chills. [] Eyes: Denies change in visual acuity. [] HENT: Denies nasal congestion or sore throat. [] Respiratory: Denies cough or shortness of breath. [] Cardiovascular: Denies chest pain or edema. [] GI: Denies abdominal pain, nausea, vomiting, bloody stools or diarrhea. [] : Denies dysuria. [] Musculoskeletal: Denies back pain or joint pain. [] Integument: Denies rash. [] Neurologic: Denies headache, focal weakness or sensory changes. [] Endocrine: Denies polyuria or polydipsia. [] Lymphatic: Denies swollen glands. [] Psychiatric: Denies depression or anxiety. [] Heart Score: Risk Factors: Risk Factors: DM, Current or recent (<one month) smoker, HTN, HLP, family history of CAD, obesity. Risk Scores: Score 0 - 3: 2.5% MACE over next 6 weeks - Discharge Home Score 4 - 6: 20.3% MACE over next 6 weeks - Admit for Clinical Observation Score 7 - 10: 72.7% MACE over next 6 weeks - Early Invasive Strategies Current Medications: Current Medications Medications (Trade) Dose Ordered Sig/[facility] Start Time Stop Time Status Last Admin Dose Admin Ceftriaxone Sodium (Rocephin) 1 gm 1X ONCE 02/17/21 06:00 02/17/21 06:01 DC Famotidine (Pepcid Vial) 20 mg 1X ONCE 02/17/21 03:45 02/17/21 03:46 DC 02/17/21 04:07 20 MG Hyoscyamine (Anaspaz) 0.125 mg 1X ONCE 02/17/21 03:45 02/17/21 03:46 DC 02/17/21 04:07 0.125 MG Ondansetron HCl (Zofran) 4 mg 1X ONCE 02/17/21 03:45 02/17/21 03:46 DC 02/17/21 04:07 4 MG Phenazopyridine HCl (Pyridium) 200 mg 1X ONCE 02/17/21 06:00 02/17/21 06:01 DC Sodium Chloride 1,000 ml @ 1,000 mls/hr 1X ONCE 02/17/21 03:45 02/17/21 04:44 DC 02/17/21 04:08 1,000 MLS/HR Allergies: Allergies: Allergies Coded Allergies Type Severity Reaction Last Updated Verified NSAIDS (Non-Steroidal Anti-Inflamma Allergy Intermediate 06/20/20 Yes morphine Allergy Intermediate Itching 07/19/20 Yes Physical Exam: PE: Constitutional: Well developed, well nourished, no acute distress, non-toxic appearance. [] HENT: Normocephalic, atraumatic, bilateral external ears normal, oropharynx moist, no oral exudates, nose normal. [] Eyes: PERRLA, EOMI, conjunctiva normal, no discharge. [] Neck: Normal range of motion, no tenderness, supple, no stridor. [] Cardiovascular:Heart rate regular rhythm, no murmur [] Lungs & Thorax: Bilateral breath sounds clear to auscultation [] Abdomen: Bowel sounds normal, soft, no tenderness, no masses, no pulsatile masses. [] Skin: Warm, dry, no erythema, no rash. [] Back: No tenderness, no CVA tenderness. [] Extremities: No tenderness, no cyanosis, no clubbing, ROM intact, no edema. [] Neurologic: Alert and oriented X 3, normal motor function, normal sensory function, no focal deficits noted. [] Psychologic: Affect normal, judgement normal, mood normal. [] Current Patient Data: Labs: Laboratory Tests Test 02/17/21 03:54 02/17/21 03:55 02/17/21 04:02 Urine Collection Type Unknown Urine Color Yellow Urine Clarity Clear Urine pH 6.0 (<5.0-8.0) Urine Specific [place] >=1.030 (1.000-1.030) Urine Protein 100 mg/dL (NEG-TRACE) Urine Glucose (UA) Negative mg/dL (NEG) Urine Ketones (Stick) Negative mg/dL (NEG) Urine Blood Trace (NEG) Urine Nitrite Negative (NEG) Urine Bilirubin Negative (NEG) Urine Urobilinogen Dipstick 1.0 mg/dL (0.2 mg/dL) Urine Leukocyte Esterase Small (NEG) Urine RBC 6-10 /HPF (0-2) Urine WBC >40 /HPF (0-4) Urine Squamous Epithelial Cells Few /LPF Urine Bacteria Moderate /HPF (0-FEW) Urine Mucus Slight /LPF POC Urine HCG, Qualitative Hcg negative (Negative) White Blood Count 14.3 x10^3/uL (4.0-11.0) H Red Blood Count 3.99 x10^6/uL (3.50-5.40) Hemoglobin 9.3 g/dL (12.0-15.5) L Hematocrit 29.4 % (36.0-47.0) L Mean Corpuscular Volume 74 fL (79-100) L Mean Corpuscular Hemoglobin 23 pg (25-35) L Mean Corpuscular Hemoglobin Concent 32 g/dL (31-37) Red Cell Distribution Width 20.9 % (11.5-14.5) H Platelet Count 525 x10^3/uL (140-400) H Neutrophils (%) (Auto) 77 % (31-73) H Lymphocytes (%) (Auto) 14 % (24-48) L Monocytes (%) (Auto) 9 % (0-9) Eosinophils (%) (Auto) 0 % (0-3) Basophils (%) (Auto) 0 % (0-3) Neutrophils # (Auto) 10.9 x10^3/uL (1.8-7.7) H Lymphocytes # (Auto) 2.0 x10^3/uL (1.0-4.8) Monocytes # (Auto) 1.3 x10^3/uL (0.0-1.1) H Eosinophils # (Auto) 0.0 x10^3/uL (0.0-0.7) Basophils # (Auto) 0.0 x10^3/uL (0.0-0.2) Platelet Estimate Pending Sodium Level 141 mmol/L (136-145) Potassium Level 3.9 mmol/L (3.5-5.1) Chloride Level 106 mmol/L (98-107) Carbon Dioxide Level 27 mmol/L (21-32) Anion Gap 8 (6-14) Blood Urea Nitrogen 19 mg/dL (7-20) Creatinine 0.6 mg/dL (0.6-1.0) Estimated GFR (Cockcroft-Gault) 139.3 BUN/Creatinine Ratio 32 (6-20) H Glucose Level 122 mg/dL (70-99) H Calcium Level 9.1 mg/dL (8.5-10.1) Magnesium Level 2.1 mg/dL (1.8-2.4) Total Bilirubin < 0.1 mg/dL (0.2-1.0) L Aspartate Amino Transferase (AST) 10 U/L (15-37) L Alanine Aminotransferase (ALT) 15 U/L (14-59) Alkaline Phosphatase 70 U/L (46-116) Total Protein 7.4 g/dL (6.4-8.2) Albumin 2.9 g/dL (3.4-5.0) L Albumin/Globulin Ratio 0.6 (1.0-1.7) L Lipase 183 U/L (73-393) Laboratory Tests 02/17/21 04:02 Laboratory Tests 02/17/21 04:02 Vital Signs: Vital Signs Date Time Temp Pulse Resp B/P (MAP) Pulse Ox O2 Delivery O2 Flow Rate FiO2 02/17/21 03:52 98.2 106 16 100/68 (68) 99 Room Air 98.2 EKG: EKG: [] Radiology/Procedures: Radiology/Procedures: [] Course & Med Decision Making: Course & Med Decision Making Pertinent Labs and Imaging studies reviewed. (See chart for details) [] Dragon Disclaimer: Dragon Disclaimer: This electronic medical record was generated, in whole or in part, using a voice recognition dictation system. Departure Departure Impression: Primary Impression: Chronic abdominal pain Additional Impression: UTI (urinary tract infection) Qualified Codes: N30.01 - Acute cystitis with hematuria Disposition: HOME / SELF CARE / HOMELESS Condition: STABLE Referrals: NO PCP (PCP) JEAN MILLER MD Patient Instructions: Chronic Pain, Chronic Pain Management, Urinary Tract Infection, [id number] Scripts Oxycodone/Apap 5-325 (PERCOCET 5-325 MG TABLET ) 1 Each Tablet 0.5-1 TAB PO PRN Q6HRS PRN for PAIN, #10 TAB 0 Refills Prov: CÉSAR MONROE DO 02/17/21 Dicyclomine Hcl (DICYCLOMINE HCL) 10 Mg Capsule 1-2 CAP PO TID PRN for ABDOMINAL PAIN, #30 CAP Prov: CÉSAR MONROE DO 02/17/21 Cephalexin (KEFLEX) 500 Mg Capsule 1 CAP PO TID for 7 Days, #21 CAP Prov: CÉSAR MONROE DO 02/17/21 Phenazopyridine Hcl (PYRIDIUM) 200 Mg Tablet 200 MG PO TID, #6 TAB Prov: CÉSAR MONROE DO 02/17/21 CÉSAR MONROE DO Feb 17, 2021 06:12
[2021-02-17] MEDS ORDERED: fentaNYL PF VIAL 100 MCG/2 ML VIAL IV ONE (06:15)
[2021-02-17 06:18] VITALS: BP 134/71
[2021-02-17 09:33] LABS: ANISOCYTOSIS PRESENT; PLT ESTIMATE INCREASED (ADEQUATE); POLYCHROMASIA PRESENT
== END 2021-02-17 06:30 | disposition home or self-care (01) ==
LOC: ER 03:30
DX: N30.01 Acute cystitis with hematuria (principal); Z87.891 Personal history of nicotine dependence; Z88.5 Allergy status to narcotic agent; Z88.6 Allergy status to analgesic agent
CPT/HCPCS: 36415; 80053; 81001; 81025; 83690; 83735; 85025; 87086; 96361; 96374; 96375; 99285; J0696; J2405; J3010; J3490; J7030; 87077; 87186

== ENCOUNTER 2021-04-17 07:07 | Emergency (ER) | payer OTHER ==
[~2021-04-17] VITALS: Ht 157.5 cm; Wt 52.2 kg
[~2021-04-17 07:07] MED LIST changes: +CEPH500C PO; +PHEN-318 PO; +POTA-121 PO; -POTA20TA4 PO
--- NOTE | 2021-04-17 07:10 | PHYS DOC ---
Past Medical History Past Medical History: Pancreatitis, Other Additional Past Medical Histor: CROHNS Past Surgical History: Other Additional Past Surgical Histo: Ileostomy surgery 2010 Smoking Status: Former Smoker Alcohol Use: None Drug Use: None General Adult HPI: HPI: Patient is a 35 year old female who presents here with generalized abdominal pain, worse on the left side of her abdomen, as well as nausea, vomiting and diarrhea. She has had the symptoms off and on for many years. She has a history of Crohn's disease. She has previously had GI physicians, though she admits that she has not been on any specific medications to control or treat her Crohn's for years, and she admits she has not seen a primary care physician or her GI doc in at least a year. Her last colonoscopy was over a year ago. She has chronic blood in her stool, unchanged today. She denies fevers or chills. She is able to eat and drink. She denies urinary symptoms. Last menstrual period was April 01, 2021. She has had multiple abdominal surgeries, and she describes what sounds like adhesions, as well as ileostomy and revisions. She reports a history of having prior bowel obstructions. Review of Systems: Review of Systems: Constitutional: Denies fever or chills. [] Eyes: Denies change in visual acuity. [] HENT: Denies nasal congestion or sore throat. [] Respiratory: Denies cough or shortness of breath. [] Cardiovascular: Denies chest pain or edema. [] GI: Abdominal pain, nausea, vomiting, diarrhea. Chronic bloody stools. : Denies urinary symptoms. Musculoskeletal: Denies back pain or joint pain. [] Integument: Denies rash. [] Neurologic: Denies headache, focal weakness or sensory changes. [] Psychiatric: Denies depression or anxiety. [] Heart Score: C/O Chest Pain: No Risk Factors: Risk Factors: DM, Current or recent (<one month) smoker, HTN, HLP, family history of CAD, obesity. Risk Scores: Score 0 - 3: 2.5% MACE over next 6 weeks - Discharge Home Score 4 - 6: 20.3% MACE over next 6 weeks - Admit for Clinical Observation Score 7 - 10: 72.7% MACE over next 6 weeks - Early Invasive Strategies Allergies: Allergies: Allergies Coded Allergies Type Severity Reaction Last Updated Verified NSAIDS (Non-Steroidal Anti-Inflamma Allergy Intermediate 12/22/20 Yes morphine Allergy Intermediate Itching 07/19/20 Yes Physical Exam: PE: Constitutional: Well developed, well nourished, no acute distress, non-toxic appearance. [] HENT: Normocephalic, atraumatic, bilateral external ears normal, oropharynx moist, no oral exudates, nose normal. [] Eyes: PERRL, EOMI, conjunctiva normal, anicteric no discharge. [] Neck: Normal range of motion, no tenderness, supple, no stridor. [] Cardiovascular:Heart rate regular rhythm, +2 radial and dorsalis pedis pulses bilaterally Lungs & Thorax: Bilateral breath sounds clear to auscultation [] Abdomen: Abdomen is soft, nondistended, normal bowel sounds noted, large midline laparotomy scar noted, multiple laparoscopy scars noted, diffuse, nonfocal tenderness to palpation, more involving the periumbilical and left upper quadrant and left mid abdomen areas, voluntary guarding, no rebound tenderness. No palpable mass organomegaly, no CVA tenderness. No flank or abdominal ecchymoses. Skin: Warm, dry, no erythema, no rash. [] Back: No tenderness, no CVA tenderness. [] Extremities: No tenderness, no cyanosis, no clubbing, ROM intact, no edema. No calf tenderness. Neurologic: Alert and oriented X 3, normal motor function, speech is clear and fluent, gait steady. Psychologic: Slightly anxious, but cooperative. EKG: EKG: [] Radiology/Procedures: Radiology/Procedures: IMAGING REPORT Signed PATIENT: JEANNETTE VALENTIN ACCOUNT: [id number] : 1985 LOCATION: ER AGE: 35 SEX: F EXAM STATUS: REG ER ORD. PHYSICIAN: FATOUMATA JONES DO REASON: abdominal pain, crohns PROCEDURE: CT ABD PELV W/ IV CONTRST ONLY Site ID: [id number] EXAMINATION: CT ABDOMEN+PELVIS W. Technique: Axial images with coronal and sagittal reconstructions are performed of abdomen and pelvis with intravenous contrast. 75 mL of Omnipaque 300 was administered intravenously. One or more of the following radiation dose reduction techniques was used: automated exposure control, adjustment of mA and/or KV according to patient size, and/or utilization of iterative reconstruction technique. HISTORY: 35 years Female Reason: abdominal pain, crohns / . COMPARISON: August 08, 2020. FINDINGS: The lung bases appear clear. Demonstrate mild intrahepatic biliary dilatation similar to the previous exam. The CBD is a 7 mm in caliber, mildly dilated. This is similar to the previous exam. The gallbladder is contracted with no calcified stones seen. There are from numerous the pancreatic calcifications suggestive of sequela of prior recurrent or from chronic pancreatitis. There is associated mild dilatation of the pancreatic duct in the pancreas tail region. The spleen is not enlarged. The adrenal glands appear unremarkable. The abdominal aorta is normal in caliber. No para-aortic significantly enlarged lymph node is seen. The kidneys have symmetric enhancement. There is no hydronephrosis. The urinary bladder appear unremarkable. The uterus and adnexa appear unremarkable. There are anastomotic sutures seen in bowel loops in the right side of the abdomen and surgical clips noted around the mesentery. There are segments of the bowel loops that the have thickened wall suggestive of the inflammatory process, with history of Crohn's this is probably Crohn's colitis. There is also suggestion of a small bowel loop demonstrating evidence of inflammation in the upper abdomen to the left. Following the anatomy of the bowel loops is difficult on this exam related to lack of oral contrast and postsurgical changes. There is no evidence of perforation, and no pneumoperitoneum, and no free fluid or fluid collection in the abdomen or pelvis. There are multiple enlarged mesenteric lymph nodes similar to the previous exam. The osseous structures appear grossly unremarkable. IMPRESSION: 1. There are segments of the bowel wall thickening appears to involve a segment of the colon and small bowel loops likely related to Crohn's enterocolitis. No pneumoperitoneum or abscess. 2. Enlarged mesenteric lymph nodes similar to the previous exam. 3. Mild dilatation of the catheter bile ducts similar to the previous exam. 4. Unchanged pancreatic calcifications suggestive of sequela of pancreatitis. Electronically signed by: Jesus Shepard MD (04/17/2021 10:28 AM) [id number] DICTATED and SIGNED BY: JESUS SHEPARD MD DATE: 04/17/21 [id number] Course & Med Decision Making: Course & Med Decision Making The patient is given IV fluids. She is given IV fentanyl and Zofran here. She is given a dose of p.o. Bentyl and p.o. Percocet. She is resting comfortably, she has a benign, nonsurgical abdominal exam. She reports feeling much better. She is also given a dose of IV Solu-Medrol. She reports that she actually has done well with oral steroids for discharge home for treatment of a Crohn's flare. I strongly encouraged her to contact her primary care physician and GI physician for follow-up. She will be prescribed a small amount of Percocet for pain control, antiemetics, prednisone and Bentyl. She is given strict return precautions. She verbalizes understanding. No indication for admission at this time. Rhonda Disclaimer: Rhonda Disclaimer: This electronic medical record was generated, in whole or in part, using a voice recognition dictation system. Departure Departure Impression: Primary Impression: Exacerbation of Crohn's disease Disposition: HOME / SELF CARE / HOMELESS Condition: STABLE Referrals: NO PCP (PCP) Patient Instructions: Crohn's Disease Additional Instructions: Take the medications as directed. Eat a bland diet. Please return for any acute changes in pain, fever of 100.4 or higher, uncontrolled vomiting associated with dehydration or any other concerns. Please contact your primary care physician and GI physician for follow-up. Scripts Prednisone (PREDNISONE) 50 Mg Tablet 1 TAB PO DAILY, #5 TAB Prov: FATOUMATA JONES DO 04/17/21 Ondansetron Hcl (ZOFRAN) 4 Mg Tablet 4 MG PO PRN TID PRN for VOMITING, #20 EA nausea/vomiting Prov: FATOUMATA JONES DO 04/17/21 Oxycodone/Apap 5-325 (PERCOCET 5-325 MG TABLET ) 1 Each Tablet 1-2 EACH PO Q6HRS PRN for PAIN, #15 TAB pain Prov: FATOUMATA JONES DO 04/17/21 Dicyclomine Hcl (DICYCLOMINE HCL) 10 Mg Capsule 1 CAP PO TID, #90 CAP 11 Refills Prov: FATOUMATA JONES DO 04/17/21 FATOUMATA JONES DO Apr 17, 2021 07:10
[2021-04-17] MEDS ORDERED: fentaNYL PF VIAL 100 MCG/2 ML VIAL IVP ONE ×2 (07:30→11:30)
[2021-04-17] MEDS ORDERED: ONDANSETRON PF 4 MG/2 ML VIAL. IVP ONE (07:30)
[2021-04-17] MEDS ORDERED: IV NORMAL SALINE 1000ML BAG 1,000 ML IV ONE (07:30)
[2021-04-17] MEDS ORDERED: methylPREDNISolone SOD SUCC PF 125 MG/2 ML VIAL. IV ONE (07:45)
[2021-04-17] MEDS ORDERED: IOHEXOL 300 MG/ML 100ML VIAL. IV ONE (08:00)
[2021-04-17] MEDS ORDERED: CONTRAST GIVEN. MC PRN (08:00)
[2021-04-17 08:56] LABS: CALCIUM 7.9 mg/dL (8.5-10.1); CREATININE 0.6 mg/dL (0.6-1.0); GFR 139.3; POTASSIUM 3.4 mmol/L (3.5-5.1)
[2021-04-17 09:02] LABS: ALBUMIN 1.5 g/dL (3.4-5.0); ALBUMIN/GLOBULIN RATIO 0.3 (1.0-1.7); TOTAL BILIRUBIN 0.1 mg/dL (0.2-1.0); TOTAL PROTEIN 6.2 g/dL (6.4-8.2)
[2021-04-17 09:03] LABS: BASO % 0 % (0-3); EOS # 0.1 x10^3/uL (0.0-0.7); EOS % 1 % (0-3); HEMATOCRIT 26.2 % (36.0-47.0); HEMOGLOBIN 8.2 g/dL (12.0-15.5); LYMPH # 2.7 x10^3/uL (1.0-4.8); LYMPH % 29 % (24-48); MEAN CORPUSCULAR HEMOGLOBIN 23 pg (25-35); MEAN CORPUSCULAR HGB CONC 31 g/dL (31-37); MEAN CORPUSCULAR VOLUME 74 fL (79-100); MONO # 1.2 x10^3/uL (0.0-1.1); MONO % 13 % (0-9); NEUT # 5.3 x10^3/uL (1.8-7.7); NEUT % 57 % (31-73); PLATELET COUNT 557 x10^3/uL (140-400); RED BLOOD COUNT 3.53 x10^6/uL (3.50-5.40); RED CELL DISTRIBUTION WIDTH 23.3 % (11.5-14.5); WHITE BLOOD COUNT 9.3 x10^3/uL (4.0-11.0)
[2021-04-17 09:25] LABS: PREG TEST PT QUAL NEGATIVE (NEG)
--- NOTE | 2021-04-17 10:30 | RAD ---
Site ID: [id number] EXAMINATION: CT ABDOMEN+PELVIS W. Technique: Axial images with coronal and sagittal reconstructions are performed of abdomen and pelvis with intravenous contrast. 75 mL of Omnipaque 300 was administered intravenously. One or more of the following radiation dose reduction techniques was used: automated exposure control , adjustment of mA and/or KV according to patient size, and/or utilization of iterative reconstructio n technique. HISTORY: 35 years Female Reason: abdominal pain, crohns / . COMPARISON: August 08, 2020. FINDINGS: The lung bases appear clear. Demonstrate mild intrahepatic biliary dilatation similar to the previous exam. The CBD is a 7 mm in c aliber, mildly dilated. This is similar to the previous exam. The gallbladder is contracted with no c alcified stones seen. There are from numerous the pancreatic calcifications suggestive of sequela of prior recurrent or from chronic pancreatitis. There is associated mild dilatation of the pancreatic d uct in the pancreas tail region. The spleen is not enlarged. The adrenal glands appear unremarkable. The abdominal aorta is normal in caliber. No para-aortic significantly enlarged lymph node is seen. The kidneys have symmetric enhancement. There is no hydronephrosis. The urinary bladder appear unremarkable. The uterus and adnexa appear unremarkable. There are anastomotic sutures seen in bowel loops in the right side of the abdomen and surgical clips noted around the mesentery. There are segments of the bowel loops that the have thickened wall sugge stive of the inflammatory process, with history of Crohn's this is probably Crohn's colitis. There is also suggestion of a small bowel loop demonstrating evidence of inflammation in the upper abdomen to the left. Following the anatomy of the bowel loops is difficult on this exam related to lack of oral contrast and postsurgical changes. There is no evidence of perforation, and no pneumoperitoneum, and no free fluid or fluid collection in the abdomen or pelvis. There are multiple enlarged mesenteric lymph nodes similar to the previous exam. The osseous structures appear grossly unremarkable. IMPRESSION: 1. There are segments of the bowel wall thickening appears to involve a segment of the colon and smal l bowel loops likely related to Crohn's enterocolitis. No pneumoperitoneum or abscess. 2. Enlarged mesenteric lymph nodes similar to the previous exam. 3. Mild dilatation of the catheter bile ducts similar to the previous exam. 4. Unchanged pancreatic calcifications suggestive of sequela of pancreatitis. Electronically signed by: Franklin Shepard MD (04/17/2021 10:28 AM) [id number]
[2021-04-17 11:01] VITALS: BP 109/66
[2021-04-17] MEDS ORDERED: PRED50TA PO (11:13)
[2021-04-17] MEDS ORDERED: OXYC1TAB15 PO (11:13)
[2021-04-17] MEDS ORDERED: DICY10CA3 PO (11:13)
[2021-04-17] MEDS ORDERED: ONDA4TAB7 PO (11:13)
[2021-04-17] MEDS ORDERED: DICYCLOMINE HCL 10 MG CAPSULE PO ONE (11:30)
[2021-04-17] MEDS ORDERED: oxyCODONE/APAP 5/325 1 TAB TABLET PO ONE (11:30)
== END 2021-04-17 11:42 | disposition home or self-care (01) ==
LOC: ER 07:07
DX: K50.90 Crohn's disease, unspecified, without complications (principal); Z88.6 Allergy status to analgesic agent; Z88.5 Allergy status to narcotic agent
CPT/HCPCS: 36415; 74177; 80053; 83690; 84703; 85025; 96361; 96374; 96375; 96376; 99285; J2405; J2930; J3010; J7030; Q9967

== ENCOUNTER 2021-10-08 14:22 | Inpatient (IN) | payer OTHER ==
[~2021-10-08] VITALS: Ht 157.5 cm; Wt 55.0 kg
[~2021-10-08 14:22] MED LIST changes: +DICY20TA PO; -DICY20TA3 PO
[2021-10-08] MEDS ORDERED: ONDANSETRON PF 4 MG/2 ML VIAL. IVP ONE (15:45)
[2021-10-08] MEDS ORDERED: FAMOTIDINE 20 MG/2 ML VIAL IVP ONE (15:45)
[2021-10-08] MEDS ORDERED: IV NORMAL SALINE 1000ML BAG 1,000 ML IV ONE ×2 (15:45→22:45)
[2021-10-08 15:53] LABS: BASO # 0.1 x10^3/uL (0.0-0.2); BASO % 1 % (0-3); EOS # 0.2 x10^3/uL (0.0-0.7); EOS % 1 % (0-3); HEMATOCRIT 30.3 % (36.0-47.0); HEMOGLOBIN 9.8 g/dL (12.0-15.5); LYMPH # 2.6 x10^3/uL (1.0-4.8); LYMPH % 22 % (24-48); MEAN CORPUSCULAR HEMOGLOBIN 26 pg (25-35); MEAN CORPUSCULAR HGB CONC 32 g/dL (31-37); MEAN CORPUSCULAR VOLUME 82 fL (79-100); MONO # 1.8 x10^3/uL (0.0-1.1); MONO % 16 % (0-9); NEUT # 6.9 x10^3/uL (1.8-7.7); NEUT % 60 % (31-73); PLATELET COUNT 706 x10^3/uL (140-400); RED CELL DISTRIBUTION WIDTH 15.4 % (11.5-14.5); WHITE BLOOD COUNT 11.6 x10^3/uL (4.0-11.0)
[2021-10-08 16:04] LABS: AMPHETAMINE/METHAMPHETAMINE NEG (NEG); BARBITURATES NEG (NEG); BENZODIAZEPINES NEG (NEG); CANNABINOIDS NEG (NEG); COCAINE NEG (NEG); METHADONE NEG (NEG); OPIATES NEG (NEG); PHENCYCLIDINE NEG (NEG)
[2021-10-08 16:05] LABS: CREATININE 0.6 mg/dL (0.6-1.0); GFR 138.5
[2021-10-08 16:11] LABS: ALBUMIN 2.4 g/dL (3.4-5.0); ALBUMIN/GLOBULIN RATIO 0.5 (1.0-1.7); TOTAL BILIRUBIN 0.1 mg/dL (0.2-1.0); TOTAL PROTEIN 7.4 g/dL (6.4-8.2)
[2021-10-08] MEDS: fentaNYL PF VIAL 100 MCG/2 ML VIAL IV PRN ×5 (16:11→23:05)
[2021-10-08 16:14] LABS: BACTERIA,URINE 0 /HPF (0-FEW)
[2021-10-08] MEDS ORDERED: CONTRAST GIVEN. MC PRN (16:15)
[2021-10-08] MEDS ORDERED: IOHEXOL 300 MG/ML 100ML VIAL. IV ONE (16:15)
[2021-10-08 17:36] LABS: U PREG PATIENT NEGATIVE (NEG)
--- NOTE | 2021-10-08 19:05 | RAD ---
Exam: CT of abdomen and pelvis with contrast INDICATION: Left abdomen pain TECHNIQUE: Sequential axial images through the abdomen and pelvis obtained following the administrati on of 75 mL of Isovue-370 IV contrast. Sagittal and coronal reformatted images were reconstructed fro m the axial data and reviewed. Exposure: One or more of the following in the visualized dose reduction techniques were utilized for this examination: 1. Automated exposure control 2. Adjustment of the MA and/or KV according to patient size 3. Use of iterative of reconstructive technique Comparisons: 04/17/2021 FINDINGS: Heart size is normal. No pericardial effusion. Visualized lung bases are clear. No pleural effusion. Liver, spleen, gallbladder and adrenals are unremarkable. There is pancreatic ductal dilatation to pa ncreatic calcifications and atrophic appearance. No perinephric inflammation or hydronephrosis. Nonobstructing left renal calculi noted. No ureteral c alculi are seen. Bladder is partially distended and not well evaluated. Uterus not enlarged. No abnormal adnexal mass. There is mucosal hyperenhancement and wall thickening involving loops of small bowel in the upper abd omen. Postoperative changes at the colon are noted. No free intra-abdominal air or fluid. No obstruct ion. Abdominal aorta has normal course and caliber. Abdominal vasculature is patent. No enlarged intra-abdominal lymph nodes are identified. Mild compression fracture involving the superior endplate of L1 which is new from the prior study in 2020. IMPRESSION: 1. Inflammatory changes involving the proximal small bowel which is nonspecific may be infectious or inflammatory in etiology. 2. Findings of chronic pancreatitis. There may be some mild adjacent fat stranding surrounding the p ancreas. Correlate with lipase for acute on chronic pancreatitis. 3. Mild compression fracture involving superior endplate of L1 which is new from the study on 2020. Correlate with point tenderness. 4. Nonobstructing left renal calculus. Electronically signed by: Terry Oleary MD (10/08/2021 7:02 PM) [facility]
[2021-10-08] MEDS ORDERED: MAGNESIUM HYDROXIDE 2,400 MG/30 ML ORAL.SUSP. PO PRN (21:30)
[2021-10-08] MEDS ORDERED: MORPHINE SULFATE 4 MG/ML INJ. IV PRN (21:30)
--- NOTE | 2021-10-08 21:48 | PDOC1 ---
History and Physical Date of Admission Date of Admission DATE: 10/08/21 TIME: 21:38 Identification/Chief Complaint Chief Complaint Abdominal pain Source Source: Patient History of Present Illness History of Present Illness Patient is a 36-year-old female with past medical history of Crohn's disease, chronic pancreatitis, presents to the ED with complaints of abdominal pain since last night. She reports severe diarrhea 4 days prior to the onset of abdominal pain, with associated muscle cramps. As her diarrhea began to resolve she noted epigastric abdominal pain, 10/10. Pain is similar to her history of chronic pa ncreatitis. Labs admission showed WBC 11.6, hemoglobin 9.8, hematocrit 30.3, platelets 706, potassium 3.0, BUN/creatinine ratio 27, albumin 2.4, lipase 1070. CT abdomen admission showed proximal small bowel inflammation, findings consistent with chronic pancreatitis, mild L1 compression fracture, nonobstructing left renal calculus. Patient will be admitted for further medical management. Past Medical History Cardiovascular: No pertinent hx Pulmonary: No pertinent hx CENTRAL NERVOUS SYSTEM: Other GI: Inflam bowel disease Heme/Onc: Anemia NOS, Other Hepatobiliary: No pertinent hx Psych: No pertinent hx Musculoskeletal: Other Rheumatologic: No pertinent hx Infectious disease: No pertinent hx, Other Renal/: No pertinent hx Endocrine: No pertinent hx Past Surgical History Past Surgical History: Colon Resection Family History Family History: Alzheimer's Disease, Hypertension, Adopted Social History Smoke: No ALCOHOL: none Drugs: None Current Medications Current Medications Current Medications Sodium Chloride 1,000 ml @ 1,000 mls/hr 1X ONCE IV Last administered on 10/08/21at 16:10; Start 10/08/21 at 15:45; Stop 10/08/21 at 16:44; Status DC Fentanyl Citrate (Fentanyl 2ml Vial) 50 mcg PRN Q15MIN PRN IV PAIN GREATER THAN 3/10 Last administered on 10/08/21at 21:07; Start 10/08/21 at 15:45; Stop at 15:44 Ondansetron HCl (Zofran) 4 mg 1X ONCE IVP Last administered on 10/08/21at 16:10; Start 10/08/21 at 15:45; Stop 10/08/21 at 15:59; Status DC Famotidine (Pepcid Vial) 20 mg 1X ONCE IVP Last administered on 10/08/21at 16:11; Start 10/08/21 at 15:45; Stop 10/08/21 at 15:59; Status DC Iohexol (Omnipaque 300 Mg/ml) 75 ml 1X ONCE IV Last administered on 10/08/21at 16:15; Start 10/08/21 at 16:15; Stop 10/08/21 at 16:16; Status DC Info (CONTRAST GIVEN -- Rx MONITORING) 1 each PRN DAILY PRN MC SEE COMMENTS; Start 10/08/21 at 16:15; Stop 10/10/21 at 16:14 Methylprednisolone Sodium Succinate (SOLU-Medrol 40MG VIAL) 20 mg Q6HRS IV ; Start 10/09/21 at 00:00; Status UNV Sodium Chloride 1,000 ml @ 125 mls/hr CONT IV ; Start 10/08/21 at 21:30; Statu s UNV Morphine Sulfate (Morphine Sulfate) 4 mg PRN Q2HR PRN IV PAIN; Start 10/08/21 at 21:30; Status UNV Hydromorphone HCl (Dilaudid) 2 mg PRN Q4HRS PRN IVP PAIN; Start 10/08/21 at 21:30; Status UNV Active Scripts Active Prednisone 50 Mg Tablet 1 Tab PO DAILY Zofran (Ondansetron Hcl) 4 Mg Tablet 4 Mg PO PRN TID PRN nausea/vomiting Percocet 5-325 Mg Tablet (Oxycodone/Acetaminophen) 1 Each Tablet 1-2 Each PO Q6HRS PRN pain Dicyclomine Hcl 10 Mg Capsule 1 Cap PO TID Percocet 5-325 Mg Tablet (Oxycodone/Acetaminophen) 1 Each Tablet 0.5-1 Tab PO PRN Q6HRS PRN Dicyclomine Hcl 10 Mg Capsule 1-2 Cap PO TID PRN Keflex (Cephalexin) 500 Mg Capsule 1 Cap PO TID 7 Days Pyridium (Phenazopyridine Hcl) 200 Mg Tablet 200 Mg PO TID Percocet 10-325 Mg Tablet (Oxycodone/Acetaminophen) 1 Each Tablet 1 Tab PO QIDPRN PRN MDD 4 Tablet(s) 5 Days Prednisone (Prednisone) 10 Mg Tablet 10 Mg PO UD Take 4 tablets by mouth daily for 5 days, then take 3 tablets by mouth daily for 2 days, then take 2 tablets by mouth daily for 2 days, then take 1 tablets by mouth daily for 2 days, then stop. Zofran (Ondansetron Hcl) 4 Mg Tablet 1 Tab PO Q6HRS PRN Dicyclomine Hcl 10 Mg Capsule 20 Mg PO Q6HRS PRN 30 Days Tylenol (Acetaminophen) 325 Mg Tablet 650 Mg PO PRN Q4HRS PRN 30 Days Pantoprazole Sodium (Pantoprazole Sodium) 40 Mg Tablet.dr 40 Mg PO DAILYAC 30 Days Allergies Allergies: Coded Allergies: NSAIDS (Non-Steroidal Anti-Inflamma (Verified Allergy, Intermediate, 06/20/20) morphine (Verified Allergy, Intermediate, Itching, 07/19/20) Tolerates Dilaudid ROS Review of System GENERAL: No history of weight change, weakness or fevers. SKIN: No bruising, hair changes or rashes. EYES: No blurred, double or loss of vision. NOSE AND THROAT: No history of nosebleeds, hoarseness or sore throat. HEART: Denies chest pain, denies palpitations. LUNGS: Denies cough, hemoptysis, wheezing or shortness of breath. GASTROINTESTINAL: Nausea, diarrhea, abdominal pain.. GENITOURINARY: Denies dysuria, frequency, urgency, hematuria. NEUROLOGIC: Denies history of numbness, tingling, tremor or weakness. PSYCHIATRIC: Denies anxiety, denies depression. ENDOCRINE: No history of heat or cold intolerance, polyuria or polydipsia. EXTREMITIES: Denies muscle weakness, joint pain, pain on walking or stiffness. Physical Exam Physical Exam General: Alert, Oriented X3, Cooperative, No acute distress. Frail-appearing. HEENT: PERRLA, EOMI Lungs: Clear to auscultation, Normal air movement Heart: Tachycardic, no murmurs Cardiovascular: S1, S2 Abdomen: Epigastric tenderness and guarding Extremities: No clubbing, No cyanosis Skin: No rashes, No significant lesion Neuro: Normal speech, Normal tone, Sensation intact Psych/Mental Status: Mental status NL, Mood NL Vitals Vitals Vital Signs Date Time Temp Pulse Resp B/P (MAP) Pulse Ox O2 Delivery O2 Flow Rate FiO2 10/08/21 21:07 14 99 Room Air 10/08/21 18:16 110 104/62 (76) 10/08/21 15:30 98.4 98.4 Labs Labs Laboratory Tests Test 10/08/21 15:30 10/08/21 15:45 Urine Collection Type Unknown Urine Color (Auto) Yellow Urine Turbidity Clear Urine pH (Auto) 6.0 (<5.0-8.0) Urine Specific [place] 1.038 (1.000-1.030) Urine Protein (Auto) 30 mg/dL (Negative) Urine Glucose (Auto)(UA) Negative mg/dL (Negative) Urine Ketones (Auto) Negative mg/dL (Negative) Urine Blood (Auto) Negative (Negative) Urine Nitrite Negative (Negative) Urine Bilirubin (Auto) Negative (Negative) Urine Urobilinogen (Auto) 2 mg/dL (Normal) Urine Leukocyte Esterase (Auto) Negative (Negative) Urine RBC 1-2 /HPF (0-2) Urine WBC 1-4 /HPF (0-4) Urine Squamous Epithelial Cells Few /LPF Urine Bacteria 0 /HPF (0-FEW) Urine Mucus Marked /LPF Urine Test Negative (NEG) Urine Opiates Screen Neg (NEG) Urine Methadone Screen Neg (NEG) Urine Barbiturates Neg (NEG) Urine Phencyclidine Screen Neg (NEG) Urine Amphetamine/Methamphetamine Neg (NEG) Urine Benzodiazepines Screen Neg (NEG) Urine Cocaine Screen Neg (NEG) Urine Cannabinoids Screen Neg (NEG) Urine Ethyl Alcohol Neg (NEG) White Blood Count 11.6 x10^3/uL (4.0-11.0) Red Blood Count 3.70 x10^6/uL (3.50-5.40) Hemoglobin 9.8 g/dL (12.0-15.5) Hematocrit 30.3 % (36.0-47.0) Mean Corpuscular Volume 82 fL (79-100) Mean Corpuscular Hemoglobin 26 pg (25-35) Mean Corpuscular Hemoglobin Concent 32 g/dL (31-37) Red Cell Distribution Width 15.4 % (11.5-14.5) Platelet Count 706 x10^3/uL (140-400) Neutrophils (%) (Auto) 60 % (31-73) Lymphocytes (%) (Auto) 22 % (24-48) Monocytes (%) (Auto) 16 % (0-9) Eosinophils (%) (Auto) 1 % (0-3) Basophils (%) (Auto) 1 % (0-3) Neutrophils # (Auto) 6.9 x10^3/uL (1.8-7.7) Lymphocytes # (Auto) 2.6 x10^3/uL (1.0-4.8) Monocytes # (Auto) 1.8 x10^3/uL (0.0-1.1) Eosinophils # (Auto) 0.2 x10^3/uL (0.0-0.7) Basophils # (Auto) 0.1 x10^3/uL (0.0-0.2) Sodium Level 144 mmol/L (136-145) Potassium Level 3.0 mmol/L (3.5-5.1) Chloride Level 104 mmol/L (98-107) Carbon Dioxide Level 33 mmol/L (21-32) Anion Gap 7 (6-14) Blood Urea Nitrogen 16 mg/dL (7-20) Creatinine 0.6 mg/dL (0.6-1.0) Estimated GFR (Cockcroft-Gault) 138.5 BUN/Creatinine Ratio 27 (6-20) Glucose Level 84 mg/dL (70-99) Calcium Level 9.0 mg/dL (8.5-10.1) Total Bilirubin 0.1 mg/dL (0.2-1.0) Aspartate Amino Transf (AST/SGOT) 15 U/L (15-37) Alanine Aminotransferase (ALT/SGPT) 20 U/L (14-59) Alkaline Phosphatase 163 U/L (46-116) Total Protein 7.4 g/dL (6.4-8.2) Albumin 2.4 g/dL (3.4-5.0) Albumin/Globulin Ratio 0.5 (1.0-1.7) Lipase 1070 U/L (73-393) Ethyl Alcohol Level < 10 mg/dL (0-10) Laboratory Tests Test 10/08/21 15:30 10/08/21 15:45 Urine Collection Type Unknown Urine Color (Auto) Yellow Urine Turbidity Clear Urine pH (Auto) 6.0 (<5.0-8.0) Urine Specific [place] 1.038 (1.000-1.030) Urine Protein (Auto) 30 mg/dL (Negative) Urine Glucose (Auto)(UA) Negative mg/dL (Negative) Urine Ketones (Auto) Negative mg/dL (Negative) Urine Blood (Auto) Negative (Negative) Urine Nitrite Negative (Negative) Urine Bilirubin (Auto) Negative (Negative) Urine Urobilinogen (Auto) 2 mg/dL (Normal) Urine Leukocyte Esterase (Auto) Negative (Negative) Urine RBC 1-2 /HPF (0-2) Urine WBC 1-4 /HPF (0-4) Urine Squamous Epithelial Cells Few /LPF Urine Bacteria 0 /HPF (0-FEW) Urine Mucus Marked /LPF Urine Test Negative (NEG) Urine Opiates Screen Neg (NEG) Urine Methadone Screen Neg (NEG) Urine Barbiturates Neg (NEG) Urine Phencyclidine Screen Neg (NEG) Urine Amphetamine/Methamphetamine Neg (NEG) Urine Benzodiazepines Screen Neg (NEG) Urine Cocaine Screen Neg (NEG) Urine Cannabinoids Screen Neg (NEG) Urine Ethyl Alcohol Neg (NEG) White Blood Count 11.6 x10^3/uL (4.0-11.0) Red Blood Count 3.70 x10^6/uL (3.50-5.40) Hemoglobin 9.8 g/dL (12.0-15.5) Hematocrit 30.3 % (36.0-47.0) Mean Corpuscular Volume 82 fL (79-100) Mean Corpuscular Hemoglobin 26 pg (25-35) Mean Corpuscular Hemoglobin Concent 32 g/dL (31-37) Red Cell Distribution Width 15.4 % (11.5-14.5) Platelet Count 706 x10^3/uL (140-400) Neutrophils (%) (Auto) 60 % (31-73) Lymphocytes (%) (Auto) 22 % (24-48) Monocytes (%) (Auto) 16 % (0-9) Eosinophils (%) (Auto) 1 % (0-3) Basophils (%) (Auto) 1 % (0-3) Neutrophils # (Auto) 6.9 x10^3/uL (1.8-7.7) Lymphocytes # (Auto) 2.6 x10^3/uL (1.0-4.8) Monocytes # (Auto) 1.8 x10^3/uL (0.0-1.1) Eosinophils # (Auto) 0.2 x10^3/uL (0.0-0.7) Basophils # (Auto) 0.1 x10^3/uL (0.0-0.2) Sodium Level 144 mmol/L (136-145) Potassium Level 3.0 mmol/L (3.5-5.1) Chloride Level 104 mmol/L (98-107) Carbon Dioxide Level 33 mmol/L (21-32) Anion Gap 7 (6-14) Blood Urea Nitrogen 16 mg/dL (7-20) Creatinine 0.6 mg/dL (0.6-1.0) Estimated GFR (Cockcroft-Gault) 138.5 BUN/Creatinine Ratio 27 (6-20) Glucose Level 84 mg/dL (70-99) Calcium Level 9.0 mg/dL (8.5-10.1) Total Bilirubin 0.1 mg/dL (0.2-1.0) Aspartate Amino Transf (AST/SGOT) 15 U/L (15-37) Alanine Aminotransferase (ALT/SGPT) 20 U/L (14-59) Alkaline Phosphatase 163 U/L (46-116) Total Protein 7.4 g/dL (6.4-8.2) Albumin 2.4 g/dL (3.4-5.0) Albumin/Globulin Ratio 0.5 (1.0-1.7) Lipase 1070 U/L (73-393) Ethyl Alcohol Level < 10 mg/dL (0-10) Images Images PATIENT: JEANNETTE VALENTIN ACCOUNT: [id number] : 1985 LOCATION: ER AGE: 36 SEX: F EXAM STATUS: REG ER ORD. PHYSICIAN: MICHAELA PARISI LOAN CLOSER REASON: Left abdomen pain PROCEDURE: CT ABD PELV W/ IV CONTRST ONLY Exam: CT of abdomen and pelvis with contrast INDICATION: Left abdomen pain TECHNIQUE: Sequential axial images through the abdomen and pelvis obtained following the administration of 75 mL of Isovue-370 IV contrast. Sagittal and coronal reformatted images were reconstructed from the axial data and reviewed. Exposure: One or more of the following in the visualized dose reduction techniques were utilized for this examination: 1. Automated exposure control 2. Adjustment of the MA and/or KV according to patient size 3. Use of iterative of reconstructive technique Comparisons: 04/17/2021 FINDINGS: Heart size is normal. No pericardial effusion. Visualized lung bases are clear. No pleural effusion. Liver, spleen, gallbladder and adrenals are unremarkable. There is pancreatic du ctal dilatation to pancreatic calcifications and atrophic appearance. No perinephric inflammation or hydronephrosis. Nonobstructing left renal calculi noted. No ureteral calculi are seen. Bladder is partially distended and not well evaluated. Uterus not enlarged. No abnormal adnexal mass. There is mucosal hyperenhancement and wall thickening involving loops of small bowel in the upper abdomen. Postoperative changes at the colon are noted. No free intra-abdominal air or fluid. No obstruction. Abdominal aorta has normal course and caliber. Abdominal vasculature is patent. No enlarged intra-abdominal lymph nodes are identified. Mild compression fracture involving the superior endplate of L1 which is new from the prior study in 2020. IMPRESSION: 1. Inflammatory changes involving the proximal small bowel which is nonspecific may be infectious or inflammatory in etiology. 2. Findings of chronic pancreatitis. There may be some mild adjacent fat stranding surrounding the pancreas. Correlate with lipase for acute on chronic pancreatitis. 3. Mild compression fracture involving superior endplate of L1 which is new from the study on 04/17/2021. Correlate with point tenderness. 4. Nonobstructing left renal calculus. VTE Prophylaxis Ordered VTE Prophylaxis Devices: No VTE Pharmacological Prophylaxi: Yes Assessment/Plan Assessment/Plan Acute Crohn's flare Acute on chronic pancreatitis Hypokalemia Dehydration Plan: Will place consultation to GI IV Solu-Medrol 20 mg every 6 hours Continuous IV fluids with potassium x 1 Maintain n.p.o. status until abdominal pain improves and appetite increases Mild L1 compression fracture noted on CT; given patient's history of chronic steroid use she will likely need vitamin D supplementation CRP, vitamin D 25-OH pending IV pain management FEN - NPO, then ADAT PPX - Heparin FULL CODE Dispo - inpatient for above Justifications for Admission Other Justification Chronic pancreatitis, hypokalemia AMANDA FORD MD Oct 08, 2021 21:48
[2021-10-08] MEDS: HEPARIN for SUB-Q USE 5,000 UNIT/ML VIAL. SQ SCH (22:00)
[2021-10-08] MEDS ORDERED: POTASSIUM CL 40MEQ IN 0.9%NACL 1,000 ML IV SCH (22:00)
[2021-10-08] MEDS ORDERED: MORPHINE SULFATE 4 MG/ML INJ. IVP PRN (22:45)
[2021-10-08] MEDS ORDERED: ONDANSETRON PF 4 MG/2 ML VIAL. IVP PRN (22:45)
--- NOTE | 2021-10-08 22:46 | PHYS DOC ---
Past Medical History Past Medical History: Pancreatitis, Other Additional Past Medical Histor: Crohn's Past Surgical History: Other Additional Past Surgical Histo: Ileostomy surgery 2010 Smoking Status: Never Smoker Alcohol Use: None Drug Use: None General Adult EDM: Chief Complaint: ABDOMINAL PAIN HPI: HPI: Patient is a 36 year old female with a history of nonalcohol induced pancreatitis, Crohn's disease presented today complaining of a sharp constant 10 out of 10 left upper quadrant abdominal pain radiating to her back, symptoms have been going on since yesterday. Reports vomiting yesterday. Denies anything specifically exacerbating or relieving her pain. Review of Systems: Review of Systems: Constitutional: Denies fever or chills. [] Eyes: Denies change in visual acuity. [] HENT: Denies nasal congestion or sore throat. [] Respiratory: Denies cough or shortness of breath. [] Cardiovascular: Denies chest pain or edema. [] GI: Reports left upper quadrant abdominal pain with vomiting, denies bloody stools or diarrhea. [] : Denies dysuria. [] Musculoskeletal: Denies back pain or joint pain. [] Integument: Denies rash. [] Neurologic: Denies headache, focal weakness or sensory changes. [] Psychiatric: Denies depression or anxiety. [] Heart Score: C/O Chest Pain: N/A Risk Factors: Risk Factors: DM, Current or recent (<one month) smoker, HTN, HLP, family history of CAD, obesity. Risk Scores: Score 0 - 3: 2.5% MACE over next 6 weeks - Discharge Home Score 4 - 6: 20.3% MACE over next 6 weeks - Admit for Clinical Observation Score 7 - 10: 72.7% MACE over next 6 weeks - Early Invasive Strategies Current Medications: Current Medications Medications (Trade) Dose Ordered Sig/Nguyen Start Time Stop Time Status Last Admin Dose Admin Famotidine (Pepcid Vial) 20 mg 1X ONCE 10/08/21 15:45 10/08/21 15:59 DC 10/08/21 16:11 20 MG Fentanyl Citrate (Fentanyl 2ml Vial) 50 mcg PRN Q15MIN PRN 10/08/21 15:45 10/09/21 15:44 10/08/21 21:07 50 MCG Info (CONTRAST GIVEN -- Rx MONITORING) 1 each PRN DAILY PRN 10/08/21 16:15 4/13/22 16:14 Iohexol (Omnipaque 300 Mg/ml) 75 ml 1X ONCE 10/08/21 16:15 10/08/21 16:16 DC 10/08/21 16:15 75 ML Ondansetron HCl (Zofran) 4 mg 1X ONCE 10/08/21 15:45 10/08/21 15:59 DC 10/08/21 16:10 4 MG Sodium Chloride 1,000 ml @ 1,000 mls/hr 1X ONCE 10/08/21 15:45 10/08/21 16:44 DC 10/08/21 16:10 1,000 MLS/HR Allergies: Allergies: Allergies Coded Allergies Type Severity Reaction Last Updated Verified NSAIDS (Non-Steroidal Anti-Inflamma Allergy Intermediate 06/20/20 Yes Physical Exam: PE: Constitutional: Well developed, well nourished, no acute distress, non-toxic appearance. [] HENT: Normocephalic, atraumatic, bilateral external ears normal, oropharynx moist, no oral exudates, nose normal. [] Eyes: PERRLA, EOMI, conjunctiva normal, no discharge. [] Neck: Normal range of motion, no tenderness, supple, no stridor. [] Cardiovascular:Heart rate regular rhythm, no murmur [] Lungs & Thorax: Bilateral breath sounds clear to auscultation [] Abdomen: Abdominal exam difficult, patient is hunched over on the wheelchair and transferred herself to the bed and stayed hunched up in position. She does have an old healed surgical incision midline abdomen from colon resection, bowel sounds normal, soft, tenderness in the left upper quadrant, no masses, no pulsatile masses. [] Skin: Warm, dry, no erythema, no rash. [] Back: No tenderness, no CVA tenderness. [] Extremities: No tenderness, no cyanosis, no clubbing, ROM intact, no edema. [] Neurologic: Alert and oriented X 3, normal motor function, normal sensory function, no focal deficits noted. [] Psychologic: Affect normal, judgement normal, mood normal. [] Current Patient Data: Labs: Laboratory Tests Test 10/08/21 15:30 10/08/21 15:45 Urine Collection Type Unknown Urine Color (Auto) Yellow Urine Turbidity Clear Urine pH (Auto) 6.0 (<5.0-8.0) Urine Specific [place] 1.038 (1.000-1.030) Urine Protein (Auto) 30 mg/dL (Negative) Urine Glucose (Auto)(UA) Negative mg/dL (Negative) Urine Ketones (Auto) Negative mg/dL (Negative) Urine Blood (Auto) Negative (Negative) Urine Nitrite Negative (Negative) Urine Bilirubin (Auto) Negative (Negative) Urine Urobilinogen (Auto) 2 mg/dL (Normal) Urine Leukocyte Esterase (Auto) Negative (Negative) Urine RBC 1-2 /HPF (0-2) Urine WBC 1-4 /HPF (0-4) Urine Squamous Epithelial Cells Few /LPF Urine Bacteria 0 /HPF (0-FEW) Urine Mucus Marked /LPF Urine Test Negative (NEG) Urine Opiates Screen Neg (NEG) Urine Methadone Screen Neg (NEG) Urine Barbiturates Neg (NEG) Urine Phencyclidine Screen Neg (NEG) Urine Amphetamine/Methamphetamine Neg (NEG) Urine Benzodiazepines Screen Neg (NEG) Urine Cocaine Screen Neg (NEG) Urine Cannabinoids Screen Neg (NEG) Urine Ethyl Alcohol Neg (NEG) White Blood Count 11.6 x10^3/uL (4.0-11.0) H Red Blood Count 3.70 x10^6/uL (3.50-5.40) Hemoglobin 9.8 g/dL (12.0-15.5) L Hematocrit 30.3 % (36.0-47.0) L Mean Corpuscular Volume 82 fL (79-100) Mean Corpuscular Hemoglobin 26 pg (25-35) Mean Corpuscular Hemoglobin Concent 32 g/dL (31-37) Red Cell Distribution Width 15.4 % (11.5-14.5) H Platelet Count 706 x10^3/uL (140-400) H Neutrophils (%) (Auto) 60 % (31-73) Lymphocytes (%) (Auto) 22 % (24-48) L Monocytes (%) (Auto) 16 % (0-9) H Eosinophils (%) (Auto) 1 % (0-3) Basophils (%) (Auto) 1 % (0-3) Neutrophils # (Auto) 6.9 x10^3/uL (1.8-7.7) Lymphocytes # (Auto) 2.6 x10^3/uL (1.0-4.8) Monocytes # (Auto) 1.8 x10^3/uL (0.0-1.1) H Eosinophils # (Auto) 0.2 x10^3/uL (0.0-0.7) Basophils # (Auto) 0.1 x10^3/uL (0.0-0.2) Sodium Level 144 mmol/L (136-145) Potassium Level 3.0 mmol/L (3.5-5.1) L Chloride Level 104 mmol/L (98-107) Carbon Dioxide Level 33 mmol/L (21-32) H Anion Gap 7 (6-14) Blood Urea Nitrogen 16 mg/dL (7-20) Creatinine 0.6 mg/dL (0.6-1.0) Estimated GFR (Cockcroft-Gault) 138.5 BUN/Creatinine Ratio 27 (6-20) H Glucose Level 84 mg/dL (70-99) Calcium Level 9.0 mg/dL (8.5-10.1) Total Bilirubin 0.1 mg/dL (0.2-1.0) L Aspartate Amino Transferase (AST) 15 U/L (15-37) Alanine Aminotransferase (ALT) 20 U/L (14-59) Alkaline Phosphatase 163 U/L (46-116) H C-Reactive Protein, Quantitative 53.7 mg/L (0-3.3) H Total Protein 7.4 g/dL (6.4-8.2) Albumin 2.4 g/dL (3.4-5.0) L Albumin/Globulin Ratio 0.5 (1.0-1.7) L Lipase 1070 U/L (73-393) H Ethyl Alcohol Level < 10 mg/dL (0-10) Laboratory Tests 10/08/21 15:45 Laboratory Tests 10/08/21 15:45 Vital Signs: Vital Signs Date Time Temp Pulse Resp B/P (MAP) Pulse Ox O2 Delivery O2 Flow Rate FiO2 10/08/21 21:07 14 99 Room Air 10/08/21 18:16 110 104/62 (76) 10/08/21 15:30 98.4 98.4 EKG: EKG: [] Radiology/Procedures: Radiology/Procedures: []PROCEDURE: CT ABD PELV W/ IV CONTRST ONLY Exam: CT of abdomen and pelvis with contrast INDICATION: Left abdomen pain TECHNIQUE: Sequential axial images through the abdomen and pelvis obtained following the administration of 75 mL of Isovue-370 IV contrast. Sagittal and coronal reformatted images were reconstructed from the axial data and reviewed. Exposure: One or more of the following in the visualized dose reduction techniques were utilized for this examination: 1. Automated exposure control 2. Adjustment of the MA and/or KV according to patient size 3. Use of iterative of reconstructive technique Comparisons: 04/17/2021 FINDINGS: Heart size is normal. No pericardial effusion. Visualized lung bases are clear. No pleural effusion. Liver, spleen, gallbladder and adrenals are unremarkable. There is pancreatic ductal dilatation to pancreatic calcifications and atrophic appearance. No perinephric inflammation or hydronephrosis. Nonobstructing left renal calculi noted. No ureteral calculi are seen. Bladder is partially distended and not well evaluated. Uterus not enlarged. No abnormal adnexal mass. There is mucosal hyperenhancement and wall thickening involving loops of small bowel in the upper abdomen. Postoperative changes at the colon are noted. No free intra-abdominal air or fluid. No obstruction. Abdominal aorta has normal course and caliber. Abdominal vasculature is patent. No enlarged intra-abdominal lymph nodes are identified. Mild compression fracture involving the superior endplate of L1 which is new from the prior study in 2020. IMPRESSION: 1. Inflammatory changes involving the proximal small bowel which is nonspecific may be infectious or inflammatory in etiology. 2. Findings of chronic pancreatitis. There may be some mild adjacent fat stranding surrounding the pancreas. Correlate with lipase for acute on chronic pancreatitis. 3. Mild compression fracture involving superior endplate of L1 which is new from the study on 04/17/2021. Correlate with point tenderness. 4. Nonobstructing left renal calculus. Electronically signed by: Terry Jacinto MD (10/08/2021 7:02 PM) [facility] DICTATED and SIGNED BY: TERRY JACINTO MD DATE: 10/08/211856 Course & Med Decision Making: Course & Med Decision Making Pertinent Labs and Imaging studies reviewed. (See chart for details) This a 36-year-old female patient presented to the ED today with left upper quadrant abdominal pain that began yesterday as well as vomiting. History of Crohn's and pancreatitis. CBC with a WBC of 11.6, hemoglobin 9.8 with hematocrit of 30.3. CMP with potas sium of 3.0, patient will need an potassium replacement. Lipase 1070. CT of the abdomen and pelvis noted for Inflammatory changes involving the proximal small bowel which is nonspecific may be infectious or inflammatory in etiology. Findings of chronic pancreatitis. There may be some mild adjacent fat stranding surrounding the pancreas. Correlate with lipase for acute on chronic pancreatitis.Mild compression fracture involving superior endplate of L1 which is new from the study on 04/17/2021. Correlate with point tenderness. Nonobstructing left renal calculus. Spoke with Dr. Hayden who accepted patient for admission, GI consult placed. Rhonda Disclaimer: Rhonda Disclaimer: This electronic medical record was generated, in whole or in part, using a voice recognition dictation system. Departure Departure Impression: Primary Impression: Chronic pancreatitis Qualified Codes: K86.1 - Other chronic pancreatitis Additional Impressions: Hypokalemia Intractable abdominal pain Nausea and vomiting Qualified Codes: R11.2 - Nausea with vomiting, unspecified Disposition: 09 ADMITTED INPATIENT Condition: STABLE Referrals: NO PCP (PCP) MICHAELA PARISI [employer] Oct 08, 2021 22:46
[2021-10-08] MEDS: HYDROmorphone 2 MG/ML INJ. IVP PRN (23:20)
[2021-10-08] MEDS ORDERED: POTASSIUM BICARB 20 MEQ EFFERVESCENT TABLET. PO ONE (23:30)
[2021-10-09] VITALS (7 sets, daily range): BP systolic 104–122; BP diastolic 70–88
[2021-10-09] MEDS: methylPREDNISolone SOD SUCC PF 40 MG/ML VIAL. IV SCH ×5 (01:29→23:45)
[2021-10-09] MEDS: HYDROmorphone 2 MG/ML INJ. IVP PRN ×7 (03:25→23:42)
[2021-10-09] MEDS: HEPARIN for SUB-Q USE 5,000 UNIT/ML VIAL. SQ SCH ×3 (06:00→21:38)
[2021-10-09 06:17] LABS: BASO % 0 % (0-3); EOS % 0 % (0-3); HEMATOCRIT 27.3 % (36.0-47.0); HEMOGLOBIN 8.8 g/dL (12.0-15.5); LYMPH # 0.9 x10^3/uL (1.0-4.8); LYMPH % 12 % (24-48); MEAN CORPUSCULAR HEMOGLOBIN 27 pg (25-35); MEAN CORPUSCULAR HGB CONC 32 g/dL (31-37); MEAN CORPUSCULAR VOLUME 83 fL (79-100); MONO # 0.1 x10^3/uL (0.0-1.1); MONO % 2 % (0-9); NEUT # 6.5 x10^3/uL (1.8-7.7); NEUT % 86 % (31-73); PLATELET COUNT 521 x10^3/uL (140-400); RED CELL DISTRIBUTION WIDTH 15.7 % (11.5-14.5); WHITE BLOOD COUNT 7.6 x10^3/uL (4.0-11.0)
[2021-10-09 06:38] LABS: ALBUMIN 2.3 g/dL (3.4-5.0); ALBUMIN/GLOBULIN RATIO 0.5 (1.0-1.7); CALCIUM 8.7 mg/dL (8.5-10.1); CREATININE 0.5 mg/dL (0.6-1.0); GFR 170.9; POTASSIUM 3.8 mmol/L (3.5-5.1); TOTAL BILIRUBIN 0.2 mg/dL (0.2-1.0); TOTAL PROTEIN 6.9 g/dL (6.4-8.2)
--- NOTE | 2021-10-09 09:57 | PDOC2 ---
GI CONSULT Date of Service: DATE: 10/09/21 TIME: 09:57 Reason For Consult: chronic pancreatitis HPI: HPI: 36 y/o female who we've seen many times. To ER w/ upper abdominal pain radiating to pain ("it's my pancreas") for a few days. Then developed loose/watery stools and vomiting once yesterday. No bleeding. Also reports "electrolytes out of whack" and "couldn't walk." [facility]. Also had a colonoscopy there ~1 month ago (can't remember doctor's name) and was told "some inflammation and some ulcers." Has been on prednisone recently but not for a couple weeks. Says no follow-up was recommended. Was taking "Oxys" at home. Doesn't seem like was taking PPI. H/o chronic abdominal pain and narcotic dependency. H/o Crohn's disease - diagnosed in 1999 s/p bowel resection. EGD and colonoscopy 04/[address] West (to hepatic flexure then turning cable broke): healed reflux, non-specific antral erythema (biopsies w/ chronic gastritis, negative for H. pylori), normal duodenum, anal (dilated w/ finger), and sigmoid (SB scope used) strictures from Crohn's, Crohn's colitis. Past Crohn's treatment w/ Imuran (can't take this of 6MP w/ h/o pancreatitis) and biologics. H/o C Diff. H/o pancreatitis (chronic w/ calcifications on imaging) - cause unclear. 12 CTs here since 03/2016. No GB, liver, or PUD history. Past surgical eval - recommendation for elective cholecystectomy. H/o ACD/NIMISHA per past iron profile, normal B12. IgG4 and ROHAN negative in 2020. This time, lipase 1070 to 579, CRP 53.7. CT below. PMH: PMH: per HPI depression/anxiety, nephrolithiasis FH: Family History: No pertinent hx Social History: Smoke: Quit ALCOHOL: none Drugs: None (+marijuana and meth on tox screen in in 06/2020) ROS: GEN: Denies fevers, chills, sweats HEENT: Denies blurred vision, sore throat CV: Denies chest pain RESP: Denies shortness of air, cough GI: Per HPI : Denies hematuria, dysuria ENDO: +probably has lost weigh NEURO: Denies confusion, dizziness MSK: Denies weakness, joint pain/swelling SKIN: Denies jaundice, pruritus Vitals: Vitals: Vital Signs Date Time Temp Pulse Resp B/P (MAP) Pulse Ox O2 Delivery O2 Flow Rate FiO2 10/09/21 07:55 Room Air 10/09/21 07:00 99.0 90 18 111/71 (84) 96 99.0 Labs: Labs: Laboratory Tests Test 10/08/21 15:30 10/08/21 15:45 10/09/21 05:25 Urine Collection Type Unknown Urine Color (Auto) Yellow Urine Turbidity Clear Urine pH (Auto) 6.0 (<5.0-8.0) Urine Specific [place] 1.038 (1.000-1.030) Urine Protein (Auto) 30 mg/dL (Negative) Urine Glucose (Auto)(UA) Negative mg/dL (Negative) Urine Ketones (Auto) Negative mg/dL (Negative) Urine Blood (Auto) Negative (Negative) Urine Nitrite Negative (Negative) Urine Bilirubin (Auto) Negative (Negative) Urine Urobilinogen (Auto) 2 mg/dL (Normal) Urine Leukocyte Esterase (Auto) Negative (Negative) Urine RBC 1-2 /HPF (0-2) Urine WBC 1-4 /HPF (0-4) Urine Squamous Epithelial Cells Few /LPF Urine Bacteria 0 /HPF (0-FEW) Urine Mucus Marked /LPF Urine Test Negative (NEG) Urine Opiates Screen Neg (NEG) Urine Methadone Screen Neg (NEG) Urine Barbiturates Neg (NEG) Urine Phencyclidine Screen Neg (NEG) Urine Amphetamine/Methamphetamine Neg (NEG) Urine Benzodiazepines Screen Neg (NEG) Urine Cocaine Screen Neg (NEG) Urine Cannabinoids Screen Neg (NEG) Urine Ethyl Alcohol Neg (NEG) White Blood Count 11.6 x10^3/uL (4.0-11.0) 7.6 x10^3/uL (4.0-11.0) Red Blood Count 3.70 x10^6/uL (3.50-5.40) 3.30 x10^6/uL (3.50-5.40) Hemoglobin 9.8 g/dL (12.0-15.5) 8.8 g/dL (12.0-15.5) Hematocrit 30.3 % (36.0-47.0) 27.3 % (36.0-47.0) Mean Corpuscular Volume 82 fL (79-100) 83 fL (79-100) Mean Corpuscular Hemoglobin 26 pg (25-35) 27 pg (25-35) Mean Corpuscular Hemoglobin Concent 32 g/dL (31-37) 32 g/dL (31-37) Red Cell Distribution Width 15.4 % (11.5-14.5) 15.7 % (11.5-14.5) Platelet Count 706 x10^3/uL (140-400) 521 x10^3/uL (140-400) Neutrophils (%) (Auto) 60 % (31-73) 86 % (31-73) Lymphocytes (%) (Auto) 22 % (24-48) 12 % (24-48) Monocytes (%) (Auto) 16 % (0-9) 2 % (0-9) Eosinophils (%) (Auto) 1 % (0-3) 0 % (0-3) Basophils (%) (Auto) 1 % (0-3) 0 % (0-3) Neutrophils # (Auto) 6.9 x10^3/uL (1.8-7.7) 6.5 x10^3/uL (1.8-7.7) Lymphocytes # (Auto) 2.6 x10^3/uL (1.0-4.8) 0.9 x10^3/uL (1.0-4.8) Monocytes # (Auto) 1.8 x10^3/uL (0.0-1.1) 0.1 x10^3/uL (0.0-1.1) Eosinophils # (Auto) 0.2 x10^3/uL (0.0-0.7) 0.0 x10^3/uL (0.0-0.7) Basophils # (Auto) 0.1 x10^3/uL (0.0-0.2) 0.0 x10^3/uL (0.0-0.2) Sodium Level 144 mmol/L (136-145) 140 mmol/L (136-145) Potassium Level 3.0 mmol/L (3.5-5.1) 3.8 mmol/L (3.5-5.1) Chloride Level 104 mmol/L (98-107) 106 mmol/L (98-107) Carbon Dioxide Level 33 mmol/L (21-32) 27 mmol/L (21-32) Anion Gap 7 (6-14) 7 (6-14) Blood Urea Nitrogen 16 mg/dL (7-20) 11 mg/dL (7-20) Creatinine 0.6 mg/dL (0.6-1.0) 0.5 mg/dL (0.6-1.0) Estimated GFR (Cockcroft-Gault) 138.5 170.9 BUN/Creatinine Ratio 27 (6-20) 22 (6-20) Glucose Level 84 mg/dL (70-99) 107 mg/dL (70-99) Calcium Level 9.0 mg/dL (8.5-10.1) 8.7 mg/dL (8.5-10.1) Total Bilirubin 0.1 mg/dL (0.2-1.0) 0.2 mg/dL (0.2-1.0) Aspartate Amino Transf (AST/SGOT) 15 U/L (15-37) 13 U/L (15-37) Alanine Aminotransferase (ALT/SGPT) 20 U/L (14-59) 15 U/L (14-59) Alkaline Phosphatase 163 U/L (46-116) 147 U/L (46-116) C-Reactive Protein, Quantitative 53.7 mg/L (0-3.3) Total Protein 7.4 g/dL (6.4-8.2) 6.9 g/dL (6.4-8.2) Albumin 2.4 g/dL (3.4-5.0) 2.3 g/dL (3.4-5.0) Albumin/Globulin Ratio 0.5 (1.0-1.7) 0.5 (1.0-1.7) Lipase 1070 U/L (73-393) 579 U/L (73-393) Ethyl Alcohol Level < 10 mg/dL (0-10) Allergies: Coded Allergies: NSAIDS (Non-Steroidal Anti-Inflamma (Verified Allergy, Intermediate, 06/20/20) morphine (Verified Allergy, Intermediate, Itching, 10/08/21) Tolerates Dilaudid She states she is no longer allergic to Morphine and would like to removed from her allergy list Medications: Current Medications Medications (Trade) Dose Ordered Sig/Nguyen Route PRN Reason Start Time Stop Time Status Last Admin Dose Admin Sodium Chloride 1,000 ml @ 1,000 mls/hr 1X ONCE IV 10/08/21 15:45 10/08/21 16:44 DC 10/08/21 16:10 Fentanyl Citrate (Fentanyl 2ml Vial) 50 mcg PRN Q15MIN PRN IV PAIN GREATER THAN 3/10 10/08/21 15:45 10/09/21 01:20 DC 10/08/21 23:05 Ondansetron HCl (Zofran) 4 mg 1X ONCE IVP 10/08/21 15:45 10/08/21 15:59 DC 10/08/21 16:10 Famotidine (Pepcid Vial) 20 mg 1X ONCE IVP 10/08/21 15:45 10/08/21 15:59 DC 10/08/21 16:11 Iohexol (Omnipaque 300 Mg/ml) 75 ml 1X ONCE IV 10/08/21 16:15 10/08/21 16:16 DC 10/08/21 16:15 Methylprednisolone Sodium Succinate (SOLU-Medrol 40MG VIAL) 20 mg Q6HRS IV 10/09/21 00:00 10/09/21 06:38 Hydromorphone HCl (Dilaudid) 2 mg PRN Q4HRS PRN IVP SEVERE PAIN 7-10 10/08/21 21:30 10/09/21 07:25 Potassium Chloride/Sodium Chloride 1,000 ml @ 100 mls/hr Q10H IV 10/08/21 22:00 10/09/21 07:59 DC 10/08/21 23:09 Imaging: Imaging: CT A/P IMPRESSION: 1. Inflammatory changes involving the proximal small bowel which is nonspecific may be infectious or inflammatory in etiology. 2. Findings of chronic pancreatitis. There may be some mild adjacent fat stranding surrounding the pancreas. Correlate with lipase for acute on chronic pancreatitis. 3. Mild compression fracture involving superior endplate of L1 which is new from the study on 04/17/2021. Correlate with point tenderness. 4. Nonobstructing left renal calculus. PE: GEN: NAD, was sleeping HEENT: Atraumatic, PERRL LUNGS: CTAB HEART: RRR ABD: quiet, soft, non-distended, tender mostly to left and also some in epigastrium EXTREMITY: No edema SKIN: No rashes, no jaundice NEURO/PSYCH: A & O 3, doesn't offer much A/P: A/P: Acute/chronic abdominal pain, vomiting x 1, diarrhea (also a chronic issue) ACD/NIMISHA GERD Crohn's s/p resection, anal and sigmoid strictures on colonoscopy in 2019 CRC screen - says had [facility]1 month ago H/o C Diff Chronic pancreatitis - cause unclear Narcotic dependency -- NPO for now. Already started on IV steroids. Check C Diff for completeness. Add acid-enrober tender. Will attempt to review records from recent colonoscopy/admission [facility]. Other per Dr. West. ONELIA KING Oct 09, 2021 09:57
--- NOTE | 2021-10-09 09:57 | NUR ---
SW following. Discussed with RN, pt from home, room air, NPO. GI following. Pt will likely discharge home when medically ready. SW will continue to follow.
[2021-10-09] MEDS: IV NORMAL SALINE 1000ML BAG 1,000 ML IV SCH ×2 (10:26→19:35)
--- NOTE | 2021-10-09 11:37 | PDOC ---
[employer] PROGRESS NOTE Date of Service DOS: DATE: 10/09/21 TIME: 11:33 Chief Complaint Chief Complaint Intractable abdominal pain - likely pancreatitis related, no clear etiology. Previously discussed this may have been autoimmune vs imuran related Acute pancreatitis - NPO, IV pain control Back pain - could be related to L1 fracture given paraspinal spasming Hypokalemia - replace Leukocytosis - likely related to crohns flare with pancreatitis Narcotic dependence S/p: colostomy with takedown Previous tobacco abuse. H/o Crohn's disease - since 1999, s/p bowel resection. Treated w/ Imuran and biologics. Steroids and narcotics, intermittent mesalamine. Previous insurance denial for Stelara. Await GI recs H/o C diff - no diarrhea currently FEN - NPO PPX - lovenox FULL CODE DIspo - inpatient History of Present Illness History of Present Illness Ms Jose a 36-year-old female with past medical history of Crohn's disease, chronic pancreatitis, presents to the ED with complaints of abdominal pain since last night. She reports severe diarrhea 4 days prior to the onset of abdominal pain, with associated muscle cramps. As her diarrhea began to resolve she noted epigastric abdominal pain, 10/10. Pain is similar to her history of chronic pancreatitis. Labs admission showed WBC 11.6, hemoglobin 9.8, hematocrit 30.3, platelets 706, potassium 3.0, BUN/creatinine ratio 27, albumin 2.4, lipase 1070. CT abdomen admission showed proximal small bowel inflammation, findings consistent with chronic pancreatitis, mild L1 compression fracture, nonobstructing left renal calculus. Patient admitted for further medical management. 10/09: Hb dropped to 8.8 from 9.8, lipase 579, has back pain that is constant and spasming he had nausea and abdominal pain that are colicky in nature note she was hospitalized [facility] Crohn's flare just a month ago and had not really been taking any pain medication at home. Reviewed L1 fracture on endplate with patient she notes she has been having more back pain recently but no recent traumas falls. Vitals/I&O Vitals/I&O: Vital Signs Date Time Temp Pulse Resp B/P (MAP) Pulse Ox O2 Delivery O2 Flow Rate FiO2 10/09/21 11:24 Room Air 10/09/21 11:02 98.5 88 18 122/79 (93) 100 98.5 I & O 10/08/21 10/08/21 10/09/21 15:00 23:00 07:00 Intake Total 1000 ml 0 ml Balance 1000 ml 0 ml Physical Exam Lungs: Clear Labs Labs: Laboratory Tests Test 10/08/21 15:30 10/08/21 15:45 10/09/21 05:25 Urine Collection Type Unknown Urine Color (Auto) Yellow Urine Turbidity Clear Urine pH (Auto) 6.0 (<5.0-8.0) Urine Specific [place] 1.038 (1.000-1.030) Urine Protein (Auto) 30 mg/dL (Negative) Urine Glucose (Auto)(UA) Negative mg/dL (Negative) Urine Ketones (Auto) Negative mg/dL (Negative) Urine Blood (Auto) Negative (Negative) Urine Nitrite Negative (Negative) Urine Bilirubin (Auto) Negative (Negative) Urine Urobilinogen (Auto) 2 mg/dL (Normal) Urine Leukocyte Esterase (Auto) Negative (Negative) Urine RBC 1-2 /HPF (0-2) Urine WBC 1-4 /HPF (0-4) Urine Squamous Epithelial Cells Few /LPF Urine Bacteria 0 /HPF (0-FEW) Urine Mucus Marked /LPF Urine Test Negative (NEG) Urine Opiates Screen Neg (NEG) Urine Methadone Screen Neg (NEG) Urine Barbiturates Neg (NEG) Urine Phencyclidine Screen Neg (NEG) Urine Amphetamine/Methamphetamine Neg (NEG) Urine Benzodiazepines Screen Neg (NEG) Urine Cocaine Screen Neg (NEG) Urine Cannabinoids Screen Neg (NEG) Urine Ethyl Alcohol Neg (NEG) White Blood Count 11.6 x10^3/uL (4.0-11.0) 7.6 x10^3/uL (4.0-11.0) Red Blood Count 3.70 x10^6/uL (3.50-5.40) 3.30 x10^6/uL (3.50-5.40) Hemoglobin 9.8 g/dL (12.0-15.5) 8.8 g/dL (12.0-15.5) Hematocrit 30.3 % (36.0-47.0) 27.3 % (36.0-47.0) Mean Corpuscular Volume 82 fL (79-100) 83 fL (79-100) Mean Corpuscular Hemoglobin 26 pg (25-35) 27 pg (25-35) Mean Corpuscular Hemoglobin Concent 32 g/dL (31-37) 32 g/dL (31-37) Red Cell Distribution Width 15.4 % (11.5-14.5) 15.7 % (11.5-14.5) Platelet Count 706 x10^3/uL (140-400) 521 x10^3/uL (140-400) Neutrophils (%) (Auto) 60 % (31-73) 86 % (31-73) Lymphocytes (%) (Auto) 22 % (24-48) 12 % (24-48) Monocytes (%) (Auto) 16 % (0-9) 2 % (0-9) Eosinophils (%) (Auto) 1 % (0-3) 0 % (0-3) Basophils (%) (Auto) 1 % (0-3) 0 % (0-3) Neutrophils # (Auto) 6.9 x10^3/uL (1.8-7.7) 6.5 x10^3/uL (1.8-7.7) Lymphocytes # (Auto) 2.6 x10^3/uL (1.0-4.8) 0.9 x10^3/uL (1.0-4.8) Monocytes # (Auto) 1.8 x10^3/uL (0.0-1.1) 0.1 x10^3/uL (0.0-1.1) Eosinophils # (Auto) 0.2 x10^3/uL (0.0-0.7) 0.0 x10^3/uL (0.0-0.7) Basophils # (Auto) 0.1 x10^3/uL (0.0-0.2) 0.0 x10^3/uL (0.0-0.2) Sodium Level 144 mmol/L (136-145) 140 mmol/L (136-145) Potassium Level 3.0 mmol/L (3.5-5.1) 3.8 mmol/L (3.5-5.1) Chloride Level 104 mmol/L (98-107) 106 mmol/L (98-107) Carbon Dioxide Level 33 mmol/L (21-32) 27 mmol/L (21-32) Anion Gap 7 (6-14) 7 (6-14) Blood Urea Nitrogen 16 mg/dL (7-20) 11 mg/dL (7-20) Creatinine 0.6 mg/dL (0.6-1.0) 0.5 mg/dL (0.6-1.0) Estimated GFR (Cockcroft-Gault) 138.5 170.9 BUN/Creatinine Ratio 27 (6-20) 22 (6-20) Glucose Level 84 mg/dL (70-99) 107 mg/dL (70-99) Calcium Level 9.0 mg/dL (8.5-10.1) 8.7 mg/dL (8.5-10.1) Total Bilirubin 0.1 mg/dL (0.2-1.0) 0.2 mg/dL (0.2-1.0) Aspartate Amino Transf (AST/SGOT) 15 U/L (15-37) 13 U/L (15-37) Alanine Aminotransferase (ALT/SGPT) 20 U/L (14-59) 15 U/L (14-59) Alkaline Phosphatase 163 U/L (46-116) 147 U/L (46-116) C-Reactive Protein, Quantitative 53.7 mg/L (0-3.3) Total Protein 7.4 g/dL (6.4-8.2) 6.9 g/dL (6.4-8.2) Albumin 2.4 g/dL (3.4-5.0) 2.3 g/dL (3.4-5.0) Albumin/Globulin Ratio 0.5 (1.0-1.7) 0.5 (1.0-1.7) Lipase 1070 U/L (73-393) 579 U/L (73-393) Ethyl Alcohol Level < 10 mg/dL (0-10) Assessment and Plan Assessmemt and Plan Problems Medical Problems: (1) Hypokalemia Status: Acute (2) Intractable abdominal pain Status: Acute (3) Nausea and vomiting Status: Acute Comment Review of Relevant I have reviewed the following items dania (where applicable) has been applied. Medications: Current Medications Medications (Trade) Dose Ordered Sig/Nguyen Route PRN Reason Start Time Stop Time Status Last Admin Dose Admin Sodium Chloride 1,000 ml @ 1,000 mls/hr 1X ONCE IV 10/08/21 15:45 10/08/21 16:44 DC 10/08/21 16:10 Fentanyl Citrate (Fentanyl 2ml Vial) 50 mcg PRN Q15MIN PRN IV PAIN GREATER THAN 3/10 10/08/21 15:45 10/09/21 01:20 DC 10/08/21 23:05 Ondansetron HCl (Zofran) 4 mg 1X ONCE IVP 10/08/21 15:45 10/08/21 15:59 DC 10/08/21 16:10 Famotidine (Pepcid Vial) 20 mg 1X ONCE IVP 10/08/21 15:45 10/08/21 15:59 DC 10/08/21 16:11 Iohexol (Omnipaque 300 Mg/ml) 75 ml 1X ONCE IV 10/08/21 16:15 10/08/21 16:16 DC 10/08/21 16:15 Methylprednisolone Sodium Succinate (SOLU-Medrol 40MG VIAL) 20 mg Q6HRS IV 10/09/21 00:00 10/09/21 11:23 Sodium Chloride 1,000 ml @ 125 mls/hr Q8H IV 10/09/21 08:00 10/09/21 10:26 Hydromorphone HCl (Dilaudid) 2 mg PRN Q4HRS PRN IVP SEVERE PAIN 7-10 10/08/21 21:30 10/09/21 11:24 Potassium Chloride/Sodium Chloride 1,000 ml @ 100 mls/hr Q10H IV 10/08/21 22:00 10/09/21 07:59 DC 10/08/21 23:09 Justifications for Admission Other Justification Chronic pancreatitis, hypokalemia WILD KIMBROUGH MD Oct 09, 2021 11:37
[2021-10-09] MEDS ORDERED: HYDROmorphone 2 MG/ML INJ. IVP PRN (11:45)
[2021-10-09] MEDS: PANTOPRAZOLE IV PUSH 40 MG VIAL. IVP SCH (14:54)
[2021-10-09] MEDS: LIDOCAINE (700MG/PATCH) PATCH. TD SCH (14:55)
[2021-10-09] MEDS: PATCH REMOVAL. MC SCH (21:00)
[2021-10-09] MEDS: ZOLPIDEM 5 MG TABLET. PO PRN ×2 (21:38→23:45)
[2021-10-10] MEDS: HYDROmorphone 2 MG/ML INJ. IVP PRN ×9 (01:46→22:20)
[2021-10-10 03:23] VITALS: BP 109/68
[2021-10-10] MEDS: HEPARIN for SUB-Q USE 5,000 UNIT/ML VIAL. SQ SCH ×3 (05:42→21:52)
[2021-10-10] MEDS: methylPREDNISolone SOD SUCC PF 40 MG/ML VIAL. IV SCH ×4 (06:18→23:59)
[2021-10-10] MEDS: PANTOPRAZOLE IV PUSH 40 MG VIAL. IVP SCH (06:19)
[2021-10-10 07:00] VITALS: BP 111/77
[2021-10-10] MEDS: IV NORMAL SALINE 1000ML BAG 1,000 ML IV SCH ×4 (08:00→23:42)
[2021-10-10] MEDS: LIDOCAINE (700MG/PATCH) PATCH. TD SCH (08:32)
--- NOTE | 2021-10-10 10:05 | PDOC ---
Date of Service: DATE: 10/10/21 TIME: 10:01 Subjective: Subjective: Still having diarrhea (vague description), still has upper abdominal and back pain, no vomiting. Objective: Objective: Records from [facility] reviewed - per their notes, reported she was taking Stelara, hadn't seen a acupuncturist in a few years, incomplete colonoscopy w/ much same findings as last colonoscopy here. Vital Signs: Vital Signs Date Time Temp Pulse Resp B/P (MAP) Pulse Ox O2 Delivery O2 Flow Rate FiO2 10/10/21 08:41 Room Air 10/10/21 07:00 97.8 76 16 111/77 (88) 98 97.8 PE: GEN: NAD - was asleep LUNGS: CTAB HEART: RRR ABD: epigastric/RUQ discomfort, quiet BS, soft, non-distended NEURO/PSYCH: A & O 3, flat A/P: Upper abdominal pain, diarrhea ACD/NIMISHA GERD, Crohn's w/ strictures, h/o C Diff, chronic pancreatitis Chronic pain, narcotic dependency -- Doesn't offer much per usual. Keep to clears, await C Diff. Justicifation of Admission Dx: Justifications for Admission: Justification of Admission Dx: N/A ONELIA KING Oct 10, 2021 10:05
[2021-10-10 11:00] VITALS: BP 121/57
--- NOTE | 2021-10-10 12:53 | PDOC ---
[employer] PROGRESS NOTE Date of Service DOS: DATE: 10/10/21 TIME: 12:51 Chief Complaint Chief Complaint Intractable abdominal pain - likely pancreatitis related, no clear etiology. Previously discussed this may have been autoimmune vs imuran related Acute pancreatitis - NPO, IV pain control Back pain - could be related to L1 fracture given paraspinal spasming Hypokalemia - replace Leukocytosis - likely related to crohns flare with pancreatitis Narcotic dependence S/p: colostomy with takedown Previous tobacco abuse. H/o Crohn's disease - since 1999, s/p bowel resection. Treated w/ Imuran and biologics. Steroids and narcotics, intermittent mesalamine. Previous insurance denial for Stelara. Await GI recs H/o C diff - no diarrhea currently FEN - NPO PPX - lovenox FULL CODE DIspo - inpatient History of Present Illness History of Present Illness Ms Jose a 36-year-old female with past medical history of Crohn's disease, chronic pancreatitis, presents to the ED with complaints of abdominal pain since last night. She reports severe diarrhea 4 days prior to the onset of abdominal pain, with associated muscle cramps. As her diarrhea began to resolve she noted epigastric abdominal pain, 10/10. Pain is similar to her history of chronic pancreatitis. Labs admission showed WBC 11.6, hemoglobin 9.8, hematocrit 30.3, platelets 706, potassium 3.0, BUN/creatinine ratio 27, albumin 2.4, lipase 1070. CT abdomen admission showed proximal small bowel inflammation, findings consistent with chronic pancreatitis, mild L1 compression fracture, nonobstructing left renal calculus. Patient admitted for further medical management. 10/09: Hb dropped to 8.8 from 9.8, lipase 579, has back pain that is constant and spasming he had nausea and abdominal pain that are colicky in nature note [facility] and had not really been taking any pain medication at home. Reviewed L1 fracture on endplate with patient she notes she has been having more back pain recently but no recent traumas falls. 10/10: Pain requiring increased frequency of IV Dilaudid every 2 hours as needed asking if she can try to take p.o. pain medication as well try to eat a little bit did have a bowel movement. Vitals/I&O Vitals/I&O: Vital Signs Date Time Temp Pulse Resp B/P (MAP) Pulse Ox O2 Delivery O2 Flow Rate FiO2 10/10/21 11:54 Room Air 10/10/21 11:00 98.5 66 16 121/57 (78) 98 98.5 I & O 10/09/21 10/09/21 10/10/21 15:00 23:00 07:00 Intake Total 120 ml 220 ml Balance 120 ml 220 ml Physical Exam General: Alert, Cooperative Lungs: Clear Assessment and Plan Assessmemt and Plan Problems Medical Problems: (1) Hypokalemia Status: Acute (2) Intractable abdominal pain Status: Acute (3) Nausea and vomiting Status: Acute Comment Review of Relevant I have reviewed the following items dania (where applicable) has been applied. Medications: Current Medications Medications (Trade) Dose Ordered Sig/Nguyen Route PRN Reason Start Time Stop Time Status Last Admin Dose Admin Hydromorphone HCl (Dilaudid) 2 mg PRN Q2HRS PRN IVP SEVERE PAIN 7-10 10/09/21 15:15 10/10/21 11:15 Justifications for Admission Other Justification Chronic pancreatitis, hypokalemia WILD KIMBROUGH MD Oct 10, 2021 12:53
[2021-10-10 13:29] LABS: CALCIUM 9.1 mg/dL (8.5-10.1); CREATININE 0.7 mg/dL (0.6-1.0); GFR 115.9; POTASSIUM 3.9 mmol/L (3.5-5.1)
[2021-10-10 15:00] VITALS: BP 108/83
[2021-10-10 19:00] VITALS: BP 146/99
[2021-10-10] MEDS: PATCH REMOVAL. MC SCH (21:00)
[2021-10-10 23:00] VITALS: BP 131/80
[2021-10-10] MEDS: oxyCODONE/APAP 5/325 1 TAB TABLET PO PRN (23:37)
[2021-10-10] MEDS: ZOLPIDEM 5 MG TABLET. PO PRN (23:37)
[2021-10-11] MEDS: HYDROmorphone 2 MG/ML INJ. IVP PRN ×10 (00:36→23:22)
[2021-10-11] MEDS: ZOLPIDEM 5 MG TABLET. PO PRN ×3 (00:41→23:10)
[2021-10-11 03:13] VITALS: BP 129/97
[2021-10-11] MEDS: HEPARIN for SUB-Q USE 5,000 UNIT/ML VIAL. SQ SCH ×3 (04:30→19:15)
[2021-10-11] MEDS: PANTOPRAZOLE IV PUSH 40 MG VIAL. IVP SCH (05:42)
[2021-10-11] MEDS: methylPREDNISolone SOD SUCC PF 40 MG/ML VIAL. IV SCH ×4 (05:42→23:22)
[2021-10-11] MEDS: oxyCODONE/APAP 5/325 1 TAB TABLET PO PRN ×2 (05:46→10:48)
[2021-10-11 07:00] VITALS: BP 138/95
[2021-10-11] MEDS: IV NORMAL SALINE 1000ML BAG 1,000 ML IV SCH ×3 (08:31→23:10)
[2021-10-11] MEDS: LIDOCAINE (700MG/PATCH) PATCH. TD SCH (08:33)
[2021-10-11 09:38] LABS: HEMATOCRIT 27.9 % (36.0-47.0); HEMOGLOBIN 8.7 g/dL (12.0-15.5); RED BLOOD COUNT 3.37 x10^6/uL (3.50-5.40); WHITE BLOOD COUNT 8.9 x10^3/uL (4.0-11.0)
--- NOTE | 2021-10-11 09:49 | PDOC ---
[employer] PROGRESS NOTE Date of Service DOS: DATE: 10/11/21 TIME: 09:44 Chief Complaint Chief Complaint Intractable abdominal pain - likely pancreatitis related, no clear etiology. Previously discussed this may have been autoimmune vs imuran related Acute pancreatitis - NPO, IV pain control Back pain - could be related to L1 fracture given paraspinal spasming Hypokalemia - replace Leukocytosis - likely related to crohns flare with pancreatitis Narcotic dependence S/p: colostomy with takedown Previous tobacco abuse. H/o Crohn's disease - since 1999, s/p bowel resection. Treated w/ Imuran and biologics. Steroids and narcotics, intermittent mesalamine. Previous insurance denial for Stelara. Await GI recs H/o C diff - no diarrhea currently FEN - NPO PPX - lovenox FULL CODE DIspo - inpatient History of Present Illness History of Present Illness Ms Jose a 36-year-old female with past medical history of Crohn's disease, chronic pancreatitis, presents to the ED with complaints of abdominal pain since last night. She reports severe diarrhea 4 days prior to the onset of abdominal pain, with associated muscle cramps. As her diarrhea began to resolve she noted epigastric abdominal pain, 10/10. Pain is similar to her history of chronic pancreatitis. Labs admission showed WBC 11.6, hemoglobin 9.8, hematocrit 30.3, platelets 706, potassium 3.0, BUN/creatinine ratio 27, albumin 2.4, lipase 1070. CT abdomen admission showed proximal small bowel inflammation, findings consistent with chronic pancreatitis, mild L1 compression fracture, nonobstructing left renal calculus. Patient admitted for further medical management. 10/09: Hb dropped to 8.8 from 9.8, lipase 579, has back pain that is constant and spasming he had nausea and abdominal pain that are colicky in nature note she was [facility] Cro[facility]'s [facility] just a month ago and had not really been taking any pain medication at home. Reviewed L1 fracture on endplate with patient she notes she has been having more back pain recently but no recent traumas falls. 10/10: Pain requiring increased frequency of IV Dilaudid every 2 hours as needed asking if she can try to take p.o. pain medication as well try to eat a little bit did have a bowel movement. 10/11: Patient notes she has increased appetite today. Had difficulty with pain overnight. States oral pain medication does last longer and she prefer to be off of IV pain medication and will change to OxyIR alternating with Tylenol and advance to full liquid diet Vitals/I&O Vitals/I&O: Vital Signs Date Time Temp Pulse Resp B/P (MAP) Pulse Ox O2 Delivery O2 Flow Rate FiO2 10/11/21 08:35 Room Air 10/11/21 07:00 98.1 53 18 138/95 (109) 99 98.1 I & O 10/10/21 10/10/21 10/11/21 15:00 23:00 07:00 Intake Total 180 ml 100 ml Balance 180 ml 100 ml Physical Exam General: Alert, Cooperative Lungs: Clear Labs Labs: Laboratory Tests Test 10/10/21 13:00 10/11/21 08:35 Sodium Level 137 mmol/L (136-145) Potassium Level 3.9 mmol/L (3.5-5.1) Chloride Level 103 mmol/L (98-107) Carbon Dioxide Level 27 mmol/L (21-32) Anion Gap 7 (6-14) Blood Urea Nitrogen 9 mg/dL (7-20) Creatinine 0.7 mg/dL (0.6-1.0) Estimated GFR (Cockcroft-Gault) 115.9 Glucose Level 185 mg/dL (70-99) Calcium Level 9.1 mg/dL (8.5-10.1) White Blood Count 8.9 x10^3/uL (4.0-11.0) Red Blood Count 3.37 x10^6/uL (3.50-5.40) Hemoglobin 8.7 g/dL (12.0-15.5) Hematocrit 27.9 % (36.0-47.0) Mean Corpuscular Volume 83 fL (79-100) Mean Corpuscular Hemoglobin 26 pg (25-35) Mean Corpuscular Hemoglobin Concent 31 g/dL (31-37) Red Cell Distribution Width 16.0 % (11.5-14.5) Platelet Count 595 x10^3/uL (140-400) Assessment and Plan Assessmemt and Plan Problems Medical Problems: (1) Hypokalemia Status: Acute (2) Intractable abdominal pain Status: Acute (3) Nausea and vomiting Status: Acute Comment Review of Relevant I have reviewed the following items dania (where applicable) has been applied. Medications: Current Medications Medications (Trade) Dose Ordered Sig/Nguyen Route PRN Reason Start Time Stop Time Status Last Admin Dose Admin Oxycodone/ Acetaminophen (Percocet 5/325) 1 tab PRN Q4HRS PRN PO PAIN 10/10/21 13:00 10/11/21 05:46 Justifications for Admission Other Justification Chronic pancreatitis, hypokalemia WILD KIMBROUGH MD Oct 11, 2021 09:49
[2021-10-11 09:51] LABS: CALCIUM 8.9 mg/dL (8.5-10.1); CREATININE 0.6 mg/dL (0.6-1.0); GFR 138.5
[2021-10-11 11:00] VITALS: BP 145/86
[2021-10-11] MEDS ORDERED: oxyCODONE IR 5 MG TABLET PO PRN (11:30)
--- NOTE | 2021-10-11 12:16 | PDOC ---
Date of Service: DATE: 10/11/21 TIME: 12:13 Subjective: Subjective: Playing a game on her computer. Upper abdominal/back pain (also lower back spasm) the same - "pancreas pain." Thinks some pain might be related to hunger. Objective: Objective: D/w Dr. Cadet - advanced to full liquids. C Diff negative. Remains on IV steroids. Vital Signs: Vital Signs Date Time Temp Pulse Resp B/P (MAP) Pulse Ox O2 Delivery O2 Flow Rate FiO2 10/11/21 11:41 Room Air 10/11/21 11:00 97.8 63 18 145/86 (105) 98 97.8 Labs: Laboratory Tests Test 10/10/21 13:00 10/11/21 08:25 10/11/21 08:35 Sodium Level 137 mmol/L 137 mmol/L Potassium Level 3.9 mmol/L 4.0 mmol/L Chloride Level 103 mmol/L 104 mmol/L Carbon Dioxide Level 27 mmol/L 26 mmol/L Anion Gap 7 7 Blood Urea Nitrogen 9 mg/dL 10 mg/dL Creatinine 0.7 mg/dL 0.6 mg/dL Estimated GFR (Cockcroft-Gault) 115.9 138.5 Glucose Level 185 mg/dL 200 mg/dL Calcium Level 9.1 mg/dL 8.9 mg/dL White Blood Count 8.9 x10^3/uL Red Blood Count 3.37 x10^6/uL Hemoglobin 8.7 g/dL Hematocrit 27.9 % Mean Corpuscular Volume 83 fL Mean Corpuscular Hemoglobin 26 pg Mean Corpuscular Hemoglobin Concent 31 g/dL Red Cell Distribution Width 16.0 % Platelet Count 595 x10^3/uL PE: GEN: NAD - nurse present for pain meds LUNGS: CTAB HEART: RRR ABD: very tender to light palpation epigastrium, BS+, soft, non-distended NEURO/PSYCH: A & O 3, laughing about the computer game, maybe the most cheerful I've ever seen her A/P: Upper abdominal pain H/o Crohn's w/ strictures, chronic pancreatitis, GERD Narcotic dependency -- Plans to try full liquids. Continue support. Justicifation of Admission Dx: Justifications for Admission: Justification of Admission Dx: N/A ONELIA KING Oct 11, 2021 12:16
[2021-10-11] MEDS: oxyCODONE IR 5 MG TABLET PO PRN ×2 (14:13→22:27)
[2021-10-11 15:00] VITALS: BP 125/95
[2021-10-11 19:30] VITALS: BP 137/98
[2021-10-11] MEDS: PATCH REMOVAL. MC SCH (21:00)
[2021-10-11 22:55] VITALS: BP 136/76
[2021-10-12] MEDS: HYDROmorphone 2 MG/ML INJ. IVP PRN ×9 (01:54→22:01)
[2021-10-12 03:03] VITALS: BP 142/91
[2021-10-12] MEDS: methylPREDNISolone SOD SUCC PF 40 MG/ML VIAL. IV SCH ×3 (05:39→17:25)
[2021-10-12] MEDS: HEPARIN for SUB-Q USE 5,000 UNIT/ML VIAL. SQ SCH ×3 (05:42→22:02)
[2021-10-12 07:00] VITALS: BP 132/91
[2021-10-12 08:37] LABS: CALCIUM 8.7 mg/dL (8.5-10.1); CREATININE 0.5 mg/dL (0.6-1.0); GFR 170.9; POTASSIUM 4.2 mmol/L (3.5-5.1)
[2021-10-12] MEDS: IV NORMAL SALINE 1000ML BAG 1,000 ML IV SCH ×2 (08:40→17:21)
[2021-10-12] MEDS: PANTOPRAZOLE 40 MG TABLET.DR. PO SCH (08:42)
[2021-10-12] MEDS: LIDOCAINE (700MG/PATCH) PATCH. TD SCH (08:42)
[2021-10-12 11:00] VITALS: BP 129/98
--- NOTE | 2021-10-12 11:09 | PDOC ---
[employer] PROGRESS NOTE Date of Service DOS: DATE: 10/12/21 TIME: 10:56 Chief Complaint Chief Complaint Intractable abdominal pain - likely pancreatitis related, no clear etiology. Previously discussed this may have been autoimmune vs imuran related Acute pancreatitis - NPO, IV pain control Back pain - could be related to L1 fracture given paraspinal spasming Hypokalemia - replace Leukocytosis - likely related to crohns flare with pancreatitis Narcotic dependence S/p: colostomy with takedown Previous tobacco abuse. H/o Crohn's disease - since 1999, s/p bowel resection. Treated w/ Imuran and biologics. Steroids and narcotics, intermittent mesalamine. Previous insurance denial for Stelara. Await GI recs H/o C diff - no diarrhea currently FEN - NPO PPX - lovenox FULL CODE DIspo - inpatient History of Present Illness History of Present Illness Ms Jose a 36-year-old female with past medical history of Crohn's disease, chronic pancreatitis, presents to the ED with complaints of abdominal pain since last night. She reports severe diarrhea 4 days prior to the onset of abdominal pain, with associated muscle cramps. As her diarrhea began to resolve she noted epigastric abdominal pain, 10/10. Pain is similar to her history of chronic pancreatitis. Labs admission showed WBC 11.6, hemoglobin 9.8, hematocrit 30.3, platelets 706, potassium 3.0, BUN/creatinine ratio 27, albumin 2.4, lipase 1070. CT abdomen admission showed proximal small bowel inflammation, findings consistent with chronic pancreatitis, mild L1 compression fracture, nonobstructing left renal calculus. Patient admitted for further medical management. 10/09: Hb dropped to 8.8 from 9.8, lipase 579, has back pain that is constant and spasming he had nausea and abdominal pain that are colicky in nature note [facility] and had not really been taking any pain medication at home. Reviewed L1 fracture on endplate with patient she notes she has been having more back pain recently but no recent traumas falls. 10/10: Pain requiring increased frequency of IV Dilaudid every 2 hours as needed asking if she can try to take p.o. pain medication as well try to eat a little bit did have a bowel movement. 10/11: Patient notes she has increased appetite today. Had difficulty with pain overnight. States oral pain medication does last longer and she prefer to be off of IV pain medication and will change to OxyIR alternating with Tylenol and advance to full liquid diet 10/12: Required frequent IV pain medication tolerating full liquid diet with same degree of pain. Still with liquid stools. C. difficile negative. Will attempt advancing diet on 10/13/2021 after discussion Vitals/I&O Vitals/I&O: Vital Signs Date Time Temp Pulse Resp B/P (MAP) Pulse Ox O2 Delivery O2 Flow Rate FiO2 10/12/21 08:39 Room Air 10/12/21 07:00 98.1 58 16 132/91 (105) 97 98.1 I & O 10/11/21 10/11/21 10/12/21 15:00 23:00 07:00 Intake Total 240 ml Balance 240 ml Physical Exam General: Alert, Cooperative Lungs: Clear Labs Labs: Laboratory Tests Test 10/12/21 07:40 Sodium Level 137 mmol/L (136-145) Potassium Level 4.2 mmol/L (3.5-5.1) Chloride Level 103 mmol/L (98-107) Carbon Dioxide Level 28 mmol/L (21-32) Anion Gap 6 (6-14) Blood Urea Nitrogen 10 mg/dL (7-20) Creatinine 0.5 mg/dL (0.6-1.0) Estimated GFR (Cockcroft-Gault) 170.9 Glucose Level 185 mg/dL (70-99) Calcium Level 8.7 mg/dL (8.5-10.1) Assessment and Plan Assessmemt and Plan Problems Medical Problems: (1) Hypokalemia Status: Acute (2) Intractable abdominal pain Status: Acute (3) Nausea and vomiting Status: Acute Comment Review of Relevant I have reviewed the following items dania (where applicable) has been applied. Medications: Current Medications Medications (Trade) Dose Ordered Sig/Nguyen Route PRN Reason Start Time Stop Time Status Last Admin Dose Admin Oxycodone HCl (Roxicodone) 10 mg PRN Q4HRS PRN PO SEVERE PAIN 10/11/21 11:30 10/11/21 22:27 Pantoprazole Sodium (Protonix) 40 mg DAILYAC PO 10/12/21 07:30 10/12/21 08:42 Justifications for Admission Other Justification Chronic pancreatitis, hypokalemia RIFFEL,CHRISTOPHER S MD Oct 12, 2021 11:09
[2021-10-12] MEDS: oxyCODONE IR 5 MG TABLET PO PRN (12:27)
--- NOTE | 2021-10-12 12:35 | PDOC ---
Date of Service: DATE: 10/12/21 TIME: 12:33 Subjective: Subjective: Pain is "50/50" - had some lower back spasms and also some sharp RUQ/epigastric pain. Taking some PO. Diarrhea better. Objective: Vital Signs: Vital Signs Date Time Temp Pulse Resp B/P (MAP) Pulse Ox O2 Delivery O2 Flow Rate FiO2 10/12/21 12:27 Room Air 10/12/21 11:00 97.7 55 18 129/98 (108) 98 97.7 Labs: Laboratory Tests Test 10/12/21 07:40 Sodium Level 137 mmol/L Potassium Level 4.2 mmol/L Chloride Level 103 mmol/L Carbon Dioxide Level 28 mmol/L Anion Gap 6 Blood Urea Nitrogen 10 mg/dL Creatinine 0.5 mg/dL Estimated GFR (Cockcroft-Gault) 170.9 Glucose Level 185 mg/dL Calcium Level 8.7 mg/dL PE: GEN: NAD - resting LUNGS: CTAB HEART: RRR ABD: soft, upper discomfort NEURO/PSYCH: A & O 3 A/P: Upper abdominal pain w/ h/o Crohn's and chronic pancreatitis -- I think slowly better. Justicifation of Admission Dx: Justifications for Admission: Justification of Admission Dx: N/A ONELIA KING Oct 12, 2021 12:35
[2021-10-12 15:00] VITALS: BP 122/88
[2021-10-12 19:30] VITALS: BP 124/88
[2021-10-12] MEDS: PATCH REMOVAL. MC SCH (21:00)
[2021-10-12] MEDS: ONDANSETRON PF 4 MG/2 ML VIAL. IVP PRN (21:58)
[2021-10-12 23:11] VITALS: BP 130/77
[2021-10-13] MEDS: methylPREDNISolone SOD SUCC PF 40 MG/ML VIAL. IV SCH ×4 (00:13→17:36)
[2021-10-13] MEDS: HYDROmorphone 2 MG/ML INJ. IVP PRN ×9 (00:14→22:04)
[2021-10-13] MEDS: IV NORMAL SALINE 1000ML BAG 1,000 ML IV SCH ×3 (01:00→14:28)
[2021-10-13] MEDS: ZOLPIDEM 5 MG TABLET. PO PRN ×3 (01:04→23:56)
[2021-10-13 03:05] VITALS: BP 162/98
[2021-10-13] MEDS: DICYCLOMINE HCL 10 MG CAPSULE PO PRN ×3 (03:50→22:58)
[2021-10-13 06:00] VITALS: BP 145/104
[2021-10-13] MEDS: HEPARIN for SUB-Q USE 5,000 UNIT/ML VIAL. SQ SCH ×3 (06:00→22:00)
[2021-10-13] MEDS: oxyCODONE IR 5 MG TABLET PO PRN ×3 (06:22→22:58)
[2021-10-13] MEDS: ACETAMINOPHEN 325 MG TABLET. PO PRN ×2 (06:22→17:40)
[2021-10-13] MEDS: LIDOCAINE (700MG/PATCH) PATCH. TD SCH (08:01)
[2021-10-13] MEDS: PANTOPRAZOLE 40 MG TABLET.DR. PO SCH (08:01)
[2021-10-13 09:35] LABS: CALCIUM 8.9 mg/dL (8.5-10.1); CREATININE 0.7 mg/dL (0.6-1.0); GFR 115.9; POTASSIUM 4.2 mmol/L (3.5-5.1)
[2021-10-13 11:00] VITALS: BP 135/81
[2021-10-13 15:00] VITALS: BP 130/83
--- NOTE | 2021-10-13 15:59 | PDOC ---
[employer] PROGRESS NOTE Date of Service DOS: DATE: 10/13/21 TIME: 15:57 Chief Complaint Chief Complaint Intractable abdominal pain - likely pancreatitis related, no clear etiology. Previously discussed this may have been autoimmune vs imuran related Acute pancreatitis - NPO, IV pain control Back pain - could be related to L1 fracture given paraspinal spasming Hypokalemia - replace Leukocytosis - likely related to crohns flare with pancreatitis Narcotic dependence S/p: colostomy with takedown Previous tobacco abuse. H/o Crohn's disease - since 1999, s/p bowel resection. Treated w/ Imuran and biologics. Steroids and narcotics, intermittent mesalamine. Previous insurance denial for Stelara. Await GI recs H/o C diff - no diarrhea currently FEN - NPO PPX - lovenox FULL CODE DIspo - inpatient History of Present Illness History of Present Illness Ms Jose a 36-year-old female with past medical history of Crohn's disease, chronic pancreatitis, presents to the ED with complaints of abdominal pain since last night. She reports severe diarrhea 4 days prior to the onset of abdominal pain, with associated muscle cramps. As her diarrhea began to resolve she noted epigastric abdominal pain, 10/10. Pain is similar to her history of chronic pancreatitis. Labs admission showed WBC 11.6, hemoglobin 9.8, hematocrit 30.3, platelets 706, potassium 3.0, BUN/creatinine ratio 27, albumin 2.4, lipase 1070. CT abdomen admission showed proximal small bowel inflammation, findings consistent with chronic pancreatitis, mild L1 compression fracture, nonobstructing left renal calculus. Patient admitted for further medical management. 10/09: Hb dropped to 8.8 from 9.8, lipase 579, has back pain that is constant and spasming he had nausea and abdominal pain that are colicky in nature note she was [facility] just a month [facility] and had not really been taking any pain medication at home. Reviewed L1 fracture on endplate with patient she notes she has been having more back pain recently but no recent traumas falls. 10/10: Pain requiring increased frequency of IV Dilaudid every 2 hours as needed asking if she can try to take p.o. pain medication as well try to eat a little bit did have a bowel movement. 10/11: Patient notes she has increased appetite today. Had difficulty with pain overnight. States oral pain medication does last longer and she prefer to be off of IV pain medication and will change to OxyIR alternating with Tylenol and advance to full liquid diet 10/12: Required frequent IV pain medication tolerating full liquid diet with same degree of pain. Still with liquid stools. C. difficile negative. Will attempt advancing diet on 10/13/2021 after discussion 10/13: Patient seen and evaluated. She reports nausea and vomiting yesterday, but none today. Encouraged trying normal diet. Vitals/I&O Vitals/I&O: Vital Signs Date Time Temp Pulse Resp B/P (MAP) Pulse Ox O2 Delivery O2 Flow Rate FiO2 10/13/21 15:10 98 Room Air 10/13/21 11:00 97.9 56 18 135/81 (99) 97.9 I & O 10/12/21 10/12/21 10/13/21 15:00 23:00 07:00 Intake Total 1000 ml 480 ml Balance 1000 ml 480 ml Physical Exam General: Alert, Oriented X3, Cooperative, No acute distress Heart: Regular rate Lungs: Clear Abdomen: No masses, Other (Epigastric tenderness) Extremities: No cyanosis Skin: No rashes, No breakdown Labs Labs: Laboratory Tests Test 10/13/21 08:50 Sodium Level 137 mmol/L (136-145) Potassium Level 4.2 mmol/L (3.5-5.1) Chloride Level 101 mmol/L (98-107) Carbon Dioxide Level 28 mmol/L (21-32) Anion Gap 8 (6-14) Blood Urea Nitrogen 8 mg/dL (7-20) Creatinine 0.7 mg/dL (0.6-1.0) Estimated GFR (Cockcroft-Gault) 115.9 Glucose Level 164 mg/dL (70-99) Calcium Level 8.9 mg/dL (8.5-10.1) C-Reactive Protein, Quantitative 1.3 mg/L (0-3.3) Lipase 284 U/L (73-393) Assessment and Plan Assessmemt and Plan Problems Medical Problems: (1) Hypokalemia Status: Acute (2) Intractable abdominal pain Status: Acute (3) Nausea and vomiting Status: Acute Comment Review of Relevant I have reviewed the following items dania (where applicable) has been applied. Justifications for Admission Other Justification Chronic pancreatitis, hypokalemia AMANDA FORD MD Oct 13, 2021 15:59
[2021-10-13 19:00] VITALS: BP 139/83
[2021-10-13] MEDS: PATCH REMOVAL. MC SCH (21:00)
[2021-10-13 23:37] VITALS: BP 137/65
[2021-10-14] MEDS: methylPREDNISolone SOD SUCC PF 40 MG/ML VIAL. IV SCH ×5 (01:16→23:30)
[2021-10-14] MEDS: IV NORMAL SALINE 1000ML BAG 1,000 ML IV SCH ×3 (01:17→17:55)
[2021-10-14] MEDS: HYDROmorphone 2 MG/ML INJ. IVP PRN ×9 (01:49→22:19)
[2021-10-14 03:25] VITALS: BP 149/85
[2021-10-14] MEDS: HEPARIN for SUB-Q USE 5,000 UNIT/ML VIAL. SQ SCH ×3 (05:29→22:00)
[2021-10-14 06:36] VITALS: BP 144/86
[2021-10-14] MEDS: PANTOPRAZOLE 40 MG TABLET.DR. PO SCH (08:44)
[2021-10-14] MEDS: LIDOCAINE (700MG/PATCH) PATCH. TD SCH (08:45)
[2021-10-14 11:00] VITALS: BP 116/73
[2021-10-14] MEDS: ONDANSETRON PF 4 MG/2 ML VIAL. IVP PRN (14:28)
--- NOTE | 2021-10-14 14:36 | PDOC ---
[employer] PROGRESS NOTE Date of Service DOS: DATE: 10/14/21 TIME: 14:35 Chief Complaint Chief Complaint Intractable abdominal pain - likely pancreatitis related, no clear etiology. Previously discussed this may have been autoimmune vs imuran related Acute pancreatitis - NPO, IV pain control Back pain - could be related to L1 fracture given paraspinal spasming Hypokalemia - replace Leukocytosis - likely related to crohns flare with pancreatitis Narcotic dependence S/p: colostomy with takedown Previous tobacco abuse. H/o Crohn's disease - since 1999, s/p bowel resection. Treated w/ Imuran and biologics. Steroids and narcotics, intermittent mesalamine. Previous insurance denial for Stelara. Await GI recs H/o C diff - no diarrhea currently FEN - Regular diet PPX - lovenox FULL CODE DIspo - inpatient History of Present Illness History of Present Illness Ms Jose a 36-year-old female with past medical history of Crohn's disease, chronic pancreatitis, presents to the ED with complaints of abdominal pain since last night. She reports severe diarrhea 4 days prior to the onset of abdominal pain, with associated muscle cramps. As her diarrhea began to resolve she noted epigastric abdominal pain, 10/10. Pain is similar to her history of chronic pancreatitis. Labs admission showed WBC 11.6, hemoglobin 9.8, hematocrit 30.3, platelets 706, potassium 3.0, BUN/creatinine ratio 27, albumin 2.4, lipase 1070. CT abdomen admission showed proximal small bowel inflammation, findings consistent with chronic pancreatitis, mild L1 compression fracture, nonobstructing left renal calculus. Patient admitted for further medical management. 10/09: Hb dropped to 8.8 from 9.8, lipase 579, has back pain that is constant and spasming he had nausea and abdominal pain that are colicky in nature note she [facility] and had not really been taking any pain medication at home. Reviewed L1 fracture on endplate with patient she notes she has been having more back pain recently but no recent traumas falls. 10/10: Pain requiring increased frequency of IV Dilaudid every 2 hours as needed asking if she can try to take p.o. pain medication as well try to eat a little bit did have a bowel movement. 10/11: Patient notes she has increased appetite today. Had difficulty with pain overnight. States oral pain medication does last longer and she prefer to be off of IV pain medication and will change to OxyIR alternating with Tylenol and advance to full liquid diet 10/12: Required frequent IV pain medication tolerating full liquid diet with same degree of pain. Still with liquid stools. C. difficile negative. Will attempt advancing diet on 10/13/2021 after discussion 10/13: Patient seen and evaluated. She reports nausea and vomiting yesterday, but none today. Encouraged trying normal diet. 10/14: Advanced diet. Eating and still with significant pain. Lipase low 200s, CRP 1.3. Vitals/I&O Vitals/I&O: Vital Signs Date Time Temp Pulse Resp B/P (MAP) Pulse Ox O2 Delivery O2 Flow Rate FiO2 10/14/21 14:21 19 100 Room Air 10/14/21 11:00 98.3 92 116/73 (87) 98.3 I & O 10/13/21 10/13/21 10/14/21 15:00 23:00 07:00 Intake Total 240 ml 250 ml Balance 240 ml 250 ml Physical Exam General: Alert, Oriented X3, Cooperative, No acute distress Heart: Regular rate Lungs: Clear Abdomen: No masses, Other (Epigastric tenderness) Extremities: No cyanosis Skin: No rashes, No breakdown Assessment and Plan Assessmemt and Plan Problems Medical Problems: (1) Hypokalemia Status: Acute (2) Intractable abdominal pain Status: Acute (3) Nausea and vomiting Status: Acute Comment Review of Relevant I have reviewed the following items dania (where applicable) has been applied. Justifications for Admission Other Justification Chronic pancreatitis, hypokalemia WILD KIMBROUGH MD Oct 14, 2021 14:35
[2021-10-14 15:00] VITALS: BP 127/88
[2021-10-14] MEDS: DICYCLOMINE HCL 10 MG CAPSULE PO PRN (18:27)
[2021-10-14] MEDS: ACETAMINOPHEN 325 MG TABLET. PO PRN (18:32)
[2021-10-14] MEDS: oxyCODONE IR 5 MG TABLET PO PRN ×2 (18:33→23:29)
[2021-10-14 19:00] VITALS: BP 145/90
[2021-10-14] MEDS: PATCH REMOVAL. MC SCH (21:00)
[2021-10-14] MEDS: ZOLPIDEM 5 MG TABLET. PO PRN ×2 (22:19→23:29)
[2021-10-14 23:27] VITALS: BP 126/75
[2021-10-15] MEDS: HYDROmorphone 2 MG/ML INJ. IVP PRN ×4 (01:22→10:10)
[2021-10-15 03:42] VITALS: BP 141/88
[2021-10-15] MEDS: HEPARIN for SUB-Q USE 5,000 UNIT/ML VIAL. SQ SCH ×2 (06:00→09:28)
[2021-10-15] MEDS: methylPREDNISolone SOD SUCC PF 40 MG/ML VIAL. IV SCH ×3 (06:10→10:56)
[2021-10-15 07:00] VITALS: BP 123/69
[2021-10-15] MEDS: IV NORMAL SALINE 1000ML BAG 1,000 ML IV SCH ×3 (08:00→09:28)
[2021-10-15] MEDS: PANTOPRAZOLE 40 MG TABLET.DR. PO SCH (08:43)
[2021-10-15] MEDS: ACETAMINOPHEN 325 MG TABLET. PO PRN (08:44)
[2021-10-15] MEDS: DICYCLOMINE HCL 10 MG CAPSULE PO PRN ×2 (08:44→12:52)
[2021-10-15] MEDS: oxyCODONE IR 5 MG TABLET PO PRN ×2 (08:47→12:52)
[2021-10-15] MEDS: LIDOCAINE (700MG/PATCH) PATCH. TD SCH (08:48)
[2021-10-15] MEDS ORDERED: DICY10CA3 PO (10:56)
[2021-10-15] MEDS ORDERED: ONDA4TAB12 PO (10:56)
[2021-10-15] MEDS ORDERED: ZOLP5TAB PO ×2 (10:56→11:31)
[2021-10-15] MEDS ORDERED: OMEP20TA63 PO (10:56)
[2021-10-15] MEDS ORDERED: HYDR2TAB31 PO ×2 (10:56→11:31)
[2021-10-15] MEDS ORDERED: METH4TAB2 PO (10:56)
[2021-10-15 11:00] VITALS: BP 113/71
--- NOTE | 2021-10-15 12:09 | PDOC ---
[employer] PROGRESS NOTE Date of Service DOS: DATE: 10/15/21 TIME: 12:08 Chief Complaint Chief Complaint Intractable abdominal pain - likely pancreatitis related, no clear etiology. Previously discussed this may have been autoimmune vs imuran related Acute pancreatitis - NPO, IV pain control Back pain - could be related to L1 fracture given paraspinal spasming Hypokalemia - replace Leukocytosis - likely related to crohns flare with pancreatitis Narcotic dependence S/p: colostomy with takedown Previous tobacco abuse. H/o Crohn's disease - since 1999, s/p bowel resection. Treated w/ Imuran and biologics. Steroids and narcotics, intermittent mesalamine. Previous insurance denial for Stelara. Await GI recs H/o C diff - no diarrhea currently FEN - Regular diet PPX - lovenox FULL CODE DIspo - inpatient History of Present Illness History of Present Illness 10/15/2021 Patient seen and examined Discussed with RN Chart reviewed She seems to be at her baseline We are going to discharge with p.o. pain meds steroids proton pump inhibitors Ms Jose a 36-year-old female with past medical history of Crohn's disease, chronic pancreatitis, presents to the ED with complaints of abdominal pain since last night. She reports severe diarrhea 4 days prior to the onset of abdominal pain, with associated muscle cramps. As her diarrhea began to resolve she noted epigastric abdominal pain, 10/10. Pain is similar to her history of chronic pancreatitis. Labs admission showed WBC 11.6, hemoglobin 9.8, hematocrit 30.3, platelets 706, potassium 3.0, BUN/creatinine ratio 27, albumin 2.4, lipase 1070. CT abdomen admission showed proximal small bowel inflammation, findings con sistent with chronic pancreatitis, mild L1 compression fracture, nonobstructing left renal calculus. Patient admitted for further medical management. 10/09: Hb dropped to 8.8 from 9.8, lipase 579, has back pain that is constant and spasming he had nausea and abdominal pain that are colicky in nature note she was hospitalized [facility] Crohn's flare just a month ago and had not really been taking any pain medication at home. Reviewed L1 fracture on endplate with patient she notes she has been having more back pain recently but no recent traumas falls. 10/10: Pain requiring increased frequency of IV Dilaudid every 2 hours as needed asking if she can try to take p.o. pain medication as well try to eat a little bit did have a bowel movement. 10/11: Patient notes she has increased appetite today. Had difficulty with pain overnight. States oral pain medication does last longer and she prefer to be off of IV pain medication and will change to OxyIR alternating with Tylenol and advance to full liquid diet 10/12: Required frequent IV pain medication tolerating full liquid diet with same degree of pain. Still with liquid stools. C. difficile negative. Will attempt advancing diet on 10/13/2021 after discussion 10/13: Patient seen and evaluated. She reports nausea and vomiting yesterday, but none today. Encouraged trying normal diet. 10/14: Advanced diet. Eating and still with significant pain. Lipase low 200s, CRP 1.3. Vitals/I&O Vitals/I&O: Vital Signs Date Time Temp Pulse Resp B/P (MAP) Pulse Ox O2 Delivery O2 Flow Rate FiO2 10/15/21 07:57 Room Air 10/15/21 07:00 98.1 91 18 123/69 (87) 98 98.1 I & O 10/14/21 10/14/21 10/15/21 15:00 23:00 07:00 Intake Total 560 ml 300 ml Balance 560 ml 300 ml Physical Exam General: Alert, Oriented X3, Cooperative, No acute distress Heart: Regular rate Lungs: Clear Abdomen: No masses, Other (Epigastric tenderness) Extremities: No cyanosis Skin: No rashes, No breakdown Assessment and Plan Assessmemt and Plan Problems Medical Problems: (1) Hypokalemia Status: Acute (2) Intractable abdominal pain Status: Acute (3) Nausea and vomiting Status: Acute Intractable abdominal pain - likely pancreatitis related, no clear etiology. Previously discussed this may have been autoimmune vs imuran related Acute pancreatitis - NPO, IV pain control Back pain - could be related to L1 fracture given paraspinal spasming Hypokalemia - replace Leukocytosis - likely related to crohns flare with pancreatitis Narcotic dependence S/p: colostomy with takedown Previous tobacco abuse. H/o Crohn's disease - since 1999, s/p bowel resection. Treated w/ Imuran and biologics. Steroids and narcotics, intermittent mesalamine. Previous insurance denial for Stelara. Await GI recs H/o C diff - no diarrhea currently Hope to discharge this afternoon See dictation FEN - Regular diet PPX - lovenox FULL CODE DIspo - inpatient Comment Review of Relevant I have reviewed the following items dania (where applicable) has been applied. Justifications for Admission Other Justification Chronic pancreatitis, hypokalemia MO SINGLETARY III DO Oct 15, 2021 12:09
--- NOTE | 2021-10-15 13:20 | PDOC ---
Date of Service: DATE: 10/15/21 TIME: 13:19 Subjective: Subjective: Says she's going home, has questions about Medrol dose pack. Objective: Vital Signs: Vital Signs Date Time Temp Pulse Resp B/P (MAP) Pulse Ox O2 Delivery O2 Flow Rate FiO2 10/15/21 11:00 98.0 94 18 113/71 (85) 100 Room Air 98.0 PE: GEN: NAD - sitting on toilet NEURO/PSYCH: A & O 3 A/P: Crohn's and chronic pancreatitis -- Dc per primary - d/w Dr. West - continue with steroid plan on DC per Dr. Mittal - d/w nurse. Justicifation of Admission Dx: Justifications for Admission: Justification of Admission Dx: N/A ONELIA KING Oct 15, 2021 13:20
--- NOTE | 2021-10-15 15:15 | NUR ---
Discharge Note: JEANNETTE VALENTIN [address] Discharge instructions and discharge home medications reviewed with Patient and a copy given. All questions have been answered and understanding verbalized. The following instructions and handouts were given: information about activity, diet, medications, follow up appointments. Discontinued lines and drains: IV line in left forearm removed, catheter tip intact. Patient discharged to home with self care with mom, wheelchair used for mobility to discharge vehicle.
--- NOTE | 2021-10-15 21:10 | DS ---
DATE OF DISCHARGE: 10/15/2021 ADMITTING DIAGNOSES: Acute on chronic pancreatitis and Crohn's disease with intractable abdominal pain. DISCHARGE DIAGNOSES: Resolving pancreatitis, resolving intractable abdominal pain, chronic Crohn's disease. HOSPITAL COURSE: The patient is a pleasant, middle-aged female who we admit quite often for Crohn's and pancreatitis, although we actually have not seen her in a while since the COVID-19 pandemic. Once again, she presented to the ER on the with abdominal pain. She was noted to have a pancreatitis and Crohn's flare. We gave her IV fluids, IV pain meds, home meds, bowel rest, DVT prophylaxis and we consulted GI. Today, I saw and examined her. She is doing well and wants to go home. We plan to discharge. DISPOSITION: Home. ACTIVITY: As tolerated. DIET: Low sodium. DISCHARGE MEDICATIONS: Please see the MRAD. Dilaudid 2 mg q.6 p.r.n., dicyclomine 10 mg t.i.d., Medrol Dosepak, Protonix 20 a day, Zofran 4 q.6, Ambien 5 at bedtime, p.r.n. Tylenol. TOTAL TIME: [address]: KENNEDY/christina TID: [id number]
== END 2021-10-15 15:15 | disposition home or self-care (01) | DRG 438 ==
LOC: ER 14:22 → 4 SOUTHEST 20:04 → 4 NORTH 23:18 → 5 NORTH 10-10 18:46 → 4 NORTH 10-10 23:28
PROVIDERS: ADMIT Family Medicine; ATTEND Family Medicine
DX: K85.90 Acute pancreatitis without necrosis or infection, unspecified (principal); E43 Unspecified severe protein-calorie malnutrition; K50.10 Crohn's disease of large intestine without complications; F11.20 Opioid dependence, uncomplicated; E87.6 Hypokalemia; E86.0 Dehydration; F32.A Depression, unspecified; F41.9 Anxiety disorder, unspecified; G89.29 Other chronic pain; K21.9 Gastro-esophageal reflux disease without esophagitis; K86.1 Other chronic pancreatitis; N20.0 Calculus of kidney; Z82.0 Family history of epilepsy and other diseases of the nervous system; Z82.49 Family history of ischemic heart disease and other diseases of the circulatory system; Z87.891 Personal history of nicotine dependence; Z90.49 Acquired absence of other specified parts of digestive tract; Z93.3 Colostomy status; Z88.8 Allergy status to other drugs, medicaments and biological substances
CPT/HCPCS: 36415; 74177; 80048; 80053; 80307; 81001; 81025; 83690; 85025; 85027; 86140; 87493; 96361; 96365; 96375; C9113; G0480; J1170; J1644; J2405; J2920; J3010; J3480; J3490; J7030; Q9967; 99285-25; G0378

== ENCOUNTER 2021-11-26 19:13 | Emergency (ER) | payer OTHER ==
[~2021-11-26] VITALS: Ht 160 cm; Wt 52.6 kg
[~2021-11-26 19:13] MED LIST changes: +HYDR2TAB31 PO; +OMEP20TA63 PO; +ZOLP5TAB PO
[2021-11-26 20:47] LABS: U PREG PATIENT NEGATIVE (NEG)
[2021-11-26] MEDS ORDERED: IV RINGERS,LACTATED 1000ML 1,000 ML IV SCH (21:30)
[2021-11-26] MEDS ORDERED: HYDROmorphone 2 MG/ML INJ. IVP ONE (21:30)
[2021-11-26 21:36] LABS: BASO # 0.1 x10^3/uL (0.0-0.2); BASO % 1 % (0-3); EOS # 0.2 x10^3/uL (0.0-0.7); EOS % 2 % (0-3); HEMATOCRIT 32.7 % (36.0-47.0); HEMOGLOBIN 10.3 g/dL (12.0-15.5); LYMPH % 20 % (24-48); MEAN CORPUSCULAR HEMOGLOBIN 24 pg (25-35); MEAN CORPUSCULAR HGB CONC 31 g/dL (31-37); MEAN CORPUSCULAR VOLUME 75 fL (79-100); MONO # 1.1 x10^3/uL (0.0-1.1); MONO % 11 % (0-9); NEUT # 6.6 x10^3/uL (1.8-7.7); NEUT % 66 % (31-73); PLATELET COUNT 783 x10^3/uL (140-400); RED BLOOD COUNT 4.37 x10^6/uL (3.50-5.40); RED CELL DISTRIBUTION WIDTH 17.1 % (11.5-14.5); WHITE BLOOD COUNT 10.1 x10^3/uL (4.0-11.0)
[2021-11-27] LABS: CALCIUM 9.9 mg/dL (8.5-10.1); CREATININE 0.8 mg/dL (0.6-1.0); GFR 99.4; POTASSIUM 3.6 mmol/L (3.5-5.1)
[2021-11-27 00:06] LABS: ALBUMIN 3.2 g/dL (3.4-5.0); ALBUMIN/GLOBULIN RATIO 0.5 (1.0-1.7); TOTAL BILIRUBIN 0.3 mg/dL (0.2-1.0); TOTAL PROTEIN 9.4 g/dL (6.4-8.2)
[2021-11-27] MEDS ORDERED: CONTRAST GIVEN. MC PRN (01:15)
[2021-11-27] MEDS ORDERED: IOHEXOL 300 MG/ML 100ML VIAL. IV ONE (01:30)
[2021-11-27] MEDS ORDERED: HYDROmorphone 2 MG/ML INJ. IVP ONE (01:30)
--- NOTE | 2021-11-27 01:48 | RAD ---
CT OF THE ABDOMEN AND PELVIS WITH IV CONTRAST. History: Reason: crohn's flare;OMNI 300,75ML / Spl. Instructions: / History: Comparison:October 08, 2021. Procedure: Contiguous axial images of the abdomen and pelvis were performed after the administration of 75 cc o f Isovue 370 IV contrast. Oral contrast: No. Findings: There is mild loss of stature of the T10 vertebral body and moderate loss of stature of the T12 verte bral body with impaction of the superior endplates. Minimal loss of stature of L1 was seen previously . There is multiple loops of small bowel which have wall thickening and enhancement. There are surgical sutures in the right. There is prior partial colectomy. The gallbladder is not seen and likely remov ed. Liver: Unremarkable Spleen: Unremarkable Pancreas: The pancreatic duct is markedly dilated and there is a cyst in the body of the pancreas jerome t measures 1.9 cm in diameter and there is significant calcifications. Adrenal Glands: Unremarkable Kidneys: Unremarkable There is no mass or lymphadenopathy. There is no free air. There is no free fluid. The urinary bladder is collapsed. Impression: 1. Wall thickening enhancement of multiple loops of small bowel suggests Crohn's disease but appears mildly improved. 2. Old L1 vertebral body compression fracture and acute T10 and T12 vertebral body compression fractu res. End Impression PQRS Compliance Statement: One or more of the following individualized dose reduction techniques were utilized for this examinat ion: 1. Automated exposure control 2. Adjustment of the mA and/or kV according to patient size 3. Use of iterative reconstruction technique Electronically signed by: Dashawn Valdez III, MD (11/27/2021 1:46 AM) [facility]
[2021-11-27 02:03] VITALS: BP 100/58
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
[2021-11-27] MEDS ORDERED: PRED20TA PO (02:39)
== END 2021-11-27 02:48 | disposition home or self-care (01) ==
LOC: ER 19:13
DX: S22.070A Wedge compression fracture of T9-T10 vertebra, initial encounter for closed fracture (principal); S22.080A Wedge compression fracture of T11-T12 vertebra, initial encounter for closed fracture; K50.90 Crohn's disease, unspecified, without complications; Z88.5 Allergy status to narcotic agent; Z88.6 Allergy status to analgesic agent; X58.XXXA Exposure to other specified factors, initial encounter; Y93.89 Activity, other specified; Y92.89 Other specified places as the place of occurrence of the external cause; Y99.8 Other external cause status
CPT/HCPCS: 36415; 74177; 80053; 81025; 83690; 85025; 85651; 86140; 96361; 96374; 96376; 99285; J1170; J7120; Q9967